=== PATIENT | female | born 1935 | race Caucasian/White ===

== ENCOUNTER 2020-07-04 14:53 | Inpatient (IN) | payer MEDICARE, SELFPAY ==
[2020-07-04 15:14] VITALS: BMI 31.8
--- NOTE | 2020-07-04 15:25 | PCM.HP.STD ---
Problem List (1) PAF (paroxysmal atrial fibrillation) Status: Acute (2) Chronic anticoagulation Status: Acute (3) Debility Status: Acute (4) Cerebrovascular accident, embolic Status: Acute Qualifiers: Laterality of affected vessel: left (5) Osteoarthritis Status: Chronic (6) Hypertension Status: Chronic (7) Keratitis Status: Chronic (8) Obesity (BMI 30.0-34.9) Status: Chronic (9) Acidosis, metabolic Status: Acute (10) Dehydration Status: Acute (11) Normochromic normocytic anemia Status: Acute (12) Acute renal failure superimposed on chronic kidney disease Status: Acute (13) Gout Status: Chronic Qualifiers: Encounter type: subsequent encounter (14) Hyperuricemia Status: Chronic History of Present Illness Date of Admission: 07/04/20 Chief Complaint: Debility secondary to left pontine embolic CVA in a patient with new onset atrial fibrillation The patient is a 85 year old F with a past medical history of osteoarthritis, gout, hypertension, keratitis, obesity and chronic renal failure. She presented to the emergency room at [facility] on 06/28/2020 complaining of vertigo. She was diagnosed with atrial fibrillation with rapid ventricular response and was treated in the emergency department with diltiazem. A CT brain showed a small chronic/subacute infarct in the right basal ganglia. No focal neurologic deficits were mentioned on the ER report. The heart rate was controlled and she was transitioned to their swing unit. Lab in the emergency room showed a sodium of 139, potassium of 4.8, BUN of 71 and a creatinine of 2.35. Hemoglobin was 12.2. She was started on Xarelto. She later developed slurred speech and her BP went up. She had an MRI of the brain on 07/04/20 that showed left pontine and focal embolic appearing left brachium pontis late acute infarctions. There was no intracranial hemorrhage or mass. There was a lacunar encephalomalacia in the right striatal capsular region. No lab was repeated after she left the ED. She had an ECHO in the emergency department that showed a 55% left ventricular ejection fraction with a mild increased wall thickness of the left ventricle. The estimated right ventricular systolic pressure was 15 and the atria were both of normal size. She was transferred to the acute inpt rehab unit at [facility] on 07/04/20 with a diagnosis of acute embolic CVA for 3 hours of therapy daily to restore hear at or near her prior level of function. Past Medical History Past Medical History (Chronic Problems): Chronic Problems Osteoarthritis (Chronic) Hypertension (Chronic) Keratitis (Chronic) Obesity (BMI 30.0-34.9) (Chronic) Gout (Chronic) Hyperuricemia (Chronic) Home Medications: Ambulatory Orders Medication Instructions Recorded Allopurinol [Zyloprim] 100 mg PO DAILYCM 07/04/20 Apixaban [Eliquis] 5 mg PO BID 07/04/20 Atenolol [Tenormin (Beta [place])] 100 mg PO BID 07/04/20 Multivitamin [Daily Multiple 1 ea PO DAILY 07/04/20 Vitamin] Valsartan [Diovan] 160 mg PO DAILY 07/04/20 Vit A/Vit C/Vit E/Zinc/Copper 1 ea PO BID 07/04/20 [Preservision Areds Softgel] Surgical History: cataract - with IOL implants, cholecystectomy, hysterectomy Psychiatric History: No pertinent psych hx 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 Denies: Anorexia, Chills, Fever, Weight Change Eyes: Reports: Vision Change HEENT: Reports: Difficulty Swallowing. Denies: Head Aches, Nasal Congestion, Sinus Congestion, Sinus Drainage, Sore Throat Cardiovascular: Denies: Chest Pain, Edema, Light Headedness, Orthopnea, Palpitations, Syncope Respiratory: Denies: Cough, Shortness of Breath, Shortness of breath at rest, Sputum production Gastrointestinal: Denies: Abdominal Pain, Constipation, Diarrhea, Nausea, Vomiting Genitourinary: Denies: Dysuria Musculoskeletal: Reports: Joint Tenderness - due to OA of the knees and the hips. Denies: Joint Pain Skin: Denies: Jaundice, Lesions, Rash, Wounds Neurological: Reports: Balance problems, Change in Speech, Slurred speech, Difficulty swallowing, Incoordination. Denies: Focal weakness, Headaches, Numbness, Tingling, Tremor, Seizures Psychiatric: Denies: Anxiety, Depression, Homicidal Ideations, Suicidal Ideations Endocrine: Denies: Hx of Irradiation Hematologic/ Lymphatic: Denies: Easy Bruising, Easy Bleeding VTE Information - Inpt Only VTE Present on Admission: No VTE Mechan Device Prophylaxis: Knee High KRYSTIAN Hose VTE Pharm Prophylaxis ordered?: No Reason prophylaxis not ordered:: Treatment Not Indicated - She is on Eliquis for atrial fibrillation Patient Problems: Active and Suspected Problems PAF (paroxysmal atrial fibrillation) (Acute) Chronic anticoagulation (Acute) Debility (Acute) Cerebrovascular accident, embolic (Acute) Acidosis, metabolic (Acute) Dehydration (Acute) Normochromic normocytic anemia (Acute) Acute renal failure superimposed on chronic kidney disease (Acute) - Physical Exam General: Alert, Oriented x3, Cooperative, No apparent distress, Well developed, Well nourished, - - Lying nearly flat in bed without any SOB HEENT: Atraumatic, PERRLA, EOMI, Normocephalic Oral: No Gingival or Mucosal Lesions/ Ulcerations, Dry Mucosa Neck: Supple, No JVD, Negative Carotid Bruits, No Nodes, No Nuchal Rigidity, Trachea Midline Lungs: Clear to auscultation, No rhonchi, No wheeze, No rales, Diminished Cardiovascular: Normal S1, Normal S2, No murmurs, No Ectopic Activity, Irregular Rate, No rub noted, No Gallop, - - heart sounds are distant Abdomen: Bowel Sounds Present, Soft, Non Tender, Non-Distended, - - No guarding with palpation. No suprapubic fullness. Extremities: No clubbing, No cyanosis, No edema, Capillary Refill Less than 3 Seconds, No Calf Tenderness, Diminished Peripheral Pulses - jose guadalupe in the legs Skin: No rashes, No breakdown Musculoskeletal: Arthritic Changes, - - no red swollen joints Neurological: - - Mild R facial droop. She has drift with the RUE but it does not hit the bed. She can lift the left leg about 3 inches off the bed but it drifts and hits the bed. Intact sensation. No ataxia. Speech is slurred. Some trouble with word finding. Psych/Mental Status: Normal Affect, Appropriate Assessment/Plan All Active Problems PAF (paroxysmal atrial fibrillation) (Acute) Chronic anticoagulation (Acute) Debility (Acute) Cerebrovascular accident, embolic (Acute) Acidosis, metabolic (Acute) Dehydration (Acute) Normochromic normocytic anemia (Acute) Acute renal failure superimposed on chronic kidney disease (Acute) Impressions 1. 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 Embolic left pontine CVA 3. Acute renal failure on chronic renal failure 4. Metabolic acidosis secondary to chronic kidney disease 5. Normochromic normocytic anemia-more likely than not secondary to chronic renal failure 6. Hyperuricemia with history of gout 7. Osteoarthritis 8. Hypertension 9. Keratitis 10. Atrial fibrillation PLAN PT for gait stability OT for ADL's ST for evaluation Bowel protocol Fall precautions Assess for Anxiety/Depression GI prophylaxis not needed at this time. She has no GI complaints and no hx of PUD. DVT prophylaxis-not necessary, patient is on Eliquis for A. fib Follow up with nephrology, Dr. Thomson and neurology following DC from IP Rehab AM lab including CMP, CBC, Mag and Phos I&O's and daily weights Get a copy of the MRI report from [facility] Request Dr. Thomson's last set of labs, problem list and med list and any consults she has ever had with a industrial organizational psychologist Encouraged her to increase her fluid intake Inpatient E&M: 17058 Init Hosp L3
--- NOTE | 2020-07-04 15:26 | PCM.RU.PYE ---
Admission Information Primary Diagnosis:: Debility secondary to recent ischemic CVA due to atrial fibrillation Status Changes from Prescreening?: Functional - she not only has the reported slurred speech she has in addition R hemiparesis, R facial droop, dysphagia and trouble word finding Actual Problem List:: Falls, Cognitve Impr/Memory Loss, Bladder Incontinence, Mobility Impaired, Self Care Deficit, Know.Dfct of Medicaitons, BP, Hypertension, Fluid Change-Dehydration, Alteration-Leisure Activ. Potential Problem List:: DVT, Bleeding, Infection, UTI, Aspiration, Falls, Skin Integrity, Depression Risk of Complications DVT: KRYSTIAN Waggoner, - - she is on Eliquis for AF Bleeding: Monitor Lab Values, Nursing to Teach Precautions for anti-coagulation therapy., Wound, if applicable, to be assessed every shift., Stroke patients assessed for lethargy or change in status. Infection: Clinical Staff to Monitor for S/S of infection:, S/S of infection include fever, redness, warmth, etc. Urinary Tract Infection: Monitor for frequency, burning, discomfort, or incontinence., Nursing will obtain urine sample for urinalysis and C&S when ordered. Aspiration: Clinical staff will monitor for coughing, drooling, congestion., Speech will evaluate swallowing and dsyphasia., Nursing will monitor patient swallowing during meals. Falls: Patient will be evaluated for Fall Precautions, Patient will be placed on Fall Precautions as indicated per protocol. Skin Breakdown: Nursing will assess skin daily using assessment tool., Nursing will place on Skin Breakdown Precautions as indicated. Pain: Clinical staff will assess patient's pain level per protocol., Medications will be given, if needed, and the pain level reassessed., Other methods: Massage, distraction, decrease stimulus, etc. used PRN. Plan of Care Patient requires physician specializing in physical medicine and rehab oversight to provide close medical supervision of rehab issues including: Pain Management, Sleep Problems, Bowel and Bladder, Medical and co-morbidity Management, DVT prophylaxis, Rehabilitation Leadership, Coordination of treatment team Patient needs Physical Therapy: For a minimum of 1 hour, At least 5 out of 7 days Patient needs Physical Therapy to improve:: Mobility, Mobility, Mobility, Strengthening, Transfers, Stretching, ROM, Endurance, Stairs, Gait, Balance Patient needs Occupational Therapy: For a minimum of 1 hour, At least 5 out of 7 days Patient needs Occupational Therapy to improve ADL's incl.: Eating, Grooming, Bathing, Dressing, Toileting, Toilet transfers, Community Reintegration, Higher functioning activities, Household tasks, Adaptive Equipment, Splinting, Other activities as determined Patient requires speech therapy: For a minimum of 1 hour, At least 5 out of 7 days Patient requires speech therapy for: Swallowing, Cognition, Language Skills, Compensatory Strategies Patient requires 24/ Rehabilitation Nursing for: Pain Issues, Identifying and preventing risk factors, Monitoring and reporting current medical conditions, Assisting with ambulation, transfer, and all ADL's, Teaching patients about disease process and medications, Family teaching, Providing safe environment, Bowel and Bladder Issues, Skin integrity, Medication Management Patient needs Section Beamer/ Case Management for: Discharge Planning, Arranging Home Equipment or Services, Family Interventions Patient needs Dietary and Nutrition Services for: Adequate Nutrition, Nutritional Supplements, Nutritional Education Goals Patient will remain: free from falls, or injury at time of discharge. Patient will perform bed mobility at: MOD I level of assist. Patient will complete transfers from bed to chair at: MOD I level of assist. Patient will ambulate: with MOD I assist, with LRD, - - 150 feet Patient will complete upper body dressing at: MOD I level of assist. Patient will complete lower body dressing at: MOD I level of assist. Patient will complete toileting at: MOD I level of assist. Patient will perform bathing at: MOD I level of assist. Patient will complete grooming at: MOD I level of assist. Patient will complete home management skills at: MOD I level of assist. Patient will achieve: at MOD I assist, - - 3 stairs Patient will have pain level of: of 3 or less Patient's skin will: remain intact, free from infection. Patient will receive: adequate nutrition. Discharge Planning Pt Prognosis for Sig. Practical Improv. w/in Reasonable Time: Good Estimated Length of stay (days): 21 Anticipated D/C Destination: Home with Home Health Was Preadmission Assessment Accurate?: No
[2020-07-04 15:34] VITALS: BP 114/49; PULSE 91; RESP 16; TEMP 37.2; O2SAT 99
[2020-07-04] MEDS: Multivitamin (Healthy Eyes) Capsule 1 CAP PO (16:49)
--- NOTE | 2020-07-04 17:00 | NURSING ---
Bedside swallow eval completed by this nurse. Patient did well with taking sips of water and no coughing noted. LCTA and checked after assessment. Patient and son agreed that she wants to be a DNRCCA no intubation. Patient verbalized understanding to call gold use.
[2020-07-04] MEDS: Acetaminophen 325 MG Tablet 650 MG PO (20:47)
[2020-07-04 21:59] VITALS: BMI 31.9
[2020-07-04 22:00] VITALS: BP 109/71; PULSE 84; RESP 16; TEMP 36.7; O2SAT 98
[2020-07-04] MEDS: Atenolol 100 MG Tablet PO (22:14)
[2020-07-04] MEDS: APIXABAN 5 MG TABLET PO (22:14)
[2020-07-04] MEDS: Menthol/Lanolin/Calamine/Znox 113 GM Tube 1 APPLIC TOPICAL (22:27)
[2020-07-04] MEDS: Nystatin Powder 15gm Bottle 1 APPLIC TOPICAL (22:50)
[2020-07-05] MEDS: Nystatin Powder 15gm Bottle 1 APPLIC TOPICAL ×2 (05:19→20:15)
[2020-07-05 05:45] LABS: Hematocrit 33.8 % (37-47); Hemoglobin 11.2 g/dL (12.0-15.0); Mean Corp Hgb Conc 33.1 g/dL (32-36); Mean Corpuscular Hgb 31.9 pg (27.0-32.0); Mean Corpuscular Volume 96.3 fL (81-99); Mean Platelet Vol. 11.8 fl (6.2-12.0); Platelet Count 155 K/mm3 (150-450); RBC Distribution Width CV 12.5 % (11.6-14.6); RBC Distribution Width SD 43.7 fl (35.1-43.9); Red Blood Count 3.51 M/mm3 (4.2-5.4); White Blood Count 9.1 K/mm3 (4.4-11.0)
[2020-07-05 06:04] LABS: ALB/GLOB Ratio 0.8 RATIO (0.9-2.4); AST(SGOT) 39 U/L (15-37); Alanine Aminotransfer ALT/SGPT 36 U/L (13-56); Albumin, Serum 2.9 g/dL (3.2-5.0); Alkaline Phosphatase 89 U/L (45-117); Anion Gap 8 (5-15); BUN 100 mg/dL (7-18); BUN/Creat Ratio 34.2 RATIO (10-20); Calcium,Total 8.9 mg/dL (8.5-10.1); Chloride 112 mmol/L (98-107); Creatinine, Serum 2.92 mg/dL (0.55-1.02); EST Glomerular Filtration Rate 16 mL/min (>60); Est Glom Filt Rate - Afr Amer 20 mL/min (>60); Estimated Creatinine Clearance 11.55 ml/min; Globulin 3.6 g/dL (2.2-4.2); Glucose 120 mg/dL (74-106); Potassium 4.2 mmol/L (3.5-5.1); Protein, Total 6.5 g/dL (6.4-8.2); Sodium Level 140 mmol/L (136-145)
[2020-07-05 07:10] VITALS: O2SAT 98
[2020-07-05] MEDS: Senna/Docusate Sodium 1 Tablet 2 TABLET PO ×2 (07:50→20:16)
[2020-07-05] MEDS: NYSTATIN 500,000 UNIT/5 ML UDC 500000 UNIT PO ×4 (07:50→20:16)
[2020-07-05] MEDS: APIXABAN 5 MG TABLET PO ×2 (07:50→20:15)
[2020-07-05] MEDS: Allopurinol 100 MG Tablet PO (07:51)
[2020-07-05] MEDS: Menthol/Lanolin/Calamine/Znox 113 GM Tube 1 APPLIC TOPICAL ×2 (07:51→20:15)
[2020-07-05] MEDS: Atenolol 100 MG Tablet PO ×2 (07:51→20:16)
[2020-07-05] MEDS: Multivitamins,Therapeutic Tablet 1 TABLET PO (07:51)
[2020-07-05] MEDS: Multivitamin (Healthy Eyes) Capsule 1 CAP PO ×2 (07:51→16:36)
[2020-07-05] MEDS: Losartan Potassium 50 MG Tablet PO (07:51)
[2020-07-05 07:55] VITALS: RESP 16; O2SAT 94
[2020-07-05 09:02] VITALS: BP 108/7; PULSE 76; RESP 16; TEMP 36.7; O2SAT 94
[2020-07-05] MEDS: Acetaminophen 325 MG Tablet 650 MG PO ×2 (10:40→23:32)
--- NOTE | 2020-07-05 12:51 | CASEMGMT ---
Social Work Completed PHQ-9. Scored 0. Tuyet Silva, SKIN DIVER SKIP LOCATOR
[2020-07-05] MEDS: 0.9% Saline Lock 10 ML Syringe IV (14:57)
[2020-07-05 15:24] LABS: Phosphorus 4.7 mg/dL (2.5-4.9)
[2020-07-05] MEDS: 0.9% Normal Saline 1,000 ML 75 ML IV (16:02)
[2020-07-05 22:00] VITALS: BP 105/53; PULSE 85; RESP 16; TEMP 36.8; O2SAT 96
[2020-07-06] MEDS: 0.9% Normal Saline 1,000 ML 75 ML IV ×2 (05:45→19:05)
[2020-07-06] MEDS: Nystatin Powder 15gm Bottle 1 APPLIC TOPICAL ×2 (05:50→21:55)
[2020-07-06 06:08] LABS: Anion Gap 7 (5-15); BUN 98 mg/dL (7-18); BUN/Creat Ratio 33.6 RATIO (10-20); Calcium,Total 8.5 mg/dL (8.5-10.1); Chloride 115 mmol/L (98-107); Creatinine, Serum 2.92 mg/dL (0.55-1.02); EST Glomerular Filtration Rate 16 mL/min (>60); Est Glom Filt Rate - Afr Amer 20 mL/min (>60); Estimated Creatinine Clearance 11.55 ml/min; Glucose 100 mg/dL (74-106); Potassium 4.2 mmol/L (3.5-5.1); Sodium Level 142 mmol/L (136-145)
[2020-07-06] MEDS: Multivitamin (Healthy Eyes) Capsule 1 CAP PO ×2 (08:10→17:44)
[2020-07-06] MEDS: Allopurinol 100 MG Tablet PO (08:11)
[2020-07-06] MEDS: Sodium Bicarbonate 650 MG Tablet PO ×2 (08:11→08:13)
[2020-07-06] MEDS: Menthol/Lanolin/Calamine/Znox 113 GM Tube 1 APPLIC TOPICAL ×2 (08:12→21:54)
[2020-07-06] MEDS: Multivitamins,Therapeutic Tablet 1 TABLET PO (08:12)
[2020-07-06] MEDS: Losartan Potassium 50 MG Tablet PO (08:12)
[2020-07-06] MEDS: APIXABAN 5 MG TABLET PO ×2 (08:12→21:54)
[2020-07-06] MEDS: NYSTATIN 500,000 UNIT/5 ML UDC 500000 UNIT PO ×4 (08:13→21:55)
[2020-07-06] MEDS: Atenolol 100 MG Tablet PO ×2 (08:14→21:55)
[2020-07-06 08:27] LABS: Hemoglobin A1c 5.7 % (3.8-5.6)
--- NOTE | 2020-07-06 09:30 | PCM.PN.BLA ---
Progress Note Afebrile since admission Blood pressures have ranged from 105/53-114/49. Heart rate is within normal limits. She is maintaining appropriate oxygen saturation on room air. Intake and output are not accurate. Patient is sometimes incontinent of urine. I reviewed the PT/ST/OT notes. Diet was downgraded due to dysphagia. All lab was personally reviewed. Sodium today is 142 with a potassium of 4.2. BUN is 98, down from 100 yesterday and the creatinine remains stable at 2.92. Serum bicarb is 20. Hemoglobin A1c is 5.7. Creat on 06/28/20 was 2.35. She has never seen a enrollment management director. Tells me that the R side weakness has been there only a few days and that her R leg was giving out. Prior to recent hospital admission she was driving, active in the community, independent with ADL's and managing her medication and finances. Denies SOB today and also denies chest pain or palpitations. Denies nausea, denies cephalgia. Speech seems a little more intelligible today. MM are more moist, the tongus is coated with adherent white yellow DC and she is complaining her tongue is sore No JVD Lungs are CTA anterior and lateral and she has no coughing with deep breaths. No conversational dyspnea, not tachypneic and no accessory muscle use Heart-irregular irregular rhythm with controlled ventricular response, no pericardial friction rub, no murmur, no gallop, heart sounds are somewhat distant No peripheral edema, no calf tenderness No significant change in neuro exam today - still with R side weakness, mild R facial droop and mild dysarthria Impressions 1. Acute on chronic renal failure - We are awaiting the records from Dr. Thomson to see what her baseline CREAT is. I suspect she had ARF in the ED at [place] on 06/28/20 due to atrial fibrillation with rapid ventricular response 2. Atrial fibrillation-rate controlled with atenolol 100 mg twice daily 3. History of hyperuricemia and gout-uric acid level is pending 4. Mild metabolic acidosis likely secondary to renal failure 5. Thrush-she is on nystatin swish and swallow 6. Chronic anticoagulation with Eliquis-was previously placed on Xarelto at [facility] 7. Hypertension-controlled 8. Dehydration-mucous primaries are now more moist since IV fluids have started. Continue to monitor closely for signs of fluid overload. Strict intake and output-this will be challenging because the patient has some dribbling of urine. Post void residuals are minimal and less than [address] Zenaida Barragan for nephrology consult recheck an HH and renal profile in the AM Await the most recent labs from Dr. Thomson's office Continue to hydrate. DC the ARB HCTZ was discontinued at admission Check a Hemoccult stool Continue [facility] Inpatient E&M: 60494 Subs Hosp L2
[2020-07-06 10:00] VITALS: BP 138/61; PULSE 82; RESP 16; TEMP 36.9; O2SAT 96
[2020-07-06 11:45] LABS: Uric Acid 7.8 mg/dL (2.6-6.0)
--- NOTE | 2020-07-06 12:31 | PCM.CONS.R ---
Consultation - Renal 07/06/20 PCP/ Referring MD: Requesting physician: Gillian Hsu DO Primary care physician: Reason for Consultation:: ENRIQUE on CKD - History of Present Illness History of Present Illness: The patient is a 85 year old right handed F with past medical history of osteoarthritis, gout, hypertension, and chronic renal failure admitted to on 07/04/20 for rehab following hospitalization at [facility] on 06/28/2020 for stroke. She presented with complaints of vertigo with new onset afib with rvr. She was on on anticoagulation at home. CT brain showed a small chronic/subacute infarct in the right basal ganglia. She has right sided weakness with history of dysarthria and facial droop. She had an MRI of the brain on 07/04/20 that showed left pontine and focal embolic appearing left brachium pontis late acute infarctions. There was no intracranial hemorrhage or mass. There was a lacunar encephalomalacia in the right striatal capsular region. She was started on Xarelto. Labs in the emergency room showed a sodium of 139, potassium of 4.8, BUN of 71 and a creatinine of 2.35. Hemoglobin was 12.2. Creatinine on admission to was 2.9 and was started on iv fluids for dehydration. Her ARB therapy for hypertension was held due to rise in creatinine. She denies trouble swallowing. She complains of thirst. Denies urinary complaints. Never been told she had kidney problems or been seen by a pouch maker in the past. Denies diabetes, heart disease, prior strokes, cancer. - Allergies Allergies: Allergies amlodipine [From Norvasc] Adverse Reaction (Verified 07/04/20 16:03) PT UNSURE OF REACTION amoxicillin [From Augmentin] Adverse Reaction (Verified 07/04/20 17:59) PT UNSURE OF REACTION clavulanic acid [From Augmentin] Adverse Reaction (Verified 07/04/20 17:59) PT UNSURE OF REACTION diphtheria, pertussis, tetanus vacc Adverse Reaction (Verified 07/04/20 16:03) PT UNSURE OF REACTION hydrochlorothiazide [From Maxzide] Adverse Reaction (Verified 07/04/20 16:03) PT UNSURE OF REACTION lisinopril Adverse Reaction (Verified 07/04/20 16:03) PT UNSURE OF REACTION Sulfa (Sulfonamide Antibiotics) Adverse Reaction (Verified 07/04/20 16:03) PT UNSURE OF REACTION triamterene [From Maxzide] Adverse Reaction (Verified 07/04/20 16:03) PT UNSURE OF REACTION - Current Medications Current Medications: Current Medications Acetaminophen (Tylenol) 650 mg PO Q6H PRN PRN PRN Reason: Pain Score 1-10/10 Last Admin: 07/05/20 23:32 Dose: 650 mg Documented by: [facility] Last Admin: 07/06/20 08:11 Dose: 100 mg Documented by: Apixaban (Eliquis) 5 mg PO BID [facility] Last Admin: 07/06/20 08:12 Dose: 5 mg Documented by: Atenolol (Tenormin (Beta [place])) 100 mg PO BID [facility] Last Admin: 07/06/20 08:14 Dose: 100 mg Documented by: Bisacodyl (Dulcolax) 10 mg RECTAL .PRN X 1 PRN PRN Reason: Constipation Calamine/Phenol (Calmoseptine Ointment) 1 applic TOPICAL BID [facility]; Protocol Last Admin: 07/06/20 08:12 Dose: 1 applicatio Documented by: Sodium Chloride () 1,000 mls @ 75 mls/hr IV .[id number] [facility] Last Admin: 07/06/20 05:45 Dose: 75 mls/hr Documented by: Magnesium Hydroxide (Milk Of Magnesia) 30 ml PO .PRN X 1 PRN PRN Reason: Constipation Multivitamins (Multivitamin) 1 tablet PO DAILY@0800 [facility] Last Admin: 07/06/20 08:12 Dose: 1 tablet Documented by: Multivitamins/Minerals (Healthy Eyes (Bkc)) [facility] Last Admin: 07/06/20 08:10 Dose: 1 capsule Documented by: Nystatin (Mycostatin Powder) 1 applic TOPICAL BID@0600,2200 [facility]; Protocol Last Admin: 07/06/20 05:50 Dose: 1 applicatio Documented by: Nystatin (Nystatin) 500,000 unit PO 4X/DAY [facility] Last Admin: 07/06/20 08:13 Dose: 500,000 unit Documented by: Senna/Docusate Sodium (Senokot-S, Shefali-Colace) 2 tablet PO BID [facility] Last Admin: 07/06/20 08:14 Dose: Not Given Documented by: Sodium Bicarbonate (Sodium Bicarbonate) 650 mg PO DAILY [facility] Last Admin: 07/06/20 08:13 Dose: 650 mg Documented by: Sodium Chloride () 10 - 40 ml IV UD PRN PRN Reason: SALINE FLUSH Last Admin: 07/05/20 14:57 Dose: 10 ml Documented by: Sodium Chloride () 10 - 40 ml IV UD PRN PRN Reason: SALINE FLUSH - Past Medical History Past Medical History (Chronic Problems): Chronic Problems Osteoarthritis (Chronic) Hypertension (Chronic) Keratitis (Chronic) Obesity (BMI 30.0-34.9) (Chronic) Gout (Chronic) Hyperuricemia (Chronic) - Past Surgical History Surgical History: cataract - with IOL implants, cholecystectomy, hysterectomy - Social History Smoking Status: Never smoker Alcohol: None Drugs: None - Family History Maternal History Items: Hypertension, Stroke Paternal History Items: Cancer, Pulmonary Disease, Stroke Sibling History Items: Cancer, Diabetes, Heart Disease, Stroke Offspring History Items: Stroke - in her daughter Review of Systems Constitutional: Reports: Weakness - right sided from recent stroke. Denies: Anorexia, Chills, Fever Eyes: Denies: Vision Change HEENT: Denies: Head Aches Cardiovascular: Denies: Chest Pain Respiratory: Denies: Cough, Shortness of Breath Gastrointestinal: Reports: - - thirst. Denies: Abdominal Pain, Constipation, Diarrhea, Nausea, Vomiting Musculoskeletal: Reports: - - no edema, - - right sided muscle weakness Skin: Denies: Rash Neurological: Reports: Balance problems, Focal weakness - right hemiplegia. Denies: Numbness Psychiatric: Denies: Anxiety Endocrine: Denies: Change in Body Habitus Hematologic/ Lymphatic: Denies: Hx of blood clot Patient Problems: Active and Suspected Problems PAF (paroxysmal atrial fibrillation) (Acute) Chronic anticoagulation (Acute) Debility (Acute) Cerebrovascular accident, embolic (Acute) Acidosis, metabolic (Acute) Dehydration (Acute) Normochromic normocytic anemia (Acute) Acute renal failure superimposed on chronic kidney disease (Acute) - Physical Exam Vitals/I&O's: Vital Signs Temp Pulse Resp BP Pulse Ox 98.4 F 82 16 138/61 H 96 07/06/20 10:00 07/06/20 10:00 07/06/20 10:00 07/06/20 10:00 07/06/20 10:00 Oxygen Delivery Method Room Air Weight: 78.5 kg Body Mass Index (BMI) 31.8 Intake and Output for Last 24 Hours 07/04/20 07/05/20 07/06/20 23:59 23:59 23:59 Intake Total 360 / 360 600 / 600 1360 / 1360 Output Total 450 / 450 Balance 360 / 360 150 / 150 1360 / 1360 General: Alert, Oriented x3, Cooperative, No apparent distress HEENT: PERRLA, EOMI Oral: Dry Mucosa Neck: Supple Lungs: Clear to auscultation Cardiovascular: Irregular Rate - new onset afib Abdomen: Bowel Sounds Present, Soft, Non Tender, Non-Distended Extremities: No edema Musculoskeletal: No Muscle Wasting Neurological: - - mild right sided weakness, 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 Psych/Mental Status: Alert and oriented to time, place, person, mood and affect Laboratory Results 07/05/20 05:30: Phosphorus 4.7, Magnesium 2.0 07/06/20 05:25: Sodium 142, Potassium 4.2, Chloride 115 H, Carbon Dioxide 20.0 L, Anion Gap 7, BUN 98 H, Creatinine 2.92 H, Estim Creat Clear Calc 11.55, Est GFR (MDRD) Af Amer 20 L, Est GFR (MDRD) Non-Af 16 L, BUN/Creatinine Ratio 33.6 H, Glucose 100, Calcium 8.5 07/06/20 05:25: Hemoglobin A1c 5.7 H 07/06/20 05:25: Uric Acid 7.8 H Current Medications Acetaminophen (Tylenol) 650 mg PO Q6H PRN PRN PRN Reason: Pain Score 1-10/10 Last Admin: 07/05/20 23:32 Dose: 650 mg Documented by: [facility]) [facility] Last Admin: 07/06/20 08:11 Dose: 100 mg Documented by: Apixaban (Eliquis) 5 mg PO BID [facility] Last Admin: 07/06/20 08:12 Dose: 5 mg Documented by: Atenolol (Tenormin (Beta [place])) 100 mg PO BID [facility] Last Admin: 07/06/20 08:14 Dose: 100 mg Documented by: Bisacodyl (Dulcolax) 10 mg RECTAL .PRN X 1 PRN PRN Reason: Constipation Calamine/Phenol (Calmoseptine Ointment) 1 applic TOPICAL BID [facility]; Protocol Last Admin: 07/06/20 08:12 Dose: 1 applicatio Documented by: Sodium Chloride () 1,000 mls @ 75 mls/hr IV .[id number] [facility] Last Admin: 07/06/20 05:45 Dose: 75 mls/hr Documented by: Magnesium Hydroxide (Milk Of Magnesia) 30 ml PO .PRN X 1 PRN PRN Reason: Constipation Multivitamins (Multivitamin) 1 tablet PO DAILY@0800 [facility] Last Admin: 07/06/20 08:12 Dose: 1 tablet Documented by: Multivitamins/Minerals (Healthy Eyes (Bkc)) 1 capsule PO BIDCM [facility] Last Admin: 07/06/20 08:10 Dose: 1 capsule Documented by: Nystatin (Mycostatin Powder) 1 applic TOPICAL BID@0600,2200 [facility]; Protocol Last Admin: 07/06/20 05:50 Dose: 1 applicatio Documented by: Nystatin (Nystatin) 500,000 unit PO 4X/DAY [facility] Last Admin: 07/06/20 08:13 Dose: 500,000 unit Documented by: Senna/Docusate Sodium (Senokot-S, Shefali-Colace) 2 tablet PO BID [facility] Last Admin: 07/06/20 08:14 Dose: Not Given Documented by: Sodium Bicarbonate (Sodium Bicarbonate) 650 mg PO DAILY [facility] Last Admin: 07/06/20 08:13 Dose: 650 mg Documented by: Sodium Chloride () 10 - 40 ml IV UD PRN PRN Reason: SALINE FLUSH Last Admin: 07/05/20 14:57 Dose: 10 ml Documented by: Sodium Chloride () 10 - 40 ml IV UD PRN PRN Reason: SALINE FLUSH Assessment/Plan All Active Problems PAF (paroxysmal atrial fibrillation) (Acute) Chronic anticoagulation (Acute) Debility (Acute) Cerebrovascular accident, embolic (Acute) Acidosis, metabolic (Acute) Dehydration (Acute) Normochromic normocytic anemia (Acute) Acute renal failure superimposed on chronic kidney disease (Acute) 1. Acute on CKD stage 4. Creatinine 2.9 with unknown baseline. Continue with iv fluids. Check renal US, urine sodium, creatinine, protein. May have underlying CKD from nephrosclerosis. No history of diabetes 2. Acute stroke with right sided weakness, RU 3. New onset afib 4. HTN stable BP 5. hyperuricemia on allopurinol 6. Mild metabolic acidosis likely due to CKD
--- NOTE | 2020-07-06 14:05 | US_ITS ---
STUDY: RENAL ULTRASOUND - COMPLETE REASON FOR EXAM: Female, 85 years old. RENAL FAILURE TECHNIQUE: Ultrasound evaluation of the kidneys was performed with real-time and static parra-scale imaging. COMPARISON: None. FINDINGS: RIGHT KIDNEY: Normal location of the right kidney, which is normal in size. The right kidney measures 10.1 x 3.7 x 3.9 cm. There is a thin cortex of the right kidney. The renal cortex measures 0.6 cm. There are multiple renal cysts the largest measuring 7 x 6.7 x 9.8 cm There are no right renal calculi. There is no right hydronephrosis. DISTAL RIGHT URETER: There is non-visualization of the distal right ureter. There is no demonstrated right ureterovesical junction calculus. There is a visualized right ureteral jet. LEFT KIDNEY: Normal location of the left kidney, which is normal in size. The left kidney measures 9.3 x 4 x 3.8 cm. There is a thin cortex of the left kidney. The renal cortex measures 0.7 cm. There are multiple cysts the largest measuring 2.1 x 2.9 x 1.5 cm. There are no left renal calculi. There is no left hydronephrosis. Diffusely increased cortical echoes are seen consistent with nonspecific renal parenchymal disease DISTAL LEFT URETER: There is non-visualization of the distal left ureter. There is no demonstrated left ureterovesical junction calculus. There is a visualized left ureteral jet. BLADDER: The distended urinary bladder has a volume of 83.34 ml.. There is a normal wall thickness of the distended urinary bladder. There is no demonstrated mass within the urinary bladder. There are no demonstrated bladder calculi. US/Kidney and Bladder IMPRESSION: Nonspecific renal parenchymal disease and multiple bilateral cysts Electronically Signed: Jayy Duncan MD at 22:46 EDT , Service support ,
[2020-07-06 15:15] LABS: Mucous, Urine 0 SEEN /hpf (<or=2+); Red Blood Cells-Urine 0 SEEN /hpf (0-5); Squamous Epithelial Cells - UA 0 SEEN /hpf (5-10)
[2020-07-06 15:32] LABS: Color, Urine Yellow (Yellow); Glucose, Dipstick Normal (Normal); Ketone-Dipstick Negative (Negative); Leukocyte Esterase-Dipstick 100 /ul (Negative); Nitrite-Dipstick Negative (Negative); Occult Blood-Urine Negative /ul (Negative); Protein-Dipstick 30 mg/dl (Negative); Urine Bilirubin Dipstick Negative (Negative); Urine Clarity Clear (Clear); Urine Urobilinogen Normal (Normal); Urine pH 6.5 (5.0 - 8.0)
[2020-07-06 15:39] LABS: Bacteria 2+ /hpf (None Seen); White Blood Cells 0-5 SEEN /hpf (0-5)
[2020-07-06 15:47] VITALS: BP 122/60; BP 129/69; BP 130/73; PULSE 72; PULSE 82; PULSE 85
[2020-07-06 15:48] LABS: Urine Sodium 70 mmol/L (Not Establ.)
[2020-07-06 16:05] LABS: Protein, Urine (Random) 29.1 mg/dL (<11.9); Protein:Creat Ratio 318 mg/g CRE (0-200)
[2020-07-06 20:30] VITALS: BMI 31.8
[2020-07-06 22:00] VITALS: BP 108/56; PULSE 76; RESP 16; TEMP 36.6; O2SAT 93; O2SAT 95
[2020-07-07 06:03] LABS: Hematocrit 30.2 % (37-47); Hemoglobin 9.9 g/dL (12.0-15.0)
[2020-07-07 06:20] VITALS: O2SAT 97
[2020-07-07] MEDS: Nystatin Powder 15gm Bottle 1 APPLIC TOPICAL ×2 (06:50→21:42)
[2020-07-07 07:32] LABS: Albumin, Serum 2.5 g/dL (3.2-5.0); BUN 83 mg/dL (7-18); BUN/Creat Ratio 33.5 RATIO (10-20); Calcium,Total 8.6 mg/dL (8.5-10.1); Chloride 119 mmol/L (98-107); Creatinine, Serum 2.48 mg/dL (0.55-1.02); EST Glomerular Filtration Rate 20 mL/min (>60); Est Glom Filt Rate - Afr Amer 24 mL/min (>60); Estimated Creatinine Clearance 13.59 ml/min; Glucose 94 mg/dL (74-106); Phosphorus 4.3 mg/dL (2.5-4.9); Potassium 4.5 mmol/L (3.5-5.1); Sodium Level 146 mmol/L (136-145)
[2020-07-07] MEDS: Multivitamin (Healthy Eyes) Capsule 1 CAP PO ×2 (07:47)
[2020-07-07] MEDS: Atenolol 100 MG Tablet PO ×2 (07:47→21:42)
[2020-07-07] MEDS: Allopurinol 100 MG Tablet PO (07:47)
[2020-07-07] MEDS: Multivitamins,Therapeutic Tablet 1 TABLET PO (07:47)
[2020-07-07] MEDS: Menthol/Lanolin/Calamine/Znox 113 GM Tube 1 APPLIC TOPICAL ×2 (07:48→21:43)
[2020-07-07] MEDS: APIXABAN 5 MG TABLET PO ×2 (07:48→21:42)
[2020-07-07] MEDS: NYSTATIN 500,000 UNIT/5 ML UDC 500000 UNIT PO ×4 (07:48→21:44)
[2020-07-07 09:43] VITALS: BP 112/60; PULSE 72; RESP 16; TEMP 36.6; O2SAT 93
[2020-07-07] MEDS: 0.45% Normal Saline 1,000 ML 75 ML IV (10:21)
[2020-07-07] MEDS: Sodium Bicarbonate 650 MG Tablet PO ×2 (10:22→21:42)
--- NOTE | 2020-07-07 10:25 | CASEMGMT ---
Social Work IDT met with patient and son for Team meeting. Discussed patient's progress in therapy. Pt is mod-max for sit to stands, max for SPT, trialed hemiwalker but doing better with FWW. Ambulating 20 ft mond-min, PT to start working on mechanics of walking and tx soon. Pt is max for bathing total for LE dressing, max for UE dressing, and OT will work on writing. ST working on swallowing, cognition and dysarthria. Pt is on a [facility] soft, thickened liquid diet. Pt having issues with attention, memory, word finding, numerical processing. Pt is receiving IV fluids. Nursing is monitoring weight and orthostatic BPs. Nursing DC'd [place], but pt does fatigue in the evening. Explained [employer] insurance with [employer] 07/11, approved to 07/13, and pt must continue to make progress. The goal is for pt to return home at [facility]. Will Reteam next week. Will continue to follow. Tuyet Silva, REMI HADOOP ADMINISTRATOR
--- NOTE | 2020-07-07 11:12 | PN.RENAL_ITS ---
Patient Problems: Active and Suspected Problems PAF (paroxysmal atrial fibrillation) (Acute) Chronic anticoagulation (Acute) Debility (Acute) Cerebrovascular accident, embolic (Acute) Acidosis, metabolic (Acute) Dehydration (Acute) Normochromic normocytic anemia (Acute) Acute renal failure superimposed on chronic kidney disease (Acute) Subjective: doing well, no complaints of SOB. Complains of water not tasting good. Creatinine improved to 2.4. Sodium elevated at 146. Spoke with pt son Satnam at bedside - Physical Exam Vitals/I&O's: Vital Signs Temp Pulse Resp BP Pulse Ox 97.8 F 72 16 112/60 93 07/07/20 09:43 07/07/20 09:43 07/07/20 09:43 07/07/20 09:43 07/07/20 09:43 Oxygen Delivery Method Room Air Weight: 80.286 kg Body Mass Index (BMI) 31.8 Orthostatic Vital Signs Start: 07/06/20 15:47 Freq: q24h Status: Active Protocol: Activity Type Activity Date Activity User E-Sign Co-Sign Detail Recorded Client Recorded Date Recorded By Document 07/06/20 15:47 AG [id number] 07/06/20 15:49 AG 07/06/20 15:47 Orthostatic Vitals Standing -Blood Pressure (90/60-120/80) 130/73 H -Extremity Use Right Arm -Pulse Rate (60-100) 82 Sitting -Blood Pressure (90/60-120/80) 129/69 H -Extremity Use Right Arm -Pulse Rate (60-100) 72 Lying -Blood Pressure (90/60-120/80) 122/60 H -Extremity Use Right Arm -Pulse Rate (60-100) 85 Intake and Output for Last 24 Hours 07/05/20 07/06/20 07/07/20 23:59 23:59 23:59 Intake Total 600 / 600 2480 / 2480 1300 / 1300 Output Total 450 / 450 500 / 500 750 / 750 Balance 150 / 150 1979 / 1979 550 / 550 General: Alert, Oriented x3, Cooperative Lungs: Clear to auscultation Extremities: No edema Microbiology Past 72 Hours 07/06/20 06:55 Stool Stool Occult Blood (CARLOS) - Final Occult Blood Positive Laboratory Results 07/06/20 05:25: Uric Acid 7.8 H 07/06/20 14:10: Urine Creatinine 93.10 07/06/20 14:10: U Random Total Protein 29.1 H, Urine Creatinine 91.50, Protein/Creatinin Ratio 318 H 07/06/20 14:10: Urine Color Yellow, Urine Clarity Clear, Urine pH 6.5, Ur Specific Crescent 1.010, Urine Protein 30 H, Urine Glucose (UA) Normal, Urine Ketones Negative, Urine Occult Blood Negative, Urine Nitrite Negative, Urine Bilirubin Negative, Urine Urobilinogen Normal, Ur Leukocyte Esterase 100 H, Urine RBC 0 SEEN, Urine WBC 0-5 SEEN, Ur Squamous Epith Cells 0 SEEN, Urine Bacteria 2+, Urine Mucus 0 SEEN 07/06/20 14:10: Ur Random Sodium 70 07/07/20 05:35: Hgb 9.9 L, Hct 30.2 L 07/07/20 05:35: Sodium 146 H, Potassium 4.5, Chloride 119 H, Carbon Dioxide 17.0 L, BUN 83 H, Creatinine 2.48 H, Estim Creat Clear Calc 13.59, Est GFR (MDRD) Af Amer 24 L, Est GFR (MDRD) Non-Af 20 L, BUN/Creatinine Ratio 33.5 H, Glucose 94, Calcium 8.6, Phosphorus 4.3, Albumin 2.5 L Current Medications Acetaminophen (Tylenol) 650 mg PO Q6H PRN PRN PRN Reason: Pain Score 1-10/10 Last Admin: 07/05/20 23:32 Dose: 650 mg Documented by: [facility]) [facility] Last Admin: 07/07/20 07:47 Dose: 100 mg Documented by: Apixaban (Eliquis) 5 mg PO BID [facility] Last Admin: 07/07/20 07:48 Dose: 5 mg Documented by: Atenolol (Tenormin (Beta [place])) 100 mg PO BID [facility] Last Admin: 07/07/20 07:47 Dose: 100 mg Documented by: Bisacodyl (Dulcolax) 10 mg RECTAL .PRN X 1 PRN PRN Reason: Constipation Calamine/Phenol (Calmoseptine Ointment) 1 applic TOPICAL BID [facility]; Protocol Last Admin: 07/07/20 07:48 Dose: 1 applicatio Documented by: Sodium Chloride () 1,000 mls @ 75 mls/hr IV .[id number] [facility] Last Admin: 07/07/20 10:21 Dose: 75 mls/hr Documented by: Magnesium Hydroxide (Milk Of Magnesia) 30 ml PO .PRN X 1 PRN PRN Reason: Constipation Multivitamins (Multivitamin) 1 tablet PO DAILY@0800 [facility] Last Admin: 07/07/20 07:47 Dose: 1 tablet Documented by: Multivitamins/Minerals (Healthy Eyes (Bkc)) 1 capsule PO BIDCM [facility] Last Admin: 07/07/20 07:47 Dose: 1 capsule Documented by: Nystatin (Mycostatin Powder) 1 applic TOPICAL BID@0600,2200 [facility]; Protocol Last Admin: 07/07/20 06:50 Dose: 1 applicatio Documented by: Nystatin (Nystatin) 500,000 unit PO 4X/DAY [facility] Last Admin: 07/07/20 07:48 Dose: 500,000 unit Documented by: Senna/Docusate Sodium (Senokot-S, Shefali-Colace) 2 tablet PO BID [facility] Last Admin: 07/07/20 07:48 Dose: Not Given Documented by: Sodium Bicarbonate (Sodium Bicarbonate) 650 mg PO BID [facility] Last Admin: 07/07/20 10:22 Dose: 650 mg Documented by: Sodium Chloride () 10 - 40 ml IV UD PRN PRN Reason: SALINE FLUSH Last Admin: 07/05/20 14:57 Dose: 10 ml Documented by: Sodium Chloride () 10 - 40 ml IV UD PRN PRN Reason: SALINE FLUSH Medical Necessity - Tobacco Use Smoking Status: Never smoker Tobacco Use: Non-smoker Assessment/Plan All Active Problems PAF (paroxysmal atrial fibrillation) (Acute) Chronic anticoagulation (Acute) Debility (Acute) Cerebrovascular accident, embolic (Acute) Acidosis, metabolic (Acute) Dehydration (Acute) Normochromic normocytic anemia (Acute) Acute renal failure superimposed on chronic kidney disease (Acute) 1. Acute on CKD stage 4. Creatinine improved from 2.9 to 2.48 with iv hydration. Renal US with multiple bilateral renal cysts. Unknown FH for PCKD. 2. Acute stroke with right sided weakness, Rehab 3. hypernatremia suggest switch to 1/2NS 4. HTN stable BP 5. metabolic acidosis on bicarb tabs
[2020-07-07 14:30] VITALS: BMI 31.8
--- NOTE | 2020-07-07 15:14 | PN_ITS ---
Progress Note So was seen on team rounds today and her son Satnam was present. Afebrile VSS Maintaining appropriate oxygen saturation on RA Oral intake is fair Discussed with nursing - no problems that need addressed Reviewed the PT/OT/ST notes Medication list reviewed. All lab was personally reviewed. Creat is down to 2.48 with IV fluids. I appreciate 's input. She denies chest pain, cephalgia, shortness of breath, N/V, abdominal pain, constipation, dysuria. MM are dry still. No mucosal lesions Lungs -clear to auscultation, not tachypneic Heart-irregular with controlled ventricular response, no gallop Abdomen-soft, nontender, nondistended, normal bowel sounds, no guarding with palpation No peripheral edema, no calf tenderness No rashes, no skin breakdown Neuro-persistent right-sided weakness with right facial droop. No significant change. Impressions 1. Post stroke debility 2. Atrial fibrillation- rate controlled with Atenolol 100 mg BID 3. Chronic anticoagulation recently started-she has been transitioned to Eliquis from Xarelto due to renal failure 4. Dehydration 5. Normochromic normocytic anemia-suspect secondary to chronic renal failure- she denies ever having seen a seedling sorter 6. acute renal failure on CRF stage 4 Continue the IV fluids. MM are still dry and her lungs are clear with no peripheral edema. Recheck lab in the AM. Will need to follow up with nephrology after DC Continue therapy. Inpatient E&M: [id number] [facility] L[facility]
--- NOTE | 2020-07-07 16:30 | CHAPLAIN ---
Type of Pastoral Visit _x__ Initial Visit ___ Follow-up Visit ___ On-call Visit ___ General Patient Visit ___ Spiritual Assessment ___ Family Conference ___ Bereavement ___ Rapid Response ___ Code Blue ___ Other (describe below) Pastoral Care Referral From _x__ Patient ___ Family _x__ Nurse ___ Physician ___ Live Truck Technician ___ Change Management Administrator ___ Other (describe below) Sacrament/Intervention _x__ Active listening ___ Anointing ___ Gnosticism ___ Bereavement ___ Communion _x__ Radha exploration ___ _x__ Life review _x__ Prayer ___ Reconciliation ___ Sacrament of Sick _x__ Supportive presence ___ Wedding ___ Other (describe below) Pastoral Comments patient welcoming and willing to talk; pt describes new limits in walking, use of arm, and speech; pt believes some improvement has happened and she is working on getting better; pt lives with her son; pt had been active in her shinto until COVID and looks to her radha for support; pt discussed a significant dream of spiritual nature with this artificial marble worker; pt welcomes presence, prayer, and future visits; pt goal is simply to get home again
[2020-07-07 19:20] VITALS: BP 119/66; PULSE 82; RESP 16; TEMP 36.7; O2SAT 98
[2020-07-07 21:55] VITALS: BMI 31.8
[2020-07-07 22:00] VITALS: RESP 17; O2SAT 97
[2020-07-07] MEDS: Acetaminophen 325 MG Tablet 650 MG PO (22:46)
[2020-07-08] MEDS: 0.45% Normal Saline 1,000 ML 75 ML IV ×2 (01:51→12:01)
[2020-07-08] MEDS: Nystatin Powder 15gm Bottle 1 APPLIC TOPICAL ×2 (05:18→22:02)
[2020-07-08 09:01] VITALS: BP 115/64; PULSE 79; RESP 16; TEMP 36.6; O2SAT 93
[2020-07-08 09:41] LABS: Anion Gap 5 (5-15); BUN 72 mg/dL (7-18); BUN/Creat Ratio 29.6 RATIO (10-20); Calcium,Total 8.6 mg/dL (8.5-10.1); Chloride 118 mmol/L (98-107); Creatinine, Serum 2.43 mg/dL (0.55-1.02); EST Glomerular Filtration Rate 20 mL/min (>60); Est Glom Filt Rate - Afr Amer 24 mL/min (>60); Estimated Creatinine Clearance 13.87 ml/min; Glucose 126 mg/dL (74-106); Potassium 4.2 mmol/L (3.5-5.1); Sodium Level 145 mmol/L (136-145)
[2020-07-08] MEDS: Allopurinol 100 MG Tablet PO (09:48)
[2020-07-08] MEDS: Multivitamin (Healthy Eyes) Capsule 1 CAP PO ×2 (09:48→16:59)
[2020-07-08] MEDS: APIXABAN 5 MG TABLET PO ×2 (09:48→22:02)
[2020-07-08] MEDS: Atenolol 100 MG Tablet PO ×2 (09:48→22:01)
[2020-07-08] MEDS: Multivitamins,Therapeutic Tablet 1 TABLET PO (09:48)
[2020-07-08] MEDS: Sodium Bicarbonate 650 MG Tablet PO ×2 (09:49→22:02)
[2020-07-08] MEDS: NYSTATIN 500,000 UNIT/5 ML UDC 500000 UNIT PO ×4 (09:49→22:02)
[2020-07-08] MEDS: Menthol/Lanolin/Calamine/Znox 113 GM Tube 1 APPLIC TOPICAL ×2 (10:01→22:02)
--- NOTE | 2020-07-08 10:27 | PCM.PN.BLA ---
Progress Note Afebrile since admission Vital signs are stable She is maintaining appropriate oxygen saturation on room air Oral intake remains poor Weight at admission was 173 pounds and 1 ounce and today is 176 pounds and 6 ounces following hydration. No symptoms of CHF. Last stool was 07/07/2020 Med list was reviewed. PT/ST/OT notes were reviewed. All lab was personally reviewed. Sodium is 145 today and the chloride is 118. Serum bicarb is 22 and the BUN is down to 72 from 100 on 07/05/2020. Creatinine is 2.43. Fasting glucose is mildly increased at 126 however the hemoglobin A1c this admission was 5.7. Calcium is within normal limits. She is leaning heavily to the left and retro lean also. Requiring Max assist to stand and pivot. Having trouble with the left leg now.....PT had to advance it for her. she is alert and oriented X3 and appropriate Lungs - cTA H - irreg, no gallop abd -soft and NT no edema no significant change in the neuro exam since yesterday. Impressions 1. Post stoke debility with retro and left lean today......this is new to the left. She had been on Xarelto with stage 4 CRF when she came to us. she has been converted to Apixaban. The stroke that caused the slurred speech, facial droop, dysphagia and R side weakness likely occurred Saturday or Saturday. Need to r/o hemorrhagic conversion. 2. AF - rate controlled with Atenolol 3. acute on CRF stage 4 - improved 4. dehydration - better and she is more alert now Stat non-contrasted CTB to r/o a hemorrhagic conversion DC IV fluids today and continue to encourage increased fluid intake Continue therapy Recheck lab on Saturday Urgent CT brain to R/O hemorrhagic conversion STROKE Vital Signs/Narrative: Vital Signs Temp Pulse Resp BP Pulse Ox 07/08/20 09:01 98 F 79 16 115/64 93 Inpatient E&M: [id number] Subs Hosp L2
--- NOTE | 2020-07-08 11:35 | CT_ITS ---
STUDY: CT BRAIN WITHOUT CONTRAST REASON FOR EXAM: Female, 85 years old. DECLINE IN FUNCTION POST STROKE RADIATION DOSAGE (If Supplied By Facility): CTDIvol = ( 44.99 ) mGy, DLP = ( 779.24 ) mGycm TECHNIQUE: Transaxial CT imaging of the brain was performed without administration of intravenous contrast material. Individualized dose optimization techniques were used for this CT. COMPARISON: No relevant priors. FINDINGS: Normal soft tissue structures. Normal calvarium. There is mild cerebral atrophy with widening of the extra-axial spaces and ventricular dilatation. There are areas of decreased attenuation within the white matter tracts of the supratentorial brain, consistent with microvascular disease changes. There is a 1.4 cm hypodensity in the body of the right caudate nucleus infarct with a prior stroke. Normal brainstem. Normal cerebellum. There is no intracranial hemorrhage. There are no findings of an acute ischemic infarction. Atherosclerotic plaque formation of the vertebral arteries and cavernous portions of the internal carotid arteries bilaterally. Partial opacification of the left sphenoid sinus. CT/Brain/Head without Contrast IMPRESSION: Chronic involutional changes of the brain. Evidence of ischemic change in the body of the right caudate nucleus. Partial opacification of the left sphenoid sinus. Electronically Signed: Keo Blackwell, at 12:24 EDT , Service support ,
--- NOTE | 2020-07-08 13:37 | PN.RENAL_ITS ---
Patient Problems: Active and Suspected Problems PAF (paroxysmal atrial fibrillation) (Acute) Chronic anticoagulation (Acute) Debility (Acute) Cerebrovascular accident, embolic (Acute) Acidosis, metabolic (Acute) Dehydration (Acute) Normochromic normocytic anemia (Acute) Acute renal failure superimposed on chronic kidney disease (Acute) Subjective: no shortness of breath, still with rt sided weakness. drinking more water as tolerated - Physical Exam Vitals/I&O's: Vital Signs Temp Pulse Resp BP Pulse Ox 98 F 79 16 115/64 93 07/08/20 09:01 07/08/20 09:01 07/08/20 09:01 07/08/20 09:01 07/08/20 09:01 Oxygen Delivery Method Room Air Weight: 80 kg Body Mass Index (BMI) 31.8 Orthostatic Vital Signs Start: 07/06/20 15:47 Freq: q24h Status: Active Protocol: Activity Type Activity Date Activity User E-Sign Co-Sign Detail Recorded Client Recorded Date Recorded By Document 07/06/20 15:47 AG [id number] 07/06/20 15:49 AG 07/06/20 15:47 Orthostatic Vitals Standing -Blood Pressure (90/60-120/80) 130/73 H -Extremity Use Right Arm -Pulse Rate (60-100) 82 Sitting -Blood Pressure (90/60-120/80) 129/69 H -Extremity Use Right Arm -Pulse Rate (60-100) 72 Lying -Blood Pressure (90/60-120/80) 122/60 H -Extremity Use Right Arm -Pulse Rate (60-100) 85 Intake and Output for Last 24 Hours 07/06/20 07/07/20 07/08/20 23:59 23:59 23:59 Intake Total 2480 / 2480 2900 / 2900 1002.5 / 1002.5 Output Total 500 / 500 1450 / 1450 Balance 1979 1450 / 1450 1002.5 / 1002.5 General: Alert, Oriented x3, Cooperative Lungs: Clear to auscultation Extremities: No edema Microbiology Past 72 Hours 07/06/20 06:55 Stool Stool Occult Blood (CARLOS) - Final Occult Blood Positive Laboratory Results 07/08/20 09:20: Sodium 145, Potassium 4.2, Chloride 118 H, Carbon Dioxide 22.0, Anion Gap 5, BUN 72 H, Creatinine 2.43 H, Estim Creat Clear Calc 13.87, Est GFR (MDRD) Af Amer 24 L, Est GFR (MDRD) Non-Af 20 L, BUN/Creatinine Ratio 29.6 H, Glucose 126 H, Calcium 8.6 Current Medications Acetaminophen (Tylenol) 650 mg PO Q6H PRN PRN PRN Reason: Pain Score 1-10/10 Last Admin: 07/07/20 22:46 Dose: 650 mg Documented by: [facility] Last Admin: 07/08/20 09:48 Dose: 100 mg Documented by: Apixaban (Eliquis) 5 mg PO BID [facility] Last Admin: 07/08/20 09:48 Dose: 5 mg Documented by: Atenolol (Tenormin (Beta [place])) 100 mg PO BID [facility] Last Admin: 07/08/20 09:48 Dose: 100 mg Documented by: Bisacodyl (Dulcolax) 10 mg RECTAL .PRN X 1 PRN PRN Reason: Constipation Calamine/Phenol (Calmoseptine Ointment) 1 applic TOPICAL BID [facility]; Protocol Last Admin: 07/08/20 10:01 Dose: 1 applicatio Documented by: Sodium Chloride () 1,000 mls @ 75 mls/hr IV .[id number] [facility] Last Admin: 07/08/20 12:01 Dose: 75 mls/hr Documented by: Magnesium Hydroxide (Milk Of Magnesia) 30 ml PO .PRN X 1 PRN PRN Reason: Constipation Multivitamins (Multivitamin) 1 tablet PO DAILY@0800 [facility] Last Admin: 07/08/20 09:48 Dose: 1 tablet Documented by: Multivitamins/Minerals (Healthy Eyes (Bkc)) [facility] Last Admin: 07/08/20 09:48 Dose: 1 capsule Documented by: Nystatin (Mycostatin Powder) 1 applic TOPICAL BID@0600,2200 [facility]; Protocol Last Admin: 07/08/20 05:18 Dose: 1 applicatio Documented by: Nystatin (Nystatin) 500,000 unit PO 4X/DAY [facility] Last Admin: 07/08/20 13:34 Dose: 500,000 unit Documented by: Senna/Docusate Sodium (Senokot-S, Shefali-Colace) 2 tablet PO BID [facility] Last Admin: 07/08/20 12:37 Dose: Not Given Documented by: Sodium Bicarbonate (Sodium Bicarbonate) 650 mg PO BID [facility] Last Admin: 07/08/20 09:49 Dose: 650 mg Documented by: Sodium Chloride () 10 - 40 ml IV UD PRN PRN Reason: SALINE FLUSH Last Admin: 07/05/20 14:57 Dose: 10 ml Documented by: Sodium Chloride () 10 - 40 ml IV UD PRN PRN Reason: SALINE FLUSH Medical Necessity - Tobacco Use Smoking Status: Never smoker Tobacco Use: Non-smoker Assessment/Plan All Active Problems PAF (paroxysmal atrial fibrillation) (Acute) Chronic anticoagulation (Acute) Debility (Acute) Cerebrovascular accident, embolic (Acute) Acidosis, metabolic (Acute) Dehydration (Acute) Normochromic normocytic anemia (Acute) Acute renal failure superimposed on chronic kidney disease (Acute) 1. 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 Creatinine stable at 2.4. OK to stop iv fluids. 2. Acute stroke with right sided weakness, Rehab 3. hypernatremia stable 4. HTN stable BP 5. metabolic acidosis on bicarb tabs
[2020-07-08 14:04] VITALS: BP 128/67; BP 135/67; BP 142/78; PULSE 59; PULSE 60; PULSE 70
[2020-07-08 14:07] VITALS: BMI 31.8
[2020-07-08 19:50] VITALS: BP 137/59; PULSE 60; RESP 16; TEMP 36.8; O2SAT 100
[2020-07-08] MEDS: Senna/Docusate Sodium 1 Tablet 2 TABLET PO (22:02)
[2020-07-09] MEDS: Nystatin Powder 15gm Bottle 1 APPLIC TOPICAL ×2 (06:37→20:01)
[2020-07-09] MEDS: Multivitamin (Healthy Eyes) Capsule 1 CAP PO ×2 (07:35→16:50)
[2020-07-09] MEDS: NYSTATIN 500,000 UNIT/5 ML UDC 500000 UNIT PO ×4 (07:36→20:01)
[2020-07-09] MEDS: Multivitamins,Therapeutic Tablet 1 TABLET PO (07:36)
[2020-07-09] MEDS: APIXABAN 5 MG TABLET PO ×2 (07:36→20:01)
[2020-07-09] MEDS: Allopurinol 100 MG Tablet PO (07:36)
[2020-07-09] MEDS: Atenolol 100 MG Tablet PO ×2 (07:36→20:01)
[2020-07-09] MEDS: Sodium Bicarbonate 650 MG Tablet PO ×2 (07:36→20:00)
[2020-07-09] MEDS: Menthol/Lanolin/Calamine/Znox 113 GM Tube 1 APPLIC TOPICAL ×2 (07:37→20:02)
[2020-07-09] MEDS: Senna/Docusate Sodium 1 Tablet 2 TABLET PO (07:37)
[2020-07-09 08:46] VITALS: BP 144/66; PULSE 67; RESP 12; TEMP 36.9; O2SAT 97
[2020-07-09 08:49] VITALS: BMI 31.8
[2020-07-09 09:55] LABS: Anion Gap 6 (5-15); BUN 68 mg/dL (7-18); BUN/Creat Ratio 28.2 RATIO (10-20); Chloride 117 mmol/L (98-107); Creatinine, Serum 2.41 mg/dL (0.55-1.02); EST Glomerular Filtration Rate 20 mL/min (>60); Est Glom Filt Rate - Afr Amer 25 mL/min (>60); Estimated Creatinine Clearance 13.99 ml/min; Glucose 108 mg/dL (74-106); Potassium 4.3 mmol/L (3.5-5.1); Sodium Level 144 mmol/L (136-145)
--- NOTE | 2020-07-09 10:45 | NURSING ---
VS 146/57-62-18. Spo2 98% RA, 98.0. Therapy had call light to alert staff that patient was lowered to the floor on buttocks during transfer. This nurse entered room to see patient on buttocks in front of w/c. Full ROM, denied pain, did not hit head. Assisted x [address] Hsu aware, Natasha recreation establishment manager aware, son aware.
[2020-07-09] MEDS: Acetaminophen 325 MG Tablet 650 MG PO ×2 (14:09→20:11)
[2020-07-09 19:27] VITALS: BP 122/66; PULSE 60; RESP 16; TEMP 36.6; O2SAT 99
[2020-07-09 20:21] VITALS: RESP 16; O2SAT 99
[2020-07-09 20:25] VITALS: BMI 31.8
[2020-07-10] MEDS: Nystatin Powder 15gm Bottle 1 APPLIC TOPICAL ×2 (05:12→20:41)
[2020-07-10] MEDS: Sodium Bicarbonate 650 MG Tablet PO ×2 (07:55→20:39)
[2020-07-10] MEDS: Multivitamin (Healthy Eyes) Capsule 1 CAP PO ×2 (07:55→16:34)
[2020-07-10] MEDS: Atenolol 100 MG Tablet PO ×2 (07:55→20:40)
[2020-07-10] MEDS: NYSTATIN 500,000 UNIT/5 ML UDC 500000 UNIT PO (07:55)
[2020-07-10] MEDS: Allopurinol 100 MG Tablet PO (07:55)
[2020-07-10] MEDS: APIXABAN 5 MG TABLET PO ×2 (07:55→20:40)
[2020-07-10] MEDS: Multivitamins,Therapeutic Tablet 1 TABLET PO (07:55)
[2020-07-10] MEDS: Menthol/Lanolin/Calamine/Znox 113 GM Tube 1 APPLIC TOPICAL ×2 (07:56→20:41)
[2020-07-10] MEDS: Acetaminophen 325 MG Tablet 650 MG PO (08:03)
[2020-07-10 08:20] VITALS: BP 139/69; PULSE 60; RESP 16; TEMP 36.7; O2SAT 98
[2020-07-10 14:18] VITALS: BMI 31.8
--- NOTE | 2020-07-10 17:17 | NURSING ---
No injury post fall or complaints of pain. x2 assist stand pivot for nursing, unable to walk. Right LE severely weak. Continent of B&B. Will put call light on for staff assist.
[2020-07-10 18:50] VITALS: BP 136/73; PULSE 64; RESP 16; TEMP 37.1; O2SAT 97
[2020-07-10 22:00] VITALS: RESP 16; O2SAT 96
[2020-07-11] MEDS: Multivitamins,Therapeutic Tablet 1 TABLET PO (08:02)
[2020-07-11] MEDS: Menthol/Lanolin/Calamine/Znox 113 GM Tube 1 APPLIC TOPICAL ×2 (08:02→21:01)
[2020-07-11] MEDS: Allopurinol 100 MG Tablet PO (08:02)
[2020-07-11] MEDS: Atenolol 100 MG Tablet PO ×2 (08:02→21:02)
[2020-07-11] MEDS: Sodium Bicarbonate 650 MG Tablet PO ×2 (08:02→21:02)
[2020-07-11] MEDS: APIXABAN 5 MG TABLET PO ×2 (08:02→21:01)
[2020-07-11] MEDS: Multivitamin (Healthy Eyes) Capsule 1 CAP PO ×2 (08:02→16:19)
[2020-07-11] MEDS: Nystatin Powder 15gm Bottle 1 APPLIC TOPICAL ×2 (08:03→21:01)
--- NOTE | 2020-07-11 08:44 | PCM.PN.BLA ---
Progress Note Afebrile VSS-heart rate has come down and is in the low 60s. Maintaining appropriate oxygen saturation on RA Oral intake is doing better. On 07/09/2020 she took an 1100 cc and on 07/10/2020 1360 cc. Discussed with nursing - no problems that need addressed Reviewed the PT/OT/ST notes Medication list reviewed. All lab was personally reviewed. BUN today is 68, down from 98 on 07/06/2028. Creatinine is 2.41, down from 2.92 at admission. GFR is 20. Calcium is normal. No complaints by the patient. Her son Satnam is upset that she is asked to use the bedpan at night. I related that there is decreased staff at night and that it takes 2 people to get her to the BR and that would leave the floor uncovered during the time it takes her to get to the toilet. He is not happy with this and states it is not right. I asked if he could stay the nights so he could help assist her to the bathroom. He did not respond. I reviewed Dr. Barragan's note from today and pt will follow up with her in the office post DC. Alert, appropriate, pleasant MM are moist and there is no evidence of thrush Lungs - CTA H - irreg irreg with controlled ventricular response, Valve click but no MM abd - soft and NT no peripheral edema no rashes and no skin breakdown no calf pain Impressions 1. post stroke debility 2. Acute on chronic renal failure stage IV-resolved 3. Hyperuricemia-on allopurinol 100 mg p.o. daily -with stage IV renal failure I hesitate to increase this because the patient is asymptomatic. Will discuss with Dr. Barragan 4. Atrial fibrillation-rate controlled with atenolol 100 mg p.o. twice daily. Heart rate is in the low 60s today. We will continue to monitor. 5. Thrush-resolved 6. Normochromic normocytic anemia-more likely than not secondary to chronic renal failure Continue therapy and wait the insurance company's decision on whether or not to continue her stay in rehab or if she will be down graded to an SNF. Continue therapy for now. Inpatient E&M: 80322 Subs Hosp L2
[2020-07-11 09:16] LABS: Hematocrit 30.7 % (37-47); Hemoglobin 9.8 g/dL (12.0-15.0)
[2020-07-11 09:31] LABS: Phosphorus 3.2 mg/dL (2.5-4.9)
[2020-07-11 10:00] VITALS: BP 132/70; PULSE 62; RESP 16; TEMP 36.8; O2SAT 96
--- NOTE | 2020-07-11 11:43 | PCM.PN.BLA ---
Progress Note labs reviewed vitals stable renal fxn stable CKD stage 4. follow up in office on discharge STROKE Vital Signs/Narrative: Vital Signs Temp Pulse Resp BP Pulse Ox 07/11/20 10:00 98.2 F 62 16 132/70 H 96
[2020-07-11 15:34] VITALS: BMI 31.8
[2020-07-11 19:19] VITALS: BP 137/67; PULSE 63; RESP 17; TEMP 37.1; O2SAT 98
[2020-07-11 20:54] VITALS: BMI 31.8
[2020-07-11] MEDS: Acetaminophen 325 MG Tablet 650 MG PO (21:03)
[2020-07-11 22:00] VITALS: PULSE 63; RESP 17; O2SAT 98
--- NOTE | 2020-07-12 02:26 | NURSING ---
Ambulation x2 assist with cueing by staff is showing improvement hs. No scissoring of legs noted this hs with transfers.
[2020-07-12] MEDS: Nystatin Powder 15gm Bottle 1 APPLIC TOPICAL ×2 (05:44→20:52)
[2020-07-12 07:47] VITALS: BP 128/82; PULSE 65; RESP 17; TEMP 36.6; O2SAT 97
[2020-07-12] MEDS: APIXABAN 5 MG TABLET PO ×2 (08:29→20:55)
[2020-07-12] MEDS: Multivitamin (Healthy Eyes) Capsule 1 CAP PO ×2 (08:29→16:45)
[2020-07-12] MEDS: Atenolol 100 MG Tablet PO ×2 (08:29→20:56)
[2020-07-12] MEDS: Sodium Bicarbonate 650 MG Tablet PO ×2 (08:29→20:55)
[2020-07-12] MEDS: Allopurinol 100 MG Tablet 150 MG PO (08:30)
[2020-07-12] MEDS: Multivitamins,Therapeutic Tablet 1 TABLET PO (08:31)
[2020-07-12] MEDS: Menthol/Lanolin/Calamine/Znox 113 GM Tube 1 APPLIC TOPICAL ×2 (08:31→20:51)
[2020-07-12 13:46] VITALS: BMI 31.8
[2020-07-12 20:48] VITALS: BP 153/69; PULSE 65; RESP 16; TEMP 36.6; O2SAT 97
[2020-07-12] MEDS: Senna/Docusate Sodium 1 Tablet 2 TABLET PO (20:55)
[2020-07-12] MEDS: Acetaminophen 325 MG Tablet 650 MG PO (21:00)
[2020-07-13] MEDS: Nystatin Powder 15gm Bottle 1 APPLIC TOPICAL ×2 (05:27→20:25)
[2020-07-13 07:30] VITALS: BP 124/58; PULSE 60; RESP 18; TEMP 36.4; O2SAT 98
[2020-07-13] MEDS: Senna/Docusate Sodium 1 Tablet 2 TABLET PO (08:22)
[2020-07-13] MEDS: Atenolol 100 MG Tablet PO ×2 (08:22→20:25)
[2020-07-13] MEDS: Sodium Bicarbonate 650 MG Tablet PO ×2 (08:22→20:25)
[2020-07-13] MEDS: Multivitamins,Therapeutic Tablet 1 TABLET PO (08:22)
[2020-07-13] MEDS: Allopurinol 100 MG Tablet 150 MG PO (08:22)
[2020-07-13] MEDS: APIXABAN 5 MG TABLET PO ×2 (08:22→20:25)
[2020-07-13] MEDS: Multivitamin (Healthy Eyes) Capsule 1 CAP PO ×2 (08:22→16:12)
[2020-07-13] MEDS: Acetaminophen 325 MG Tablet 650 MG PO ×2 (09:01→21:35)
[2020-07-13] MEDS: Menthol/Lanolin/Calamine/Znox 113 GM Tube 1 APPLIC TOPICAL ×2 (09:03→20:25)
[2020-07-13 09:40] VITALS: PULSE 60; RESP 18; O2SAT 98
[2020-07-13 19:33] VITALS: BP 133/57; PULSE 58; RESP 16; TEMP 36.9; O2SAT 98
[2020-07-13 20:24] VITALS: PULSE 60
[2020-07-14] MEDS: Nystatin Powder 15gm Bottle 1 APPLIC TOPICAL ×2 (05:25→22:18)
[2020-07-14] MEDS: Menthol/Lanolin/Calamine/Znox 113 GM Tube 1 APPLIC TOPICAL ×2 (07:46→22:18)
[2020-07-14] MEDS: Multivitamin (Healthy Eyes) Capsule 1 CAP PO ×2 (07:47→16:14)
[2020-07-14] MEDS: Multivitamins,Therapeutic Tablet 1 TABLET PO (07:47)
[2020-07-14] MEDS: Allopurinol 100 MG Tablet 150 MG PO (07:47)
[2020-07-14] MEDS: APIXABAN 5 MG TABLET PO ×2 (07:47→22:18)
[2020-07-14] MEDS: Sodium Bicarbonate 650 MG Tablet PO ×2 (07:48→22:18)
[2020-07-14] MEDS: Atenolol 100 MG Tablet PO ×2 (07:48→22:18)
[2020-07-14 08:30] VITALS: BP 154/75; PULSE 71; RESP 16; TEMP 36.7; O2SAT 95
--- NOTE | 2020-07-14 10:14 | CASEMGMT ---
Social Work IDT met with patient and son for Team meeting. Discussed patient's progress in therapy. Pt is mod-min for transfers, working on turning to both sides, right foot crosses over when walks, mod-min 15-20ft FWW, completed 1 step x2 assist, incorporating right hand more with personal; care. Pt is minx1 and SBAx1 shower tx, mod for bathing, set up for grooming, min for UE dressing, total LE dressing, x2 for toileting tasks and transfers. [facility] soft, moist, minced textures, nectar thick liquids, FFWP. Pt has s/s of aspiration 40-50% when on thin liquids, and ST working on strengthening exercises and speech intelligibility - which has improved. Explained insurance NRD 07/18 and continued stay is not guaranteed. Pt continues to make good progress and IDT recommending continued stay. WIll continue to follow. Tuyet Silva, [employer] APPRENTICE [employer]OLATE TEMPERER
[2020-07-14 10:30] VITALS: BMI 31.8
--- NOTE | 2020-07-14 13:21 | PCM.PN.BLA ---
Progress Note So was seen on team rounds today. Her son Satnam was present for rounds. Afebrile VSS Maintaining appropriate oxygen saturation on RA Oral intake is goo most days Discussed with nursing - nursing reports that the urine is strong and foul smelling. Reviewed the PT/OT/ST notes Medication list reviewed speech is much more intelligible Heart - irregular with a controlled VR no edema Impressions 1. suspected UTI 2. clinically dry - reminded her once again that she has to increase her water intake 3. debility due to embolic CVA's - progressing in therapy 4. HTN - not adequately controlled 5. Heme + stool 6. chronic anticoagulation with Apixaban UA sent - cath specimen and a urine culture was ordered. check a CBC, BMP and a phos in the AM Inpatient E&M: [id number] Subs Hosp L2
[2020-07-14 13:23] LABS: Mucous, Urine 0 SEEN /hpf (<or=2+); Red Blood Cells-Urine 0 SEEN /hpf (0-5); Squamous Epithelial Cells - UA 0 SEEN /hpf (5-10)
[2020-07-14 13:32] LABS: Color, Urine Straw (Yellow); Glucose, Dipstick Normal (Normal); Ketone-Dipstick Negative (Negative); Leukocyte Esterase-Dipstick 25 /ul (Negative); Nitrite-Dipstick Negative (Negative); Occult Blood-Urine 10 /ul (Negative); Protein-Dipstick 30 mg/dl (Negative); Urine Bilirubin Dipstick Negative (Negative); Urine Clarity Cloudy (Clear); Urine Urobilinogen Normal (Normal)
[2020-07-14 13:54] LABS: Bacteria 4+ /hpf (None Seen); White Blood Cells 5-10 SEEN /hpf (0-5)
--- NOTE | 2020-07-14 14:18 | NURSING ---
bladder scan entered as 0's d/t being charted on the wrong patient.
--- NOTE | 2020-07-14 15:56 | CHAPLAIN ---
Type of Pastoral Visit ___ Initial Visit _x__ Follow-up Visit ___ On-call Visit ___ General Patient Visit ___ Spiritual Assessment ___ Family Conference ___ Bereavement ___ Rapid Response ___ Code Blue ___ Other (describe below) Pastoral Care Referral From _x__ Patient ___ Family ___ Nurse ___ Physician ___ Fiber Drier Operator ___ Transportation Museum Helper ___ Other (describe below) Sacrament/Intervention _x__ Active listening ___ Anointing ___ Pentecostalism ___ Bereavement ___ Communion ___ Radha exploration ___ _x__ Life review _x__ Prayer ___ Reconciliation ___ Sacrament of Sick _x__ Supportive presence ___ Wedding ___ Other (describe below) Pastoral Comments
[2020-07-14 19:43] VITALS: BP 146/60; PULSE 64; RESP 16; TEMP 36.6; O2SAT 99
[2020-07-14] MEDS: Acetaminophen 325 MG Tablet 650 MG PO (22:17)
[2020-07-14] MEDS: Senna/Docusate Sodium 1 Tablet 2 TABLET PO (22:18)
[2020-07-15 05:47] LABS: Absolute Lymphocyte Count 1.18 X10^3/uL (0.83-4.51); Absolute Neutrophil Count 2.7 X10^3/uL (2.0-7.7); Basophil# 0.02 X10^3/uL; Basophil% 0.4 % (0-1); Eosinophil# 0.19 X10^3/uL; Eosinophils% 4.3 % (0-5); Hematocrit 27.3 % (37-47); Hemoglobin 8.6 g/dL (12.0-15.0); Lymphocyte # 1.18 X10^3/ul (4.0); Lymphocyte % 26.5 % (19-41); Mean Corp Hgb Conc 31.5 g/dL (32-36); Mean Corpuscular Hgb 31.2 pg (27.0-32.0); Mean Corpuscular Volume 98.9 fL (81-99); Mean Platelet Vol. 10.5 fl (6.2-12.0); Monocyte# 0.39 X10^3/uL; Monocyte% 8.7 % (0-10); NRBC Flagged by Analyzer 0 % (0-5); Neutrophil # 2.66 X10^3/uL (2.7-7.7); Neutrophil % 59.7 % (47-70); POSITIVE COUNT YES; Platelet Count 96 K/mm3 (150-450); RBC Distribution Width CV 12.7 % (11.6-14.6); RBC Distribution Width SD 45.6 fl (35.1-43.9); Red Blood Count 2.76 M/mm3 (4.2-5.4); White Blood Count 4.5 K/mm3 (4.4-11.0)
[2020-07-15 05:50] LABS: Differential Indicated SCAN CRITERIA MET
[2020-07-15 06:04] LABS: BUN 50 mg/dL (7-18); BUN/Creat Ratio 23.8 RATIO (10-20); Calcium,Total 8.5 mg/dL (8.5-10.1); Chloride 111 mmol/L (98-107); EST Glomerular Filtration Rate 24 mL/min (>60); Est Glom Filt Rate - Afr Amer 29 mL/min (>60); Estimated Creatinine Clearance 16.05 ml/min; Glucose 96 mg/dL (74-106); Phosphorus 3.6 mg/dL (2.5-4.9); Potassium 3.9 mmol/L (3.5-5.1); Sodium Level 141 mmol/L (136-145)
[2020-07-15 06:05] LABS: Anion Gap 6 (5-15)
[2020-07-15 06:25] LABS: Differential Comment SCANNED; Platelet Estimate MOD DEC (ADEQ)
[2020-07-15 07:33] VITALS: BP 153/62; PULSE 70; RESP 20; TEMP 36.8; O2SAT 98
[2020-07-15] MEDS: Atenolol 100 MG Tablet PO ×2 (07:35→20:42)
[2020-07-15] MEDS: Multivitamin (Healthy Eyes) Capsule 1 CAP PO ×2 (07:35→18:34)
[2020-07-15] MEDS: Sodium Bicarbonate 650 MG Tablet PO ×2 (07:35→20:42)
[2020-07-15] MEDS: APIXABAN 5 MG TABLET PO ×2 (07:36→20:41)
[2020-07-15] MEDS: Allopurinol 100 MG Tablet 150 MG PO (07:36)
[2020-07-15] MEDS: Multivitamins,Therapeutic Tablet 1 TABLET PO (07:36)
[2020-07-15] MEDS: Senna/Docusate Sodium 1 Tablet 2 TABLET PO (07:37)
[2020-07-15] MEDS: Menthol/Lanolin/Calamine/Znox 113 GM Tube 1 APPLIC TOPICAL ×2 (07:38→20:41)
--- NOTE | 2020-07-15 09:18 | PN_ITS ---
Progress Note Remains afebrile Blood pressures are mildly elevated recently UA shows 5-10 white blood cells per high-power field with 4+ bacteria. Urine culture is pending. She denies dysuria. Also denies flank pain and nausea. alert and oriented X 3, appropriate NAD abd- soft with normal BS's. no pain with palpation over the suprapubic area and no bladder distention no edema MM are moist today. Impressions 1. simple cystitis 2. HTN - not adequately controlled. 3. Heme + stool with decreasing HGB in a pt on chronic anticoagulation with Api xaban for AF Start Keflex 250 mg p.o. every 8 hours-adjusted for renal failure Add amlodipine 2.5 mg to her antihypertensive regimen -she lists this as an allergy however she does not know what the reaction is. Start Protonix 20 mg p.o. daily Recheck Hemoccult stool Recheck a hemoglobin and hematocrit in 4 to 5 days. If it continues to decline and Hemoccult stool remains positive she may need endoscopy going forward. STROKE Vital Signs/Narrative: Vital Signs Temp Pulse Resp BP Pulse Ox 07/15/20 07:33 98.2 F 70 20 H 153/62 H 98 Inpatient E&M: 13737 Subs Hosp L1
[2020-07-15 11:00] VITALS: BMI 31.8
[2020-07-15] MEDS: Pantoprazole Sodium 20 MG Tablet PO (11:09)
[2020-07-15] MEDS: amLODIPine 2.5 MG Tablet PO (11:09)
[2020-07-15] MEDS: Cephalexin 250 MG Capsule PO ×2 (13:13→20:41)
[2020-07-15] MEDS: Nystatin Powder 15gm Bottle 1 APPLIC TOPICAL (20:42)
[2020-07-15] MEDS: Acetaminophen 325 MG Tablet 650 MG PO (20:43)
[2020-07-15 22:00] VITALS: BP 152/77; PULSE 67; RESP 16; TEMP 36.8; O2SAT 97
[2020-07-15 23:22] VITALS: BMI 31.8
[2020-07-16] MEDS: Cephalexin 250 MG Capsule PO ×3 (06:49→21:02)
[2020-07-16] MEDS: Nystatin Powder 15gm Bottle 1 APPLIC TOPICAL ×2 (06:51→21:02)
[2020-07-16] MEDS: Multivitamin (Healthy Eyes) Capsule 1 CAP PO ×2 (08:32→16:11)
[2020-07-16] MEDS: Multivitamins,Therapeutic Tablet 1 TABLET PO (08:32)
[2020-07-16] MEDS: Allopurinol 100 MG Tablet 150 MG PO (08:32)
[2020-07-16] MEDS: APIXABAN 5 MG TABLET PO ×2 (08:33→21:01)
[2020-07-16] MEDS: Atenolol 100 MG Tablet PO ×2 (08:34→22:41)
[2020-07-16] MEDS: Pantoprazole Sodium 20 MG Tablet PO (08:34)
[2020-07-16] MEDS: Menthol/Lanolin/Calamine/Znox 113 GM Tube 1 APPLIC TOPICAL ×2 (08:34→21:01)
[2020-07-16] MEDS: amLODIPine 2.5 MG Tablet PO (08:34)
[2020-07-16] MEDS: Sodium Bicarbonate 650 MG Tablet PO ×2 (08:34→21:02)
[2020-07-16 08:55] VITALS: BP 142/83; PULSE 70; RESP 16; TEMP 36.6; O2SAT 98
[2020-07-16 11:35] VITALS: BMI 31.8
[2020-07-16 19:39] VITALS: BP 124/66; PULSE 64; RESP 18; TEMP 36.8; O2SAT 99
[2020-07-16 20:30] VITALS: PULSE 64; RESP 18; O2SAT 99; BMI 31.8
[2020-07-16] MEDS: Senna/Docusate Sodium 1 Tablet 2 TABLET PO (21:02)
[2020-07-17] MEDS: Acetaminophen 325 MG Tablet 650 MG PO ×3 (00:14→22:09)
[2020-07-17] MEDS: Cephalexin 250 MG Capsule PO (05:08)
[2020-07-17] MEDS: Nystatin Powder 15gm Bottle 1 APPLIC TOPICAL ×2 (05:08→22:07)
[2020-07-17] MEDS: Multivitamin (Healthy Eyes) Capsule 1 CAP PO ×2 (08:22→16:23)
[2020-07-17] MEDS: Multivitamins,Therapeutic Tablet 1 TABLET PO (08:22)
[2020-07-17] MEDS: Allopurinol 100 MG Tablet 150 MG PO (08:22)
[2020-07-17] MEDS: Menthol/Lanolin/Calamine/Znox 113 GM Tube 1 APPLIC TOPICAL ×2 (08:24→22:09)
[2020-07-17] MEDS: APIXABAN 5 MG TABLET PO ×2 (08:24→22:07)
[2020-07-17] MEDS: amLODIPine 2.5 MG Tablet PO (08:25)
[2020-07-17] MEDS: Sodium Bicarbonate 650 MG Tablet PO ×2 (08:25→22:07)
[2020-07-17] MEDS: Pantoprazole Sodium 20 MG Tablet PO (08:25)
[2020-07-17] MEDS: Atenolol 100 MG Tablet PO ×2 (08:25→22:07)
[2020-07-17 10:00] VITALS: BP 124/58; PULSE 72; RESP 16; TEMP 36.4; O2SAT 97
[2020-07-17 10:27] VITALS: BMI 31.8
--- NOTE | 2020-07-17 12:14 | PCM.PN.BLA ---
Progress Note Keflex day #3 So remains afebrile. Blood pressure is improving with the initiation of amlodipine 2.5 mg daily on 07/15/20 Hemoccult stool was positive again. This is not unusual in patients on apixaban however, if it continues and the H/H continues to decline will need to consider endoscopy at some time. She is c/o difficulty sleeping at night. She has no other complaints at this time. She denies dysuria, hesitancy, flank pain, nausea, abdominal pain. She denies lightheadedness. Alert, oriented x3, no apparent distress, very pleasant to talk to Lungs-somewhat diminished in the bases which I suspect is due to poor inspiratory effort. No crackles, wheezes or rails. Not tachypneic at rest. No conversational dyspnea. Heart-irregular irregular with a controlled ventricular response. Negative S3 Abdomen-soft, nontender, nondistended, no guarding with palpation, normal bowel sounds heard in all 4 quadrants No peripheral edema Right side weakness is improving and she was observed ambulating with a front wheeled walker and was advancing her right foot on her own. Impressions 1. 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 Since the Morganella is resistant to first generation cephalosporins will discontinue Keflex and start Levaquin 250 mg daily x3 days. 2. Hemoccult positive stool x2 now with decreasing hemoglobin. The decrease in hemoglobin is mild and may be secondary to better hydration. Will add a PPI for GI prophylaxis. Monitor hemoglobin and hematocrit periodically. Start an iron supplement. 3. Insomnia-we will add melatonin to her current drug regimen 4. Hypertension-coming under much better control with the addition of amlodipine 2.5 mg daily to her drug regimen 5. Debility secondary to recent embolic CVAs-now on chronic anticoagulation with apixaban. Urine culture grew Morganella morganii, greater than 100,000 colonies, and Klebsiella pneumoniae, greater than 100,000 colonies. Klebsiella pneumoniae is susceptible to everything but ampicillin however the Morganella morganii is resistant to multiple drugs including first generation cephalosporins. It is sensitive to fluoroquinolones, Bactrim and aminoglycosides. Started Levaquin 250 mg daily for 3 days to treat uncomplicated cystitis in a female with a creat clearance of <20. DC the Keflex. Recheck a HH on Saturday. Continue amlodipine 2.5 mg p.o. daily and monitoring blood pressure STROKE Vital Signs/Narrative: Vital Signs Temp Pulse Resp BP Pulse Ox 07/17/20 10:00 97.6 F L 72 16 124/58 H 97 Inpatient E&M: [id number] Subs Hosp L2
[2020-07-17] MEDS: levoFLOXacin 250 MG Tablet PO (15:24)
[2020-07-17 22:00] VITALS: BP 142/70; PULSE 64; RESP 16; TEMP 36.6; O2SAT 98; BMI 31.8
[2020-07-18] MEDS: Nystatin Powder 15gm Bottle 1 APPLIC TOPICAL ×2 (05:16→20:50)
[2020-07-18] MEDS: levoFLOXacin 250 MG Tablet PO (05:16)
[2020-07-18] MEDS: Sodium Bicarbonate 650 MG Tablet PO ×2 (07:53→20:50)
[2020-07-18] MEDS: Multivitamin (Healthy Eyes) Capsule 1 CAP PO ×2 (07:53→16:10)
[2020-07-18] MEDS: amLODIPine 2.5 MG Tablet PO (07:53)
[2020-07-18] MEDS: Atenolol 100 MG Tablet PO ×2 (07:53→20:50)
[2020-07-18] MEDS: APIXABAN 5 MG TABLET PO ×2 (07:53→20:51)
[2020-07-18] MEDS: Pantoprazole Sodium 20 MG Tablet PO (07:53)
[2020-07-18] MEDS: Multivitamins,Therapeutic Tablet 1 TABLET PO (07:53)
[2020-07-18] MEDS: Allopurinol 100 MG Tablet 150 MG PO (07:54)
[2020-07-18] MEDS: Menthol/Lanolin/Calamine/Znox 113 GM Tube 1 APPLIC TOPICAL ×2 (07:58→20:52)
[2020-07-18 08:46] VITALS: BP 123/63; PULSE 76; RESP 16; TEMP 36.5; O2SAT 98
[2020-07-18 11:18] VITALS: BMI 31.8
[2020-07-18] MEDS: Acetaminophen 325 MG Tablet 650 MG PO (20:49)
[2020-07-18 20:55] VITALS: BP 133/66; PULSE 65; RESP 18; TEMP 36.4; O2SAT 99; BMI 31.8
[2020-07-19] MEDS: levoFLOXacin 250 MG Tablet PO (05:07)
[2020-07-19 05:49] LABS: Hematocrit 25.4 % (37-47)
[2020-07-19] MEDS: Nystatin Powder 15gm Bottle 1 APPLIC TOPICAL ×2 (06:47→20:32)
[2020-07-19] MEDS: Sodium Bicarbonate 650 MG Tablet PO ×2 (07:48→20:32)
[2020-07-19] MEDS: Allopurinol 100 MG Tablet 150 MG PO (07:48)
[2020-07-19] MEDS: amLODIPine 2.5 MG Tablet PO (07:48)
[2020-07-19] MEDS: Multivitamins,Therapeutic Tablet 1 TABLET PO (07:48)
[2020-07-19] MEDS: Atenolol 100 MG Tablet PO ×2 (07:49→20:32)
[2020-07-19] MEDS: Senna/Docusate Sodium 1 Tablet 2 TABLET PO (07:49)
[2020-07-19] MEDS: Multivitamin (Healthy Eyes) Capsule 1 CAP PO ×2 (07:49→17:03)
[2020-07-19] MEDS: Pantoprazole Sodium 20 MG Tablet PO (07:49)
[2020-07-19] MEDS: APIXABAN 5 MG TABLET PO ×2 (07:50→20:31)
[2020-07-19] MEDS: Menthol/Lanolin/Calamine/Znox 113 GM Tube 1 APPLIC TOPICAL ×2 (07:51→20:33)
[2020-07-19 08:22] VITALS: BP 129/55; PULSE 69; RESP 18; TEMP 36.6; O2SAT 98
[2020-07-19] MEDS: Acetaminophen 325 MG Tablet 650 MG PO (08:37)
[2020-07-19 08:40] VITALS: PULSE 69; RESP 18; O2SAT 98
--- NOTE | 2020-07-19 10:14 | PCM.PN.BLA ---
Progress Note The right ankle is painful today...she tells me that one of the therapists stepped on it yesterday. It is painful when she tries to bear weight. She denies any hx of gout. The right ankle is swollen. THere is no erythema. There is no increased warmth to touch. She has intact sensation. No pain with plantar flexing against resistance or with dorsiflexing against resistance. Impressions 1. painful, swollen R ankle with inability to bear weight today. Will get and XRAY to r/o fracture. STROKE Vital Signs/Narrative: Vital Signs Temp Pulse Resp BP Pulse Ox 07/19/20 08:40 69 18 98 07/19/20 08:22 97.9 F 69 18 129/55 H 98 Inpatient E&M: [id number] Subs Hosp L1
--- NOTE | 2020-07-19 10:19 | RAD_ITS ---
STUDY: X-RAY - RIGHT ANKLE REASON FOR EXAM: Female, 85 years old. No known injury. Patient states pain upon standing in her right ankle and has swelling. TECHNIQUE: 3 view(s) of the ankle. COMPARISON: None. FINDINGS: Normal visualized distal tibia and fibula. Normal medial and lateral malleoli. Normal tibiotalar articulation and ankle mortise. Normal visualized talus and calcaneus. The visualized subtalar, talonavicular, calcaneocuboid and tarsal articulations are normal. There is soft tissue swelling at the ankle suggesting edema. RAD/Ankle min 3 Views IMPRESSION: There is soft tissue swelling at the ankle suggesting edema. Electronically Signed: Jacqueline De Jesus, at 12:31 EDT Tel , Service support ,
[2020-07-19] MEDS: Ferrous Sulfate 325 MG Tablet PO (11:44)
--- NOTE | 2020-07-19 12:42 | PCM.CONS.GEN ---
Problem List (1) Right ankle sprain Status: Acute (2) Ankle pain Status: Acute (3) Osteoarthritis Status: Chronic (4) Gout Status: Chronic Qualifiers: Encounter type: subsequent encounter Reason for Consult Date of Consultation: 07/19/20 Reason for Consultation: right ankle pain History of Present Illness: The patient is a 85 year old F who presents to acute rehab after a stroke for rehabilitation. This morning patient was unable to bear weight to her right foot during physical therapy. An XR was obtained and podiatry was consulted. Patient states that she gets shooting pain up her ankle sometimes and she has arthritis in her foot. She also relates edema to her lower extremities that she normally wears compression socks on to help control. Patient states that it doesn't feel like it was broken. Patient also has a history of gout but states it doesn't feel like gout now. Patient denies any N/F/V/C/CP/SOB/wounds.[] Past Medical History Past Medical History (Chronic Problems): Chronic Problems Osteoarthritis (Chronic) Hypertension (Chronic) Keratitis (Chronic) Obesity (BMI 30.0-34.9) (Chronic) Gout (Chronic) Hyperuricemia (Chronic) Allergies amlodipine [From Norvasc] Adverse Reaction (Verified 07/04/20 16:03) PT UNSURE OF REACTION amoxicillin [From Augmentin] Adverse Reaction (Verified 07/04/20 17:59) PT UNSURE OF REACTION clavulanic acid [From Augmentin] Adverse Reaction (Verified 07/04/20 17:59) PT UNSURE OF REACTION diphtheria, pertussis, tetanus vacc Adverse Reaction (Verified 07/04/20 16:03) PT UNSURE OF REACTION hydrochlorothiazide [From Maxzide] Adverse Reaction (Verified 07/04/20 16:03) PT UNSURE OF REACTION lisinopril Adverse Reaction (Verified 07/04/20 16:03) PT UNSURE OF REACTION Sulfa (Sulfonamide Antibiotics) Adverse Reaction (Verified 07/04/20 16:03) PT UNSURE OF REACTION triamterene [From Maxzide] Adverse Reaction (Verified 07/04/20 16:03) PT UNSURE OF REACTION Home Medications: Ambulatory Orders Medication Instructions Recorded Allopurinol [Zyloprim] 100 mg PO DAILYCM 07/04/20 Apixaban [Eliquis] 5 mg PO BID 07/04/20 Atenolol [Tenormin (Beta Richmond)] 100 mg PO BID 07/04/20 Multivitamin [Daily Multiple 1 ea PO DAILY 07/04/20 Vitamin] Valsartan [Diovan] 160 mg PO DAILY 07/04/20 Vit A/Vit C/Vit E/Zinc/Copper 1 ea PO BID 07/04/20 [Preservision Areds Softgel] Surgical History: cataract - with IOL implants, cholecystectomy, hysterectomy Psychiatric History: No pertinent psych hx RECREATION THERAPY AIDE History: No pertinent RECREATION THERAPY AIDE history Lives: With Family - she lives with her son Satnam Smoking Status: Never smoker Tobacco Use: Non-smoker Alcohol: None Drugs: None - *Family History Maternal History Items: Hypertension, Stroke Paternal History Items: Cancer, Pulmonary Disease, Stroke Sibling History Items: Cancer, Diabetes, Heart Disease, Stroke Offspring History Items: Stroke - in her daughter Review of Systems Constitutional: Denies: Chills, Fever, Fatigue Cardiovascular: Reports: Edema. Denies: Chest Pain Respiratory: Denies: Cough, Shortness of Breath Musculoskeletal: Reports: Foot Pain - right Neurological: Denies: Numbness, Tingling Patient Problems: Active and Suspected Problems PAF (paroxysmal atrial fibrillation) (Acute) Chronic anticoagulation (Acute) Debility (Acute) Cerebrovascular accident, embolic (Acute) Acidosis, metabolic (Acute) Dehydration (Acute) Normochromic normocytic anemia (Acute) Acute renal failure superimposed on chronic kidney disease (Acute) Right ankle sprain (Acute) Ankle pain (Acute) - Physical Exam Vitals/I&O's: Vital Signs Temp Pulse Resp BP Pulse Ox 97.9 F 69 18 129/55 H 98 07/19/20 08:22 07/19/20 08:40 07/19/20 08:40 07/19/20 08:22 07/19/20 08:40 Oxygen Delivery Method Room Air Weight: 82.5 kg Body Mass Index (BMI) 31.8 Intake and Output for Last 24 Hours 07/17/20 07/18/20 07/19/20 23:59 23:59 23:59 Intake Total 1660 / 1660 840 / 840 660 / 660 Output Total 1700 / 1700 725 / 725 25 / 25 Balance -40 / -40 115 / 115 635 / 635 General: Alert, Oriented x3 HEENT: Atraumatic Extremities: No clubbing, No cyanosis, Capillary Refill Less than 3 Seconds, No Calf Tenderness, Diminished Peripheral Pulses, Edema, - - Non palpable PT pulses due to edema. Edema present in ankles +2 pitting. CFT< 3 seconds. Feet are warm. DP pulses are palpable. Gross sensation intact. ROM is decreased at ankle and midfoot joints. Muscle strength is 4/5 to all groups. Pain with palpation of lateral ankle. Lateral ankle has significant swelling. No pain in inversion or eversion, mild with dorsiflexion. Skin is thin, no open wounds Neurological: Neuro grossly intact Psych/Mental Status: Normal Affect, Appropriate Microbiology Past 72 Hours 07/14/20 13:15 Urine, Catheterized Urine Culture - Final Morganella morganii sp morgani Klebsiella pneumoniae sp pneum Laboratory Results 07/19/20 05:35: Hgb 8.0 L, Hct 25.4 L Current Medications Acetaminophen (Tylenol) 650 mg PO Q6H PRN PRN PRN Reason: Pain Score 1-10 Last Admin: 07/19/20 08:37 Dose: 650 mg Documented by: [facility] Last Admin: 07/19/20 07:48 Dose: 150 mg Documented by: Amlodipine Besylate (Norvasc) 2.5 mg PO DAILY [facility] Last Admin: 07/19/20 07:48 Dose: 2.5 mg Documented by: Apixaban (Eliquis) 5 mg PO BID [facility] Last Admin: 07/19/20 07:50 Dose: 5 mg Documented by: Atenolol (Tenormin (Beta Richmond)) 100 mg PO BID [facility] Last Admin: 07/19/20 07:49 Dose: 100 mg Documented by: Bisacodyl (Dulcolax) 10 mg RECTAL .PRN X 1 PRN PRN Reason: Constipation Calamine/Phenol (Calmoseptine Ointment) 1 applic TOPICAL BID [facility]; Protocol Last Admin: 07/19/20 07:51 Dose: 1 applicatio Documented by: Ferrous Sulfate (Ferrous Sulfate) 325 mg PO DAILY@1200 [facility] Last Admin: 07/19/20 11:44 Dose: 325 mg Documented by: Levofloxacin (Levaquin Tablet) 250 mg PO DAILY@0600 [facility] Stop: 07/20/20 06:01 Last Admin: 07/19/20 05:07 Dose: 250 mg Documented by: Magnesium Hydroxide (Milk Of Magnesia) 30 ml PO .PRN X 1 PRN PRN Reason: Constipation Melatonin (Melatonin) 3 mg PO QHS [facility] Multivitamins (Multivitamin) 1 tablet PO DAILY@0800 [facility] Last Admin: 07/19/20 07:48 Dose: 1 tablet Documented by: Multivitamins/Minerals (Healthy Eyes (Bkc)) 1 capsule PO BIDCM [facility] Last Admin: 07/19/20 07:49 Dose: 1 capsule Documented by: Nystatin (Mycostatin Powder) 1 applic TOPICAL BID@0600,2200 [facility]; Protocol Last Admin: 07/19/20 06:47 Dose: 1 applicatio Documented by: Pantoprazole Sodium (Protonix) 20 mg PO DAILY [facility] Last Admin: 07/19/20 07:49 Dose: 20 mg Documented by: Senna/Docusate Sodium (Senokot-S, Shefali-Colace) 2 tablet PO BID [facility] Last Admin: 07/19/20 07:49 Dose: 2 tablet Documented by: Sodium Bicarbonate (Sodium Bicarbonate) 650 mg PO BID [facility] Last Admin: 07/19/20 07:48 Dose: 650 mg Documented by: Sodium Chloride () 10 - 40 ml IV UD PRN PRN Reason: SALINE FLUSH Last Admin: 07/05/20 14:57 Dose: 10 ml Documented by: Sodium Chloride () 10 - 40 ml IV UD PRN PRN Reason: SALINE FLUSH Assessment/Plan All Active Problems PAF (paroxysmal atrial fibrillation) (Acute) Chronic anticoagulation (Acute) Debility (Acute) Cerebrovascular accident, embolic (Acute) Acidosis, metabolic (Acute) Dehydration (Acute) Normochromic normocytic anemia (Acute) Acute renal failure superimposed on chronic kidney disease (Acute) Right ankle sprain (Acute) Ankle pain (Acute) Lower extremity Edema Right ankle pain right ankle sprain right ankle arthritis Patient seen and examined with speech therapist in the room throughout entire visit XR reviewed and went over with patient demonstrating no fractures, but soft tissue edema noted Patient states her edema is chronic and she wears compression socks encouraged patient to elevate legs to help with the edema Patient upon exam was noted to have mild ankle sprain with arthritis Discussed with patient that this isn't consistant with gout Discussed her pain is probably a combination of an ankle sprain and arthritis and the edema in her ankles Patient was able to stand and bear weight without pain Discussed warming up her ankle joint before therapy by spelling the alphabet with her big toe Patient is able to resume full therapy without any weight bearing restrictions, activity as tolerated Continue compression socks All questions were answered to patient satisfaction If any concerns please contact Dr Estrada. Thank you for the consult
[2020-07-19 19:49] VITALS: BP 140/63; PULSE 63; RESP 16; TEMP 36.6; O2SAT 98
[2020-07-19 20:15] VITALS: BMI 31.8
[2020-07-19] MEDS: MELATONIN 3 MG TABLET PO (20:31)
[2020-07-19 22:00] VITALS: PULSE 62; RESP 18; O2SAT 98
[2020-07-20] MEDS: levoFLOXacin 250 MG Tablet PO (05:24)
[2020-07-20] MEDS: Nystatin Powder 15gm Bottle 1 APPLIC TOPICAL ×2 (05:25→21:54)
[2020-07-20] MEDS: Atenolol 100 MG Tablet PO ×2 (07:59→21:53)
[2020-07-20] MEDS: amLODIPine 2.5 MG Tablet PO (07:59)
[2020-07-20] MEDS: Sodium Bicarbonate 650 MG Tablet PO ×2 (07:59→21:53)
[2020-07-20] MEDS: Pantoprazole Sodium 20 MG Tablet PO (07:59)
[2020-07-20] MEDS: APIXABAN 5 MG TABLET PO ×2 (07:59→21:54)
[2020-07-20] MEDS: Multivitamin (Healthy Eyes) Capsule 1 CAP PO ×2 (08:00→17:06)
[2020-07-20] MEDS: Allopurinol 100 MG Tablet 150 MG PO (08:00)
[2020-07-20] MEDS: Multivitamins,Therapeutic Tablet 1 TABLET PO (08:00)
[2020-07-20] MEDS: Menthol/Lanolin/Calamine/Znox 113 GM Tube 1 APPLIC TOPICAL ×2 (08:03→21:56)
--- NOTE | 2020-07-20 09:07 | PCM.PN.BLA ---
Progress Note Afebrile Blood pressure has improved with the addition of amlodipine 2.5 mg to the drug regimen. Heart rate is within normal limits. She is maintaining appropriate oxygen saturation on room air Weight has increased since admission to the rehab unit. she was 173 and 1 oz at admission and the weight on 07/19 is 181 and 14 oz. She was dehydrated at admission and some of this weight is due to rehydration. Oral intake has fallen off the past few days. She was seen by Dr. Estrada yesterday and diagnosed with an ankle sprain and exacerbation of arthritis. So says her ankle is feeling better today and she was able to bear weight. She slept much better last night with the addition of melatonin to her nightly drug regimen. She denies shortness of breath, thigh apnea, palpitations, lightheadedness. Good bowel function. HGB is down to 8 today. BUN is 52 and the creatinine is 2.34 today, up from 2.10 on 08-02. Sodium is 143 and the bicarb is 25. Phosphorus is normal at 3.4. Alert, oriented x3, no apparent distress Lungs-clear to auscultation, no conversational dyspnea, no dyspnea on exertion Heart-irregular with controlled ventricular response, no gallop Abdomen-obese, soft, nontender to palpation, bowel sounds present No calf tenderness Mild ankle edema-controlled with KRYSTIAN hose Less swelling in the right ankle today. The ankle is less tender to palpation and she was able to bear weight and ambulate with the front wheeled walker today. She ambulated approximately 50 feet today and continues to improve daily. Impressions 1. Declining hemoglobin with heme positive stool. She was started on Protonix 20 mg daily for GI prophylaxis. Will repeat a Hemoccult stool in approximately 1 week. If it is still positive she will definitely require endoscopy as an outpatient. Need to continue apixaban at this time due to the atrial fibrillation and recent stroke. 2. Stage IV chronic renal failure-I suspect her baseline is somewhere between 2.3 and 2.4. Lungs are clear to auscultation and she has minimal ankle edema which is secondary to venous insufficiency. No need for Lasix at this time. 3. New thrombocytopenia-she had a urinary tract infection at that time secondary Klebsiella pneumonia and Morganella morganii. Low platelets may be due to infection but could also be related to allopurinol. 4. 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 Persistent atrial fibrillation-on apixaban 5 mg BID ...she came to rehab on this dose but, in light ofd persistent Stage 4 CRF will decrease the dose to 2.5 mg BID. 6. Right ankle sprain and acute exacerbation of osteoarthritis-better with ice, elevation and compression. Exam is not consistent with gout. 7. Right foot drop Encourage increased fluid intake and recheck a BMP and a CBC in the AM........I do not know if the thrombocytopenia is due to the UTI or to the increase in the Allopurinol from 100 mg daily to 150 mg daily? If plts are still low now that the urinary tract infection has resolved, will back off the Allopurinol She is making good progress in therapy and insurance has given her another week. She needs an AFO for the RLE due to foot drop.......will discuss with her son Satnam Continue pantoprazole 20 mg p.o. daily Inpatient E&M: 02222 Subs Hosp L2
[2020-07-20 09:34] VITALS: BP 142/64; PULSE 63; RESP 16; TEMP 36.6; O2SAT 96
[2020-07-20 10:00] VITALS: RESP 18
[2020-07-20 10:13] LABS: Anion Gap 5 (5-15); BUN 52 mg/dL (7-18); BUN/Creat Ratio 22.2 RATIO (10-20); Calcium,Total 9.2 mg/dL (8.5-10.1); Chloride 113 mmol/L (98-107); Creatinine, Serum 2.34 mg/dL (0.55-1.02); EST Glomerular Filtration Rate 21 mL/min (>60); Est Glom Filt Rate - Afr Amer 26 mL/min (>60); Estimated Creatinine Clearance 14.41 ml/min; Glucose 120 mg/dL (74-106); Potassium 4.3 mmol/L (3.5-5.1); Sodium Level 143 mmol/L (136-145)
[2020-07-20 10:31] LABS: Phosphorus 3.4 mg/dL (2.5-4.9)
[2020-07-20] MEDS: Ferrous Sulfate 325 MG Tablet PO (12:18)
[2020-07-20 15:30] VITALS: BMI 31.8
[2020-07-20 19:05] VITALS: BP 123/58; PULSE 66; RESP 16; TEMP 36.5; O2SAT 97
[2020-07-20] MEDS: MELATONIN 3 MG TABLET PO (21:53)
[2020-07-20 22:00] VITALS: RESP 16; O2SAT 97; BMI 31.8
[2020-07-21 05:44] LABS: Absolute Lymphocyte Count 1.05 X10^3/uL (0.83-4.51); Absolute Neutrophil Count 2.2 X10^3/uL (2.0-7.7); Basophil# 0.01 X10^3/uL; Basophil% 0.3 % (0-1); Eosinophil# 0.22 X10^3/uL; Eosinophils% 5.7 % (0-5); Hematocrit 24.7 % (37-47); Hemoglobin 7.8 g/dL (12.0-15.0); Lymphocyte # 1.05 X10^3/ul (4.0); Lymphocyte % 27.2 % (19-41); Mean Corp Hgb Conc 31.6 g/dL (32-36); Mean Corpuscular Hgb 31.3 pg (27.0-32.0); Mean Corpuscular Volume 99.2 fL (81-99); Mean Platelet Vol. 10.1 fl (6.2-12.0); Monocyte# 0.41 X10^3/uL; Monocyte% 10.6 % (0-10); NRBC Flagged by Analyzer 0 % (0-5); Neutrophil # 2.16 X10^3/uL (2.7-7.7); Neutrophil % 55.9 % (47-70); Platelet Count 107 K/mm3 (150-450); RBC Distribution Width SD 46.3 fl (35.1-43.9); Red Blood Count 2.49 M/mm3 (4.2-5.4); White Blood Count 3.9 K/mm3 (4.4-11.0)
[2020-07-21 06:07] LABS: Anion Gap 6 (5-15); BUN 52 mg/dL (7-18); BUN/Creat Ratio 20.7 RATIO (10-20); Calcium,Total 8.7 mg/dL (8.5-10.1); Chloride 110 mmol/L (98-107); Creatinine, Serum 2.51 mg/dL (0.55-1.02); EST Glomerular Filtration Rate 20 mL/min (>60); Est Glom Filt Rate - Afr Amer 24 mL/min (>60); Estimated Creatinine Clearance 13.43 ml/min; Glucose 104 mg/dL (74-106); Potassium 3.9 mmol/L (3.5-5.1); Sodium Level 142 mmol/L (136-145)
[2020-07-21] MEDS: Nystatin Powder 15gm Bottle 1 APPLIC TOPICAL ×2 (06:30→21:30)
[2020-07-21] MEDS: APIXABAN 5 MG TABLET PO ×2 (07:39→21:16)
[2020-07-21] MEDS: Multivitamin (Healthy Eyes) Capsule 1 CAP PO ×2 (07:39→16:06)
[2020-07-21] MEDS: Multivitamins,Therapeutic Tablet 1 TABLET PO (07:39)
[2020-07-21] MEDS: Allopurinol 100 MG Tablet 150 MG PO (07:39)
[2020-07-21] MEDS: Sodium Bicarbonate 650 MG Tablet PO ×2 (07:40→21:30)
[2020-07-21] MEDS: Pantoprazole Sodium 20 MG Tablet PO (07:40)
[2020-07-21] MEDS: amLODIPine 2.5 MG Tablet PO ×2 (07:40→21:16)
[2020-07-21] MEDS: Atenolol 100 MG Tablet PO ×2 (07:40→21:16)
[2020-07-21] MEDS: Menthol/Lanolin/Calamine/Znox 113 GM Tube 1 APPLIC TOPICAL ×2 (07:41→21:16)
[2020-07-21 09:33] VITALS: BP 143/81; PULSE 76; RESP 16; TEMP 36.6; O2SAT 97
[2020-07-21 09:47] VITALS: BMI 31.8
--- NOTE | 2020-07-21 10:36 | CASEMGMT ---
Social Work IDT met with patient and for Team meeting. Discussed patient's progress in therapy. Pt is ambulating 60 ft with FWW at Adithya, cata wrapping right foot for foot drop. PT provided info to son to purchase AFO and will be putting another HR in the home at their steps. Pt is modA for steps with 2HR, Adithya for transfers, improving with right hand grasp/coordination, is now walking into the bathroom vs BSC, max for toileting tasks, Adithya for bra, set up for shirt on, total for LE dressing, Adithya for bathing. ST is working on trials thin liquids, swallowing exercises, improved speech intelligibility when speaking slower, and recommending meds/finances assistance at home. Explained [employer] insurance NRD 07/25 and continued stay is not guaranteed. The goal is for pt to return home. Will continue to follow. Tuyet Silva, REMI FISHMANW
[2020-07-21] MEDS: Ferrous Sulfate 325 MG Tablet PO (12:05)
[2020-07-21 20:57] VITALS: BP 120/54; PULSE 66; RESP 16; TEMP 36.9; O2SAT 98
[2020-07-21 21:04] VITALS: BMI 31.8
[2020-07-21] MEDS: Acetaminophen 325 MG Tablet 650 MG PO (21:15)
[2020-07-21] MEDS: MELATONIN 3 MG TABLET PO (21:16)
[2020-07-21] MEDS: Senna/Docusate Sodium 1 Tablet 2 TABLET PO (21:16)
[2020-07-21 21:22] VITALS: PULSE 69; RESP 16; O2SAT 98
[2020-07-22] MEDS: Nystatin Powder 15gm Bottle 1 APPLIC TOPICAL ×2 (05:12→20:50)
[2020-07-22] MEDS: Multivitamins,Therapeutic Tablet 1 TABLET PO (08:09)
[2020-07-22] MEDS: Menthol/Lanolin/Calamine/Znox 113 GM Tube 1 APPLIC TOPICAL ×2 (08:09→20:54)
[2020-07-22] MEDS: Multivitamin (Healthy Eyes) Capsule 1 CAP PO ×2 (08:09→17:06)
[2020-07-22] MEDS: amLODIPine 2.5 MG Tablet PO ×2 (08:10→20:52)
[2020-07-22] MEDS: Pantoprazole Sodium 20 MG Tablet PO (08:10)
[2020-07-22] MEDS: APIXABAN 5 MG TABLET PO (08:10)
[2020-07-22] MEDS: Atenolol 100 MG Tablet PO ×2 (08:11→20:52)
[2020-07-22] MEDS: Senna/Docusate Sodium 1 Tablet 2 TABLET PO ×2 (08:11→20:52)
[2020-07-22] MEDS: Sodium Bicarbonate 650 MG Tablet PO ×2 (08:11→20:52)
--- NOTE | 2020-07-22 08:31 | PCM.PN.BLA ---
Progress Note Afebrile Vital signs stable Maintaining appropriate oxygen saturation on room air Fair oral intake the past few days. The weight continues to increase and today is 187 pounds and 2.8 ounces. Medication list was reviewed. I reviewed the PT/OT/ST notes and the patient continues to improve. She is now able to ambulate into the bathroom with a front wheeled walker and minimal assistance rather than using a bedside commode or bedpan. She was able to walk 65 feet on carpet yesterday and 50 feet on concrete. She has been advanced to working on stair climbing. Endurance is still down and she fatigues at the end of therapy. Speech has improved and is very intelligible when she slows down. She needs minimal assistance with grooming, bathing and upper body dressing but is still total assist with lower body dressing. She is minimal assist with toilet transfer but max assist with toileting. She is sleeping much better with the melatonin. She denies any shortness of breath at rest or with exertion. She denies orthopnea. She has noticed she has some tightness in her legs due to swelling. She denies chest pain, palpitations and cough. No dysuria. alert and oriented X 3, no apparent distress Lungs-coarse crackles in the bases only, no wheezing Heart-irregular irregular with controlled ventricular response, no gallop appreciated Abdomen-soft, nontender, bowel sounds present Positive peripheral edema, no calf tenderness She is using her right upper extremity more and was able to put jelly on her toast this morning with her right hand. Impressions 1. Post stroke debility-CVA secondary to atrial fibrillation new onset 2. Hypertension-the morning blood pressures were still mildly elevated and the amlodipine was increased to 2.5 mg twice daily. The blood pressure this morning is 133/68. 3. Pancytopenia-I suspect this may be attributed to the increase in allopurinol from 100 mg daily to 150 mg daily. We are now holding allopurinol. If she develops at an acute gouty attack will use prednisone to treat. May be able to restart allopurinol at a later date at a lower dose of 25 to 50 mg daily. 4. Atrial fibrillation 5. Chronic anti-coagulation with apixaban, dose adjusted for stage IV renal failure 6. Stage IV renal failure-weight has been increasing she now has coarse crackles in her bases and increased swelling in the lower extremities. May need to occasionally give Lasix based on daily weights. Recheck CBC and differential on Saturday and also a BMP. Lasix 60 mg today Continue daily weights Inpatient E&M: 63727 Subs Hosp L2
[2020-07-22 09:20] VITALS: BP 133/68; PULSE 71; RESP 18; TEMP 36.4; O2SAT 96
--- NOTE | 2020-07-22 09:41 | CASEMGMT ---
Social Work Met with pt, son present in room. Inquired about pt's stay, mood, any questions/concerns. Pt reported no issues with mood, improving well, ready to go home but understands the importance of continuing for further therapy. Son reported pt's mood is good as well. Pt and son both praised staff for a great stay thus far. No issues noted. NRD 07/25. Will continue to follow. Tuyet Silva, TELECOMMUNICATIONS TECHNICIAN MERCHANDISING MANAGER
[2020-07-22 09:49] VITALS: BMI 31.8
[2020-07-22] MEDS: Furosemide 20 MG Tablet 60 MG PO (09:56)
[2020-07-22] MEDS: Ferrous Sulfate 325 MG Tablet PO (11:27)
[2020-07-22 19:03] VITALS: BP 120/56; PULSE 63; RESP 18; TEMP 36.2; O2SAT 95
[2020-07-22] MEDS: APIXABAN 5 MG TABLET 2.5 MG PO (20:51)
[2020-07-22] MEDS: MELATONIN 3 MG TABLET PO (20:52)
[2020-07-22 23:35] VITALS: BMI 31.8
[2020-07-23] MEDS: Acetaminophen 325 MG Tablet 650 MG PO ×2 (02:51→20:41)
[2020-07-23] MEDS: Nystatin Powder 15gm Bottle 1 APPLIC TOPICAL ×2 (05:11→20:55)
[2020-07-23 07:07] VITALS: BP 150/71; PULSE 71; RESP 18; TEMP 36.5; O2SAT 95
[2020-07-23] MEDS: Multivitamin (Healthy Eyes) Capsule 1 CAP PO ×2 (07:34→16:37)
[2020-07-23] MEDS: amLODIPine 2.5 MG Tablet PO ×2 (07:35→20:39)
[2020-07-23] MEDS: APIXABAN 5 MG TABLET 2.5 MG PO ×2 (07:35→20:38)
[2020-07-23] MEDS: Multivitamins,Therapeutic Tablet 1 TABLET PO (07:35)
[2020-07-23] MEDS: Pantoprazole Sodium 20 MG Tablet PO (07:36)
[2020-07-23] MEDS: Sodium Bicarbonate 650 MG Tablet PO ×2 (07:37→20:39)
[2020-07-23] MEDS: Atenolol 100 MG Tablet PO ×2 (07:37→20:39)
[2020-07-23] MEDS: Menthol/Lanolin/Calamine/Znox 113 GM Tube 1 APPLIC TOPICAL ×2 (07:44→20:41)
[2020-07-23] MEDS: Ferrous Sulfate 325 MG Tablet PO (11:30)
[2020-07-23 12:10] VITALS: BMI 31.8
[2020-07-23 19:15] VITALS: BP 134/70; PULSE 69; RESP 16; TEMP 36.5; O2SAT 97
[2020-07-23] MEDS: Senna/Docusate Sodium 1 Tablet 2 TABLET PO (20:38)
[2020-07-23] MEDS: MELATONIN 3 MG TABLET PO (20:39)
[2020-07-23 22:55] VITALS: BMI 31.8
[2020-07-24] MEDS: Nystatin Powder 15gm Bottle 1 APPLIC TOPICAL ×2 (05:03→20:28)
[2020-07-24] MEDS: Multivitamin (Healthy Eyes) Capsule 1 CAP PO ×2 (08:21→17:58)
[2020-07-24] MEDS: Multivitamins,Therapeutic Tablet 1 TABLET PO (08:21)
[2020-07-24] MEDS: Pantoprazole Sodium 20 MG Tablet PO (08:24)
[2020-07-24] MEDS: Sodium Bicarbonate 650 MG Tablet PO ×2 (08:24→20:27)
[2020-07-24] MEDS: amLODIPine 2.5 MG Tablet PO ×2 (08:24→20:27)
[2020-07-24] MEDS: Atenolol 100 MG Tablet PO ×2 (08:25→20:26)
[2020-07-24] MEDS: Acetaminophen 325 MG Tablet 650 MG PO ×2 (08:34→20:50)
[2020-07-24 08:40] VITALS: BP 138/68; PULSE 67; RESP 16; TEMP 36.4; O2SAT 97
[2020-07-24] MEDS: APIXABAN 2.5 MG TABLET PO ×2 (09:23→20:27)
[2020-07-24] MEDS: Menthol/Lanolin/Calamine/Znox 113 GM Tube 1 APPLIC TOPICAL ×2 (09:23→20:27)
[2020-07-24] MEDS: Ferrous Sulfate 325 MG Tablet PO (11:37)
[2020-07-24 15:13] VITALS: BMI 31.8
[2020-07-24 20:21] VITALS: BP 125/65; PULSE 65; RESP 16; TEMP 36.8; O2SAT 96
[2020-07-24] MEDS: MELATONIN 3 MG TABLET PO (20:27)
[2020-07-25 05:50] LABS: Absolute Lymphocyte Count 1.05 X10^3/uL (0.83-4.51); Basophil# 0.02 X10^3/uL; Basophil% 0.5 % (0-1); Eosinophil# 0.19 X10^3/uL; Hematocrit 27.1 % (37-47); Hemoglobin 8.7 g/dL (12.0-15.0); Lymphocyte # 1.05 X10^3/ul (4.0); Lymphocyte % 27.6 % (19-41); Mean Corp Hgb Conc 32.1 g/dL (32-36); Mean Corpuscular Hgb 31.9 pg (27.0-32.0); Mean Corpuscular Volume 99.3 fL (81-99); Monocyte# 0.51 X10^3/uL; Monocyte% 13.4 % (0-10); NRBC Flagged by Analyzer 0 % (0-5); Neutrophil # 2.02 X10^3/uL (2.7-7.7); Platelet Count 146 K/mm3 (150-450); RBC Distribution Width CV 13.6 % (11.6-14.6); RBC Distribution Width SD 48.2 fl (35.1-43.9); Red Blood Count 2.73 M/mm3 (4.2-5.4); White Blood Count 3.8 K/mm3 (4.4-11.0)
[2020-07-25 06:30] LABS: Anion Gap 6 (5-15); BUN 65 mg/dL (7-18); BUN/Creat Ratio 28.5 RATIO (10-20); Calcium,Total 8.9 mg/dL (8.5-10.1); Chloride 110 mmol/L (98-107); Creatinine, Serum 2.28 mg/dL (0.55-1.02); EST Glomerular Filtration Rate 22 mL/min (>60); Est Glom Filt Rate - Afr Amer 26 mL/min (>60); Estimated Creatinine Clearance 14.79 ml/min; Glucose 101 mg/dL (74-106); Phosphorus 3.9 mg/dL (2.5-4.9); Potassium 3.8 mmol/L (3.5-5.1); Sodium Level 142 mmol/L (136-145)
[2020-07-25] MEDS: Nystatin Powder 15gm Bottle 1 APPLIC TOPICAL ×2 (06:58→21:45)
[2020-07-25] MEDS: amLODIPine 2.5 MG Tablet PO ×2 (07:53→21:44)
[2020-07-25] MEDS: Multivitamin (Healthy Eyes) Capsule 1 CAP PO ×2 (07:53→15:52)
[2020-07-25] MEDS: Multivitamins,Therapeutic Tablet 1 TABLET PO (07:53)
[2020-07-25] MEDS: Atenolol 100 MG Tablet PO ×2 (07:53→21:44)
[2020-07-25] MEDS: Acetaminophen 325 MG Tablet 650 MG PO ×2 (07:53→21:54)
[2020-07-25] MEDS: Pantoprazole Sodium 20 MG Tablet PO (07:53)
[2020-07-25] MEDS: APIXABAN 2.5 MG TABLET PO ×2 (07:54→21:44)
[2020-07-25] MEDS: Sodium Bicarbonate 650 MG Tablet PO ×2 (07:55→21:44)
[2020-07-25] MEDS: Menthol/Lanolin/Calamine/Znox 113 GM Tube 1 APPLIC TOPICAL ×2 (08:00→21:45)
--- NOTE | 2020-07-25 08:35 | PCM.PN.BLA ---
Progress Note Afebrile VSS-blood pressure is well controlled and the heart rate is within normal limits Maintaining appropriate oxygen saturation on RA Oral intake is good Discussed with nursing - no problems that need addressed Reviewed the PT/OT/ST notes Medication list reviewed. She received 1 dose of Lasix 60 mg on 07/22/2020. Urine output on that day was 1850. Fluid balance yesterday was even. Her weight today is 185 pounds and 6 ounces down from 187 pounds and 3 ounces on 07/22/2020. I estimate her dry weight is around 178-180. All lab was personally reviewed. The white blood cell count is still low at 3.8 but the hemoglobin is increased from 7.8 on 07/21/2022 8.7 today. platelets have come up to 146,000 from a low of 96,000. Potassium today is 3.8 and the BUN is 65 with a creatinine of 2.28, down from 2.51 on 07/21/2020. Serum bicarb is within normal limits. Phosphorus is 3.9. She has no complaints today. She states the pain in her right ankle is better and the tightness in her legs has improved somewhat since the Lasix was given last Saturday. She denies chest pain, shortness of breath, orthopnea, dysuria. Alert, oriented x3, pleasant, appropriate Lungs-clear to auscultation after a few deep breaths Heart-irregular, no gallop, rate controlled Abdomen-soft, nontender, nondistended, normal bowel sounds No calf tenderness Still with pitting edema of the distal lower extremities No rash, no skin breakdown Impressions 1. Postop debility 2. Persistent atrial fibrillation-rate controlled 3. Chronic anticoagulation with apixaban adjusted for renal failure 4. Stage IV chronic renal failure 5. Lower extremity edema. Coarse crackles in the right base have resolved with diuresis. I suspect her dry weight is probably approximately 179-181. Will need to dose the lasix according to the daily weights. 6. Anemia-hemoglobin is stable 7. Thrombocytopenia-improving with discontinuing the allopurinol 8. Leukopenia-persistent despite discontinuation of allopurinol last week. Lasix 60 mg p.o. today Potassium chloride 20 mEq today Recheck a BMP on Continue therapy Inpatient E&M: [id number] [facility] Hosp L2
[2020-07-25 08:47] VITALS: BP 138/65; PULSE 64; RESP 16; TEMP 36.8; O2SAT 95
[2020-07-25 09:27] VITALS: BMI 31.8
[2020-07-25] MEDS: Furosemide 20 MG Tablet 60 MG PO (09:56)
[2020-07-25] MEDS: Ferrous Sulfate 325 MG Tablet PO (11:49)
[2020-07-25 19:30] VITALS: BP 132/70; PULSE 66; RESP 18; TEMP 36.4; O2SAT 98
[2020-07-25] MEDS: MELATONIN 3 MG TABLET PO (21:44)
[2020-07-25 22:00] VITALS: PULSE 76; RESP 17; BMI 31.8
--- NOTE | 2020-07-26 00:17 | NURSING ---
fatigued this hs and continues to be x2 assist with transfer needs. dependent with getting out of bed.
[2020-07-26] MEDS: Nystatin Powder 15gm Bottle 1 APPLIC TOPICAL ×2 (05:10→19:57)
[2020-07-26 07:30] VITALS: BP 138/60; PULSE 67; RESP 16; TEMP 36.8; O2SAT 94
[2020-07-26] MEDS: Sodium Bicarbonate 650 MG Tablet PO ×2 (08:20→20:01)
[2020-07-26] MEDS: Pantoprazole Sodium 20 MG Tablet PO (08:20)
[2020-07-26] MEDS: amLODIPine 2.5 MG Tablet PO ×2 (08:21→20:01)
[2020-07-26] MEDS: Atenolol 100 MG Tablet PO ×2 (08:21→20:01)
[2020-07-26] MEDS: Menthol/Lanolin/Calamine/Znox 113 GM Tube 1 APPLIC TOPICAL ×2 (08:21→19:59)
[2020-07-26] MEDS: Multivitamin (Healthy Eyes) Capsule 1 CAP PO ×2 (08:21→16:28)
[2020-07-26] MEDS: APIXABAN 2.5 MG TABLET PO ×2 (08:22→19:59)
[2020-07-26] MEDS: Senna/Docusate Sodium 1 Tablet 2 TABLET PO (08:22)
[2020-07-26] MEDS: Multivitamins,Therapeutic Tablet 1 TABLET PO (08:22)
[2020-07-26] MEDS: Furosemide 20 MG Tablet 60 MG PO (08:28)
--- NOTE | 2020-07-26 10:00 | NURSING ---
VS 97.6-66-16-97% RA BP 150/53. Patient had an assisted fall with therapist due to patient reported that her foot stuck to the floor when ambulating and she lost her balance. Full ROM. Assisted x2 to standing position per both therapists. Denies pain. No head injury. Son called, Natasha deli manager aware, Dr. Hsu aware and present during assessment process.
[2020-07-26 10:21] VITALS: BMI 31.8
[2020-07-26] MEDS: Ferrous Sulfate 325 MG Tablet PO (11:16)
--- NOTE | 2020-07-26 11:47 | PN_ITS ---
Progress Note So had a fall today while doing PT. She was actually eased to the floor by the therapist into a sitting position. She denied any injury/pain. She did not hit her head and she has good ROM in the hips and the knees with no pain. Afebrile Vital signs stable Maintaining appropriate oxygen saturation on room air Urine output on 07/25/2020 was 1650 however her input was 1740. So far today she has had 720 in and 1550 out. Lungs-clear to auscultation with no rales in the bases today. Edema in the distal lower extremities is decreasing Mucous membranes are moist She denies lightheadedness Impressions 1. Stage IV chronic renal failure -will need to give Lasix based on daily weights post discharge. She will follow-up with Dr. Zenaida Barragan for chronic renal failure. 2. Debility secondary to multiple embolic CVAs due to new onset atrial fibrillation 3. Atrial fibrillation 4. Chronic anticoagulation with apixaban 5. Hyperuricemia with history of gout 6. Pancytopenia-most likely secondary to an increase in the allopurinol from 100 mg to 150 mg daily. She is currently off allopurinol but in light of history of gout and hyperuricemia would like to restart at 50 mg if the next CBC shows continued improvement in the cell counts. Recheck CBC and BMP on Continue to hold allopurinol-if she does develop gout will treat with prednisone 20 mg daily x3 Continue therapy - she is making good progress. Inpatient E&M: [id number] [facility] Hosp L2
--- NOTE | 2020-07-26 13:19 | PT ---
FIT Pt FOR S[employer] ESCOBAR, SHE IS TO WEAR THIS AND HER BLACK TENNIS SHOES WHEN AMB
[2020-07-26 19:36] VITALS: BP 134/69; PULSE 65; RESP 18; TEMP 36.3; O2SAT 97
[2020-07-26] MEDS: MELATONIN 3 MG TABLET PO (20:00)
[2020-07-26] MEDS: Acetaminophen 325 MG Tablet 650 MG PO (20:01)
[2020-07-26 22:05] VITALS: BMI 31.8
[2020-07-27] MEDS: Nystatin Powder 15gm Bottle 1 APPLIC TOPICAL ×2 (05:59→20:26)
[2020-07-27 07:54] VITALS: BP 133/63; PULSE 62; RESP 18; TEMP 36.6; O2SAT 97
[2020-07-27] MEDS: Sodium Bicarbonate 650 MG Tablet PO ×2 (08:17→20:24)
[2020-07-27] MEDS: APIXABAN 2.5 MG TABLET PO ×2 (08:17→20:25)
[2020-07-27] MEDS: Multivitamin (Healthy Eyes) Capsule 1 CAP PO ×2 (08:17→16:03)
[2020-07-27] MEDS: Pantoprazole Sodium 20 MG Tablet PO (08:17)
[2020-07-27] MEDS: Multivitamins,Therapeutic Tablet 1 TABLET PO (08:17)
[2020-07-27] MEDS: Atenolol 100 MG Tablet PO ×2 (08:18→20:25)
[2020-07-27] MEDS: amLODIPine 2.5 MG Tablet PO ×2 (08:18→20:24)
[2020-07-27] MEDS: Menthol/Lanolin/Calamine/Znox 113 GM Tube 1 APPLIC TOPICAL ×2 (08:27→20:28)
[2020-07-27] MEDS: Ferrous Sulfate 325 MG Tablet PO (11:34)
[2020-07-27 13:20] VITALS: BMI 31.8
[2020-07-27 19:26] VITALS: BP 142/73; PULSE 96; RESP 16; TEMP 36.7; O2SAT 94
[2020-07-27 20:00] VITALS: BMI 31.8
[2020-07-27] MEDS: MELATONIN 3 MG TABLET PO (20:25)
[2020-07-27] MEDS: Acetaminophen 325 MG Tablet 650 MG PO (20:27)
[2020-07-27 22:00] VITALS: PULSE 92; RESP 16
[2020-07-28 05:34] LABS: Hematocrit 27.2 % (37-47); Hemoglobin 8.8 g/dL (12.0-15.0); Mean Corp Hgb Conc 32.4 g/dL (32-36); Mean Corpuscular Volume 98.9 fL (81-99); Mean Platelet Vol. 9.6 fl (6.2-12.0); Platelet Count 153 K/mm3 (150-450); RBC Distribution Width CV 13.3 % (11.6-14.6); RBC Distribution Width SD 47.5 fl (35.1-43.9); Red Blood Count 2.75 M/mm3 (4.2-5.4); White Blood Count 3.8 K/mm3 (4.4-11.0)
[2020-07-28 05:49] LABS: Anion Gap 5 (5-15); BUN 70 mg/dL (7-18); BUN/Creat Ratio 29.5 RATIO (10-20); Calcium,Total 8.7 mg/dL (8.5-10.1); Chloride 106 mmol/L (98-107); Creatinine, Serum 2.37 mg/dL (0.55-1.02); EST Glomerular Filtration Rate 21 mL/min (>60); Est Glom Filt Rate - Afr Amer 25 mL/min (>60); Estimated Creatinine Clearance 14.22 ml/min; Glucose 98 mg/dL (74-106); Potassium 3.6 mmol/L (3.5-5.1); Sodium Level 140 mmol/L (136-145)
[2020-07-28] MEDS: Nystatin Powder 15gm Bottle 1 APPLIC TOPICAL ×2 (06:44→20:46)
[2020-07-28] MEDS: Multivitamin (Healthy Eyes) Capsule 1 CAP PO ×2 (07:45→16:22)
[2020-07-28] MEDS: amLODIPine 2.5 MG Tablet PO (07:45)
[2020-07-28] MEDS: Multivitamins,Therapeutic Tablet 1 TABLET PO (07:45)
[2020-07-28] MEDS: APIXABAN 2.5 MG TABLET PO ×2 (07:45→20:46)
[2020-07-28] MEDS: Pantoprazole Sodium 20 MG Tablet PO (07:46)
[2020-07-28] MEDS: Atenolol 100 MG Tablet PO ×2 (07:46→20:45)
[2020-07-28] MEDS: Sodium Bicarbonate 650 MG Tablet PO (07:46)
[2020-07-28] MEDS: Menthol/Lanolin/Calamine/Znox 113 GM Tube 1 APPLIC TOPICAL ×2 (07:48→20:47)
[2020-07-28 08:36] VITALS: BP 139/69; PULSE 66; RESP 18; TEMP 36.6; O2SAT 96
[2020-07-28 09:39] VITALS: BMI 31.8
--- NOTE | 2020-07-28 09:53 | CASEMGMT ---
Social Work IDT met with patient and son for Team meeting. Discussed patient's progress in therapy. Pt is ambulating 85 ft with FWW at CGA, and thinks while walking does well, but when distracted/fatigued feet shuffle and increases fall risk. Pt completed 2 steps with 2HR min-modA walking backward safer, with only 1HR at home. Pt is CGA for tx with extra time, Adithya fur OE dressing and bathing, maxA for toileting and LE dressing, dependent for toileting tasks. Pt has improved with speech intelligibility and breath support. Pt is on a moist, inced chopped diet, nectar thick. ST trialing thin liquids today, on the FFWP. Explained insurance with NRD 08/01 and continued stay is not guaranteed. Explained IDT is not recommending pt return home alone due to high fall risk and needing assistance with ADLs. Both son's work and could not provide 24/7 care. Pt only wants to go home, not a SNF. Son understands the need for an alternative DC plan. Provided SW contact information, SNF list and nonskilled HHC list. Son to look into [facility] benefits and discuss with pt the plan. SW to explain further with each option. Son understands precert will be submitted for SNF but could not approve and would need to private pay for Medicaid, if eligible. Son expressed understanding and will contact SW with decision. Will continue to follow. REMI Reynolds COFFEE BLENDER
--- NOTE | 2020-07-28 11:16 | PCM.PN.BLA ---
Progress Note So was seen on team rounds today. Her son Satnam was present in the room for rounds. Afebrile VSS-systolic blood pressure is still frequently over 130. Diastolic blood pressures are within goal. Maintaining appropriate oxygen saturation on RA Oral intake is good Weight today is 183 pounds and 2 ounces, down from 187 pounds and 13 ounces on 07/26/2020. Discussed with nursing - no problems that need addressed. She had a retro lean today while ambulating in her room and fortunately her nurse was behind her and caught her. Reviewed the PT/OT/ST notes - she continues to progress Medication list reviewed. All labs personally reviewed. The creatinine today is 2.37 with a BUN of 70. Potassium is 3.6 and sodium is 140. Serum bicarb is 29. Hemoglobin is stable at 8.8 and the platelets are now within normal limits. WBC count remains mildly decreased at 3.8. So is complaining that the tennis shoes are too heavy and she can not walk in them. She is accustomed to walking barefoot at home. She always complains the AFO interferes with walking however she drags her toe on the right foot and is walking much better with the AFO. She is also complaining of difficulty sleeping at night and relates that at home she takes 5 mg of melatonin nightly. She states the tightness in her legs is much improved. She denies orthopnea and dyspnea on exertion. She denies palpitations or lightheadedness. alert, pleasant, appropriate, oriented x3 Lungs-clear to auscultation Heart-irregular irregular with controlled ventricular response, no gallop Abdomen-soft, nontender, nondistended, no guarding with palpation, bowel sounds present Still with pitting edema of the ankles, KRYSTIAN hose are in place, they are much better than they were last week. No pitting edema above the knee. No calf pain Using the right upper extremity more. Ambulating better with the right foot AFO to overcome foot drop. Impressions 1. Post stroke debility 2. New onset atrial fibrillation 3. chronic anticoagulation with Apixaban, adjusted for stage IV chronic renal failure 4. Chronic stage IV renal failure 5. Hypertension 6. Pancytopenia-due to allopurinol. Hemoglobin is now stable and the platelets are within normal limits with discontinuation of allopurinol. White blood cell counts remain mildly decreased. She has not had an acute gouty arthritis attack. 7. Hyperuricemia with history of gouty arthritis Continue therapy Increase the amlodipine to 5 mg PO BID and continue to monitor the BP's. Decrease the bicarb tabs to 1 tablet daily. We will use 183 to 184 pounds as her dry weight. Will administer Lasix as needed based on this weight. Increase melatonin to 6 mg p.o. nightly Recheck lab early next Saturday STROKE Vital Signs/Narrative: Vital Signs Temp Pulse Resp BP Pulse Ox 07/28/20 08:36 97.8 F 66 18 139/69 H 96 Inpatient E&M: [id number] Subs Hosp L2
[2020-07-28] MEDS: Ascorbic Acid 500 MG Tablet PO (13:05)
[2020-07-28] MEDS: Ferrous Sulfate 325 MG Tablet PO (13:05)
[2020-07-28 18:57] VITALS: BP 119/59; PULSE 62; RESP 18; TEMP 36.6; O2SAT 97
[2020-07-28] MEDS: MELATONIN 3 MG TABLET 6 MG PO (20:46)
[2020-07-28] MEDS: amLODIPine 5 MG Tablet PO (20:46)
[2020-07-29] MEDS: Nystatin Powder 15gm Bottle 1 APPLIC TOPICAL ×2 (05:35→19:49)
[2020-07-29] MEDS: amLODIPine 5 MG Tablet PO ×2 (07:36→19:50)
[2020-07-29] MEDS: Multivitamins,Therapeutic Tablet 1 TABLET PO (07:36)
[2020-07-29] MEDS: Sodium Bicarbonate 650 MG Tablet PO (07:36)
[2020-07-29] MEDS: Multivitamin (Healthy Eyes) Capsule 1 CAP PO ×2 (07:36→16:23)
[2020-07-29] MEDS: Pantoprazole Sodium 20 MG Tablet PO (07:36)
[2020-07-29] MEDS: Senna/Docusate Sodium 1 Tablet 2 TABLET PO (07:36)
[2020-07-29] MEDS: Atenolol 100 MG Tablet PO ×2 (07:36→19:51)
[2020-07-29] MEDS: Menthol/Lanolin/Calamine/Znox 113 GM Tube 1 APPLIC TOPICAL ×2 (07:37→20:02)
[2020-07-29] MEDS: APIXABAN 2.5 MG TABLET PO ×2 (07:37→19:50)
[2020-07-29 08:55] VITALS: PULSE 68; RESP 12; O2SAT 96
[2020-07-29 08:59] VITALS: BP 133/55; PULSE 68; RESP 12; TEMP 36.6; O2SAT 96
[2020-07-29] MEDS: Ascorbic Acid 500 MG Tablet PO (11:47)
[2020-07-29] MEDS: Ferrous Sulfate 325 MG Tablet PO (11:47)
[2020-07-29] MEDS: MELATONIN 3 MG TABLET 6 MG PO (19:50)
[2020-07-29 20:58] VITALS: BP 130/68; PULSE 64; RESP 16; TEMP 36.7; O2SAT 97
[2020-07-30] MEDS: Nystatin Powder 15gm Bottle 1 APPLIC TOPICAL ×2 (05:27→19:56)
[2020-07-30] MEDS: Multivitamins,Therapeutic Tablet 1 TABLET PO (08:59)
[2020-07-30] MEDS: Pantoprazole Sodium 20 MG Tablet PO (08:59)
[2020-07-30] MEDS: amLODIPine 5 MG Tablet PO ×2 (09:00→19:53)
[2020-07-30] MEDS: Senna/Docusate Sodium 1 Tablet 2 TABLET PO (09:00)
[2020-07-30] MEDS: Ascorbic Acid 500 MG Tablet PO (09:00)
[2020-07-30] MEDS: APIXABAN 2.5 MG TABLET PO ×2 (09:00→19:53)
[2020-07-30] MEDS: Atenolol 100 MG Tablet PO ×2 (09:01→19:54)
[2020-07-30] MEDS: Multivitamin (Healthy Eyes) Capsule 1 CAP PO ×2 (09:01→13:25)
[2020-07-30] MEDS: Ferrous Sulfate 325 MG Tablet PO (09:02)
[2020-07-30 10:00] VITALS: PULSE 60
[2020-07-30] MEDS: Menthol/Lanolin/Calamine/Znox 113 GM Tube 1 APPLIC TOPICAL ×2 (13:24→19:52)
[2020-07-30] MEDS: Sodium Bicarbonate 650 MG Tablet PO (13:25)
[2020-07-30 14:54] VITALS: BMI 31.8
[2020-07-30 19:26] VITALS: BP 116/60; PULSE 62; RESP 20; TEMP 36.2; O2SAT 98
[2020-07-30] MEDS: MELATONIN 3 MG TABLET 6 MG PO (19:53)
[2020-07-30] MEDS: Acetaminophen 325 MG Tablet 650 MG PO (19:56)
[2020-07-30 20:04] VITALS: BMI 31.8
[2020-07-30 22:00] VITALS: PULSE 66; RESP 17; O2SAT 98
[2020-07-31] MEDS: Acetaminophen 325 MG Tablet 650 MG PO ×2 (06:05→20:04)
[2020-07-31] MEDS: Nystatin Powder 15gm Bottle 1 APPLIC TOPICAL ×2 (06:05→20:02)
[2020-07-31] MEDS: Pantoprazole Sodium 20 MG Tablet PO (07:57)
[2020-07-31] MEDS: Multivitamins,Therapeutic Tablet 1 TABLET PO (07:57)
[2020-07-31] MEDS: Sodium Bicarbonate 650 MG Tablet PO (07:57)
[2020-07-31] MEDS: Multivitamin (Healthy Eyes) Capsule 1 CAP PO ×2 (07:57→14:58)
[2020-07-31] MEDS: amLODIPine 5 MG Tablet PO ×2 (07:57→20:00)
[2020-07-31] MEDS: Atenolol 100 MG Tablet PO ×2 (07:58→20:01)
[2020-07-31] MEDS: APIXABAN 2.5 MG TABLET PO ×2 (08:00→20:01)
[2020-07-31] MEDS: Menthol/Lanolin/Calamine/Znox 113 GM Tube 1 APPLIC TOPICAL ×2 (08:14→20:01)
[2020-07-31 08:50] VITALS: BP 124/77; PULSE 61; RESP 16; TEMP 36.5; O2SAT 98
[2020-07-31] MEDS: Ascorbic Acid 500 MG Tablet PO (11:25)
[2020-07-31] MEDS: Ferrous Sulfate 325 MG Tablet PO (11:25)
[2020-07-31 12:36] VITALS: BMI 31.8
[2020-07-31] MEDS: Furosemide 20 MG Tablet 60 MG PO (14:59)
[2020-07-31 19:33] VITALS: BP 132/72; PULSE 82; RESP 18; TEMP 36.3; O2SAT 96
[2020-07-31] MEDS: Senna/Docusate Sodium 1 Tablet 2 TABLET PO (19:59)
[2020-07-31] MEDS: MELATONIN 3 MG TABLET 6 MG PO (20:01)
[2020-07-31 20:14] VITALS: BMI 31.8
[2020-07-31 22:00] VITALS: PULSE 80; RESP 16; O2SAT 96
[2020-08-01 02:36] VITALS: BMI 31.8
[2020-08-01] MEDS: Acetaminophen 325 MG Tablet 650 MG PO ×2 (05:59→20:35)
[2020-08-01] MEDS: Nystatin Powder 15gm Bottle 1 APPLIC TOPICAL (06:01)
[2020-08-01] MEDS: Sodium Bicarbonate 650 MG Tablet PO (07:42)
[2020-08-01] MEDS: Pantoprazole Sodium 20 MG Tablet PO (07:42)
[2020-08-01] MEDS: amLODIPine 5 MG Tablet PO ×2 (07:42→20:32)
[2020-08-01] MEDS: Atenolol 100 MG Tablet PO ×2 (07:42→20:55)
[2020-08-01] MEDS: APIXABAN 2.5 MG TABLET PO ×2 (07:42→20:34)
[2020-08-01] MEDS: Senna/Docusate Sodium 1 Tablet 2 TABLET PO (07:42)
[2020-08-01] MEDS: Multivitamin (Healthy Eyes) Capsule 1 CAP PO ×2 (07:43→16:55)
[2020-08-01] MEDS: Menthol/Lanolin/Calamine/Znox 113 GM Tube 1 APPLIC TOPICAL ×2 (07:43→20:34)
[2020-08-01] MEDS: Multivitamins,Therapeutic Tablet 1 TABLET PO (07:43)
[2020-08-01 08:26] VITALS: BP 146/78; PULSE 62; RESP 16; TEMP 37.1; O2SAT 99
[2020-08-01 08:36] VITALS: BMI 31.8
--- NOTE | 2020-08-01 08:53 | PCM.PN.BLA ---
Progress Note Afebrile VSS Maintaining appropriate oxygen saturation on RA Oral intake is good Discussed with nursing - no problems that need addressed....she required 2 rudolph assist last night Reviewed the PT/OT/ST notes Medication list reviewed. She received 60 mg of p.o. Lasix yesterday for an increased weight at 187 pounds and 6 ounces. Fluid balance on 07/31/2020 was +145. She has had 775 cc out so far today. Her weight on Saturday was 187 pounds and 6.3 ounces and today the weight is 184 pounds and 12 ounces. She denies shortness of breath but states her legs feel tight. She denies orthopnea. Denies palpitations. MM are moist She is alert, oriented, appropriate and pleasant. Lungs-clear to auscultation. No conversational dyspnea, not tachypneic, no accessory muscle use. Heart-regular rate and rhythm today. On all other times I examined her she has been in atrial fibrillation. Negative S3, no ectopy. Abdomen-soft, nontender, nondistended, normal bowel sounds She has pitting edema of the ankles and also has mild pitting edema of the posterior thighs. No rashes and no skin breakdown Impressions 1. Post stroke debility-secondary to new onset atrial fibrillation with embolic CVA 2. Stage IV chronic renal failure-stable 3. Venous insufficiency 4. Anemia - likely due to chronic renal disease 5. Paroxysmal atrial fibrillation-on apixaban (renally dosed) 6. Hypertension-adequately controlled 7. Pancytopenia-leukocytosis and thrombocytopenia I suspect are due to allopurinol which has been discontinued. She has not had any acute gout. She does have a history of hyperuricemia. 8. Hemoccult positive stool-on Protonix 20 mg daily BMP in the AM Start furosemide 60 mg p.o. every 48 hours in the AM.. Continue to monitor BMP/creatinine. STROKE Vital Signs/Narrative: Vital Signs Temp Pulse Resp BP Pulse Ox 08/01/20 08:26 98.7 F 62 16 146/78 H 99 Inpatient E&M: [id number] Subs Hosp L2
[2020-08-01] MEDS: Ferrous Sulfate 325 MG Tablet PO (11:56)
[2020-08-01] MEDS: Ascorbic Acid 500 MG Tablet PO (11:56)
[2020-08-01 20:10] VITALS: BP 146/63; PULSE 62; RESP 18; TEMP 36.6; O2SAT 97
[2020-08-01 20:12] VITALS: BMI 31.8
[2020-08-01] MEDS: MELATONIN 3 MG TABLET 6 MG PO (20:33)
[2020-08-01 20:40] VITALS: PULSE 62; RESP 17
--- NOTE | 2020-08-01 20:52 | NURSING ---
Pt continues to be fatigued at night and requires x2 assist into and out of bed. Unable to assist with getting legs out of and into bed. Once standing, pt requres cueing to maneuver to bsc.
[2020-08-02 07:55] LABS: Hematocrit 30.6 % (37-47); Hemoglobin 9.6 g/dL (12.0-15.0); Mean Corp Hgb Conc 31.4 g/dL (32-36); Mean Corpuscular Hgb 31.5 pg (27.0-32.0); Mean Corpuscular Volume 100.3 fL (81-99); Platelet Count 176 K/mm3 (150-450); RBC Distribution Width CV 13.4 % (11.6-14.6); RBC Distribution Width SD 49.2 fl (35.1-43.9); Red Blood Count 3.05 M/mm3 (4.2-5.4); White Blood Count 4.8 K/mm3 (4.4-11.0)
[2020-08-02] MEDS: Menthol/Lanolin/Calamine/Znox 113 GM Tube 1 APPLIC TOPICAL ×2 (08:00→21:53)
[2020-08-02] MEDS: Multivitamin (Healthy Eyes) Capsule 1 CAP PO ×2 (08:00→16:22)
[2020-08-02] MEDS: Atenolol 100 MG Tablet PO ×2 (08:01→21:53)
[2020-08-02] MEDS: amLODIPine 5 MG Tablet PO ×2 (08:01→21:53)
[2020-08-02] MEDS: Furosemide 20 MG Tablet 60 MG PO (08:01)
[2020-08-02] MEDS: Multivitamins,Therapeutic Tablet 1 TABLET PO (08:01)
[2020-08-02] MEDS: Sodium Bicarbonate 650 MG Tablet PO (08:01)
[2020-08-02 08:07] LABS: Anion Gap 6 (5-15); BUN 61 mg/dL (7-18); Calcium,Total 9.3 mg/dL (8.5-10.1); Chloride 114 mmol/L (98-107); Creatinine, Serum 2.54 mg/dL (0.55-1.02); EST Glomerular Filtration Rate 19 mL/min (>60); Est Glom Filt Rate - Afr Amer 23 mL/min (>60); Estimated Creatinine Clearance 13.27 ml/min; Glucose 104 mg/dL (74-106); Sodium Level 145 mmol/L (136-145)
[2020-08-02 09:58] VITALS: BP 130/63; PULSE 63; RESP 16; TEMP 36.4; O2SAT 94
[2020-08-02] MEDS: APIXABAN 2.5 MG TABLET PO ×2 (10:05→21:53)
[2020-08-02] MEDS: Pantoprazole Sodium 20 MG Tablet PO (10:06)
[2020-08-02] MEDS: Ascorbic Acid 500 MG Tablet PO (12:07)
[2020-08-02] MEDS: Ferrous Sulfate 325 MG Tablet PO (12:07)
--- NOTE | 2020-08-02 12:34 | PN_ITS ---
Patient Problems: Active and Suspected Problems PAF (paroxysmal atrial fibrillation) (Acute) Chronic anticoagulation (Acute) Debility (Acute) Cerebrovascular accident, embolic (Acute) Acidosis, metabolic (Acute) Dehydration (Acute) Normochromic normocytic anemia (Acute) Acute renal failure superimposed on chronic kidney disease (Acute) Right ankle sprain (Acute) Ankle pain (Acute) Subjective: Afebrile VSS Maintaining appropriate oxygen saturation on RA Oral intake is good Fluid balance on 08/01/2020 was -520. Discussed with nursing - no problems that need addressed Reviewed the PT/OT/ST notes Medication list reviewed. All lab was personally reviewed. Hemoglobin has improved and is 9.6 today. Platelets and white blood cell count are now within normal limits. BMP shows a CO2 of 25 and a potassium of 4.0. The BUN is 61 and the creatinine is 2.54. She denies shortness of breath, orthopnea, palpitations, lightheadedness, constipation, chest pain. She is having some joint discomfort secondary to osteoarthritis. - Physical Exam Vitals/I&O's: Vital Signs Temp Pulse Resp BP Pulse Ox 97.6 F L 63 16 130/63 H 94 08/02/20 09:58 08/02/20 09:58 08/02/20 09:58 08/02/20 09:58 08/02/20 09:58 Oxygen Delivery Method Room Air Weight: 181 lb 7.047 oz Body Mass Index (BMI) 31.8 Intake and Output for Last 24 Hours 07/31/20 08/01/20 08/02/20 23:59 23:59 23:59 Intake Total 1520 / 1520 780 / 900 600 / 600 Output Total 1375 / 1600 1300 / 1500 800 / 800 Balance 145 / -80 -520 / -600 -200 / -200 General: Alert, Oriented x3, Cooperative, No apparent distress Oral: Moist Mucosa Lungs: Rales - good air exchange, no wheezes, no rhonchi, few coarse crackles in the right base Cardiovascular: Irregular Rate - with controlled ventricular response Abdomen: Bowel Sounds Present, Soft, Non Tender Extremities: Edema - TEDS are in place. No posterior thigh edema today, still with ankle edema Skin: No rashes, No breakdown Psych/Mental Status: Normal Affect, Appropriate Laboratory Results 08/02/20 07:44: WBC 4.8, RBC 3.05 L, Hgb 9.6 L, Hct 30.6 L, MCV 100.3 H, MCH 31.5, MCHC 31.4 L, RDW Std Deviation 49.2 H, RDW Coeff of Richar 13.4, Plt Count 176, MPV 10.0 08/02/20 07:44: Sodium 145, Potassium 4.0, Chloride 114 H, Carbon Dioxide 25.0, Anion Gap 6, BUN 61 H, Creatinine 2.54 H, Estim Creat Clear Calc 13.27, Est GFR (MDRD) Af Amer 23 L, Est GFR (MDRD) Non-Af 19 L, BUN/Creatinine Ratio 24.0 H, Glucose 104, Calcium 9.3 Current Medications Acetaminophen (Acetaminophen 325 Mg Tablet) 650 mg PO Q6H PRN PRN PRN Reason: Pain Score 1-10 Last Admin: 08/01/20 20:35 Dose: 650 mg Documented by: Amlodipine Besylate (Amlodipine 5 Mg Tablet) 5 mg PO BID [facility] Last Admin: 08/02/20 08:01 Dose: 5 mg Documented by: Apixaban (Eliquis) 2.5 mg PO BID [facility] Last Admin: 08/02/20 10:05 Dose: 2.5 mg Documented by: Ascorbic Acid (Ascorbic Acid 500 Mg Tablet) 500 mg PO DAILY@1200 [facility] Last Admin: 08/02/20 12:07 Dose: 500 mg Documented by: Atenolol (Atenolol 100 Mg Tablet) 100 mg PO BID [facility] Last Admin: 08/02/20 08:01 Dose: 100 mg Documented by: Bisacodyl (Bisacodyl 10 Mg Suppository) 10 mg RECTAL .PRN X 1 PRN PRN Reason: Constipation Calamine/Phenol (Menthol/Lanolin/Calamine/Znox 113 Gm Tube) 1 applic TOPICAL BID [facility]; Protocol Last Admin: 08/02/20 08:00 Dose: 1 applicatio Documented by: Ferrous Sulfate (Ferrous Sulfate) 325 mg PO DAILY@1200 [facility] Last Admin: 08/02/20 12:07 Dose: 325 mg Documented by: Furosemide (Furosemide 20 Mg Tablet) 60 mg PO Q48H [facility] Last Admin: 08/02/20 08:01 Dose: 60 mg Documented by: Magnesium Hydroxide (Magnesium Hydroxide 30 Ml Udc) 30 ml PO .PRN X 1 PRN PRN Reason: Constipation Melatonin (Melatonin 3 Mg Tablet) 6 mg PO QHS [facility] Last Admin: 08/01/20 20:33 Dose: 6 mg Documented by: Multivitamins (Multivitamins,Therapeutic Tablet) 1 tablet PO DAILY@0800 [facility] Last Admin: 08/02/20 08:01 Dose: 1 tablet Documented by: Multivitamins/Minerals (Multivitamin (Healthy Eyes) Capsule) 1 capsule PO BIDCM [facility] Last Admin: 08/02/20 08:00 Dose: 1 capsule Documented by: Pantoprazole Sodium (Protonix) 20 mg PO DAILY [facility] Last Admin: 08/02/20 10:06 Dose: 20 mg Documented by: Senna/Docusate Sodium (Senna/Docusate Sodium 1 Tablet) 2 tablet PO BID [facility] Last Admin: 08/02/20 08:01 Dose: Not Given Documented by: Sodium Bicarbonate (Sodium Bicarbonate 650 Mg Tablet) 650 mg PO DAILY [facility] Last Admin: 08/02/20 08:01 Dose: 650 mg Documented by: Sodium Chloride (0.9% Saline Lock 10 Ml Syringe) 10 - 40 ml IV UD PRN PRN Reason: SALINE FLUSH Last Admin: 07/05/20 14:57 Dose: 10 ml Documented by: Sodium Chloride (0.9% Saline Lock 10 Ml Syringe) 10 - 40 ml IV UD PRN PRN Reason: SALINE FLUSH Medical Necessity - Tobacco Use Smoking Status: Never smoker Tobacco Use: Non-smoker Assessment/Plan All Active Problems PAF (paroxysmal atrial fibrillation) (Acute) Chronic anticoagulation (Acute) Debility (Acute) Cerebrovascular accident, embolic (Acute) Acidosis, metabolic (Acute) Dehydration (Acute) Normochromic normocytic anemia (Acute) Acute renal failure superimposed on chronic kidney disease (Acute) Right ankle sprain (Acute) Ankle pain (Acute) Inpatient E&M: [id number] [facility] Hosp L2
--- NOTE | 2020-08-02 16:10 | CHAPLAIN ---
Type of Pastoral Visit ___ Initial Visit _x__ Follow-up Visit ___ On-call Visit ___ General Patient Visit ___ Spiritual Assessment ___ Family Conference ___ Bereavement ___ Rapid Response ___ Code Blue ___ Other (describe below) Pastoral Care Referral From _x__ Patient ___ Family _x__ Nurse ___ Physician ___ Feeder Tender ___ Air Conditioning Insulation Installer ___ Other (describe below) Sacrament/Intervention _x__ Active listening ___ Anointing ___ Rastafari ___ Bereavement ___ Communion ___ Radha exploration ___ _x__ Life review _x__ Prayer ___ Reconciliation ___ Sacrament of Sick _x__ Supportive presence ___ Wedding ___ Other (describe below) Pastoral Comments
[2020-08-02 17:00] VITALS: BMI 31.8
[2020-08-02 19:45] VITALS: BP 115/55; PULSE 62; RESP 18; TEMP 36.4; O2SAT 98; BMI 31.8
[2020-08-02] MEDS: MELATONIN 3 MG TABLET 6 MG PO (21:52)
[2020-08-02] MEDS: Acetaminophen 325 MG Tablet 650 MG PO (21:56)
[2020-08-03] MEDS: Pantoprazole Sodium 20 MG Tablet PO (08:04)
[2020-08-03] MEDS: Atenolol 100 MG Tablet PO ×2 (08:04→22:07)
[2020-08-03] MEDS: Sodium Bicarbonate 650 MG Tablet PO (08:04)
[2020-08-03] MEDS: Menthol/Lanolin/Calamine/Znox 113 GM Tube 1 APPLIC TOPICAL ×2 (08:04→22:07)
[2020-08-03] MEDS: Multivitamins,Therapeutic Tablet 1 TABLET PO (08:04)
[2020-08-03] MEDS: Multivitamin (Healthy Eyes) Capsule 1 CAP PO ×2 (08:04→16:50)
[2020-08-03] MEDS: amLODIPine 5 MG Tablet PO ×2 (08:04→22:07)
[2020-08-03] MEDS: APIXABAN 2.5 MG TABLET PO ×2 (08:04→22:07)
[2020-08-03 09:25] VITALS: BP 110/68; PULSE 67; RESP 18; TEMP 36.9; O2SAT 97
[2020-08-03 09:45] VITALS: PULSE 67; RESP 18; O2SAT 97
[2020-08-03] MEDS: Ferrous Sulfate 325 MG Tablet PO (11:47)
[2020-08-03] MEDS: Ascorbic Acid 500 MG Tablet PO (11:47)
[2020-08-03 20:30] VITALS: BP 120/80; PULSE 62; RESP 18; TEMP 36.3; O2SAT 98; BMI 31.8
[2020-08-03] MEDS: MELATONIN 3 MG TABLET 6 MG PO (22:06)
[2020-08-03] MEDS: Acetaminophen 325 MG Tablet 650 MG PO (22:11)
--- NOTE | 2020-08-04 04:24 | NURSING ---
REVIEWED AND AGREE WITH MEDIA SENIOR RECRUITER'S FUNCTIONAL ASSESSMENT AND HANDOFF CHARTING.
[2020-08-04] MEDS: Multivitamin (Healthy Eyes) Capsule 1 CAP PO ×2 (07:53→16:23)
[2020-08-04] MEDS: Atenolol 100 MG Tablet PO ×2 (07:53→22:17)
[2020-08-04] MEDS: Multivitamins,Therapeutic Tablet 1 TABLET PO (07:53)
[2020-08-04] MEDS: Pantoprazole Sodium 20 MG Tablet PO (07:53)
[2020-08-04] MEDS: amLODIPine 5 MG Tablet PO ×2 (07:53→22:17)
[2020-08-04] MEDS: Sodium Bicarbonate 650 MG Tablet PO (07:53)
[2020-08-04] MEDS: APIXABAN 2.5 MG TABLET PO ×2 (07:54→22:16)
[2020-08-04] MEDS: Furosemide 20 MG Tablet 60 MG PO (07:54)
[2020-08-04] MEDS: Menthol/Lanolin/Calamine/Znox 113 GM Tube 1 APPLIC TOPICAL ×2 (07:55→22:16)
[2020-08-04 08:00] VITALS: BP 124/65; PULSE 72; RESP 18; TEMP 36.6; O2SAT 97
--- NOTE | 2020-08-04 09:47 | PN_ITS ---
Patient Problems: Active and Suspected Problems PAF (paroxysmal atrial fibrillation) (Acute) Chronic anticoagulation (Acute) Debility (Acute) Cerebrovascular accident, embolic (Acute) Acidosis, metabolic (Acute) Dehydration (Acute) Normochromic normocytic anemia (Acute) Acute renal failure superimposed on chronic kidney disease (Acute) Right ankle sprain (Acute) Ankle pain (Acute) Subjective: So was seen on team rounds today. Her son Satnam was present in the room for rounds. Afebrile Blood pressure is now well controlled. She denies any dizziness or lightheadedness. Heart rate is well controlled. She is maintaining appropriate oxygen saturation on room air. She had 2 L of urine output yesterday. Her weight today is 180 pounds and 2 ounces, down from 182 pounds and 1.6 ounces yesterday. I suspect 1 80-1 82 is her dry weight. Creatinine on 04/02/2020 was 2.54 with a BUN of 61. The creatinine fluctuates between 2.34 and 2.54. GFR hovers between 19 and 22. The edema in her legs has improved and she continues to deny shortness of breath. Serum bicarb remains within normal limits on only 1 bicarb tablet daily. Gila is currently on 60 mg of p.o. Lasix every other day. - Physical Exam Vitals/I&O's: Vital Signs Temp Pulse Resp BP Pulse Ox 97.8 F 72 18 124/65 H 97 08/04/20 08:00 08/04/20 08:00 08/04/20 08:00 08/04/20 08:00 08/04/20 08:00 Oxygen Delivery Method Room Air Weight: 180 lb 1.883 oz Body Mass Index (BMI) 31.8 Intake and Output for Last 24 Hours 08/02/20 08/03/20 08/04/20 23:59 23:59 23:59 Intake Total 1520 / 1520 990 / 990 Output Total 1350 / 1350 1999 150 / 150 Balance 170 / 170 -1010 / -1010 -150 / -150 General: Alert, Oriented x3, Cooperative, No apparent distress, Well developed, Well nourished Oral: Moist Mucosa, No Gingival or Mucosal Lesions/ Ulcerations Lungs: Rales - few persistent coarse crackles in the right base. Good air exchange. NOt tachypneic and no conversational dyspnea. Cardiovascular: Irregular Rate - with controlled ventricular rate, - - distant heart sounds Abdomen: Bowel Sounds Present, Soft, Non Tender, Non-Distended, - - No guarding with palpation Extremities: Edema - better with starting the lasix Q 48hours......she is now at her baseline weight. Skin: No rashes, No breakdown Musculoskeletal: Arthritic Changes Neurological: - - strength is improving. 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 She is able to extend her R leg from the knee and hold for a count of 5 with no drift. she is able to raise the right arm above her head. She is now doing steps but needs 2 rails. Has walked on sifferent surfaces. Psych/Mental Status: Normal Affect, Appropriate Current Medications Acetaminophen (Acetaminophen 325 Mg Tablet) 650 mg PO Q6H PRN PRN PRN Reason: Pain Score 1-10 Last Admin: 08/03/20 22:11 Dose: 650 mg Documented by: Amlodipine Besylate (Amlodipine 5 Mg Tablet) 5 mg PO BID [facility] Last Admin: 08/04/20 07:53 Dose: 5 mg Documented by: Apixaban (Eliquis) 2.5 mg PO BID [facility] Last Admin: 08/04/20 07:54 Dose: 2.5 mg Documented by: Ascorbic Acid (Ascorbic Acid 500 Mg Tablet) 500 mg PO DAILY@1200 [facility] Last Admin: 08/03/20 11:47 Dose: 500 mg Documented by: Atenolol (Atenolol 100 Mg Tablet) 100 mg PO BID [facility] Last Admin: 08/04/20 07:53 Dose: 100 mg Documented by: Bisacodyl (Bisacodyl 10 Mg Suppository) 10 mg RECTAL .PRN X 1 PRN PRN Reason: Constipation Calamine/Phenol (Menthol/Lanolin/Calamine/Znox 113 Gm Tube) 1 applic TOPICAL BID [facility]; Protocol Last Admin: 08/04/20 07:55 Dose: 1 applicatio Documented by: Ferrous Sulfate (Ferrous Sulfate) 325 mg PO DAILY@1200 [facility] Last Admin: 08/03/20 11:47 Dose: 325 mg Documented by: Furosemide (Furosemide 20 Mg Tablet) 60 mg PO Q48H [facility] Last Admin: 08/04/20 07:54 Dose: 60 mg Documented by: Magnesium Hydroxide (Magnesium Hydroxide 30 Ml Udc) 30 ml PO .PRN X 1 PRN PRN Reason: Constipation Melatonin (Melatonin 3 Mg Tablet) 6 mg PO QHS [facility] Last Admin: 08/03/20 22:06 Dose: 6 mg Documented by: Multivitamins (Multivitamins,Therapeutic Tablet) 1 tablet PO DAILY@0800 [facility] Last Admin: 08/04/20 07:53 Dose: 1 tablet Documented by: Multivitamins/Minerals (Multivitamin (Healthy Eyes) Capsule) 1 capsule PO BIDCM [facility] Last Admin: 08/04/20 07:53 Dose: 1 capsule Documented by: Pantoprazole Sodium (Protonix) 20 mg PO DAILY [facility] Last Admin: 08/04/20 07:53 Dose: 20 mg Documented by: Senna/Docusate Sodium (Senna/Docusate Sodium 1 Tablet) 2 tablet PO BID [facility] Last Admin: 08/04/20 07:54 Dose: Not Given Documented by: Sodium Bicarbonate (Sodium Bicarbonate 650 Mg Tablet) 650 mg PO DAILY [facility] Last Admin: 08/04/20 07:53 Dose: 650 mg Documented by: Sodium Chloride (0.9% Saline Lock 10 Ml Syringe) 10 - 40 ml IV UD PRN PRN Reason: SALINE FLUSH Last Admin: 07/05/20 14:57 Dose: 10 ml Documented by: Sodium Chloride (0.9% Saline Lock 10 Ml Syringe) 10 - 40 ml IV UD PRN PRN Reason: SALINE FLUSH Medical Necessity - Tobacco Use Smoking Status: Never smoker Tobacco Use: Non-smoker Assessment/Plan All Active Problems PAF (paroxysmal atrial fibrillation) (Acute) Chronic anticoagulation (Acute) Debility (Acute) Cerebrovascular accident, embolic (Acute) Acidosis, metabolic (Acute) Dehydration (Acute) Normochromic normocytic anemia (Acute) Acute renal failure superimposed on chronic kidney disease (Acute) Right ankle sprain (Acute) Ankle pain (Acute) Impressions 1. 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 Embolic left pontine CVA 3. Acute renal failure on chronic renal failure - ARF has resolved. She has persistent stage 4-5 chronic renal failure. will need to follow up with post discharge 4. Metabolic acidosis secondary to chronic kidney disease - Serum bicarb is 25 with only 1 bicarb tab a day. 5. Normochromic normocytic anemia-more likely than not secondary to chronic renal failure 6. Hyperuricemia with history of gout -she had pancytopenia with allopurinol at 150 mg p.o. daily. It was discontinued and she had no acute gouty attacks. Macrocytic anemia persists but her hemoglobin is increased to 9.6. Platelets and white blood cell count are now within normal limits. She has no hx of kidney stones and she is not having acute gout so will not restart the allopurin ol at this time. 7. Osteoarthritis 8. Hypertension-controlled 9. Keratitis-chronic 10. Atrial fibrillation -rate controlled 11. 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 Chronic venous insufficiency 13. Hemoccult positive stool-on chronic anticoagulation with apixaban. She was started on Protonix 20 mg daily and the hemoglobin is increasing. DC the bicarb tabs Recheck a BMP on Saturday Continue the current antihypertensive regimen Continue the Lasix 60 mg Q 48H Continue therapy Her plan is to go home and Satnam is looking into hiring help for her so she can go home....at this point she would need 24/ supervision Inpatient E&M: [id number] Subs Hosp L2
--- NOTE | 2020-08-04 10:11 | CASEMGMT ---
Social Work IDT met with patient and son for Team meeting. Discussed patient's progress in therapy. Pt is more efficient with ADLs, mod for LE dressing using AE, CGA-Adithya for tx, modA for toileting tasks, Adithya for bathing. Pt is modA for bed mobility, ambulating 100ft with FWW CGA-Adithya with right AFO, completing 2 steps with 2HR at Adithya . Encouraging son to get additional handrail in pt's home. ST encouraging pt to work on swallowing exercises outside sessions for increased improvement. Pt is improving with speech intelligibility unless fatigued. ST recommending son to assist finances, meds at DC, number and time management having issues. Explained insurance NRD 08/08 and continued stay is not guaranteed. Son contacted several nonskilled [facility] agencies, but unsuccessful with availability or contact. Encouraged son to keep calling and put pt on waitlist since we do not have a DC date at this time. Will continue to follow and ReTeam next week. Tuyet Silva, [employer] ELECTRONIC SECURITY TECHNICIAN
[2020-08-04] MEDS: Ferrous Sulfate 325 MG Tablet PO (12:21)
[2020-08-04] MEDS: Ascorbic Acid 500 MG Tablet PO (12:21)
[2020-08-04 14:20] VITALS: BMI 31.8
--- NOTE | 2020-08-04 18:53 | NURSING ---
pt ambulated in sharma with staff at this time. pt walks from room to nurses station with staff assist of one at a contact guard level. pt tolerated well. pt denies pain or discomfort at this time. call light within reach and PA attached.
[2020-08-04 19:03] VITALS: BP 133/58; PULSE 63; RESP 20; TEMP 36.6; O2SAT 96
[2020-08-04] MEDS: MELATONIN 3 MG TABLET 6 MG PO (22:17)
[2020-08-04] MEDS: Acetaminophen 325 MG Tablet 650 MG PO (22:18)
[2020-08-05] MEDS: amLODIPine 5 MG Tablet PO ×2 (07:45→20:56)
[2020-08-05] MEDS: APIXABAN 2.5 MG TABLET PO ×2 (07:45→20:55)
[2020-08-05] MEDS: Multivitamin (Healthy Eyes) Capsule 1 CAP PO ×2 (07:45→16:52)
[2020-08-05] MEDS: Atenolol 100 MG Tablet PO ×2 (07:46→20:56)
[2020-08-05] MEDS: Pantoprazole Sodium 20 MG Tablet PO (07:46)
[2020-08-05] MEDS: Multivitamins,Therapeutic Tablet 1 TABLET PO (07:46)
[2020-08-05] MEDS: Menthol/Lanolin/Calamine/Znox 113 GM Tube 1 APPLIC TOPICAL ×2 (07:49→20:56)
[2020-08-05 09:40] VITALS: BP 137/75; PULSE 69; RESP 18; TEMP 36.8; O2SAT 98
[2020-08-05] MEDS: Ferrous Sulfate 325 MG Tablet PO (12:13)
[2020-08-05] MEDS: Ascorbic Acid 500 MG Tablet PO (12:13)
[2020-08-05 15:32] VITALS: BMI 31.8
[2020-08-05 19:53] VITALS: BP 106/57; PULSE 62; RESP 16; TEMP 36.6; O2SAT 97
[2020-08-05 20:28] VITALS: BMI 31.8
[2020-08-05] MEDS: MELATONIN 3 MG TABLET 6 MG PO (20:55)
[2020-08-05] MEDS: Senna/Docusate Sodium 1 Tablet 2 TABLET PO (20:56)
[2020-08-05] MEDS: Acetaminophen 325 MG Tablet 650 MG PO (21:02)
[2020-08-05 22:00] VITALS: PULSE 62; RESP 16; O2SAT 96
[2020-08-06] MEDS: Furosemide 20 MG Tablet 60 MG PO (08:06)
[2020-08-06] MEDS: Multivitamin (Healthy Eyes) Capsule 1 CAP PO ×2 (08:06→15:56)
[2020-08-06] MEDS: Multivitamins,Therapeutic Tablet 1 TABLET PO (08:06)
[2020-08-06] MEDS: Menthol/Lanolin/Calamine/Znox 113 GM Tube 1 APPLIC TOPICAL ×2 (08:07→21:50)
[2020-08-06] MEDS: Atenolol 100 MG Tablet PO ×2 (08:07→21:56)
[2020-08-06] MEDS: Pantoprazole Sodium 20 MG Tablet PO (08:07)
[2020-08-06] MEDS: amLODIPine 5 MG Tablet PO ×2 (08:07→21:57)
[2020-08-06] MEDS: APIXABAN 2.5 MG TABLET PO ×2 (08:07→21:56)
[2020-08-06] MEDS: Acetaminophen 325 MG Tablet 650 MG PO ×2 (08:17→21:56)
[2020-08-06 09:47] VITALS: BP 126/60; PULSE 61; RESP 16; TEMP 36.6; O2SAT 97
[2020-08-06] MEDS: Ferrous Sulfate 325 MG Tablet PO (12:19)
[2020-08-06] MEDS: Ascorbic Acid 500 MG Tablet PO (12:19)
[2020-08-06 14:27] VITALS: BMI 31.8
[2020-08-06] MEDS: MELATONIN 3 MG TABLET 6 MG PO (21:56)
[2020-08-06 22:00] VITALS: BP 120/57; PULSE 64; RESP 17; TEMP 36.4; O2SAT 97
[2020-08-06 23:15] VITALS: BMI 31.8
[2020-08-07] MEDS: Multivitamin (Healthy Eyes) Capsule 1 CAP PO ×2 (08:41→16:27)
[2020-08-07] MEDS: APIXABAN 2.5 MG TABLET PO ×2 (08:42→21:15)
[2020-08-07] MEDS: amLODIPine 5 MG Tablet PO ×2 (08:42→21:15)
[2020-08-07] MEDS: Multivitamins,Therapeutic Tablet 1 TABLET PO (08:42)
[2020-08-07] MEDS: Atenolol 100 MG Tablet PO ×2 (08:52→21:15)
[2020-08-07] MEDS: Pantoprazole Sodium 20 MG Tablet PO (08:52)
[2020-08-07] MEDS: Menthol/Lanolin/Calamine/Znox 113 GM Tube 1 APPLIC TOPICAL ×2 (08:53→21:16)
[2020-08-07 10:00] VITALS: BP 121/71; PULSE 60; RESP 16; TEMP 36.5; O2SAT 94
[2020-08-07 10:49] VITALS: BMI 31.8
[2020-08-07] MEDS: Ascorbic Acid 500 MG Tablet PO (12:18)
[2020-08-07] MEDS: Ferrous Sulfate 325 MG Tablet PO (12:18)
[2020-08-07] MEDS: MELATONIN 3 MG TABLET 6 MG PO (21:15)
[2020-08-07] MEDS: Acetaminophen 325 MG Tablet 650 MG PO (21:16)
[2020-08-07 21:35] VITALS: BP 124/61; PULSE 77; RESP 16; TEMP 36.4; O2SAT 92; BMI 31.8
[2020-08-08 06:06] LABS: Anion Gap 7 (5-15); BUN 74 mg/dL (7-18); Chloride 111 mmol/L (98-107); Creatinine, Serum 2.47 mg/dL (0.55-1.02); EST Glomerular Filtration Rate 20 mL/min (>60); Est Glom Filt Rate - Afr Amer 24 mL/min (>60); Estimated Creatinine Clearance 13.65 ml/min; Glucose 95 mg/dL (74-106); Potassium 3.8 mmol/L (3.5-5.1); Sodium Level 143 mmol/L (136-145)
[2020-08-08 07:30] VITALS: BP 107/53; PULSE 64; RESP 18; TEMP 36.5; O2SAT 96
[2020-08-08] MEDS: Pantoprazole Sodium 20 MG Tablet PO (09:23)
[2020-08-08] MEDS: amLODIPine 5 MG Tablet PO ×2 (09:23→20:35)
[2020-08-08] MEDS: Multivitamins,Therapeutic Tablet 1 TABLET PO (09:23)
[2020-08-08] MEDS: APIXABAN 2.5 MG TABLET PO ×2 (09:23→20:37)
[2020-08-08] MEDS: Multivitamin (Healthy Eyes) Capsule 1 CAP PO ×2 (09:23→16:33)
[2020-08-08] MEDS: Furosemide 20 MG Tablet 60 MG PO (09:23)
[2020-08-08] MEDS: Atenolol 100 MG Tablet PO ×2 (09:23→20:37)
[2020-08-08] MEDS: Menthol/Lanolin/Calamine/Znox 113 GM Tube 1 APPLIC TOPICAL ×2 (09:24→20:37)
[2020-08-08] MEDS: Ascorbic Acid 500 MG Tablet PO (12:34)
[2020-08-08] MEDS: Ferrous Sulfate 325 MG Tablet PO (12:34)
--- NOTE | 2020-08-08 12:37 | PCM.PROGNOTE ---
Patient Problems: Active and Suspected Problems PAF (paroxysmal atrial fibrillation) (Acute) Chronic anticoagulation (Acute) Debility (Acute) Cerebrovascular accident, embolic (Acute) Acidosis, metabolic (Acute) Dehydration (Acute) Normochromic normocytic anemia (Acute) Acute renal failure superimposed on chronic kidney disease (Acute) Right ankle sprain (Acute) Ankle pain (Acute) Subjective: Afebrile VSS-she denies lightheadedness. Maintaining appropriate oxygen saturation on RA Oral intake is erratic, sometimes good and sometimes poor. Her weight today is 180 pounds and 5.41 ounces. It has been fluctuating between 180 pounds and 183 pounds for the past week. Discussed with nursing - no problems that need addressed Reviewed the PT/OT/ST notes Medication list reviewed. All labs personally reviewed. The BUN is 74 today and the creatinine is 2.47. Creatinine has been fluctuating between 2.3 and 2.5. Serum bicarb is stable at 25 and the bicarb tablets were discontinued the end of last week. Potassium is 3.8. Phosphorus is within normal limits at 4.0 and calcium is also normal at 9. So is sleeping well. She is tolerating the AFO now that she has better tennis shoes. She denies SOB, cough, CP, palpitations, nausea, epigastric pain. She has a cough now. She was upgraded to thin liquids today. Denies sore throat, fatigue, N/D. No loss of taste or smell. - Physical Exam Vitals/I&O's: Vital Signs Temp Pulse Resp BP Pulse Ox 97.7 F L 64 18 107/53 L 96 08/08/20 07:30 08/08/20 07:30 08/08/20 07:30 08/08/20 07:30 08/08/20 07:30 Oxygen Delivery Method Room Air Weight: 180 lb 5.41 oz Body Mass Index (BMI) 31.8 Intake and Output for Last 24 Hours 08/06/20 08/07/20 08/08/20 23:59 23:59 23:59 Intake Total 1250 / 1250 1280 / 1280 320 / 320 Output Total 1150 / 1150 950 / 950 400 / 400 Balance 100 / 100 330 / 330 -80 / -80 General: Alert, Oriented x3, Cooperative, No apparent distress Oral: Dry Mucosa Neck: Supple, No Nodes Lungs: Rales - mild coarse crackles in both bases and she had scattered wheezing that resolved after a cough. not tachypneic and no conversational dyspnea. Cardiovascular: Irregular Rate - with controlled ventricular response. She goes between AF with controlled VR and SR. she is anticoagulated with Eliquis Abdomen: Bowel Sounds Present, Soft, Non Tender, Non-Distended Extremities: Edema - baseline......she has venous insufficiency and this is better with KRYSTIAN hose. Skin: No rashes, No breakdown Musculoskeletal: Arthritic Changes Neurological: - - better use of the RUE and she is walking better no facial droop that I can discern now Psych/Mental Status: Normal Affect, Appropriate Laboratory Results 08/08/20 05:16: Sodium 143, Potassium 3.8, Chloride 111 H, Carbon Dioxide 25.0, Anion Gap 7, BUN 74 H, Creatinine 2.47 H, Estim Creat Clear Calc 13.65, Est GFR (MDRD) Af Amer 24 L, Est GFR (MDRD) Non-Af 20 L, BUN/Creatinine Ratio 30.0 H, Glucose 95, Calcium 9.0, Phosphorus 4.0 Current Medications Acetaminophen (Acetaminophen 325 Mg Tablet) 650 mg PO Q6H PRN PRN PRN Reason: Pain Score 1-10 Last Admin: 08/07/20 21:16 Dose: 650 mg Documented by: Amlodipine Besylate (Amlodipine 5 Mg Tablet) 5 mg PO BID [facility] Last Admin: 08/08/20 09:23 Dose: 5 mg Documented by: Apixaban (Eliquis) 2.5 mg PO BID [facility] Last Admin: 08/08/20 09:23 Dose: 2.5 mg Documented by: Ascorbic Acid (Ascorbic Acid 500 Mg Tablet) 500 mg PO DAILY@1200 [facility] Last Admin: 08/08/20 12:34 Dose: 500 mg Documented by: Atenolol (Atenolol 100 Mg Tablet) 100 mg PO BID [facility] Last Admin: 08/08/20 09:23 Dose: 100 mg Documented by: Bisacodyl (Bisacodyl 10 Mg Suppository) 10 mg RECTAL .PRN X 1 PRN PRN Reason: Constipation Calamine/Phenol (Menthol/Lanolin/Calamine/Znox 113 Gm Tube) 1 applic TOPICAL BID [facility]; Protocol Last Admin: 08/08/20 09:24 Dose: 1 applicatio Documented by: Ferrous Sulfate (Ferrous Sulfate) 325 mg PO DAILY@1200 [facility] Last Admin: 08/08/20 12:34 Dose: 325 mg Documented by: Furosemide (Furosemide 20 Mg Tablet) 60 mg PO Q48H [facility] Last Admin: 08/08/20 09:23 Dose: 60 mg Documented by: Magnesium Hydroxide (Magnesium Hydroxide 30 Ml Udc) 30 ml PO .PRN X 1 PRN PRN Reason: Constipation Melatonin (Melatonin 3 Mg Tablet) 6 mg PO QHS [facility] Last Admin: 08/07/20 21:15 Dose: 6 mg Documented by: Multivitamins (Multivitamins,Therapeutic Tablet) 1 tablet PO DAILY@0800 [facility] Last Admin: 08/08/20 09:23 Dose: 1 tablet Documented by: Multivitamins/Minerals (Multivitamin (Healthy Eyes) Capsule) [facility] Last Admin: 08/08/20 09:23 Dose: 1 capsule Documented by: Pantoprazole Sodium (Protonix) 20 mg PO DAILY [facility] Last Admin: 08/08/20 09:23 Dose: 20 mg Documented by: Senna/Docusate Sodium (Senna/Docusate Sodium 1 Tablet) 2 tablet PO BID [facility] Last Admin: 08/08/20 09:23 Dose: Not Given Documented by: Sodium Chloride (0.9% Saline Lock 10 Ml Syringe) 10 - 40 ml IV UD PRN PRN Reason: SALINE FLUSH Last Admin: 07/05/20 14:57 Dose: 10 ml Documented by: Sodium Chloride (0.9% Saline Lock 10 Ml Syringe) 10 - 40 ml IV UD PRN PRN Reason: SALINE FLUSH Medical Necessity - Tobacco Use Smoking Status: Never smoker Tobacco Use: Non-smoker Assessment/Plan All Active Problems PAF (paroxysmal atrial fibrillation) (Acute) Chronic anticoagulation (Acute) Debility (Acute) Cerebrovascular accident, embolic (Acute) Acidosis, metabolic (Acute) Dehydration (Acute) Normochromic normocytic anemia (Acute) Acute renal failure superimposed on chronic kidney disease (Acute) Right ankle sprain (Acute) Ankle pain (Acute) Impressions 1. 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 Embolic left pontine CVA 3. Acute renal failure on chronic renal failure - ARF has resolved. She has persistent stage 4-5 chronic renal failure. will need to follow up with post discharge 4. Metabolic acidosis secondary to chronic kidney disease -serum bicarb is stable at 25 off bicarb tabs. 5. Normochromic normocytic anemia-more likely than not secondary to chronic renal failure 6. Hyperuricemia with history of gout -she had pancytopenia with allopurinol at 150 mg p.o. daily. It was discontinued and she had no acute gouty attacks. Macrocytic anemia persists but her hemoglobin is increased to 9.6. Platelets and white blood cell count are now within normal limits. She has no hx of kidney stones and she is not having acute gout so will not restart the allopurinol at this time. 7. Osteoarthritis 8. Hypertension-controlled 9. Keratitis-chronic 10. Atrial fibrillation -rate controlled 11. 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 Resolved with discontinuation of allopurinol 12. Chronic venous insufficiency 13. Hemoccult positive stool-on chronic anticoagulation with apixaban. She was started on Protonix 20 mg daily and the hemoglobin is increasing. 14. Dysphagia with new cough today - suspect due to advance in the diet. I spoke with ST and they are changing the diet back to thickened liquids. Continue the current drug regimen thicken liquids continue therapy aggressive IS for the next 48hours.....CXR if she should develop a fever or SOB Inpatient E&M: 35019 Subs Hosp L2
[2020-08-08 14:26] VITALS: BMI 31.8
[2020-08-08 20:26] VITALS: BP 112/62; PULSE 64; RESP 18; TEMP 36.9; O2SAT 96
[2020-08-08 20:27] VITALS: BMI 31.8
[2020-08-08] MEDS: Acetaminophen 325 MG Tablet 650 MG PO (20:36)
[2020-08-08] MEDS: MELATONIN 3 MG TABLET 6 MG PO (20:37)
[2020-08-08 20:44] VITALS: PULSE 66; RESP 17; O2SAT 96
[2020-08-09] MEDS: Multivitamins,Therapeutic Tablet 1 TABLET PO (08:46)
[2020-08-09] MEDS: Multivitamin (Healthy Eyes) Capsule 1 CAP PO ×2 (08:46→17:12)
[2020-08-09] MEDS: Pantoprazole Sodium 20 MG Tablet PO (08:47)
[2020-08-09] MEDS: Atenolol 100 MG Tablet PO ×2 (08:47→21:00)
[2020-08-09] MEDS: amLODIPine 5 MG Tablet PO ×2 (08:47→21:01)
[2020-08-09] MEDS: APIXABAN 2.5 MG TABLET PO ×2 (08:47→21:01)
[2020-08-09] MEDS: Menthol/Lanolin/Calamine/Znox 113 GM Tube 1 APPLIC TOPICAL ×2 (08:49→21:01)
[2020-08-09 09:05] VITALS: BP 140/70; PULSE 66; RESP 16; TEMP 36.8; O2SAT 96
[2020-08-09] MEDS: Senna/Docusate Sodium 1 Tablet 2 TABLET PO (09:39)
[2020-08-09] MEDS: Ascorbic Acid 500 MG Tablet PO (11:10)
[2020-08-09] MEDS: Ferrous Sulfate 325 MG Tablet PO (11:10)
--- NOTE | 2020-08-09 11:52 | PN_ITS ---
Progress Note Afebrile VSS-blood pressure is well controlled. Maintaining appropriate oxygen saturation on RA Oral intake is good Weight is fairly stable and is ranging from 180-183 over the past several days. Discussed with nursing - no problems that need addressed Reviewed the PT/OT/ST notes Medication list reviewed. I was informed by the SW that So has been approved for another week. So is not happy about this but, I do not feel she would be safe at home at this juncture without 24/7 assistance. She aspirated thin liquids yesterday and had several minutes of cough. She denies cough and SOB today. Denies CP, N/V/lightheadedness, constipation. Alert and oriented X 3, NAD sitting in the recliner at the bedside. Lungs - Few coarse crackles in the right base....this is chronic. Lungs are otherwise CTA. She is not tachypneic and has no conversational dyspnea. Heart-regular rate and rhythm, no rub, no gallop Abdomen-soft, nontender, nondistended, no guarding with palpation, bowel sounds present She has no pretibial edema and no posterior thigh edema of the lower extremities. She does have some ankle edema which is worse on the right. She denies that her legs feel tight today. No calf tenderness No rashes and no skin breakdown Impressions 1. Aspiration of thin liquids yesterday. No evidence of respiratory compromise . No suspicion for Pneumonia 2. Dysphagia - continue ST 3. post stroke debility - continues to progress in therapy. 4. stage 4 CRF - will need to follow up with Dr. Yung ojeda DC. Continue Lasix 60 mg every 48 H. Add a potassium supplement to keep the K around 4. STROKE Vital Signs/Narrative: Vital Signs Temp Pulse Resp BP Pulse Ox 08/09/20 09:05 98.2 F 66 16 140/70 H 96 Inpatient E&M: 07130 Subs Hosp L2
[2020-08-09 14:29] VITALS: BMI 31.8
[2020-08-09 20:17] VITALS: BP 122/61; PULSE 64; RESP 17; TEMP 36.9; O2SAT 95
[2020-08-09] MEDS: MELATONIN 3 MG TABLET 6 MG PO (21:01)
[2020-08-09] MEDS: Acetaminophen 325 MG Tablet 650 MG PO (21:04)
[2020-08-09 21:10] VITALS: BMI 31.8
[2020-08-09 22:00] VITALS: PULSE 66; RESP 16; O2SAT 98
[2020-08-10] MEDS: Multivitamin (Healthy Eyes) Capsule 1 CAP PO ×2 (07:53→17:28)
[2020-08-10] MEDS: Furosemide 20 MG Tablet 60 MG PO (07:53)
[2020-08-10] MEDS: amLODIPine 5 MG Tablet PO ×2 (07:53→22:01)
[2020-08-10] MEDS: Multivitamins,Therapeutic Tablet 1 TABLET PO (07:53)
[2020-08-10] MEDS: APIXABAN 2.5 MG TABLET PO ×2 (07:53→22:00)
[2020-08-10] MEDS: Pantoprazole Sodium 20 MG Tablet PO (07:53)
[2020-08-10] MEDS: Atenolol 100 MG Tablet PO ×2 (07:54→22:00)
[2020-08-10] MEDS: Menthol/Lanolin/Calamine/Znox 113 GM Tube 1 APPLIC TOPICAL ×2 (07:54→22:23)
[2020-08-10 08:00] VITALS: BP 131/58; PULSE 64; RESP 18; TEMP 36.6; O2SAT 97
--- NOTE | 2020-08-10 11:24 | PCM.PN.BLA ---
Progress Note Afebrile VSS Maintaining appropriate oxygen saturation on RA Oral intake is good Discussed with nursing - no problems that need addressed Reviewed the PT/OT/ST notes Medication list reviewed. So has no complaints today. We discussed going home. I sensed that she was upset yesterday when she was told the insurance company approved . She told me that she was just kidding and she would stay as long as we thought she needed to. Denies orthopnea and also denies CP, cough, dysuria. Alert, NAD Lungs - coarse crackles in the R base - unchanged. HRRR with no rub abd - soft and NT mild ankle edema only. Impressions 1. post stroke debility - continues to make good progress in therapy 2. HTN - controlled 3. dysphagia 4. stage 4 CRF - stable Continue current tx plan STROKE Vital Signs/Narrative: Vital Signs Temp Pulse Resp BP Pulse Ox 08/10/20 08:00 97.9 F 64 18 131/58 H 97 Inpatient E&M: 65512 Subs Hosp L1
[2020-08-10] MEDS: Ascorbic Acid 500 MG Tablet PO (12:12)
[2020-08-10] MEDS: Ferrous Sulfate 325 MG Tablet PO (12:12)
[2020-08-10 12:27] VITALS: BMI 31.8
--- NOTE | 2020-08-10 18:31 | NURSING ---
voicemail left with son Satnam with all f/u appt dates and times.
[2020-08-10 19:30] VITALS: BP 112/50; PULSE 65; RESP 16; TEMP 36.4; O2SAT 97; BMI 31.8
[2020-08-10] MEDS: MELATONIN 3 MG TABLET 6 MG PO (22:01)
[2020-08-10] MEDS: Acetaminophen 325 MG Tablet 650 MG PO (22:03)
--- NOTE | 2020-08-11 03:28 | NURSING ---
Reviewed and agree with ANCIENT ART CURATOR documentation and charting.
[2020-08-11] MEDS: Multivitamin (Healthy Eyes) Capsule 1 CAP PO ×2 (08:34→17:13)
[2020-08-11] MEDS: Atenolol 100 MG Tablet PO ×2 (08:34→20:58)
[2020-08-11] MEDS: Pantoprazole Sodium 20 MG Tablet PO (08:34)
[2020-08-11] MEDS: Multivitamins,Therapeutic Tablet 1 TABLET PO (08:34)
[2020-08-11] MEDS: APIXABAN 2.5 MG TABLET PO ×2 (08:34→20:59)
[2020-08-11] MEDS: amLODIPine 5 MG Tablet PO ×2 (08:34→20:58)
[2020-08-11] MEDS: Acetaminophen 325 MG Tablet 650 MG PO (08:38)
[2020-08-11] MEDS: Menthol/Lanolin/Calamine/Znox 113 GM Tube 1 APPLIC TOPICAL ×2 (08:41→20:59)
[2020-08-11 09:28] VITALS: BP 120/60; PULSE 64; RESP 16; TEMP 37; O2SAT 97
--- NOTE | 2020-08-11 09:59 | CASEMGMT ---
Social Work IDT met with patient and son via conference call for Team meeting. Discussed patient's progress in therapy. Pt is CGA-Adithya for transfers, completed 5 steps Adithya, ambulating 128 ft with FWW SBA wearing shoes and brace. Pt is Adithya for grooming, bathing, CGA for toileting tasks, set up for UE dressing, min-mod for LE dressing. Pt remains on [facility] soft, nectar thick diet, FFWP, 1500 fluid restriction, and ST working on oral exercises. Recommending family do meds, finances and assist with meals. IDT agreeable to DC date 08/17, and insurance has approved through 08/17. Pt and son agreeable. Referral made to [facility] PT/OT/ST/SN/NI, no DME needs. Son has two aides hired to assist at home outside of two sons assistance. Plan: DC home with aide and son support 08/17, [facility] PT/OT/ST/SN/NI, no DME REMI Reynolds
[2020-08-11] MEDS: Ascorbic Acid 500 MG Tablet PO (11:37)
[2020-08-11] MEDS: Ferrous Sulfate 325 MG Tablet PO (11:37)
--- NOTE | 2020-08-11 14:37 | PN_ITS ---
Patient Problems: Active and Suspected Problems PAF (paroxysmal atrial fibrillation) (Acute) Chronic anticoagulation (Acute) Debility (Acute) Cerebrovascular accident, embolic (Acute) Acidosis, metabolic (Acute) Dehydration (Acute) Normochromic normocytic anemia (Acute) Acute renal failure superimposed on chronic kidney disease (Acute) Right ankle sprain (Acute) Ankle pain (Acute) Subjective: So was seen on team rounds today. Her son Satnam participated by phone. Afebrile VSS Maintaining appropriate oxygen saturation on RA Oral intake is good and she is maintaining a 1500 cc a day fluid restriction. Discussed with nursing - no problems that need addressed Reviewed the PT/OT/ST notes Medication list reviewed. So denies chest pain, cough, dysuria, nausea, vomiting, constipation, diarrhea, abdominal pain, palpitations, lightheadedness. Alert, oriented x3, no apparent distress, speech is very intelligible and she projects well. She has mild slurring when she is tired or talks too fast. Lungs-persistent coarse crackles in the right base. The left base is clear to auscultation. There is no wheezing today and no rhonchi. She has no conversational dyspnea at rest. Heart-regular rate and rhythm, no rub, no gallop appreciated, heart sounds are somewhat distant Abdomen-soft, nontender, nondistended, bowel sounds present, no guarding with palpation Mild ankle edema but no posterior thigh pitting and no pretibial edema. No calf tenderness No rashes and no skin breakdown - Physical Exam Vitals/I&O's: Vital Signs Temp Pulse Resp BP Pulse Ox 98.6 F 64 16 120/60 97 08/11/20 09:28 08/11/20 09:28 08/11/20 09:28 08/11/20 09:28 08/11/20 09:28 Oxygen Delivery Method Room Air Weight: 180 lb 3.2 oz Body Mass Index (BMI) 31.8 Intake and Output for Last 24 Hours 08/09/20 08/10/20 08/11/20 23:59 23:59 23:59 Intake Total 1200 / 1200 970 / 970 720 / 720 Output Total 1450 / 1450 1050 / 1050 750 / 750 Balance -250 / -250 -80 / -80 -30 / -30 Microbiology Past 72 Hours 08/08/20 14:00 Mucosa - Nasopharyngeal - Final Current Medications Acetaminophen (Acetaminophen 325 Mg Tablet) 650 mg PO Q6H PRN PRN PRN Reason: Pain Score 1-10 Last Admin: 08/11/20 08:38 Dose: 650 mg Documented by: Amlodipine Besylate (Amlodipine 5 Mg Tablet) 5 mg PO BID [facility] Last Admin: 08/11/20 08:34 Dose: 5 mg Documented by: Apixaban (Eliquis) 2.5 mg PO BID [facility] Last Admin: 08/11/20 08:34 Dose: 2.5 mg Documented by: Ascorbic Acid (Ascorbic Acid 500 Mg Tablet) 500 mg PO DAILY@1200 [facility] Last Admin: 08/11/20 11:37 Dose: 500 mg Documented by: Atenolol (Atenolol 100 Mg Tablet) 100 mg PO BID [facility] Last Admin: 08/11/20 08:34 Dose: 100 mg Documented by: Bisacodyl (Bisacodyl 10 Mg Suppository) 10 mg RECTAL .PRN X 1 PRN PRN Reason: Constipation Calamine/Phenol (Menthol/Lanolin/Calamine/Znox 113 Gm Tube) 1 applic TOPICAL BID [facility]; Protocol Last Admin: 08/11/20 08:41 Dose: 1 applicatio Documented by: Ferrous Sulfate (Ferrous Sulfate) 325 mg PO DAILY@1200 [facility] Last Admin: 08/11/20 11:37 Dose: 325 mg Documented by: Furosemide (Furosemide 20 Mg Tablet) 60 mg PO Q48H [facility] Last Admin: 08/10/20 07:53 Dose: 60 mg Documented by: Magnesium Hydroxide (Magnesium Hydroxide 30 Ml Udc) 30 ml PO .PRN X 1 PRN PRN Reason: Constipation Melatonin (Melatonin 3 Mg Tablet) 6 mg PO QHS [facility] Last Admin: 08/10/20 22:01 Dose: 6 mg Documented by: Multivitamins (Multivitamins,Therapeutic Tablet) 1 tablet PO DAILY@0800 [facility] Last Admin: 08/11/20 08:34 Dose: 1 tablet Documented by: Multivitamins/Minerals (Multivitamin (Healthy Eyes) Capsule) [facility] Last Admin: 08/11/20 08:34 Dose: 1 capsule Documented by: Pantoprazole Sodium (Protonix) 20 mg PO DAILY [facility] Last Admin: 08/11/20 08:34 Dose: 20 mg Documented by: Potassium Chloride (Potassium Chloride 10 Meq Tablet) [facility]q [facility] Last Admin: 08/11/20 08:34 Dose: 10 meq Documented by: Senna/Docusate Sodium (Senna/Docusate Sodium 1 Tablet) 2 tablet PO BID [facility] Last Admin: 08/11/20 08:35 Dose: Not Given Documented by: Sodium Chloride (0.9% Saline Lock 10 Ml Syringe) 10 - 40 ml IV UD PRN PRN Reason: SALINE FLUSH Last Admin: 07/05/20 14:57 Dose: 10 ml Documented by: Sodium Chloride (0.9% Saline Lock 10 Ml Syringe) 10 - 40 ml IV UD PRN PRN Reason: SALINE FLUSH Medical Necessity - Tobacco Use Smoking Status: Never smoker Tobacco Use: Non-smoker Assessment/Plan All Active Problems PAF (paroxysmal atrial fibrillation) (Acute) Chronic anticoagulation (Acute) Debility (Acute) Cerebrovascular accident, embolic (Acute) Acidosis, metabolic (Acute) Dehydration (Acute) Normochromic normocytic anemia (Acute) Acute renal failure superimposed on chronic kidney disease (Acute) Right ankle sprain (Acute) Ankle pain (Acute) Impressions 1. 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 Embolic left pontine CVA 3. Acute renal failure on chronic renal failure stage IV- ARF has resolved. She has persistent stage 4-5 chronic renal failure. will need to follow up with post discharge 4. Metabolic acidosis secondary to chronic kidney disease -serum bicarb is stable at 25 off bicarb tabs. 5. Normochromic normocytic anemia-more likely than not secondary to chronic renal failure 6. Hyperuricemia with history of gout -she had pancytopenia with allopurinol at 150 mg p.o. daily. It was discontinued and she had no acute gouty attacks. Macrocytic anemia persists but her hemoglobin is increased to 9.6. Platelets and white blood cell count are now within normal limits. She has no hx of kidney stones and she is not having acute gout so will not restart the allopurinol at this time. 7. Osteoarthritis - having persistent R ankle pain when it is cold and raining it is worse 8. Hypertension-controlled 9. Keratitis-chronic 10. Paroxysmal atrial fibrillation -rate controlled. she has recently been in a regular rhythm 11. 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 Resolved with discontinuation of allopurinol 12. Chronic venous insufficiency 13. Hemoccult positive stool-on chronic anticoagulation with apixaban. She was started on Protonix 20 mg daily and the hemoglobin is increasing. 14. Dysphagia. [place] thick liquids again due to cough when drinking thin liquids. continue Therapy We have set a DC date for 08/17/20 and So is very happy about this Continue Lasix 60 mg p.o. every other day Inpatient E&M: [id number] Subs Hosp L2
[2020-08-11 14:53] VITALS: BMI 31.8
[2020-08-11] MEDS: MELATONIN 3 MG TABLET 6 MG PO (20:58)
[2020-08-11 21:00] VITALS: BP 114/57; PULSE 60; RESP 18; TEMP 36.3; O2SAT 95; BMI 31.8
[2020-08-12] MEDS: Acetaminophen 325 MG Tablet 650 MG PO ×3 (00:02→21:29)
--- NOTE | 2020-08-12 01:35 | NURSING ---
REVIEWED AND AGREE WITH MECHANICAL APPLICATIONS ENGINEER'S FUNCTIONAL ASSESSMENT AND HANDOFF CHARTING.
[2020-08-12] MEDS: Furosemide 20 MG Tablet 60 MG PO (07:49)
[2020-08-12] MEDS: amLODIPine 5 MG Tablet PO ×2 (07:49→21:28)
[2020-08-12] MEDS: Multivitamins,Therapeutic Tablet 1 TABLET PO (07:49)
[2020-08-12] MEDS: Atenolol 100 MG Tablet PO ×2 (07:49→21:29)
[2020-08-12] MEDS: Multivitamin (Healthy Eyes) Capsule 1 CAP PO ×2 (07:49→17:20)
[2020-08-12] MEDS: Pantoprazole Sodium 20 MG Tablet PO (07:49)
[2020-08-12] MEDS: Senna/Docusate Sodium 1 Tablet 2 TABLET PO (07:50)
[2020-08-12] MEDS: APIXABAN 2.5 MG TABLET PO ×2 (07:50→21:26)
[2020-08-12] MEDS: Menthol/Lanolin/Calamine/Znox 113 GM Tube 1 APPLIC TOPICAL ×2 (07:52→21:26)
[2020-08-12 10:00] VITALS: BP 114/68; PULSE 61; RESP 16; TEMP 36.8; O2SAT 98
[2020-08-12 10:43] VITALS: BMI 31.8
[2020-08-12] MEDS: Ferrous Sulfate 325 MG Tablet PO (12:06)
[2020-08-12] MEDS: Ascorbic Acid 500 MG Tablet PO (12:06)
--- NOTE | 2020-08-12 14:01 | PCM.PN.BLA ---
Progress Note Blood pressure remains well controlled. Pulse rate is within normal limits. She is maintaining appropriate oxygen saturation on room air. So went down to the ground floor today to trial ambulating on different surfaces such as carpet. The physical therapist reported that when she has her mask on ambulating So is significantly short of breath. So denies orthopnea, chest pain. She has an occasional cough only since she was changed to nectar thick liquids again. + ankles edema only Lungs - coarse crackles in the R base, no wheezing. HRRR, no gallop appreciated but, the heart sounds are very distant Impressions 1. she has not had a CXR at [facility]. ECHO at [facility]SH showed a nor EF and no pulmonary HTN. Because of the stage 4 renal failure she retains fluid and is on a diuretic. Will get a CXR today and also repeat a BMP and get a BNP. The BNP will be elevated because of the CRF but will get a baseline. Continue the current medication regimen until I can review the XRAY and the lab. Inpatient E&M: [id number] [facility] Hosp L1
--- NOTE | 2020-08-12 14:25 | RAD_ITS ---
STUDY: X-RAY CHEST REASON FOR EXAM: Female, 85 years old. Dyspnea with exertion. TECHNIQUE: PA and lateral views of the chest. COMPARISON: None. FINDINGS: The lungs are hyperexpanded. There is no focal mass or infiltrate. There is no demonstrated pleural abnormality. There is borderline cardiomegaly. Normal mediastinum and james. Normal visualized pulmonary arteries. There is atherosclerotic calcification of the aortic arch with tortuosity. There is demineralization of the osseous structures. There is mild degenerative changes and exaggeration of thoracic kyphosis. There is degenerative osteoarthritis of the bilateral shoulders. There is no demonstrated abnormality of the visualized soft tissue structures of the upper abdomen. RAD/Chest PA and Lateral IMPRESSION: Probable COPD with borderline cardiomegaly. Electronically Signed: Camilo Baig DO at 18:16 EDT Tel [phone], Service support ,
[2020-08-12 16:17] LABS: Anion Gap 7 (5-15); BUN 81 mg/dL (7-18); BUN/Creat Ratio 27.6 RATIO (10-20); Calcium,Total 9.1 mg/dL (8.5-10.1); Chloride 108 mmol/L (98-107); Creatinine, Serum 2.94 mg/dL (0.55-1.02); EST Glomerular Filtration Rate 16 mL/min (>60); Est Glom Filt Rate - Afr Amer 20 mL/min (>60); Estimated Creatinine Clearance 11.47 ml/min; Glucose 121 mg/dL (74-106); Potassium 4.4 mmol/L (3.5-5.1); Sodium Level 140 mmol/L (136-145)
[2020-08-12 16:19] LABS: BNP,B-Type NATRIURETIC PEPTIDE 122.9 pg/mL (0-100)
[2020-08-12] MEDS: Arthritis Pain Compound 60 CLICK TUBE TOPICAL (21:26)
[2020-08-12] MEDS: MELATONIN 3 MG TABLET 6 MG PO (21:27)
[2020-08-12 22:00] VITALS: BP 129/54; PULSE 61; RESP 16; TEMP 36.4; O2SAT 96
[2020-08-13 03:30] VITALS: BMI 31.8
[2020-08-13] MEDS: Multivitamin (Healthy Eyes) Capsule 1 CAP PO ×2 (07:52→16:52)
[2020-08-13] MEDS: APIXABAN 2.5 MG TABLET PO ×2 (07:52→22:55)
[2020-08-13] MEDS: Atenolol 100 MG Tablet PO ×2 (07:52→22:53)
[2020-08-13] MEDS: amLODIPine 5 MG Tablet PO ×2 (07:52→22:54)
[2020-08-13] MEDS: Senna/Docusate Sodium 1 Tablet 2 TABLET PO (07:54)
[2020-08-13] MEDS: Multivitamins,Therapeutic Tablet 1 TABLET PO (07:55)
[2020-08-13] MEDS: Pantoprazole Sodium 20 MG Tablet PO (07:56)
[2020-08-13] MEDS: Arthritis Pain Compound 60 CLICK TUBE TOPICAL ×2 (07:57→22:56)
[2020-08-13] MEDS: Menthol/Lanolin/Calamine/Znox 113 GM Tube 1 APPLIC TOPICAL ×2 (07:59→22:56)
[2020-08-13 10:00] VITALS: BP 121/55; PULSE 59; RESP 16; TEMP 36.9; O2SAT 96
[2020-08-13 11:20] VITALS: BMI 31.8
[2020-08-13] MEDS: Ascorbic Acid 500 MG Tablet PO (12:41)
[2020-08-13] MEDS: Ferrous Sulfate 325 MG Tablet PO (12:41)
[2020-08-13] MEDS: Acetaminophen 325 MG Tablet 650 MG PO ×2 (12:41→22:59)
[2020-08-13 18:54] VITALS: BP 108/58; PULSE 63; RESP 18; TEMP 36.5; O2SAT 97
[2020-08-13] MEDS: MELATONIN 3 MG TABLET 6 MG PO (22:55)
[2020-08-14] MEDS: Pantoprazole Sodium 20 MG Tablet PO (07:36)
[2020-08-14] MEDS: Multivitamins,Therapeutic Tablet 1 TABLET PO (07:36)
[2020-08-14] MEDS: APIXABAN 2.5 MG TABLET PO ×2 (07:36→21:36)
[2020-08-14] MEDS: Atenolol 100 MG Tablet PO ×2 (07:36→21:36)
[2020-08-14] MEDS: Menthol/Lanolin/Calamine/Znox 113 GM Tube 1 APPLIC TOPICAL ×2 (07:36→21:36)
[2020-08-14] MEDS: Multivitamin (Healthy Eyes) Capsule 1 CAP PO ×2 (07:37→17:20)
[2020-08-14] MEDS: amLODIPine 5 MG Tablet PO ×2 (07:38→21:36)
[2020-08-14] MEDS: Arthritis Pain Compound 60 CLICK TUBE TOPICAL ×2 (07:40→21:35)
[2020-08-14 08:00] VITALS: BP 105/54; PULSE 66; RESP 16; TEMP 36.4; O2SAT 96
[2020-08-14] MEDS: Ascorbic Acid 500 MG Tablet PO (11:42)
[2020-08-14] MEDS: Ferrous Sulfate 325 MG Tablet PO (11:42)
[2020-08-14 16:13] VITALS: BMI 31.8
[2020-08-14 19:00] VITALS: BP 126/58; PULSE 62; RESP 17; TEMP 36.4; O2SAT 97
[2020-08-14] MEDS: MELATONIN 3 MG TABLET 6 MG PO (21:36)
[2020-08-14 21:45] VITALS: PULSE 62; RESP 17; O2SAT 97; BMI 31.8
[2020-08-14] MEDS: Acetaminophen 325 MG Tablet 650 MG PO (21:51)
--- NOTE | 2020-08-15 04:31 | NURSING ---
REVIEWED AND AGREE WITH FINANCIAL AID OFFICER'S FUNCTIONAL ASSESSMENT AND HANDOFF CHARTING.
[2020-08-15 06:13] LABS: Anion Gap 6 (5-15); BUN 76 mg/dL (7-18); BUN/Creat Ratio 26.1 RATIO (10-20); Calcium,Total 9.1 mg/dL (8.5-10.1); Chloride 111 mmol/L (98-107); Creatinine, Serum 2.91 mg/dL (0.55-1.02); EST Glomerular Filtration Rate 16 mL/min (>60); Est Glom Filt Rate - Afr Amer 20 mL/min (>60); Estimated Creatinine Clearance 11.59 ml/min; Glucose 120 mg/dL (74-106); Potassium 4.1 mmol/L (3.5-5.1); Sodium Level 140 mmol/L (136-145)
[2020-08-15] MEDS: Multivitamin (Healthy Eyes) Capsule 1 CAP PO ×2 (08:15→16:10)
[2020-08-15] MEDS: Arthritis Pain Compound 60 CLICK TUBE TOPICAL ×2 (08:15→21:33)
[2020-08-15] MEDS: Multivitamins,Therapeutic Tablet 1 TABLET PO (08:16)
[2020-08-15] MEDS: APIXABAN 2.5 MG TABLET PO ×2 (08:16→21:33)
[2020-08-15] MEDS: amLODIPine 5 MG Tablet PO ×2 (08:16→21:33)
[2020-08-15] MEDS: Atenolol 100 MG Tablet PO ×2 (08:16→21:33)
[2020-08-15] MEDS: Pantoprazole Sodium 20 MG Tablet PO (08:16)
[2020-08-15] MEDS: Acetaminophen 325 MG Tablet 650 MG PO ×2 (08:18→21:33)
[2020-08-15] MEDS: Menthol/Lanolin/Calamine/Znox 113 GM Tube 1 APPLIC TOPICAL ×2 (08:19→21:34)
--- NOTE | 2020-08-15 08:37 | PN_ITS ---
Patient Problems: Active and Suspected Problems PAF (paroxysmal atrial fibrillation) (Acute) Chronic anticoagulation (Acute) Debility (Acute) Cerebrovascular accident, embolic (Acute) Acidosis, metabolic (Acute) Dehydration (Acute) Normochromic normocytic anemia (Acute) Acute renal failure superimposed on chronic kidney disease (Acute) Right ankle sprain (Acute) Ankle pain (Acute) Subjective: Afebrile VSS-blood pressure is well controlled and the resting heart rate is in the 60s. Maintaining appropriate oxygen saturation on RA Oral intake is good. Urine output is good. Weight was down to 178 pounds and 5.6 ounces yesterday. Fluid balance on 08/14/2020 was +330. Lasix has been on hold since Saturday. Discussed with nursing - no problems that need addressed Reviewed the PT/OT/ST notes Medication list reviewed. All lab was personally reviewed. BUN is 76 today with a creatinine of 2.91, down from 2.94 on 08/12/2020. BUN is come down from 81-76 with holding the Lasix. BNP on 08/12/2020 was 123. So denies chest pain, palpitations, lightheadedness, dizziness, nausea, dry mouth. - Physical Exam Vitals/I&O's: Vital Signs Temp Pulse Resp BP Pulse Ox 97.5 F L 62 17 126/58 H 97 08/14/20 19:00 08/14/20 21:45 08/14/20 21:45 08/14/20 19:00 08/14/20 21:45 Oxygen Delivery Method Room Air Weight: 178 lb 5.663 oz Body Mass Index (BMI) 31.8 Intake and Output for Last 24 Hours 08/14/20 08/14/20 08/15/20 00:59 23:59 23:59 Intake Total 360 / 360 Output Total 150 / 150 Balance 210 / 210 General: Alert, Oriented x3, Cooperative, No apparent distress Oral: Moist Mucosa Neck: Supple, Trachea Midline Lungs: Rales - The coarse rales in the right base have greatly improved and or just minimal now. She has a few coarse crackles in the left base. There are no fine crackles and no wheezing., - - She is not tachypneic, has no accessory muscle use and has no conversational dyspnea. Cardiovascular: Regular rate, Regular Rhythm, No murmurs, No rub noted, No Gallop Abdomen: Bowel Sounds Present, Soft, Non Tender, Non-Distended Extremities: No clubbing, Edema - trace ankle edema, primarily on the right Skin: No rashes, No breakdown Musculoskeletal: Arthritic Changes Neurological: Cranial nerves II-XII grossly intact - very mild R facial droop amd hard to detect now, - - Walking continues to improve. She needs minimal assistance with bathing now and supervision only with upper body dressing. She still needs minimal assistance with lower body dressing, particularly in donning the brace and her right shoe. She is contact-guard assist for toilet transfer and moderat Psych/Mental Status: Normal Affect, Appropriate Laboratory Results 08/15/20 05:05: Sodium 140, Potassium 4.1, Chloride 111 H, Carbon Dioxide 23.0, Anion Gap 6, BUN 76 H, Creatinine 2.91 H, Estim Creat Clear Calc 11.59, Est GFR (MDRD) Af Amer 20 L, Est GFR (MDRD) Non-Af 16 L, BUN/Creatinine Ratio 26.1 H, Glucose 120 H, Calcium 9.1 Current Medications Acetaminophen (Acetaminophen 325 Mg Tablet) 650 mg PO Q6H PRN PRN PRN Reason: Pain Score 1-10 Last Admin: 08/15/20 08:18 Dose: 650 mg Documented by: Amlodipine Besylate (Amlodipine 5 Mg Tablet) 5 mg PO BID [facility] Last Admin: 08/15/20 08:16 Dose: 5 mg Documented by: Apixaban (Eliquis) 2.5 mg PO BID [facility] Last Admin: 08/15/20 08:16 Dose: 2.5 mg Documented by: Ascorbic Acid (Ascorbic Acid 500 Mg Tablet) 500 mg PO DAILY@1200 [facility] Last Admin: 08/14/20 11:42 Dose: 500 mg Documented by: Atenolol (Atenolol 100 Mg Tablet) 100 mg PO BID [facility] Last Admin: 08/15/20 08:16 Dose: 100 mg Documented by: Bisacodyl (Bisacodyl 10 Mg Suppository) 10 mg RECTAL .PRN X 1 PRN PRN Reason: Constipation Calamine/Phenol (Menthol/Lanolin/Calamine/Znox 113 Gm Tube) 1 applic TOPICAL BID [facility]; Protocol Last Admin: 08/15/20 08:19 Dose: 1 applicatio Documented by: Compound Med (Arthritis Pain Compound 60 Click Tube) 0 click TOPICAL BID [facility]; Protocol Last Admin: 08/15/20 08:15 Dose: 1 click Documented by: Ferrous Sulfate (Ferrous Sulfate) 325 mg PO DAILY@1200 [facility] Last Admin: 08/14/20 11:42 Dose: 325 mg Documented by: Furosemide (Furosemide 20 Mg Tablet) 60 mg PO Q48H [facility] Last Admin: 08/12/20 07:49 Dose: 60 mg Documented by: Magnesium Hydroxide (Magnesium Hydroxide 30 Ml Udc) 30 ml PO .PRN X 1 PRN PRN Reason: Constipation Melatonin (Melatonin 3 Mg Tablet) 6 mg PO QHS [facility] Last Admin: 08/14/20 21:36 Dose: 6 mg Documented by: Multivitamins (Multivitamins,Therapeutic Tablet) 1 tablet PO DAILY@0800 [facility] Last Admin: 08/15/20 08:16 Dose: 1 tablet Documented by: Multivitamins/Minerals (Multivitamin (Healthy Eyes) Capsule) [facility] Last Admin: 08/15/20 08:15 Dose: 1 capsule Documented by: Pantoprazole Sodium (Pantoprazole Sodium 20 Mg Tablet) 20 mg PO DAILY [facility] Last Admin: 08/15/20 08:16 Dose: 20 mg Documented by: Potassium Chloride (Potassium Chloride 10 Meq Tablet) [facility] Last Admin: 08/15/20 08:15 Dose: 10 meq Documented by: Senna/Docusate Sodium (Senna/Docusate Sodium 1 Tablet) 2 tablet PO BID [facility] Last Admin: 08/15/20 08:16 Dose: Not Given Documented by: Sodium Chloride (0.9% Saline Lock 10 Ml Syringe) 10 - 40 ml IV UD PRN PRN Reason: SALINE FLUSH Last Admin: 07/05/20 14:57 Dose: 10 ml Documented by: Sodium Chloride (0.9% Saline Lock 10 Ml Syringe) 10 - 40 ml IV UD PRN PRN Reason: SALINE FLUSH Medical Necessity - Tobacco Use Smoking Status: Never smoker Tobacco Use: Non-smoker Assessment/Plan All Active Problems PAF (paroxysmal atrial fibrillation) (Acute) Chronic anticoagulation (Acute) Debility (Acute) Cerebrovascular accident, embolic (Acute) Acidosis, metabolic (Acute) Dehydration (Acute) Normochromic normocytic anemia (Acute) Acute renal failure superimposed on chronic kidney disease (Acute) Right ankle sprain (Acute) Ankle pain (Acute) Impressions 1. 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 Embolic left pontine CVA 3. Acute renal failure on chronic renal failure stage IV- ARF has resolved. She has persistent stage 4-5 chronic renal failure. will need to follow up with post discharge. Will need to give Lasix based on weights in the AM. 4. Metabolic acidosis secondary to chronic kidney disease -serum bicarb is stable at 25 off bicarb tabs. Resolved 5. Normochromic normocytic anemia-more likely than not secondary to chronic renal failure 6. Hyperuricemia with history of gout -she had pancytopenia with allopurinol at 150 mg p.o. daily. It was discontinued and she had no acute gouty attacks. Macrocytic anemia persists but her hemoglobin is increased to 9.6. Platelets and white blood cell count are now within normal limits. She has no hx of kidney stones and she is not having acute gout so will not restart the allopurinol at this time. 7. Osteoarthritis - having persistent R ankle pain when it is cold and raining it is worse....better with the arthritic cream 8. Hypertension-controlled 9. Keratitis-chronic 10. Paroxysmal atrial fibrillation -rate controlled. She has recently been in a regular rhythm ....for the past 4 times I have examined her. 11. 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 Resolved with discontinuation of allopurinol 12. Chronic venous insufficiency - edema is controlled with KRYSTIAN hose 13. Hemoccult positive stool-on chronic anticoagulation with apixaban. She was started on Protonix 20 mg daily and the hemoglobin is increasing. 14. Dysphagia. She is doing well. CREAT IS UP A BIT - will give Lasix on a daily basis based on the weight Recheck a CBC and BMP on Sat prior to DC. No Lasix today Plan DC on Saturday home with [facility] Inpatient E&M: [id number] Subs Hosp L2
[2020-08-15 09:14] VITALS: BP 126/44; PULSE 66; RESP 16; TEMP 36.6; O2SAT 97
[2020-08-15] MEDS: Ferrous Sulfate 325 MG Tablet PO (11:36)
[2020-08-15] MEDS: Ascorbic Acid 500 MG Tablet PO (11:36)
[2020-08-15 13:17] VITALS: BMI 31.8
[2020-08-15 19:30] VITALS: PULSE 87; RESP 16; O2SAT 98; BMI 31.8
[2020-08-15 19:35] VITALS: BP 135/55; PULSE 89; RESP 16; TEMP 36.6; O2SAT 98
[2020-08-15] MEDS: MELATONIN 3 MG TABLET 6 MG PO (21:33)
--- NOTE | 2020-08-15 21:50 | NURSING ---
pt had rung to state that she needed assistance, staff found pt on the bsc and reported that she needed assistance to get off. staff questioned pt how she got on the bsc pt reported that she did it on her own because she knew staff was busy. pt had removed shoes and got a fresh attends to but on. pt has had several episodes of small loose stools for 2 days. pt stated well I'm going to have to do it at home by my self . pt reeducated on the importance on waiting for staff assistance with transfers , pt acknowledges. pt had been removed by pt and call light had been in reach
--- NOTE | 2020-08-16 01:05 | NURSING ---
pt up several times this hs for diarrhea , pt discouraged because nothing is being done, rn to call hospitalist
[2020-08-16] MEDS: Loperamide 2 MG Capsule PO ×2 (01:28→07:47)
--- NOTE | 2020-08-16 01:33 | NURSING ---
Hospitalist, Dr Juarez, paged re: multiple loose stools keeping pt up. Dr Juarez gave N/O for Imodium 2mg every loose stool PRN Max 8 tabs in 24 hour period. CDIFF collection. BMP in a.m.
--- NOTE | 2020-08-16 01:37 | NURSING ---
rn to call hospitalist and new orders received for BMP in am, immodium one tab every loose stool max of 8 tabs per evry 24 hours , check stool for c-diff first dose of immodium given at this time
--- NOTE | 2020-08-16 03:09 | NURSING ---
REVIEWED AND AGREE WITH technical programs manager DOCUMENTATION AND CHARTING.
[2020-08-16 06:09] LABS: Anion Gap 8 (5-15); BUN 74 mg/dL (7-18); BUN/Creat Ratio 26.6 RATIO (10-20); Calcium,Total 9.1 mg/dL (8.5-10.1); Chloride 110 mmol/L (98-107); Creatinine, Serum 2.78 mg/dL (0.55-1.02); EST Glomerular Filtration Rate 17 mL/min (>60); Est Glom Filt Rate - Afr Amer 21 mL/min (>60); Estimated Creatinine Clearance 12.13 ml/min; Glucose 103 mg/dL (74-106); Potassium 3.7 mmol/L (3.5-5.1); Sodium Level 140 mmol/L (136-145)
[2020-08-16] MEDS: Acetaminophen 325 MG Tablet 650 MG PO ×2 (07:47→21:04)
[2020-08-16] MEDS: Multivitamin (Healthy Eyes) Capsule 1 CAP PO ×2 (07:47→16:15)
[2020-08-16] MEDS: Arthritis Pain Compound 60 CLICK TUBE TOPICAL ×2 (07:48→21:00)
[2020-08-16] MEDS: Menthol/Lanolin/Calamine/Znox 113 GM Tube 1 APPLIC TOPICAL ×2 (07:48→21:01)
[2020-08-16] MEDS: Multivitamins,Therapeutic Tablet 1 TABLET PO (07:48)
[2020-08-16] MEDS: Atenolol 100 MG Tablet PO ×2 (07:49→21:00)
[2020-08-16] MEDS: APIXABAN 2.5 MG TABLET PO ×2 (07:49→21:00)
[2020-08-16] MEDS: amLODIPine 5 MG Tablet PO ×2 (07:49→21:00)
[2020-08-16] MEDS: Pantoprazole Sodium 20 MG Tablet PO (07:49)
[2020-08-16 07:53] VITALS: BP 123/73; PULSE 64; RESP 16; TEMP 36.6; O2SAT 96
[2020-08-16] MEDS: Ferrous Sulfate 325 MG Tablet PO (11:15)
[2020-08-16] MEDS: Ascorbic Acid 500 MG Tablet PO (11:15)
[2020-08-16 11:33] VITALS: BMI 31.8
--- NOTE | 2020-08-16 13:42 | PCM.PROGNOTE ---
Patient Problems: Active and Suspected Problems PAF (paroxysmal atrial fibrillation) (Acute) Chronic anticoagulation (Acute) Debility (Acute) Cerebrovascular accident, embolic (Acute) Acidosis, metabolic (Acute) Dehydration (Acute) Normochromic normocytic anemia (Acute) Acute renal failure superimposed on chronic kidney disease (Acute) Right ankle sprain (Acute) Ankle pain (Acute) Subjective: 85-year-old pleasant female seen bedside for follow-up of right ankle sprain and arthritis. She is in the rehabilitation unit recovering from CVA related debility. She has been progressing well with her physical therapy and is able to perform her desired activities with her ankle-foot orthotic brace and supportive new balance sneakers. - Physical Exam Vitals/I&O's: Vital Signs Temp Pulse Resp BP Pulse Ox 97.9 F 64 16 123/73 H 96 08/16/20 07:53 08/16/20 07:53 08/16/20 07:53 08/16/20 07:53 08/16/20 07:53 Oxygen Delivery Method Room Air Weight: 81.193 kg Body Mass Index (BMI) 31.8 Intake and Output for Last 24 Hours 08/14/20 08/15/20 08/16/20 23:59 23:59 23:59 Intake Total 1140 / 1200 700 / 700 Output Total 650 / 650 500 / 500 Balance 490 / 550 200 / 200 General: Alert, Oriented x3, Cooperative HEENT: Atraumatic Extremities: No cyanosis, Capillary Refill Less than 3 Seconds, No Calf Tenderness, Edema - moderate bilateral lower extremities, Peripheral Pulses Normal - 2/4 dp right Skin: - - no ulcer, infection, necrosis Musculoskeletal: Muscle Wasting, Tenderness - distal lateral malleolus/lateral ankle ligaments. No laxity or pain with anterior drawer test of right ankle. Smooth and gliding range of motion and sagittal plane. 4+ out of 5 ankle strength in all directions., - Neurological: Sensory exam intact to light touch and pain Psych/Mental Status: Normal Affect, Appropriate Microbiology Past 72 Hours 08/16/20 07:45 Stool C. difficile DNA Amplification - Final Laboratory Results 08/16/20 05:36: Sodium 140, Potassium 3.7, Chloride 110 H, Carbon Dioxide 22.0, Anion Gap 8, BUN 74 H, Creatinine 2.78 H, Estim Creat Clear Calc 12.13, Est GFR (MDRD) Af Amer 21 L, Est GFR (MDRD) Non-Af 17 L, BUN/Creatinine Ratio 26.6 H, Glucose 103, Calcium 9.1 Current Medications Acetaminophen (Acetaminophen 325 Mg Tablet) 650 mg PO Q6H PRN PRN PRN Reason: Pain Score 1-10 Last Admin: 08/16/20 07:47 Dose: 650 mg Documented by: Amlodipine Besylate (Amlodipine 5 Mg Tablet) 5 mg PO BID [facility] Last Admin: 08/16/20 07:49 Dose: 5 mg Documented by: Apixaban (Eliquis) 2.5 mg PO BID [facility] Last Admin: 08/16/20 07:49 Dose: 2.5 mg Documented by: Ascorbic Acid (Ascorbic Acid 500 Mg Tablet) 500 mg PO DAILY@1200 [facility] Last Admin: 08/16/20 11:15 Dose: 500 mg Documented by: Atenolol (Atenolol 100 Mg Tablet) 100 mg PO BID [facility] Last Admin: 08/16/20 07:49 Dose: 100 mg Documented by: Bisacodyl (Bisacodyl 10 Mg Suppository) 10 mg RECTAL .PRN X 1 PRN PRN Reason: Constipation Calamine/Phenol (Menthol/Lanolin/Calamine/Znox 113 Gm Tube) 1 applic TOPICAL BID [facility]; Protocol Last Admin: 08/16/20 07:48 Dose: 1 applicatio Documented by: Compound Med (Arthritis Pain Compound 60 Click Tube) 0 click TOPICAL BID [facility]; Protocol Last Admin: 08/16/20 07:48 Dose: 1 click Documented by: Ferrous Sulfate (Ferrous Sulfate 325 Mg Tablet) 325 mg PO DAILY@1200 [facility] Last Admin: 08/16/20 11:15 Dose: 325 mg Documented by: Furosemide (Furosemide 20 Mg Tablet) 60 mg PO Q48H [facility] Last Admin: 08/12/20 07:49 Dose: 60 mg Documented by: Loperamide HCl (Loperamide 2 Mg Capsule) 2 mg PO PRN PRN PRN Reason: LOOSE STOOLS Last Admin: 08/16/20 07:47 Dose: 2 mg Documented by: Magnesium Hydroxide (Magnesium Hydroxide 30 Ml Udc) 30 ml PO .PRN X 1 PRN PRN Reason: Constipation Melatonin (Melatonin 3 Mg Tablet) 6 mg PO QHS [facility] Last Admin: 08/15/20 21:33 Dose: 6 mg Documented by: Multivitamins (Multivitamins,Therapeutic Tablet) 1 tablet PO DAILY@0800 [facility] Last Admin: 08/16/20 07:48 Dose: 1 tablet Documented by: Multivitamins/Minerals (Multivitamin (Healthy Eyes) [facility]apsule) [facility] Last Admin: 08/16/20 07:47 Dose: 1 capsule Documented by: Pantoprazole Sodium (Pantoprazole Sodium 20 Mg Tablet) 20 mg PO DAILY [facility] Last Admin: 08/16/20 07:49 Dose: 20 mg Documented by: Potassium Chloride (Potassium Chloride 10 Meq Tablet) [facility] Last Admin: 08/16/20 07:47 Dose: 10 meq Documented by: Senna/Docusate Sodium (Senna/Docusate Sodium 1 Tablet) 2 tablet PO BID [facility] Last Admin: 08/16/20 07:49 Dose: Not Given Documented by: Sodium Chloride (0.9% Saline Lock 10 Ml Syringe) 10 - 40 ml IV UD PRN PRN Reason: SALINE FLUSH Last Admin: 07/05/20 14:57 Dose: 10 ml Documented by: Sodium Chloride (0.9% Saline Lock 10 Ml Syringe) 10 - 40 ml IV UD PRN PRN Reason: SALINE FLUSH Medical Necessity - Tobacco Use Smoking Status: Never smoker Tobacco Use: Non-smoker Assessment/Plan All Active Problems PAF (paroxysmal atrial fibrillation) (Acute) Chronic anticoagulation (Acute) Debility (Acute) Cerebrovascular accident, embolic (Acute) Acidosis, metabolic (Acute) Dehydration (Acute) Normochromic normocytic anemia (Acute) Acute renal failure superimposed on chronic kidney disease (Acute) Right ankle sprain (Acute) Ankle pain (Acute) Lower extremity Edema Right ankle pain right ankle sprain right ankle arthritis Patient seen and examined. Patient was able to stand and bear weight without pain. She has progressed her activity well this past month. She wears supportive New balance shoes and right ankle foot orthotic. Discussed warming up her ankle joint before therapy by spelling the alphabet to preserve range of motion. Continue compression socks. [facility] within 6-8 week; [phone]. Please call if questions. Denisa Prather DPM, FACFAS [facility] [phone]
--- NOTE | 2020-08-16 19:11 | DCINST_ITS ---
- Discharge Diagnoses Current Active Problems: Current Active and Chronic Problems PAF (paroxysmal atrial fibrillation) (Acute) Chronic anticoagulation (Acute) Debility (Acute) Cerebrovascular accident, embolic (Acute) Osteoarthritis (Chronic) Hypertension (Chronic) Keratitis (Chronic) Obesity (BMI 30.0-34.9) (Chronic) Acidosis, metabolic (Acute) Dehydration (Acute) Normochromic normocytic anemia (Acute) Acute renal failure superimposed on chronic kidney disease (Acute) Gout (Chronic) Hyperuricemia (Chronic) Right ankle sprain (Acute) Ankle pain (Acute) You will use the following diet at home:: Cardiac, Other - NO RICE, NO PEAS (UNLESS MINCED), BANKS WATER PROTOCOL ( MAY SIP THIN WATER IF SHE DOES GOOD MOUTH CARE PRIOR TO DRINKING WATER) Your food should be the consistency of: Mechanical soft (ground) - MINCED/MOIST Your liquids should be the consistency of: [place] Thick Discharge Activity: May Not Drive, May Shower, Use Walker Weight Bearing Status: Full weight bearing Keep extremity elevated above heart level: Legs Additional Activity Instructions:: Do the exercises given to you by the therapists twice a day. USE or LOSE it Grandma! Call your doctor if you observe: Fever of 101 or Higher, Inability to urinate, Inability to have a bowel movement, Shortness of breath, Dizziness, Fainting spells, Swelling in the ankles, Chest pain, Increased palpitations (irregular heartbeat), Calf discomfort, Uncontrolled pain, - - Call your family doctor if any unusual bleeding such as bleeding from the gums, blood from the anus, blood in the urine, nose bleeds, large bruises or bleeding from the vagina if female. Instructions: Monitoring Kidney Health, Kidney Disease: Eating Less Sodium, Chronic Kidney Disease Additional Instructions: 1. Your BP is well controlled now on Amlodipine 5 mg twice a day and Atenolol 100 mg twice a day. you will continue both of these medications at discharge. It is very important to control the BP to prevent any further kidney damage AND to prevent any more strokes. 2. There are 5 stages of Kidney disease, 5 being the worst. You hover between 4-5. When your kidneys don't work well you will tend to accumulate fluid and get swelling in your legs, shortness of breath with walking and lying down and your weight will go up. If you eat a lot of salt this will make your body retain even more water SO stick to a low salt diet. Sometimes you are going to need to take Lasix (also called Furosemide). You will be taking the Lasix when your weight goes up. I want you to call me in the morning with your weight in the morning. Your scale may have a different number than ours. This will be your dry weight. If your weight goes up by 3 lbs you will take a Lasix that day. If the weight is not down the next day you will take another 60 mg of Lasix. If on the third day your weight is not down to baseline you will call Dr. Barragan or Myself to ask what to do. It is a fine balance with stage 4 kidney failure with what is too much fluid and what is not enough. If your weight drops below your baseline by more than 2 pounds increase your water intake for a day or 2. I think if you can limit your fluids to about 1500 cc's a day (50 ounces) and stick to a low salt diet you will not need to take much Lasix. 3. You had blood in your stool twice while in rehab and I put you on a medication called Protonix(also called Pantoprazole) to protect your stomach. Sometimes with kidney failure you can get inflammation in the lining of the stomach and it will bleed. After we started the Pantoprazole and the iron your blood count started to come up. The Vitamin C should be taken with the iron supplement at lunch everyday because the Vitamin C improves absorption of iron. 4. You will need to follow up with Dr. Barragan after discharge because she will help to keep your kidneys working so you hopefully will not need dialysis. Her office is in the hospital here on the second floor. 5. WE all loved having you around in rehab [facility]. I know we had you here longer than you wanted to be here BUT, you are good enough to go home rather than a jail and that is GREAT. I personally will miss your AMADO. Stay sassy and healthy my friend. If you have any questions after you go home or there is anything I can help you with please do not hesitate to call me at [phone] (cell) or [phone] (office) You could also call the rehab unit at [phone]. Have a great THANKSGIVING! Do NOT forget to call me tomorrow with your weight. Allergies/Adverse Reactions: Allergies amlodipine [From Norvasc] Adverse Reaction (Verified 07/04/20 16:03) PT UNSURE OF REACTION amoxicillin [From Augmentin] Adverse Reaction (Verified 07/04/20 17:59) PT UNSURE OF REACTION clavulanic acid [From Augmentin] Adverse Reaction (Verified 07/04/20 17:59) PT UNSURE OF REACTION diphtheria, pertussis, tetanus vacc Adverse Reaction (Verified 07/04/20 16:03) PT UNSURE OF REACTION hydrochlorothiazide [From Maxzide] Adverse Reaction (Verified 07/04/20 16:03) PT UNSURE OF REACTION lisinopril Adverse Reaction (Verified 07/04/20 16:03) PT UNSURE OF REACTION Sulfa (Sulfonamide Antibiotics) Adverse Reaction (Verified 07/04/20 16:03) PT UNSURE OF REACTION triamterene [From Maxzide] Adverse Reaction (Verified 07/04/20 16:03) PT UNSURE OF REACTION Medications to take at Discharge Multivitamin [Daily Multiple Vitamin] 1 ea PO DAILY 07/04/20 Vit A/Vit C/Vit E/Zinc/Copper [Preservision Areds Softgel] 1 ea PO BID 07/04/20 Acetaminophen [Tylenol Tablet] 650 mg PO Q6H PRN PRN tablet 08/16/20 Amlodipine [Norvasc] 5 mg PO BID #60 tab 08/16/20 Apixaban [Eliquis] 2.5 mg PO BID #60 tab 08/16/20 Arthritis Pain Compound 0 click TOPICAL BID #0 gm 08/16/20 Ascorbic Acid [Vitamin C] 500 mg PO DAILY@1200 tablet 08/16/20 Atenolol [Tenormin (beta logan)] 100 mg PO BID #60 tab 08/16/20 Ferrous Sulfate 325 mg PO DAILY@1200 #90 tab 08/16/20 Furosemide [Lasix] 60 mg PO UD #45 tab 08/16/20 Melatonin 6 mg PO QHS #60 tab 08/16/20 Menthol/Lanolin/Calamine/Znox [Calmoseptine Ointment] 1 applic TOPICAL BID tube 08/16/20 Multivitamins,Therapeutic [Multivitamin] 1 tablet PO DAILY@0800 tablet 08/16/20 Potassium Chloride [K-Dur] 10 meq PO UD #20 tab 08/16/20 Senna/Docusate Sodium [Senokot-S] 1 tablet PO BID #60 tablet 08/16/20 The following prescriptions were given: Apixaban [Eliquis] 2.5 mg PO BID #60 tab Transmission Status: Pending to [facility] Ferrous Sulfate 325 mg PO DAILY@1200 #90 tab Transmission Status: Pending to [facility] Potassium Chloride [K-Dur] 10 meq PO UD #20 tab Transmission Status: Pending to [facility] Furosemide [Lasix] 60 mg PO UD #45 tab Transmission Status: Pending to [facility] Melatonin 6 mg PO QHS #60 tab Transmission Status: Pending to [facility] Amlodipine [Norvasc] 5 mg PO BID #60 tab Transmission Status: Pending to [facility] Atenolol [Tenormin (beta logan)] 100 mg PO BID #60 tab Transmission Status: Pending to [facility] Test Results: Test results from this visit will be discussed in further detail at your follow- up appointment, if applicable. Please Follow Up With: Casey Thomson MD Please Follow Up With: Miriam Estrada DPM Please Follow Up With: Zenaida Barragan DO Please Follow Up With: Deshaun Wilson MD
--- NOTE | 2020-08-16 19:43 | PCM.DC.SUM ---
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 White blood cell count and platelets recovered with discontinuation of allopurinol Metabolic acidosis secondary to acute renal failure-resolved - Secondary Discharge Diagnosis Chronic Problems: Chronic Problems Chronic venous insufficiency of lower extremity (Chronic) Chronic renal failure, stage 4 (severe) (Chronic) Osteoarthritis (Chronic) Hypertension (Chronic) Keratitis (Chronic) Obesity (BMI 30.0-34.9) (Chronic) Normochromic normocytic anemia (Chronic)-most likely secondary to chronic renal failure Gout (Chronic) - she did not have gout with the discontinuation of the Allopurinol Hyperuricemia (Chronic) Chronic anticoagulation (Acute) with apixaban 2.5 mg twice daily ( dose adjusted for stage IV chronic renal failure) Hospital Course and Treatment Imaging Results: Clinical Impression(s) from Imaging Studies Renal Ultrasound 07/06/20 14:05 IMPRESSION: Nonspecific renal parenchymal disease and multiple bilateral cysts Electronically Signed: Jayy Duncan MD at 22:46 EDT , Service support , Brain CT 07/08/20 11:35 IMPRESSION: Chronic involutional changes of the brain. Evidence of ischemic change in the body of the right caudate nucleus. Partial opacification of the left sphenoid sinus. Electronically Signed: Keo Blackwell, at 12:24 EDT , Service support , Ankle X-Ray 07/19/20 10:19 IMPRESSION: There is soft tissue swelling at the ankle suggesting edema. Electronically Signed: Jacqueline De Jesus, at 12:31 EDT Tel , Service support , Chest X-Ray 08/12/20 14:25 IMPRESSION: Probable COPD with borderline cardiomegaly. Electronically Signed: Camilo Baig, DO at 18:16 EDT Tel [phone], Service support , Laboratory Last Values WBC 7.3 K/mm3 (4.4-11.0) 08/16/20 19: RBC 3.12 M/mm3 (4.2-5.4) L 08/16/20 19:30 Hgb 9.9 g/dL (12.0-15.0) L 08/16/20 19:30 Hct 30.4 % (37-47) L 08/16/20 19:30 MCV 97.4 fL (81-99) 08/16/20 19:30 MCH 31.7 pg (27.0-32.0) 08/16/20 19:30 MCHC 32.6 g/dL (32-36) 08/16/20 19:30 RDW Std Deviation 46.7 fl (35.1-43.9) H 08/16/20 19:30 RDW Coeff of Richar 13.1 % (11.6-14.6) 08/16/20 19:30 Plt Count 152 K/mm3 (150-450) 08/16/20 19:30 MPV 10.3 fl (6.2-12.0) 08/16/20 19:30 Immature Gran % (Auto) 0.500 % (0.0-0.9) 07/25/20 05:27 Neut % (Auto) 53.0 % (47-70) 07/25/20 05:27 Lymph % (Auto) 27.6 % (19-41) 07/25/20 05:27 [place] % (Auto) 13.4 % (0-10) H 07/25/20 05:27 Eos % (Auto) 5.0 % (0-5) 07/25/20 05:27 Baso % (Auto) 0.5 % (0-1) 07/25/20 05:27 Absolute Neuts (auto) 2.0 X10^3/uL (2.0-7.7) 07/25/20 05:27 Absolute Lymphs (auto) 1.05 X10^3/uL (0.83-4.51) 07/25/20 05:27 Nucleated RBC % 0 % (0-5) 07/25/20 05:27 Differential Comment SCANNED 07/15/20 05:33 Platelet Estimate MOD DEC (ADEQ) 07/15/20 05:33 Sodium 140 mmol/L (136-145) 08/16/20 05:36 Potassium 3.7 mmol/L (3.5-5.1) 08/16/20 05:36 Chloride 110 mmol/L (98-107) H 08/16/20 05:36 Carbon Dioxide 22.0 mmol/L (21.0-32.0) 08/16/20 05:36 Anion Gap 8 (5-15) 08/16/20 05:36 BUN 74 mg/dL (7-18) H 08/16/20 05:36 Creatinine 2.78 mg/dL (0.55-1.02) H 08/16/20 05:36 Estim Creat Clear Calc 12.13 ml/min 08/16/20 05:36 Est GFR (MDRD) Af Amer 21 mL/min (>60) L 08/16/20 05:36 Est GFR (MDRD) Non-Af 17 mL/min (>60) L 08/16/20 05:36 BUN/Creatinine Ratio 26.6 RATIO (-20) H 08/16/20 05:36 Glucose 103 mg/dL (74-106) 08/16/20 05:36 Hemoglobin A1c 5.7 % (3.8-5.6) H 07/06/20 05:25 Uric Acid 7.8 mg/dL (2.6-6.0) H 07/06/20 05:25 Calcium 9.1 mg/dL (8.5-10.1) 08/16/20 05:36 Phosphorus 4.0 mg/dL (2.5-4.9) 08/08/20 05:16 Magnesium 2.0 mg/dL (1.6-2.6) 07/05/20 05:30 Total Bilirubin 0.40 mg/dL (0.20-1.00) 07/05/20 05:30 AST 39 U/L (15-37) H 07/05/20 05:30 ALT 36 U/L (13-56) 07/05/20 05:30 Alkaline Phosphatase 89 U/L (45-117) 07/05/20 05:30 B-Natriuretic Peptide 122.9 pg/mL (0-100) H 08/12/20 15:39 Total Protein 6.5 g/dL (6.4-8.2) 07/05/20 05:30 Albumin 2.5 g/dL (3.2-5.0) L 07/07/20 05:35 Globulin 3.6 g/dL (2.2-4.2) 07/05/20 05:30 Albumin/Globulin Ratio 0.8 RATIO (0.9-2.4) L 07/05/20 05:30 Urine Color Straw (Yellow) 07/14/20 13:15 Urine Clarity Cloudy (Clear) 07/14/20 13:15 Urine pH 7.0 (5.0 - 8.0) 07/14/20 13:15 Ur Specific [place] 1.010 (1.002-1.030) 07/14/20 13:15 Urine Protein 30 mg/dl (Negative) H 07/14/20 13:15 Urine Glucose (UA) Normal mg/dl (Normal) 07/14/20 13:15 Urine Ketones Negative mg/dl (Negative) 07/14/20 13:15 Urine Occult Blood 10 /ul (Negative) H 07/14/20 13:15 Urine Nitrite Negative (Negative) 07/14/20 13:15 Urine Bilirubin Negative mg/dL (Negative) 07/14/20 13:15 Urine Urobilinogen Normal mg/dl (Normal) 07/14/20 13:15 Ur Leukocyte Esterase 25 /ul (Negative) H 07/14/20 13:15 Urine RBC 0 SEEN /hpf (0-5) 07/14/20 13:15 Urine WBC 5-10 SEEN /hpf (0-5) 07/14/20 13:15 Ur Squamous Epith Cells 0 SEEN /hpf (5-10) 07/14/20 13:15 Urine Bacteria 4+ /hpf (None Seen) 07/14/20 13:15 Urine Mucus 0 SEEN /hpf (<or=2+) 07/14/20 13:15 U Random Total Protein 29.1 mg/dL (<11.9) H 07/06/20 14:10 Ur Random Sodium 70 mmol/L (Not Establ.) 07/06/20 14:10 Urine Creatinine 91.50 mg/dL (NO RANGE EST.) 07/06/20 14:10 Urine Creatinine 93.10 mg/dL (NO RANGE EST.) 07/06/20 14:10 Protein/Creatinin Ratio 318 mg/g CRE (0-200) H 07/06/20 14:10 Microbiology 08/16/20 07:45 Stool C. difficile DNA Amplification - Final negative 08/08/20 14:00 Mucosa - Nasopharyngeal - Final negative for Covid antigen 07/14/20 13:15 Urine, Catheterized Urine Culture - Final Morganella morganii sp morgani Klebsiella pneumoniae sp pneum 07/15/20 11:15 Stool Stool Occult Blood (CARLOS) - Final positive 07/06/20 06:55 Stool Stool Occult Blood (CARLOS) - Final Occult Blood Positive Dr. Miriam Estrada and Dr. Denisa Prather - Podiatry Operations: None Procedures: None Summary of Care Provided: So Pabon is a 85 year old F with a past medical history of osteoarthritis, gout, hypertension, keratitis, obesity and chronic renal failure. She presented to the emergency room at [facility] on 06/28/2020 complaining of vertigo. She was diagnosed with atrial fibrillation with rapid ventricular response and was treated in the emergency department with diltiazem. A CT brain showed a small chronic/subacute infarct in the right basal ganglia. No focal neurologic deficits were mentioned on the ER report. The heart rate was controlled and she was transitioned to their swing unit. Lab in the emergency room showed a sodium of 139, potassium of 4.8, BUN of 71 and a creatinine of 2.35. Hemoglobin was 12.2. She was started on Xarelto. She later developed slurred speech and her BP went up. She had an MRI of the brain on 07/04/20 that showed left pontine and focal embolic appearing left brachium pontis late acute infarctions. There was no intracranial hemorrhage or mass. There was a lacunar encephalomalacia in the right striatal capsular region. No lab was repeated after she left the ED. She had an ECHO in the emergency department that showed a 55% left ventricular ejection fraction with a mild increased wall thickness of the left ventricle. The estimated right ventricular systolic pressure was 15 and the atria were both of normal size. She was transferred to the acute inpt rehab unit at [facility] on 07/04/20 with a diagnosis of acute embolic CVA for 3 hours of therapy daily to restore hear at or near her prior level of function. Patient Problems: Active and Suspected Problems PAF (paroxysmal atrial fibrillation) (Acute) Chronic anticoagulation (Acute) Debility (Acute) Cerebrovascular accident, embolic (Acute) Right ankle sprain (Acute) Ankle pain (Acute) - Physical Exam Vitals/I&O's: Vital Signs Temp Pulse Resp BP Pulse Ox 97.9 F 64 16 123/73 H 96 08/16/20 07:53 08/16/20 07:53 08/16/20 07:53 08/16/20 07:53 08/16/20 07:53 Oxygen Delivery Method Room Air Weight: 179 lb Body Mass Index (BMI) 31.8 Intake and Output for Last 24 Hours 08/14/20 08/15/20 08/16/20 23:59 23:59 23:59 Intake Total 1140 / 1200 1060 / 1060 Output Total 650 / 650 900 / 900 Balance 490 / 550 160 / 160 Microbiology Past 72 Hours 08/16/20 07:45 Stool C. difficile DNA Amplification - Final Laboratory Results 08/16/20 05:36: Sodium 140, Potassium 3.7, Chloride 110 H, Carbon Dioxide 22.0, Anion Gap 8, BUN 74 H, Creatinine 2.78 H, Estim Creat Clear Calc 12.13, Est GFR (MDRD) Af Amer 21 L, Est GFR (MDRD) Non-Af 17 L, BUN/Creatinine Ratio 26.6 H, Glucose 103, Calcium 9.1 08/16/20 19:30: WBC Pending, RBC Pending, Hgb Pending, Hct Pending, MCV Pending, MCH Pending, MCHC Pending, RDW Std Deviation Pending, RDW Coeff of Richar Pending, Plt Count Pending Current Medications Acetaminophen (Acetaminophen 325 Mg Tablet) 650 mg PO Q6H PRN PRN PRN Reason: Pain Score 1-10 Last Admin: 08/16/20 07:47 Dose: 650 mg Documented by: Amlodipine Besylate (Amlodipine 5 Mg Tablet) 5 mg PO BID [facility] Last Admin: 08/16/20 07:49 Dose: 5 mg Documented by: Apixaban (Eliquis) 2.5 mg PO BID [facility] Last Admin: 08/16/20 07:49 Dose: 2.5 mg Documented by: Ascorbic Acid (Ascorbic Acid 500 Mg Tablet) 500 mg PO DAILY@1200 [facility] Last Admin: 08/16/20 11:15 Dose: 500 mg Documented by: Atenolol (Atenolol 100 Mg Tablet) 100 mg PO BID [facility] Last Admin: 08/16/20 07:49 Dose: 100 mg Documented by: Bisacodyl (Bisacodyl 10 Mg Suppository) 10 mg RECTAL .PRN X 1 PRN PRN Reason: Constipation Calamine/Phenol (Menthol/Lanolin/Calamine/Znox 113 Gm Tube) 1 applic TOPICAL BID [facility]; Protocol Last Admin: 08/16/20 07:48 Dose: 1 applicatio Documented by: Compound Med (Arthritis Pain Compound 60 Click Tube) 0 click TOPICAL BID [facility]; Protocol Last Admin: 08/16/20 07:48 Dose: 1 click Documented by: Ferrous Sulfate (Ferrous Sulfate 325 Mg Tablet) 325 mg PO DAILY@1200 [facility] Last Admin: 08/16/20 11:15 Dose: 325 mg Documented by: Furosemide (Furosemide 20 Mg Tablet) 60 mg PO Q48H [facility] Last Admin: 08/12/20 07:49 Dose: 60 mg Documented by: Loperamide HCl (Loperamide 2 Mg Capsule) 2 mg PO PRN PRN PRN Reason: LOOSE STOOLS Last Admin: 08/16/20 07:47 Dose: 2 mg Documented by: Magnesium Hydroxide (Magnesium Hydroxide 30 Ml Udc) 30 ml PO .PRN X 1 PRN PRN Reason: Constipation Melatonin (Melatonin 3 Mg Tablet) 6 mg PO QHS [facility] Last Admin: 08/15/20 21:33 Dose: 6 mg Documented by: Multivitamins (Multivitamins,Therapeutic Tablet) 1 tablet PO DAILY@0800 [facility] Last Admin: 08/16/20 07:48 Dose: 1 tablet Documented by: Multivitamins/Minerals (Multivitamin (Healthy Eyes) Capsule) [facility] Last Admin: 08/16/20 16:15 Dose: 1 capsule Documented by: Pantoprazole Sodium (Pantoprazole Sodium 20 Mg Tablet) 20 mg PO DAILY [facility] Last Admin: 08/16/20 07:49 Dose: 20 mg Documented by: Potassium Chloride (Potassium Chloride 10 Meq Tablet) 10 meq PO DAILYCM [facility] Last Admin: 08/16/20 07:47 Dose: 10 meq Documented by: Senna/Docusate Sodium (Senna/Docusate Sodium 1 Tablet) 2 tablet PO BID [facility] Last Admin: 08/16/20 18:07 Dose: Not Given Documented by: Sodium Chloride (0.9% Saline Lock 10 Ml Syringe) 10 - 40 ml IV UD PRN PRN Reason: SALINE FLUSH Last Admin: 07/05/20 14:57 Dose: 10 ml Documented by: Sodium Chloride (0.9% Saline Lock 10 Ml Syringe) 10 - 40 ml IV UD PRN PRN Reason: SALINE FLUSH Discharge Activity: May Not Drive, May Shower, Use Walker Weight Bearing Status: Full weight bearing Keep extremity elevated above heart level: Legs Additional Activity Instructions:: Do the exercises given to you by the therapists twice a day. USE or LOSE it Grandma! Call your doctor if you observe: Fever of 101 or Higher, Inability to urinate, Inability to have a bowel movement, Shortness of breath, Dizziness, Fainting spells, Swelling in the ankles, Chest pain, Increased palpitations (irregular heartbeat), Calf discomfort, Uncontrolled pain, - - Call your family doctor if any unusual bleeding such as bleeding from the gums, blood from the anus, blood in the urine, nose bleeds, large bruises or bleeding from the vagina if female. Home Medications: Medications to take at Discharge Multivitamin [Daily Multiple Vitamin] 1 ea PO DAILY 07/04/20 Vit A/Vit C/Vit E/Zinc/Copper [Preservision Areds Softgel] 1 ea PO BID 07/04/20 Acetaminophen [Tylenol Tablet] 650 mg PO Q6H PRN PRN tablet 08/16/20 Amlodipine [Norvasc] 5 mg PO BID #60 tab 08/16/20 Apixaban [Eliquis] 2.5 mg PO BID #60 tab 08/16/20 Arthritis Pain Compound 0 click TOPICAL BID #0 gm 08/16/20 Ascorbic Acid [Vitamin C] 500 mg PO DAILY@1200 tablet 08/16/20 Atenolol [Tenormin (beta logan)] 100 mg PO BID #60 tab 08/16/20 Ferrous Sulfate 325 mg PO DAILY@1200 #90 tab 08/16/20 Furosemide [Lasix] 60 mg PO UD #45 tab 08/16/20 Melatonin 6 mg PO QHS #60 tab 08/16/20 Menthol/Lanolin/Calamine/Znox [Calmoseptine Ointment] 1 applic TOPICAL BID tube 08/16/20 Multivitamins,Therapeutic [Multivitamin] 1 tablet PO DAILY@0800 tablet 08/16/20 Potassium Chloride [K-Dur] 10 meq PO UD #20 tab 08/16/20 Senna/Docusate Sodium [Senokot-S] 1 tablet PO BID #60 tablet 08/16/20 Following Prescriptions Were Given to Patient: Apixaban [Eliquis] 2.5 mg PO BID #60 tab Transmission Status: Pending to [facility] Ferrous Sulfate 325 mg PO DAILY@1200 #90 tab Transmission Status: Pending to [facility] Potassium Chloride [K-Dur] 10 meq PO UD #20 tab Transmission Status: Pending to [facility] Furosemide [Lasix] 60 mg PO UD #45 tab Transmission Status: Pending to [facility] Melatonin 6 mg PO QHS #60 tab Transmission Status: Pending to [facility] Amlodipine [Norvasc] 5 mg PO BID #60 tab Transmission Status: Pending to [facility] Atenolol [Tenormin (beta logan)] 100 mg PO BID #60 tab Transmission Status: Pending to [facility] Please Follow Up With: Casey Thomson MD Please Follow Up With: Miriam Estrada DPM Please Follow Up With: Zenaida Barragan DO Please Follow Up With: Deshaun Wilson MD Patient Instructions: Monitoring Kidney Health, Kidney Disease: Eating Less Sodium, Chronic Kidney Disease Medical Necessity - Tobacco Use Smoking Status: Never smoker Tobacco Use: Non-smoker
[2020-08-16 19:47] LABS: Hematocrit 30.4 % (37-47); Hemoglobin 9.9 g/dL (12.0-15.0); Mean Corp Hgb Conc 32.6 g/dL (32-36); Mean Corpuscular Hgb 31.7 pg (27.0-32.0); Mean Corpuscular Volume 97.4 fL (81-99); Mean Platelet Vol. 10.3 fl (6.2-12.0); Platelet Count 152 K/mm3 (150-450); RBC Distribution Width CV 13.1 % (11.6-14.6); RBC Distribution Width SD 46.7 fl (35.1-43.9); Red Blood Count 3.12 M/mm3 (4.2-5.4); White Blood Count 7.3 K/mm3 (4.4-11.0)
[2020-08-16 21:00] VITALS: BP 135/59; PULSE 59; RESP 16; TEMP 36.6; O2SAT 98; BMI 31.8
[2020-08-16] MEDS: MELATONIN 3 MG TABLET 6 MG PO (21:00)
--- NOTE | 2020-08-17 02:32 | NURSING ---
Reviewed and agree with RN PRODUCTION documentation and charting.
[2020-08-17] MEDS: Loperamide 2 MG Capsule PO (03:50)
--- NOTE | 2020-08-17 06:44 | NURSING ---
0600 staff in room to assist with adls. pt was easy to awaken but noted an increase in slurring of words. staff placed dentures in pt mouth and slurring did not improve. pt is oriented times 3 but states that she is sleepy. pt required 2 assists to the bsc this am when pt earlier this shift had ambulated to the toilet with one assist. pt balance was unsteady. 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 accucheck was 97. 0630 speech is less slurred and pt requested a drink of water and coughed stating it went down the wrong pipe. rn aware of the above charting
[2020-08-17 06:46] LABS: Bedside Glucose 97 mg/dL (70-110)
--- NOTE | 2020-08-17 07:24 | CT_ITS ---
STUDY: CT BRAIN WITHOUT CONTRAST REASON FOR EXAM: Female, 85 years old. SLURRED SPEECH, HX STROKE RADIATION DOSAGE (If Supplied By Facility): CTDIvol = ( 44.99 ) mGy, DLP = ( 745.49 ) mGycm TECHNIQUE: Transaxial CT imaging of the brain was performed without administration of intravenous contrast material. Individualized dose optimization techniques were used for this CT. COMPARISON: No relevant priors. FINDINGS: Normal soft tissue structures. Normal calvarium. Normal size ventricles and extra-axial spaces for the patient''s age. There are areas of decreased attenuation within the white matter tracts of the supratentorial brain, consistent with microvascular disease changes. There is an old infarction in the right basal ganglia. Normal basal ganglia and thalami. Normal brainstem. Normal cerebellum. There is no intracranial hemorrhage. There are no findings of an acute ischemic infarction. Normal visualized paranasal sinuses. CT/Brain/Head without Contrast IMPRESSION: There is no acute intracranial abnormality. Electronically Signed: Jacqueline De Jesus, at 7:52 EST Tel , Service support ,
--- NOTE | 2020-08-17 07:29 | NURSING ---
Hospitalist, demetra Farrar. Reported to Hospitalist that Pt found with slurred speech that was garbled off and on. CT w/out contrast ordered for head/brain. Pt sitting up in wheelchair and answering questions appropriately but has some words slurred.
[2020-08-17] MEDS: Arthritis Pain Compound 60 CLICK TUBE TOPICAL (07:59)
[2020-08-17] MEDS: Atenolol 100 MG Tablet PO (08:00)
[2020-08-17] MEDS: APIXABAN 2.5 MG TABLET PO (08:00)
[2020-08-17] MEDS: Multivitamins,Therapeutic Tablet 1 TABLET PO (08:00)
[2020-08-17] MEDS: Pantoprazole Sodium 20 MG Tablet PO (08:00)
[2020-08-17] MEDS: Multivitamin (Healthy Eyes) Capsule 1 CAP PO (08:00)
[2020-08-17] MEDS: amLODIPine 5 MG Tablet PO (08:00)
[2020-08-17] MEDS: Menthol/Lanolin/Calamine/Znox 113 GM Tube 1 APPLIC TOPICAL (08:14)
[2020-08-17] MEDS: 0.9% Normal Saline 1,000 ML 100 ML IV (08:29)
[2020-08-17] MEDS: 0.9% Saline Lock 10 ML Syringe IV (08:30)
--- NOTE | 2020-08-17 09:04 | PCM.PN.BLA ---
Progress Note Afebrile VSS BP is well controlled and the HR is within normal range Maintaining appropriate oxygen saturation on RA Oral intake is fair to good Discussed with nursing - no problems that need addressed Reviewed the PT/OT/ST notes from yesterday Medication list reviewed. Sometime through the night So likely had another stroke. She was very weak when staff got her up to the BS. It took 2 people to assist with getting her on the bedside commode this morning. It took only 1 person to assist her ambulating to the bathroom last night. She was also maximal assistance with lower body dressing, lying to sitting on the side of the bed, putting on her foot wear and also required more assistance than usual with Upper body dressing, sit to stand and pivoting into the recliner. Her speech is very slurred today and she seems to be having a hard time handling her mouth secretions. A CTB without contrast showed no acute findings and specifically no bleeding. Lab yesterday looked very good. When I left last night at 8 PM she was doing well and looking forward to going home today. Her LKW was bedtime last night. She is c/o of NI on the right side of her head today. She tells me she feels very sleepy and weak. Vital signs at the time she was awoken this morning were blood pressure 132/70, heart rate 66, pulse ox on room air 96% and she had 16 respirations per minute. Accu-Chek was 97. 1. LOC Alert: 0 2. LOC/Orientation: 0 3. LOC Commands: 0 4. Horizontal extraocular movements : 0 5. Visual diamond: 0 6. Facial Paresis: +1 7. Dysarthria: +1 8. Best Language/aphasia: 0 9. Motor Left ARM : 0 10. Motor Left LE 11. Motor Right ARM: 0 12. Motor Right leg LEG: +1 13. Limb ataxia: 0 14. Sensory: 0 15. Neglect: 0 NIH score today is 3. She could name all the objects on on the NIH naming list...she hesitated with the hammock but eventually was able to tell me it was a hammock. She accurately describe what was going on in the picture description. She had dysarthria with the word list and the sentences but I could understand most of what she was saying. I had her repeat a word a few times when I was unsure of what she was saying. I spoke with the speech therapist and she is choking with thin liquids and yesterday she was 100% tolerating the Montiel water protocol fluids. She is going to finish a complete swallowing eval to determine an appropriate diet at this time. Impressions 1. 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 2. PAF on Apixaban - rate controlled 3. 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 HTN - controlled 5. anemia - suspect due to CRF however has been having loose stools latela dn she has had 2 heme + stools. NPO for today and reassess in the AM NS 1 L IV at 100 cc/her today and then 50 cc/hr for maintenance 325 mg Rectal aspirin today and then 81 mg daily Add Atorvastatin 80 mg daily to the drug regimen when she is approved for a diet again. IV meds for HR and BP control today Cancel the DC. We are going to maintain on rehab because we are doing everything for her here that she would get on the acute side of the hospital and there are many COVID patients of PCU at this time. I spoke with Satnam and updated him on the new CVA and the plan for tx She is improving with respect to dysarthria since the fluids have been running. Inpatient E&M: [id number] Subs Hosp L3
[2020-08-17 09:19] VITALS: BP 109/53; PULSE 63; RESP 18; TEMP 36.9; O2SAT 95
[2020-08-17 10:00] VITALS: PULSE 63; RESP 18; O2SAT 95
--- NOTE | 2020-08-17 10:12 | CASEMGMT ---
Social Work Due to major change in medical condition, physician postponed discharge this date. CM submitted insurance review to request additional time. Will Team with son 08/18. Will continue to follow. REMI ReynoldsW
--- NOTE | 2020-08-17 10:24 | DS.PCM_ITS ---
Discharge Date and Diagnosis - Problem List Patient Problems: Active and Suspected Problems PAF (paroxysmal atrial fibrillation) (Acute) Chronic anticoagulation (Acute) Debility (Acute) Cerebrovascular accident, embolic (Acute) Right ankle sprain (Acute) Ankle pain (Acute) Date of Admission: 07/04/20 Date of Discharge: 08/17/20 - to acute care on PCU - Primary Discharge Diagnosis Acute Problems: Active Problems ACUTE ischemic CVA on 08/17/20 with worsening dysphagia and dysarthria PAF (paroxysmal atrial fibrillation) (Acute) Chronic anticoagulation (Acute) with Apixaban Debility (Acute) - due to CVA Cerebrovascular accident, embolic (Acute) - Left dae Right ankle sprain (Acute) Ankle pain (Acute) - due top OA and acute sprain ARF on CRF stage 4 - resolved Hemoccult + stool X 2 - started on Protonix Metabolic acidosis secondary to acute on chronic renal failure-resolved Dysphagia Urinary tract infection secondary to Morganella morganii and Klebsiella pneumoniae-resolved Pancytopenia secondary to allopurinol-resolved with discontinuation - Secondary Discharge Diagnosis Chronic Problems: Chronic Problems Chronic venous insufficiency of lower extremity (Chronic) with persistent mild ankle edema Chronic renal failure, stage 4 (severe) (Chronic) Osteoarthritis (Chronic) Hypertension (Chronic) Keratitis (Chronic) Obesity (BMI 30.0-34.9) (Chronic) Normochromic normocytic anemia (Chronic) Hx of Gout (Chronic) Hyperuricemia (Chronic) Hospital Course and Treatment Imaging Results: 08/17/20 07:24 Brain/Head without Contrast [CT] Urgent Clinical Impression(s) from Imaging Studies Renal Ultrasound 07/06/20 14:05 IMPRESSION: Nonspecific renal parenchymal disease and multiple bilateral cysts Electronically Signed: Jayy Duncan MD at 22:46 EDT , Service support , Brain CT 07/08/20 11:35 IMPRESSION: Chronic involutional changes of the brain. Evidence of ischemic change in the body of the right caudate nucleus. Partial opacification of the left sphenoid sinus. Electronically Signed: Keo Blackwell at 12:24 EDT , Service support , Ankle X-Ray 07/19/20 10:19 IMPRESSION: There is soft tissue swelling at the ankle suggesting edema. Electronically Signed: Jacqueline Turneran, at 12:31 EDT Tel , Service support , Chest X-Ray 08/12/20 14:25 IMPRESSION: Probable COPD with borderline cardiomegaly. Electronically Signed: Camilo Baig, DO at 18:16 EDT Tel [phone], Service support , Brain CT 08/17/20 07:24 IMPRESSION: There is no acute intracranial abnormality. Electronically Signed: Phillips Neal, at 7:52 EST Tel , Service support , Laboratory Last Values WBC 7.3 K/mm3 (4.4-11.0) 08/16/20 19: RBC 3.12 M/mm3 (4.2-5.4) L 08/16/20 19:30 Hgb 9.9 g/dL (12.0-15.0) L 08/16/20 19:30 Hct 30.4 % (37-47) L 08/16/20 19:30 MCV 97.4 fL (81-99) 08/16/20 19: MCH 31.7 pg (27.0-32.0) 08/16/20 19: MCHC 32.6 g/dL (32-36) 08/16/20 19:30 RDW Std Deviation 46.7 fl (35.1-43.9) H 08/16/20 19: RDW Coeff of Richar 13.1 % (11.6-14.6) 08/16/20 19: Plt Count 152 K/mm3 (150-450) 08/16/20 19: MPV 10.3 fl (6.2-12.0) 08/16/20 19:30 Immature Gran % (Auto) 0.500 % (0.0-0.9) 07/25/20 05:27 Neut % (Auto) 53.0 % (47-70) 07/25/20 05:27 Lymph % (Auto) 27.6 % (19-41) 07/25/20 05:27 [place] % (Auto) 13.4 % (0-10) H 07/25/20 05:27 Eos % (Auto) 5.0 % (0-5) 07/25/20 05:27 Baso % (Auto) 0.5 % (0-1) 07/25/20 05:27 Absolute Neuts (auto) 2.0 X10^3/uL (2.0-7.7) 07/25/20 05:27 Absolute Lymphs (auto) 1.05 X10^3/uL (0.83-4.51) 07/25/20 05:27 Nucleated RBC % 0 % (0-5) 07/25/20 05:27 Differential Comment SCANNED 07/15/20 05:33 Platelet Estimate MOD DEC (ADEQ) 07/15/20 05:33 Sodium 140 mmol/L (136-145) 08/16/20 05:36 Potassium 3.7 mmol/L (3.5-5.1) 08/16/20 05:36 Chloride 110 mmol/L (98-107) H 08/16/20 05:36 Carbon Dioxide 22.0 mmol/L (21.0-32.0) 08/16/20 05:36 Anion Gap 8 (5-15) 08/16/20 05:36 BUN 74 mg/dL (7-18) H 08/16/20 05:36 Creatinine 2.78 mg/dL (0.55-1.02) H 08/16/20 05:36 Estim Creat Clear Calc 12.13 ml/min 08/16/20 05:36 Est GFR (MDRD) Af Amer 21 mL/min (>60) L 08/16/20 05:36 Est GFR (MDRD) Non-Af 17 mL/min (>60) L 08/16/20 05:36 BUN/Creatinine Ratio 26.6 RATIO (10-20) H 08/16/20 05:36 Glucose 103 mg/dL (74-106) 08/16/20 05:36 Hemoglobin A1c 5.7 % (3.8-5.6) H 07/06/20 05:25 Uric Acid 7.8 mg/dL (2.6-6.0) H 07/06/20 05:25 Calcium 9.1 mg/dL (8.5-10.1) 08/16/20 05:36 Phosphorus 4.0 mg/dL (2.5-4.9) 08/08/20 05:16 Magnesium 2.0 mg/dL (1.6-2.6) 07/05/20 05:30 Total Bilirubin 0.40 mg/dL (0.20-1.00) 07/05/20 05:30 AST 39 U/L (15-37) H 07/05/20 05:30 ALT 36 U/L (13-56) 07/05/20 05:30 Alkaline Phosphatase 89 U/L (45-117) 07/05/20 05:30 B-Natriuretic Peptide 122.9 pg/mL (0-100) H 08/12/20 15:39 Total Protein 6.5 g/dL (6.4-8.2) 07/05/20 05:30 Albumin 2.5 g/dL (3.2-5.0) L 07/07/20 05:35 Globulin 3.6 g/dL (2.2-4.2) 07/05/20 05:30 Albumin/Globulin Ratio 0.8 RATIO (0.9-2.4) L 07/05/20 05:30 Urine Color Straw (Yellow) 07/14/20 13:15 Urine Clarity Cloudy (Clear) 07/14/20 13:15 Urine pH 7.0 (5.0 - 8.0) 07/14/20 13:15 Ur Specific [place] 1.010 (1.002-1.030) 07/14/20 13:15 Urine Protein 30 mg/dl (Negative) H 07/14/20 13:15 Urine Glucose (UA) Normal mg/dl (Normal) 07/14/20 13:15 Urine Ketones Negative mg/dl (Negative) 07/14/20 13:15 Urine Occult Blood 10 /ul (Negative) H 07/14/20 13:15 Urine Nitrite Negative (Negative) 07/14/20 13:15 Urine Bilirubin Negative mg/dL (Negative) 07/14/20 13:15 Urine Urobilinogen Normal mg/dl (Normal) 07/14/20 13:15 Ur Leukocyte Esterase 25 /ul (Negative) H 07/14/20 13:15 Urine RBC 0 SEEN /hpf (0-5) 07/14/20 13:15 Urine WBC 5-10 SEEN /hpf (0-5) 07/14/20 13:15 Ur Squamous Epith Cells 0 SEEN /hpf (5-10) 07/14/20 13:15 Urine Bacteria 4+ /hpf (None Seen) 07/14/20 13:15 Urine Mucus 0 SEEN /hpf (<or=2+) 07/14/20 13:15 U Random Total Protein 29.1 mg/dL (<11.9) H 07/06/20 14:10 Ur Random Sodium 70 mmol/L (Not Establ.) 07/06/20 14:10 Urine Creatinine 91.50 mg/dL (NO RANGE EST.) 07/06/20 14:10 Urine Creatinine 93.10 mg/dL (NO RANGE EST.) 07/06/20 14:10 Protein/Creatinin Ratio 318 mg/g CRE (0-200) H 07/06/20 14:10 POC Glucose 97 mg/dL (70-110) 08/17/20 06:36 Microbiology 08/17/20 - heme stool is pending 08/16/20 07:45 Stool C. difficile DNA Amplification - Final 08/08/20 14:00 Mucosa - Nasopharyngeal - Final - negative 07/14/20 13:15 Urine, Catheterized Urine Culture - Final Morganella morganii sp morgani Klebsiella pneumoniae sp pneum 07/15/20 11:15 Stool Stool Occult Blood (CARLOS) - Final positive 07/06/20 06:55 Stool Stool Occult Blood (CARLOS) - Final positive Occult Blood Positive none Operations: None Procedures: None Summary of Care Provided: So is a 85 year old F with a past medical history of osteoarthritis, gout, hyperuricemia, hypertension, keratitis, obesity and chronic renal failure. She presented to the emergency room at [facility] on 06/28/2020 complaining of vertigo. She was diagnosed with atrial fibrillation with rapid ventricular response and was treated in the emergency department with diltiazem. A CT brain showed a small chronic/subacute infarct in the right basal ganglia. No focal neurologic deficits were mentioned on the ER report. The heart rate was controlled and she was transitioned to their swing unit. Lab in the emergency room showed a sodium of 139, potassium of 4.8, BUN of 71 and a creatinine of 2.35. Hemoglobin was 12.2. She was started on Xarelto despite having stage 4 CRF. She later developed slurred speech and her BP went up. She had an MRI of the brain on 07/04/20 that showed left pontine and focal embolic appearing left brachium pontis late acute infarctions. There was no intracranial hemorrhage or mass. There was a lacunar encephalomalacia in the right striatal capsular region. No lab was repeated after she left the ED. She had an ECHO in the emergency department that showed a 55% left ventricular ejection fraction with a mild increased wall thickness of the left ventricle. The estimated right ventricular systolic pressure was 15 and the atria were both of normal size. She was transferred to the acute inpt rehab unit at [facility] on 07/04/20 with a diagnosis of acute embolic CVA for 3 hours of therapy daily to restore hear at or near her prior level of function. Physical exam when she arrived on the rehab unit showed a mild right facial droop, drift with the right upper extremity (it did not hit the bed), weakness in the RLE with drift ( it did hit the bed), cognitive dysfunction, trouble with word finding and dysarthria. The heart was irregular with controlled VR and the lungs were CTA after a few deep breaths. She had no carotid bruits. Lab at admission to rehab showed hemoglobin of 11.2 with a normal white blood cell count and normal platelets. Serum bicarb was low at 20 and the BUN was 100 with a creatinine of 2.92. Fasting blood sugar was elevated at 120 but a hemoglobin A1c was 5.7. Uric acid was elevated at 7.8. Phosphorus and magnesium were within normal limits. LFTs were unremarkable. She was hydrated with NS and Dr. Barragan was consulted from nephrology. fortunately the creat improved with hydration and on 07/09/20 her creat was 2.41. Creat since 07/28/20 has ranged from 2.37 to 2.94. She has been receiving 60 mg of Lasix PRN when the weight is increased. So made steady progress in rehab and in fact she was scheduled to be discharged 08/17/20 to home. Unfortunately sometime during the night on 08/17/20 she had another stroke. When nursing woke her at 0600 on 08/17/20 her speech was quite slurred and she had increased generalized weakness. It took 2 people to assist her to the bedside commode and the preceding night it only took 1 person to assist with ambulation into the bathroom and toileting. NIH at the time I examined her was +3. She was seen by speech therapy and made n.p.o. due to severe dysphagia. She was started on an IV of normal saline at 100 cc/h and over the next few hours the dysarthria improved somewhat. A noncontrasted CT brain showed no acute changes. She was administered a rectal aspirin. She experienced some nausea after her speech evaluation and vomited a small to moderate amount of thick mucoid secretions. She denied any epigastric pain. She has recently been having some loose stool and this was thought to be secondary to stool softeners however after a few days she continued to have some loose stool. Hemoccult stool was sent to the lab and the results are currently pending. A High intensity statin was added to the drug regimen. She was transferred to the acute care side of the hospital, to the Progressive Care Unit for telemetry and the stroke protocol will be ordered. The LKW is unknown and since she is already on Apixaban she is not a candidate for TPA. I spoke with Dr. Leal and he accepted transfer to PCU under his service. So's son Satnam was notified of the change in her status nd of her transfer. We would be glad to accept her back when she is stable to leave PCU. 1. LOC Alert: 0 2. LOC/Orientation: 0 3. LOC Commands: 0 4. Horizontal extraocular movements : 0 5. Visual diamond: 0 6. Facial Paresis: +1 7. Dysarthria: +1 8. Best Language/aphasia: 0 9. Motor Left ARM : 0 10. Motor Left LE 11. Motor Right ARM: 0 12. Motor Right leg LEG: +1 13. Limb ataxia: 0 14. Sensory: 0 15. Neglect: 0 NIH score today is 3. She is alert and oriented x3 and appears to be in no acute distress. She does have dysarthria and she is having difficulty managing her oral secretions. No carotid bruits, no jugular vein distention Mucous membranes are moist No nuchal rigidity Lungs-rare coarse crackle in the right base but otherwise clear to auscultation Heart-regular rate and rhythm, no murmur, no gallop, no rub, heart sounds are somewhat distant Abdomen-soft, nontender, nondistended, normal bowel sounds present, no guarding with palpation No calf tenderness, mild ankle edema only No rashes and no skin breakdown She is pleasant, appropriate and has normal affect. This note was generated with Transfer To dictation software. It may contain incorrect words, spelling, and punctuation that were not noted in checking the note before signing. Patient Problems: Active and Suspected Problems PAF (paroxysmal atrial fibrillation) (Acute) Chronic anticoagulation (Acute) Debility (Acute) Cerebrovascular accident, embolic (Acute) Right ankle sprain (Acute) Ankle pain (Acute) - Physical Exam Vitals/I&O's: Vital Signs Temp Pulse Resp BP Pulse Ox 98.4 F 63 18 109/53 L 95 08/17/20 09:19 08/17/20 09:19 08/17/20 09:19 08/17/20 09:19 08/17/20 09:19 Oxygen Delivery Method Room Air Weight: 176 lb 12.972 oz Body Mass Index (BMI) 31.8 Intake and Output for Last 24 Hours 08/15/20 08/16/20 08/17/20 23:59 23:59 23:59 Intake Total 1140 / 1200 1060 / 1060 60 / 60 Output Total 650 / 650 900 / 1000 200 / 200 Balance 490 / 550 160 / 60 -140 / -140 Microbiology Past 72 Hours 08/16/20 07:45 Stool C. difficile DNA Amplification - Final Laboratory Results 08/16/20 19:30: WBC 7.3, RBC 3.12 L, Hgb 9.9 L, Hct 30.4 L, MCV 97.4, MCH 31.7, MCHC 32.6, RDW Std Deviation 46.7 H, RDW Coeff of Richar 13.1, Plt Count 152, MPV 10.3 08/17/20 06:36: POC Glucose 97 Current Medications Acetaminophen (Acetaminophen 325 Mg Tablet) 650 mg PO Q6H PRN PRN PRN Reason: Pain Score 1-10 Last Admin: 08/16/20 21:04 Dose: 650 mg Documented by: Amlodipine Besylate (Amlodipine 5 Mg Tablet) 5 mg PO BID [facility] Last Admin: 08/17/20 08:00 Dose: 5 mg Documented by: Apixaban (Eliquis) 2.5 mg PO BID [facility] Last Admin: 08/17/20 08:00 Dose: 2.5 mg Documented by: Ascorbic Acid (Ascorbic Acid 500 Mg Tablet) 500 mg PO DAILY@1200 [facility] Last Admin: 08/16/20 11:15 Dose: 500 mg Documented by: Aspirin (Aspirin 81 Mg Tab.Chew) 81 mg PO DAILY@0800 [facility] Atenolol (Atenolol 100 Mg Tablet) 100 mg PO BID [facility] Last Admin: 08/17/20 08:00 Dose: 100 mg Documented by: Atorvastatin Calcium (Atorvastatin Calcium 80 Mg Tablet) 80 mg PO QHS [facility] Bisacodyl (Bisacodyl 10 Mg Suppository) 10 mg RECTAL .PRN X 1 PRN PRN Reason: Constipation Calamine/Phenol (Menthol/Lanolin/Calamine/Znox 113 Gm Tube) 1 applic TOPICAL BID [facility]; Protocol Last Admin: 08/17/20 08:14 Dose: 1 applicatio Documented by: Compound Med (Arthritis Pain Compound 60 Click Tube) 0 click TOPICAL BID [facility]; Protocol Last Admin: 08/17/20 07:59 Dose: 1 click Documented by: Ferrous Sulfate (Ferrous Sulfate 325 Mg Tablet) 325 mg PO DAILY@1200 [facility] Last Admin: 08/16/20 11:15 Dose: 325 mg Documented by: Furosemide (Furosemide 20 Mg Tablet) 60 mg PO Q48H [facility] Last Admin: 08/12/20 07:49 Dose: 60 mg Documented by: Sodium Chloride () 1,000 mls @ 100 mls/hr IV .Q10H [facility] Last Admin: 08/17/20 08:29 Dose: 100 mls/hr Documented by: Loperamide HCl (Loperamide 2 Mg Capsule) 2 mg PO PRN PRN PRN Reason: LOOSE STOOLS Last Admin: 08/17/20 03:50 Dose: 2 mg Documented by: Magnesium Hydroxide (Magnesium Hydroxide 30 Ml Udc) 30 ml PO .PRN X 1 PRN PRN Reason: Constipation Melatonin (Melatonin 3 Mg Tablet) 6 mg PO QHS [facility] Last Admin: 08/16/20 21:00 Dose: 6 mg Documented by: Multivitamins (Multivitamins,Therapeutic Tablet) 1 tablet PO DAILY@0800 [facility] Last Admin: 08/17/20 08:00 Dose: 1 tablet Documented by: Multivitamins/Minerals (Multivitamin (Healthy Eyes) Capsule) [facility] Last Admin: 08/17/20 08:00 Dose: 1 capsule Documented by: Ondansetron HCl (Ondansetron 4 Mg/2 Ml Vial) 4 mg IV Q6H PRN PRN PRN Reason: NAUSEA Pantoprazole Sodium (Pantoprazole Sodium 20 Mg Tablet) 20 mg PO DAILY [facility] Last Admin: 08/17/20 08:00 Dose: 20 mg Documented by: Potassium Chloride (Potassium Chloride 10 Meq Tablet) [facility] Last Admin: 08/17/20 08:00 Dose: 10 meq Documented by: Senna/Docusate Sodium (Senna/Docusate Sodium 1 Tablet) 2 tablet PO BID [facility] Last Admin: 08/17/20 09:13 Dose: Not Given Documented by: Sodium Chloride (0.9% Saline Lock 10 Ml Syringe) 10 - 40 ml IV UD PRN PRN Reason: SALINE FLUSH Last Admin: 08/17/20 08:30 Dose: 20 ml Documented by: Sodium Chloride (0.9% Saline Lock 10 Ml Syringe) 10 - 40 ml IV UD PRN PRN Reason: SALINE FLUSH Discharge Activity: May Not Drive, May Shower, Use Walker Weight Bearing Status: Full weight bearing Keep extremity elevated above heart level: Legs Additional Activity Instructions:: Do the exercises given to you by the therapists twice a day. USE or LOSE it Grandma! Call your doctor if you observe: Fever of 101 or Higher, Inability to urinate, Inability to have a bowel movement, Shortness of breath, Dizziness, Fainting spells, Swelling in the ankles, Chest pain, Increased palpitations (irregular heartbeat), Calf discomfort, Uncontrolled pain, - - Call your family doctor if any unusual bleeding such as bleeding from the gums, blood from the anus, blood in the urine, nose bleeds, large bruises or bleeding from the vagina if female. Home Medications: Medications to take at Discharge Multivitamin [Daily Multiple Vitamin] 1 ea PO DAILY 07/04/20 Vit A/Vit C/Vit E/Zinc/Copper [Preservision Areds Softgel] 1 ea PO BID 07/04/20 Acetaminophen [Tylenol Tablet] 650 mg PO Q6H PRN PRN tab 08/16/20 Amlodipine [Norvasc] 5 mg PO BID #60 tab 08/16/20 Apixaban [Eliquis] 2.5 mg PO BID #60 tab 08/16/20 Arthritis Pain Compound 0 click TOPICAL BID #0 gm 08/16/20 Ascorbic Acid [Vitamin C] 500 mg PO DAILY@1200 tab 08/16/20 Atenolol [Tenormin (beta logan)] 100 mg PO BID #60 tab 08/16/20 Ferrous Sulfate 325 mg PO DAILY@1200 #90 tab 08/16/20 Furosemide [Lasix] 60 mg PO UD #45 tab 08/16/20 Melatonin 6 mg PO QHS #60 tab 08/16/20 Menthol/Lanolin/Calamine/Znox [Calmoseptine Ointment] 1 applic TOPICAL BID tube 08/16/20 Multivitamins,Therapeutic [Multivitamin] 1 tab PO DAILY@0800 tab 08/16/20 Potassium Chloride [K-Dur] 10 meq PO UD #20 tab 08/16/20 Senna/Docusate Sodium [Senokot-S] 1 tab PO BID #60 tab 08/16/20 Following Prescriptions Were Given to Patient: Apixaban [Eliquis] 2.5 mg PO BID #60 tab Transmission Status: Received by [facility] Ferrous Sulfate 325 mg PO DAILY@1200 #90 tab Transmission Status: Received by [facility] Potassium Chloride [K-Dur] 10 meq PO UD #20 tab Transmission Status: Received by [facility] Furosemide [Lasix] 60 mg PO UD #45 tab Transmission Status: Received by [facility] Melatonin 6 mg PO QHS #60 tab Transmission Status: Received by [facility] Amlodipine [Norvasc] 5 mg PO BID #60 tab Transmission Status: Received by [facility] Atenolol [Tenormin (beta logan)] 100 mg PO BID #60 tab Transmission Status: Received by [facility] Please Follow Up With: Casey Thomson MD Please Follow Up With: Miriam Estrada DPM Please Follow Up With: Zenaida Barragan DO Please Follow Up With: Deshaun Wilson MD Patient Instructions: Monitoring Kidney Health, Kidney Disease: Eating Less Sodium, Chronic Kidney Disease Medical Necessity - Tobacco Use Smoking Status: Never smoker Tobacco Use: Non-smoker Meaningful Use Info Meaningful Use Diagnoses (Choose all that apply): Ischemic CVA - CVA Therapy Assessed for PT,OT and/or ST?: Yes - Ischemic Stroke Antithrombotic order at d/c?: Yes Dx of Atrial fib/flutter?: Yes Anticoagulant at discharge?: Yes Statins at discharge?: Yes Primary Dx Acute Ischemic CVA?: Yes IV tPA ordered during stay?: No Reason IV t-PA not ordered: Treatment not Indicated - no LKW unknown and she is on an anticoagulant Inpatient E&M: 18205 Disch Hosp
[2020-08-17] MEDS: Aspirin 300 MG Suppository RECTAL (10:32)
[2020-08-17 10:54] LABS: Mucous, Urine 0 SEEN /hpf (<or=2+); Red Blood Cells-Urine 0 SEEN /hpf (0-5); Squamous Epithelial Cells - UA 0 SEEN /hpf (5-10)
[2020-08-17 11:08] LABS: Color, Urine Yellow (Yellow); Glucose, Dipstick Normal (Normal); Ketone-Dipstick Negative (Negative); Leukocyte Esterase-Dipstick 500 /ul (Negative); Nitrite-Dipstick Positive (Negative); Occult Blood-Urine 25 /ul (Negative); Protein-Dipstick 30 mg/dl (Negative); Specific Gravity, Urine 1.015 (1.002-1.030); Urine Bilirubin Dipstick Negative (Negative); Urine Clarity Clear (Clear); Urine Urobilinogen Normal (Normal)
[2020-08-17 11:14] LABS: Bacteria 2+ /hpf (None Seen); White Blood Cells 10-25 SEEN /hpf (0-5)
[2020-08-18 14:30] VITALS: BP 125/52; PULSE 63; RESP 16; TEMP 36.8; O2SAT 98
[2020-08-18 14:37] VITALS: PULSE 63; RESP 18; O2SAT 98
--- NOTE | 2020-08-18 17:53 | NURSING ---
Received order to stop lasix, per Dr. Hsu and start daily weights.
[2020-08-18 19:38] VITALS: BP 124/71; PULSE 67; RESP 14; TEMP 36.9; O2SAT 98
[2020-08-18 20:25] VITALS: BP 116/60; PULSE 65
[2020-08-18] MEDS: amLODIPine 5 MG Tablet PO (20:41)
[2020-08-18] MEDS: MELATONIN 3 MG TABLET 6 MG PO (20:41)
[2020-08-18] MEDS: Menthol/Lanolin/Calamine/Znox 113 GM Tube 1 APPLIC TOPICAL (20:42)
[2020-08-18] MEDS: Atenolol 100 MG Tablet PO (20:42)
[2020-08-18] MEDS: APIXABAN 2.5 MG TABLET PO (20:42)
[2020-08-18] MEDS: Atorvastatin Calcium 80 MG Tablet PO (20:42)
[2020-08-18] MEDS: Arthritis Pain Compound 60 CLICK TUBE TOPICAL (20:43)
[2020-08-19 04:07] VITALS: BMI 31.8
[2020-08-19] MEDS: Acetaminophen 500 MG Tablet PO ×2 (08:00→22:25)
[2020-08-19] MEDS: Multivitamin (Healthy Eyes) Capsule 1 CAP PO ×2 (08:01→17:15)
[2020-08-19] MEDS: Pantoprazole Sodium 20 MG Tablet PO (08:01)
[2020-08-19] MEDS: Atenolol 100 MG Tablet PO ×2 (08:01→22:26)
[2020-08-19] MEDS: Aspirin E.C. 81 MG Tablet PO (08:01)
[2020-08-19] MEDS: amLODIPine 5 MG Tablet PO ×2 (08:01→22:26)
[2020-08-19] MEDS: Multivitamins,Therapeutic Tablet 1 TABLET PO (08:03)
[2020-08-19 08:30] VITALS: BP 124/68; PULSE 67; RESP 20; TEMP 36.8; O2SAT 95
--- NOTE | 2020-08-19 09:00 | HP.PCM_ITS ---
Problem List (1) PAF (paroxysmal atrial fibrillation) Status: Chronic (2) Chronic anticoagulation Status: Chronic Comment: With apixaban (3) Debility Status: Acute Comment: Secondary to strokes. The first stroke occurred 06/28/2020 and the second stroke occurred 08/17/2020. (4) Cerebrovascular accident, embolic Status: Chronic Qualifiers: Laterality of affected vessel: left Comment: left dae on 06/28/2020 secondary to new onset atrial fibrillation. (5) Osteoarthritis Status: Chronic (6) Hypertension Status: Chronic (7) Keratitis Status: Chronic (8) Obesity (BMI 30.0-34.9) Status: Chronic (9) Acidosis, metabolic Status: Acute (10) Dehydration Status: Resolved (11) Normochromic normocytic anemia Status: Chronic (12) Acute renal failure superimposed on chronic kidney disease Status: Resolved Qualifiers: Chronic kidney disease stage: stage 4 (severe) (13) Gout Status: Chronic (14) Hyperuricemia Status: Chronic (15) CVA (cerebral vascular accident) Status: Acute Comment: Occured on 08/17/20 with worsening dysarthria and dysphagia and increased R side weakness (16) Iron deficiency Status: Chronic (17) Dysarthria Status: Acute (18) Dysphagia Status: Acute Comment: Acute worsening of dysphagia secondary to CVA on 10/17/2019 (19) Ankle pain Status: Resolved (20) Right ankle sprain Status: Resolved (21) Drug-induced pancytopenia Status: Resolved Comment: Secondary to allopurinol (22) Insomnia Status: Resolved (23) UTI (urinary tract infection) Status: Acute Qualifiers: Urinary tract infection type: acute cystitis Comment: Secondary to Enterobacter cloacae (24) CVA (cerebral vascular accident) Status: Chronic Qualifiers: CVA mechanism: embolism Laterality of affected vessel: left Comment: 06/28/2020 (25) Chronic renal failure, stage 4 (severe) Status: Chronic (26) Chronic venous insufficiency of lower extremity Status: Chronic (27) Heme + stool Status: Chronic (28) Thrush Status: Resolved History of Present Illness Date of Admission: 08/18/20 Chief Complaint: severe dysphagia and dysarthria due to a new CVA on 08/17/20 with increased R side weakness So Pabon is a 85 year old F who was initially admitted to the inpt rehab unit at [facility] on 07/04/2020 following an embolic left dae CVA secondary to new onset atrial fibrillation. She had right-sided weakness, dysarthria and dysphagia. She did very well in therapy and was due to be discharged on 08/17/2020 however sometime during the night on 08/17/2020 she experienced another ischemic stroke. She had severe dysphagia, worsening dysarthria and increased right side weakness. She was alert and oriented X 3 and following commands. She was not confused. A stat noncontrasted CT brain showed no acute findings. She was transferred to the Progressive Care Unit of [facility] and the stroke protocol was initiated. MRI of the brain was obtained and showed no acute stroke. The MRI was obtained less than 12 hours after sx onset. [facility] tele-neurology was consulted and the neurologist diagnosed her with Encephalopathy due to a UTI. She had a UA showing 10-25 WBC's per HPF and the culture grew Enterobacter cloacae resistant to cefazolin. She was asymptomatic and afebrile. The WBC was normal and there was no left shift. She was not confused and her sx were consistent with a new CVA. I do not agree with neurology's diagnosis of encephalopathy. On 08/19/20 she still has severe dysphagia, increased dysarthria and persistent increased R side weakness when compared with Exam on 08/16/20. She was transferred back to the inpt rehab unit at [facility] on 08/18/20 with a diagnosis of new ischemic CVA. She is now on Aspirin and high intensity Atorvastatin in addition to Apixaban. I do not feel she would be able to tolerate dual antiplatelet agents due to heme + stool. She will have 3 hours of therapy to restore her at or near her prior level of function as of 08/16/20. [ Carotid US showed < 50% stenosis in the right external carotid with smooth plaqu e at the proximal internal carotid artery with less than 50% stenosis. There was less than 50% stenosis in the left external carotid. Vertebrals were patent and antegrade bilaterally.] Past Medical History Past Medical History (Chronic Problems): Chronic Problems CVA (cerebral vascular accident) (Chronic) 06/28/2020 Iron deficiency (Chronic) Chronic venous insufficiency of lower extremity (Chronic) Chronic renal failure, stage 4 (severe) (Chronic) Heme + stool (Chronic) PAF (paroxysmal atrial fibrillation) (Chronic) Chronic anticoagulation (Chronic) With apixaban Cerebrovascular accident, embolic (Chronic) left dae on 06/28/2020 secondary to new onset atrial fibrillation. Osteoarthritis (Chronic) Hypertension (Chronic) Keratitis (Chronic) Obesity (BMI 30.0-34.9) (Chronic) Normochromic normocytic anemia (Chronic) Gout (Chronic) Hyperuricemia (Chronic) Allergies amlodipine [From Norvasc] Adverse Reaction (Verified 07/04/20 16:03) PT UNSURE OF REACTION amoxicillin [From Augmentin] Adverse Reaction (Verified 07/04/20 17:59) PT UNSURE OF REACTION clavulanic acid [From Augmentin] Adverse Reaction (Verified 07/04/20 17:59) PT UNSURE OF REACTION diphtheria, pertussis, tetanus vacc Adverse Reaction (Verified 07/04/20 16:03) PT UNSURE OF REACTION hydrochlorothiazide [From Maxzide] Adverse Reaction (Verified 07/04/20 16:03) PT UNSURE OF REACTION lisinopril Adverse Reaction (Verified 07/04/20 16:03) PT UNSURE OF REACTION Sulfa (Sulfonamide Antibiotics) Adverse Reaction (Verified 07/04/20 16:03) PT UNSURE OF REACTION triamterene [From Maxzide] Adverse Reaction (Verified 07/04/20 16:03) PT UNSURE OF REACTION Home Medications: Ambulatory Orders Medication Instructions Recorded Multivitamin [Daily Multiple 1 ea PO DAILY 07/04/20 Vitamin] Vit A/Vit C/Vit E/Zinc/Copper 1 ea PO BID 07/04/20 [Preservision Areds Softgel] Acetaminophen [Tylenol Tablet] 650 mg PO Q6H PRN PRN tab 08/16/20 Amlodipine [Norvasc] 5 mg PO BID #60 tab 08/16/20 Apixaban [Eliquis] 2.5 mg PO BID #60 tab 08/16/20 Arthritis Pain Compound 0 click TOPICAL BID #0 gm 08/16/20 Ascorbic Acid [Vitamin C] 500 mg PO DAILY@1200 tab 08/16/20 Atenolol [Tenormin (beta logan)] 100 mg PO BID #60 tab 08/16/20 Ferrous Sulfate 325 mg PO DAILY@1200 #90 tab 08/16/20 Furosemide [Lasix] 60 mg PO UD #45 tab 08/16/20 Melatonin 6 mg PO QHS #60 tab 08/16/20 Menthol/Lanolin/Calamine/Znox 1 applic TOPICAL BID tube 08/16/20 [Calmoseptine Ointment] Multivitamins,Therapeutic 1 tab PO DAILY@0800 tab 08/16/20 [Multivitamin] Potassium Chloride [K-Dur] 10 meq PO UD #20 tab 08/16/20 Senna/Docusate Sodium [Senokot-S] 1 tab PO BID #60 tab 08/16/20 Aspirin [Aspirin EC] 81 mg PO DAILY 08/17/20 Atorvastatin Calcium 80 mg PO 08/17/20 Ondansetron [Zofran] 4 mg IV 08/17/20 Pantoprazole Sodium [Protonix] 20 mg PO DAILY 08/17/20 Acetaminophen [8 Hour] 650 mg PO Q6H PRN PRN 08/18/20 Amlodipine Besylate [Norvasc] 5 mg PO BID 08/18/20 Apixaban [Eliquis] 2.5 mg PO BID 08/18/20 Arthritis Pain Compound See Protocol click TOPICAL BID 08/18/20 Ascorbic Acid [Vitamin C] 500 mg PO DAILY@1200 08/18/20 Atenolol 100 mg PO BID 08/18/20 Ferrous Sulfate 325 mg PO DAILY@1200 08/18/20 Furosemide [Lasix] 60 mg PO UD 08/18/20 Melatonin 6 mg PO QHS 08/18/20 Menthol/Lanolin/Calamine/Znox 1 applicatio TOPICAL BID 08/18/20 [Calmoseptine Ointment] Multivitamin 1 ea PO DAILY 08/18/20 Potassium Chloride 10 meq PO UD 08/18/20 Senna/Docusate Sodium [Senokot-S, 1 tab PO BID 08/18/20 Shefali-Colace] Vit A/Vit C/Vit E/Zinc/Copper 1 cap PO BID 08/18/20 [Preservision Areds Softgel] levoFLOXacin tablet [Levaquin 500 mg PO Q48@0600 tab 08/18/20 tablet] Surgical History: cataract - with IOL implants, cholecystectomy, hysterectomy Psychiatric History: No pertinent psych hx 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 Denies: Chills, Fever, Weight Change Eyes: Denies: Blurred vision, Vision Change HEENT: Reports: Difficulty Swallowing. Denies: Head Aches, Nasal Congestion, Sinus Congestion, Sinus Drainage, Sore Throat, Visual Changes Cardiovascular: Reports: Edema - she always has mild ankle edema due to chronic venous insufficiency.. Denies: Chest Pain, Light Headedness, Orthopnea, Palpitations, Paroxysmal Noc. Dyspnea, Syncope Respiratory: Reports: Shortness of breath upon exertion - when she has her mask on. Denies: Cough, Hemoptysis, Pleuritic Pain, Shortness of breath at rest, Sputum production, Wheezing Gastrointestinal: Denies: Abdominal Pain, Constipation, Diarrhea, Nausea, Vomiting Genitourinary: Denies: Dysuria, Hesitancy Musculoskeletal: Reports: Joint Tenderness - she has OA and has joint pain when it is cold and rainy. This has improved with athritic compounded cream containing Lidocaine, Voltaren and baclofen. Denies: Joint Pain Skin: Denies: Rash, Wounds Neurological: Denies: Numbness, Tingling, Focal weakness Psychiatric: Reports: Depression - bobby was so looking forward to going home on the and is sad that she has had a set back. Denies: Anxiety, Homicidal Ideations, Suicidal Ideations Endocrine: Denies: Change in Body Habitus Hematologic/ Lymphatic: Reports: Easy Bleeding - she is on Apixaban. Denies: Easy Bruising, Hx of blood clot VTE Information - Inpt Only VTE Present on Admission: No VTE Mechan Device Prophylaxis: Knee High KRYSTIAN Hose VTE Pharm Prophylaxis ordered?: No Reason prophylaxis not ordered:: Treatment Not Indicated - she is on Apixaban for AF Patient Problems: Active and Suspected Problems Dysarthria (Acute) UTI (urinary tract infection) (Acute) Secondary to Enterobacter cloacae CVA (cerebral vascular accident) (Acute) Occured on 08/17/20 with worsening dysarthria and dysphagia and increased R side weakness Dysphagia (Acute) Acute worsening of dysphagia secondary to CVA on 08/17/2020 Debility (Acute) Secondary to strokes. The first stroke occurred 06/28/2020 and the second stroke occurred 08/17/2020. Acidosis, metabolic (Acute) - Physical Exam Vitals/I&O's: Vital Signs Temp Pulse Resp BP Pulse Ox 98.4 F 65 14 116/60 98 08/18/20 19:38 08/18/20 20:25 08/18/20 19:38 08/18/20 20:25 08/18/20 19:38 Oxygen Delivery Method Room Air Weight: 179 lb 14.355 oz Body Mass Index (BMI) 31.8 Intake and Output for Last 24 Hours 08/17/20 08/18/20 08/19/20 23:59 23:59 23:59 Intake Total 60 / 60 480 / 580 220 / 220 Output Total 200 / 200 200 / 200 Balance -140 / -140 480 / 530 General: Alert, Oriented x3, Cooperative, No apparent distress, - - She has dysarthria HEENT: Atraumatic, PERRLA, EOMI, Normocephalic Oral: Moist Mucosa, No Gingival or Mucosal Lesions/ Ulcerations Neck: Supple, No JVD, Negative Carotid Bruits, Trachea Midline Lungs: No wheeze, Rales - rare coarse crackles in the right base, - - not tachypneic, no conversational dyspnea. Cardiovascular: Regular rate, Regular Rhythm, Normal S1, Normal S2, No murmurs, No Gallop Abdomen: Bowel Sounds Present, Soft, Non Tender, Non-Distended Extremities: No clubbing, No cyanosis, Edema - minimal at the ankle Skin: No rashes, No breakdown Musculoskeletal: Arthritic Changes Neurological: Cranial nerves II-XII grossly intact, Neuro grossly intact Psych/Mental Status: Appropriate, Depressed - and very tearful.....this is a marked change from Saturday this week prior to the second CVA Microbiology Past 72 Hours 08/17/20 10:25 Urine Catheter - Catheter Urine Culture - Final Enterobacter cloacae complex 08/17/20 09:51 Stool Stool Occult Blood (CARLOS) - Final Occult Blood Positive 08/16/20 07:45 Stool C. difficile DNA Amplification - Final Current Medications Acetaminophen (Acetaminophen 500 Mg Tablet) 500 mg PO Q6H PRN PRN PRN Reason: Pain 1-10 or Fever Last Admin: 08/19/20 08:00 Dose: 500 mg Documented by: Amlodipine Besylate (Amlodipine 5 Mg Tablet) 5 mg PO BID [facility] Last Admin: 08/19/20 08:01 Dose: 5 mg Documented by: Apixaban (Apixaban 2.5 Mg Tablet) 2.5 mg PO BID [facility] Last Admin: 08/18/20 20:42 Dose: 2.5 mg Documented by: Ascorbic Acid (Ascorbic Acid 500 Mg Tablet) 500 mg PO DAILY@1200 [facility] Aspirin (Aspirin E.C. 81 Mg Tablet) 81 mg PO DAILY@0800 [facility] Last Admin: 08/19/20 08:01 Dose: 81 mg Documented by: Atenolol (Atenolol 100 Mg Tablet) 100 mg PO BID [facility] Last Admin: 08/19/20 08:01 Dose: 100 mg Documented by: Atorvastatin Calcium (Atorvastatin Calcium 80 Mg Tablet) 80 mg PO QHS [facility] Last Admin: 08/18/20 20:42 Dose: 80 mg Documented by: Calamine/Phenol (Menthol/Lanolin/Calamine/Znox 113 Gm Tube) 1 applic TOPICAL BID [facility]; Protocol Last Admin: 08/18/20 20:42 Dose: 1 applicatio Documented by: Compound Med (Arthritis Pain Compound 60 Click Tube) 0 click TOPICAL BID [facility]; Protocol Last Admin: 08/18/20 20:43 Dose: 1 click Documented by: Ferrous Sulfate (Ferrous Sulfate 325 Mg Tablet) 325 mg PO DAILY@1200 [facility] Levofloxacin (Levofloxacin 500 Mg Tablet) 500 mg PO Q48@0600 [facility] Melatonin (Melatonin 3 Mg Tablet) 6 mg PO QHS [facility] Last Admin: 08/18/20 20:41 Dose: 6 mg Documented by: Multivitamins (Multivitamins,Therapeutic Tablet) [facility] Last Admin: 08/19/20 08:03 Dose: 1 tablet Documented by: Multivitamins/Minerals (Multivitamin (Healthy Eyes) Capsule) [facility] Last Admin: 08/19/20 08:01 Dose: 1 capsule Documented by: Ondansetron HCl (Ondansetron 4 Mg/2 Ml Vial) 4 mg IV Q6H PRN PRN PRN Reason: NAUSEA/VOMITING Pantoprazole Sodium (Pantoprazole Sodium 20 Mg Tablet) 20 mg PO DAILY [facility] Last Admin: 08/19/20 08:01 Dose: 20 mg Documented by: Senna/Docusate Sodium (Senna/Docusate Sodium 1 Tablet) 1 tablet PO BID [facility] Last Admin: 08/18/20 20:42 Dose: Not Given Documented by: Assessment/Plan All Active Problems Dysarthria (Acute) UTI (urinary tract infection) (Acute) CVA (cerebral vascular accident) (Acute) Dysphagia (Acute) Insomnia (Resolved) Thrush (Resolved) Drug-induced pancytopenia (Resolved) Debility (Acute) Acidosis, metabolic (Acute) Dehydration (Resolved) Acute renal failure superimposed on chronic kidney disease (Resolved) Right ankle sprain (Resolved) Ankle pain (Resolved) Impressions 1. Debility secondary to embolic left pontine CVA with dysphagia, dysarthria and right hemiplegia and now a second ischemic CVA causing increased weakness and marked worsening in the dysphagia and dysarthria 2. Embolic left pontine CVA At admission to the rehab unit and now another ischemic CVA while on Apixaban 3. Acute renal failure on chronic renal failure stage IV- Improving with holding the Lasix 4. Metabolic acidosis secondary to chronic kidney disease -serum bicarb is stable at 25 off bicarb tabs. Resolved 5. Normochromic normocytic anemia-more likely than not secondary to chronic renal failure 6. Hyperuricemia with history of gout -she had pancytopenia with allopurinol at 150 mg p.o. daily so Allopurinol was discontinued 7. Osteoarthritis of the Right ankle - pain is adequately controlled with Arthritis cream containing Baclofen, lidocaine and Voltaren 8. Hypertension-controlled 9. Keratitis-chronic 10. Paroxysmal atrial fibrillation -rate controlled. She is frequently in SR recently 11. 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 Resolved with discontinuation of allopurinol 12. Chronic venous insufficiency - edema is controlled with KRYSTIAN hose 13. Hemoccult positive stool-on chronic anticoagulation with apixaban. She is on Protonix for GI prophylaxis. Has had 3 heme positive stools and she is iron deficient - this will need to be evaluated as an OP 14. Dysphagia/dysarthria 15. iron deficiency - on an iron supplement 16. Chronic renal failure stage IV 17. Depression 18. Insomnia-resolved with melatonin 6 mg p.o. nightly PLAN PT for gait stability OT for ADL's ST for evaluation Bowel protocol Fall precautions Assess for Anxiety/Depression GI prophylaxis with pantoprazole DVT prophylaxis-not needed, patient is on apixaban 2.5 mg twice daily for paroxysmal atrial fibrillation Follow up with neurology and PCP following DC from IP Rehab Continue aspirin and high intensity statin Start sertraline 25 mg p.o. daily Continue iron supplementation Inpatient E&M: 89716 Init Hosp L3
[2020-08-19] MEDS: APIXABAN 2.5 MG TABLET PO ×2 (09:25→22:27)
[2020-08-19] MEDS: Arthritis Pain Compound 60 CLICK TUBE TOPICAL ×2 (09:25→22:27)
[2020-08-19] MEDS: Menthol/Lanolin/Calamine/Znox 113 GM Tube 1 APPLIC TOPICAL ×2 (09:27→22:27)
[2020-08-19] MEDS: Ascorbic Acid 500 MG Tablet PO (12:18)
[2020-08-19] MEDS: Ferrous Sulfate 325 MG Tablet PO (12:18)
[2020-08-19 15:19] VITALS: BMI 31.8
[2020-08-19 19:33] VITALS: BP 136/58; PULSE 64; RESP 16; TEMP 37; O2SAT 96
[2020-08-19] MEDS: MELATONIN 3 MG TABLET 6 MG PO (22:26)
[2020-08-19] MEDS: Atorvastatin Calcium 80 MG Tablet PO (22:26)
[2020-08-19] MEDS: 0.9% Saline Lock 10 ML Syringe IV (22:35)
[2020-08-20] MEDS: levoFLOXacin 500 MG Tablet PO (06:09)
[2020-08-20 06:37] LABS: Hematocrit 29.6 % (37-47); Hemoglobin 9.4 g/dL (12.0-15.0); Mean Corp Hgb Conc 31.8 g/dL (32-36); Mean Corpuscular Hgb 31.5 pg (27.0-32.0); Mean Corpuscular Volume 99.3 fL (81-99); Platelet Count 165 K/mm3 (150-450); RBC Distribution Width CV 13.1 % (11.6-14.6); RBC Distribution Width SD 47.8 fl (35.1-43.9); Red Blood Count 2.98 M/mm3 (4.2-5.4); White Blood Count 5.4 K/mm3 (4.4-11.0)
[2020-08-20 06:55] LABS: ALB/GLOB Ratio 0.8 RATIO (0.9-2.4); AST(SGOT) 17 U/L (15-37); Alanine Aminotransfer ALT/SGPT 19 U/L (13-56); Alkaline Phosphatase 85 U/L (45-117); Anion Gap 7 (5-15); BUN 53 mg/dL (7-18); Calcium,Total 9.3 mg/dL (8.5-10.1); Chloride 115 mmol/L (98-107); Creatinine, Serum 2.65 mg/dL (0.55-1.02); EST Glomerular Filtration Rate 18 mL/min (>60); Est Glom Filt Rate - Afr Amer 22 mL/min (>60); Estimated Creatinine Clearance 12.72 ml/min; Globulin 3.7 g/dL (2.2-4.2); Glucose 121 mg/dL (74-106); Protein, Total 6.7 g/dL (6.4-8.2); Sodium Level 143 mmol/L (136-145)
[2020-08-20 08:23] VITALS: BP 129/66; PULSE 63; RESP 20; TEMP 36.9; O2SAT 95
[2020-08-20] MEDS: Arthritis Pain Compound 60 CLICK TUBE TOPICAL ×2 (09:23→20:24)
[2020-08-20] MEDS: amLODIPine 5 MG Tablet PO ×2 (09:24→20:21)
[2020-08-20] MEDS: Multivitamin (Healthy Eyes) Capsule 1 CAP PO ×2 (09:24→17:55)
[2020-08-20] MEDS: Sertraline 50 MG Tablet 25 MG PO (09:24)
[2020-08-20] MEDS: Pantoprazole Sodium 20 MG Tablet PO (09:24)
[2020-08-20] MEDS: Multivitamins,Therapeutic Tablet 1 TABLET PO (09:24)
[2020-08-20] MEDS: Atenolol 100 MG Tablet PO ×2 (09:24→20:21)
[2020-08-20] MEDS: Aspirin E.C. 81 MG Tablet PO (09:25)
[2020-08-20] MEDS: APIXABAN 2.5 MG TABLET PO ×2 (09:25→20:23)
[2020-08-20] MEDS: Ferrous Sulfate 325 MG Tablet PO (13:27)
[2020-08-20] MEDS: Menthol/Lanolin/Calamine/Znox 113 GM Tube 1 APPLIC TOPICAL ×2 (13:27→20:23)
[2020-08-20] MEDS: Ascorbic Acid 500 MG Tablet PO (13:27)
[2020-08-20 19:23] VITALS: BP 127/65; PULSE 67; RESP 16; TEMP 36.7; O2SAT 95
[2020-08-20] MEDS: MELATONIN 3 MG TABLET 6 MG PO (20:22)
[2020-08-20] MEDS: Atorvastatin Calcium 80 MG Tablet PO (20:23)
[2020-08-20 20:29] VITALS: BMI 31.8
[2020-08-20] MEDS: Acetaminophen 500 MG Tablet PO (20:33)
[2020-08-20 22:00] VITALS: PULSE 67; RESP 16
[2020-08-21 07:36] VITALS: BP 124/57; PULSE 62; RESP 16; TEMP 36.7; O2SAT 95
[2020-08-21] MEDS: Menthol/Lanolin/Calamine/Znox 113 GM Tube 1 APPLIC TOPICAL ×2 (09:19→20:41)
[2020-08-21] MEDS: Arthritis Pain Compound 60 CLICK TUBE TOPICAL ×2 (09:19→20:41)
[2020-08-21] MEDS: Aspirin E.C. 81 MG Tablet PO (09:19)
[2020-08-21] MEDS: Multivitamin (Healthy Eyes) Capsule 1 CAP PO ×2 (09:19→16:27)
[2020-08-21] MEDS: Multivitamins,Therapeutic Tablet 1 TABLET PO (09:19)
[2020-08-21] MEDS: APIXABAN 2.5 MG TABLET PO ×2 (09:20→20:41)
[2020-08-21] MEDS: amLODIPine 5 MG Tablet PO ×2 (09:20→20:40)
[2020-08-21] MEDS: Pantoprazole Sodium 20 MG Tablet PO (09:20)
[2020-08-21] MEDS: Sertraline 50 MG Tablet 25 MG PO (09:20)
[2020-08-21] MEDS: Atenolol 100 MG Tablet PO ×2 (09:20→20:39)
[2020-08-21] MEDS: Ferrous Sulfate 325 MG Tablet PO (13:02)
[2020-08-21] MEDS: Ascorbic Acid 500 MG Tablet PO (13:02)
[2020-08-21 16:21] VITALS: BMI 31.8
[2020-08-21 19:52] VITALS: BP 127/67; PULSE 62; RESP 18; TEMP 36.6; O2SAT 98
[2020-08-21 19:56] VITALS: BMI 31.8
[2020-08-21] MEDS: Acetaminophen 500 MG Tablet PO (20:39)
[2020-08-21] MEDS: MELATONIN 3 MG TABLET 6 MG PO (20:40)
[2020-08-21] MEDS: Atorvastatin Calcium 80 MG Tablet PO (20:41)
[2020-08-21 22:00] VITALS: PULSE 66; RESP 16
[2020-08-22] MEDS: levoFLOXacin 500 MG Tablet PO (06:17)
[2020-08-22] MEDS: Multivitamins,Therapeutic Tablet 1 TABLET PO (07:27)
[2020-08-22] MEDS: Aspirin E.C. 81 MG Tablet PO (07:27)
[2020-08-22] MEDS: Arthritis Pain Compound 60 CLICK TUBE TOPICAL ×2 (07:27→20:29)
[2020-08-22] MEDS: Multivitamin (Healthy Eyes) Capsule 1 CAP PO ×2 (07:27→18:36)
[2020-08-22] MEDS: Menthol/Lanolin/Calamine/Znox 113 GM Tube 1 APPLIC TOPICAL ×2 (07:28→20:29)
[2020-08-22] MEDS: APIXABAN 2.5 MG TABLET PO ×2 (07:28→20:29)
[2020-08-22] MEDS: amLODIPine 5 MG Tablet PO ×2 (07:28→20:28)
[2020-08-22] MEDS: Sertraline 50 MG Tablet 25 MG PO (07:29)
[2020-08-22] MEDS: Pantoprazole Sodium 20 MG Tablet PO (07:29)
[2020-08-22] MEDS: Atenolol 100 MG Tablet PO ×2 (07:29→20:28)
[2020-08-22 08:57] VITALS: BP 128/63; PULSE 66; RESP 17; TEMP 36.6; O2SAT 95
[2020-08-22 09:57] VITALS: BMI 31.8
--- NOTE | 2020-08-22 10:27 | CASEMGMT ---
Social Work IDT met with patient and son for Team meeting. Discussed patient's progress in therapy. Pt is mod for tx, moving a little slower, ambulating 10ft with FWW at Adithya at a slower pace, completed toe touches to steps. OT to complete full ADL 08/23. Nursing completing ADLs with two assist. St has pt on honey thick liquids, solid textures and will be completing MBS 08/23. Will continue trails to upgrade liquids as pt is not fond of honey thick and resulting in dehydration. may start pt on IV fluids this day. Pt still has slurred speech but improved already. Explained insurance approved with [employer] 08/25 and continued stay is not guaranteed. Will ReTeam next week. Will continue to follow. Tuyet Silva, LANGUAGE PATH BRAZER ASSEMBLER
--- NOTE | 2020-08-22 10:50 | PCM.RU.PYE ---
Admission Information Actual Problem List:: Falls, Cognitve Impr/Memory Loss, Bladder Incontinence, Mobility Impaired, Self Care Deficit, Know.Dfct of Medicaitons, BP, Hypertension, Fluid Change-Dehydration, Alteration-Leisure Activ. Potential Problem List:: DVT, Bleeding, Infection, UTI, Aspiration, Falls, Skin Integrity, Depression Risk of Complications DVT: KRYSTIAN Waggoner Bleeding: Monitor Lab Values, Nursing to Teach Precautions for anti-coagulation therapy., Wound, if applicable, to be assessed every shift., Stroke patients assessed for lethargy or change in status. Infection: Clinical Staff to Monitor for S/S of infection:, S/S of infection include fever, redness, warmth, etc. Urinary Tract Infection: Monitor for frequency, burning, discomfort, or incontinence., Nursing will obtain urine sample for urinalysis and C&S when ordered. Aspiration: Clinical staff will monitor for coughing, drooling, congestion., Speech will evaluate swallowing and dsyphasia., Nursing will monitor patient swallowing during meals. Falls: Patient will be evaluated for Fall Precautions, Patient will be placed on Fall Precautions as indicated per protocol. Skin Breakdown: Nursing will assess skin daily using assessment tool., Nursing will place on Skin Breakdown Precautions as indicated. Pain: Clinical staff will assess patient's pain level per protocol., Medications will be given, if needed, and the pain level reassessed., Other methods: Massage, distraction, decrease stimulus, etc. used PRN. Plan of Care Patient requires physician specializing in physical medicine and rehab oversight to provide close medical supervision of rehab issues including: Pain Management, Sleep Problems, Bowel and Bladder, Medical and co-morbidity Management, DVT prophylaxis, Rehabilitation Leadership, Coordination of treatment team Patient needs Physical Therapy: For a minimum of 1 hour, At least 5 out of 7 days Patient needs Physical Therapy to improve:: Mobility, Mobility, Mobility, Strengthening, Transfers, Stretching, ROM, Endurance, Stairs, Gait, Balance Patient needs Occupational Therapy: For a minimum of 1 hour, At least 5 out of 7 days Patient needs Occupational Therapy to improve ADL's incl.: Eating, Grooming, Bathing, Dressing, Toileting, Toilet transfers, Community Reintegration, Higher functioning activities, Household tasks, Adaptive Equipment, Splinting, Other activities as determined Patient requires speech therapy: For a minimum of 1 hour, At least 5 out of 7 days Patient requires speech therapy for: Swallowing, Cognition, Language Skills, Compensatory Strategies Patient requires 24/ Rehabilitation Nursing for: Pain Issues, Identifying and preventing risk factors, Monitoring and reporting current medical conditions, Assisting with ambulation, transfer, and all ADL's, Teaching patients about disease process and medications, Family teaching, Providing safe environment, Bowel and Bladder Issues, Skin integrity, Medication Management Patient needs Adult Daycare Coordinator/ Case Management for: Discharge Planning, Arranging Home Equipment or Services, Family Interventions Patient needs Dietary and Nutrition Services for: Adequate Nutrition, Nutritional Supplements, Nutritional Education Goals Patient will remain: free from falls, or injury at time of discharge. Patient will perform bed mobility at: MOD I level of assist. Patient will complete transfers from bed to chair at: MOD I level of assist. Patient will ambulate: with standby assist, with LRD, - - 150 Patient will complete upper body dressing at: - - Minimal assistance Patient will complete lower body dressing at: - - Moderate assistance Patient will complete toileting at: - - Minimal assistance x1 Patient will perform bathing at: - - Minimal assistance Patient will complete grooming at: MOD I level of assist. Patient will complete home management skills at: MOD I level of assist. Patient will achieve: - - 3 steps at contact-guard assist Patient will have pain level of: of 3 or less Patient's skin will: remain intact, free from infection. Patient will receive: adequate nutrition. Discharge Planning Pt Prognosis for Sig. Practical Improv. w/in Reasonable Time: Good Estimated Length of stay (days): 21 Anticipated D/C Destination: Home Was Preadmission Assessment Accurate?: Yes
--- NOTE | 2020-08-22 10:58 | PN_ITS ---
Patient Problems: Active and Suspected Problems Dysarthria (Acute) UTI (urinary tract infection) (Acute) Secondary to Enterobacter cloacae CVA (cerebral vascular accident) (Acute) Occured on 08/17/20 with worsening dysarthria and dysphagia and increased R side weakness Dysphagia (Acute) Acute worsening of dysphagia secondary to CVA on 08/17/2020 Debility (Acute) Secondary to strokes. The first stroke occurred 06/28/2020 and the second stroke occurred 08/17/2020. Acidosis, metabolic (Acute) Subjective: So was seen on team rounds today. Her son Satnam was present in the room for rounds. Afebrile VSS Maintaining appropriate oxygen saturation on RA Oral intake is poor-fluid balance for 08/21/2020 is -445. weight is decreasing -her weight today was 175 pounds and 8 ounces, down from 179 pounds and 14 ounces on 08/19/2020 when she came back from PCU. Good bowel function Discussed with nursing - no problems that need addressed Reviewed the PT/OT/ST notes - she is walking and walked 160 feet this morning with a WW and slow pace. Did the Nustep for 10 minutes. she cut the TUG in 10/15 since Saturday. Medication list reviewed. She is c/o lightheadedness when she stands. She does not like the honey thick liquids. She denies CP, SOB, N/V/abd pain. She tells me her mood is a little better today. She is complaining that her mattress is very uncomfortable. - Physical Exam Vitals/I&O's: Vital Signs Temp Pulse Resp BP Pulse Ox 97.9 F 66 17 128/63 H 95 08/22/20 08:57 08/22/20 08:57 08/22/20 08:57 08/22/20 08:57 08/22/20 08:57 Oxygen Delivery Method Room Air Weight: 175 lb 8 oz Body Mass Index (BMI) 31.8 Intake and Output for Last 24 Hours 08/20/20 08/21/20 08/22/20 23:59 23:59 23:59 Intake Total 495 / 495 745 / 745 480 / 480 Output Total 600 / 600 1190 / 1190 450 / 450 Balance -105 / -105 -445 / -445 30 / 30 General: Alert, Oriented x3, Cooperative, No apparent distress, Well developed, Well nourished Oral: Dry Mucosa, - - she has a white coating on her tongue but she denies any pain in her mouth or a bad taste Neck: Supple, Trachea Midline Lungs: Rales - coarse crackles in both bases today. I had her do the IS and she is only able to get the float to 250cc even with coaching. She is not tachypneic and she has no conversational dyspnea Cardiovascular: Regular rate, Regular Rhythm, Normal S1, Normal S2, - - distant heart sounds, RRR Abdomen: Bowel Sounds Present, Soft, Non Tender, Non-Distended Extremities: No Calf Tenderness, Edema - of the ankles - this is her baseline, no pretibial edema, no posterior thigh edema and she denies her legs feeling tight Skin: No rashes, No breakdown Musculoskeletal: No Muscle Wasting, Arthritic Changes Neurological: - - less facial droop today and she is enunciating much better and I am easily able to understand her today Psych/Mental Status: Appropriate, Depressed - she is sassy today and more like her usual self......allowing her son to visit Saturday and today has made a big difference in her depressed mode. She is putting forth great effort with therapy and is very motivated to get better and get home. Microbiology Past 72 Hours 08/17/20 10:25 Urine Catheter - Catheter Urine Culture - Final Enterobacter cloacae complex Current Medications Acetaminophen (Acetaminophen 500 Mg Tablet) 500 mg PO Q6H PRN PRN PRN Reason: Pain 1-10 or Fever Last Admin: 08/21/20 20:39 Dose: 500 mg Documented by: Amlodipine Besylate (Amlodipine 5 Mg Tablet) 5 mg PO BID [facility] Last Admin: 08/22/20 07:28 Dose: 5 mg Documented by: Apixaban (Apixaban 2.5 Mg Tablet) 2.5 mg PO BID [facility] Last Admin: 08/22/20 07:28 Dose: 2.5 mg Documented by: Ascorbic Acid (Ascorbic Acid 500 Mg Tablet) 500 mg PO DAILY@1200 [facility] Last Admin: 08/21/20 13:02 Dose: 500 mg Documented by: Aspirin (Aspirin E.C. 81 Mg Tablet) 81 mg PO DAILY@0800 [facility] Last Admin: 08/22/20 07:27 Dose: 81 mg Documented by: Atenolol (Atenolol 100 Mg Tablet) 100 mg PO BID [facility] Last Admin: 08/22/20 07:29 Dose: 100 mg Documented by: Atorvastatin Calcium (Atorvastatin Calcium 80 Mg Tablet) 80 mg PO QHS [facility] Last Admin: 08/21/20 20:41 Dose: 80 mg Documented by: Calamine/Phenol (Menthol/Lanolin/Calamine/Znox 113 Gm Tube) 1 applic TOPICAL BID [facility]; Protocol Last Admin: 08/22/20 07:28 Dose: 1 applicatio Documented by: Compound Med (Arthritis Pain Compound 60 Click Tube) 0 click TOPICAL BID [facility]; Protocol Last Admin: 08/22/20 07:27 Dose: 1 click Documented by: Ferrous Sulfate (Ferrous Sulfate 325 Mg Tablet) 325 mg PO DAILY@1200 [facility] Last Admin: 08/21/20 13:02 Dose: 325 mg Documented by: Sodium Chloride () 1,000 mls @ 75 mls/hr IV .[id number] [facility] Levofloxacin (Levofloxacin 500 Mg Tablet) 500 mg PO Q48@0600 [facility] Stop: 08/24/20 06:01 Last Admin: 08/22/20 06:17 Dose: 500 mg Documented by: Melatonin (Melatonin 3 Mg Tablet) 6 mg PO QHS [facility] Last Admin: 08/21/20 20:40 Dose: 6 mg Documented by: Multivitamins ([facility],Therapeutic Tablet) [facility] Last Admin: 08/22/20 07:27 Dose: 1 tablet Documented by: Multivitamins/Minerals (Multivitamin (Healthy Eyes) Capsule) [facility] Last Admin: 08/22/20 07:27 Dose: 1 capsule Documented by: Ondansetron HCl (Ondansetron 4 Mg/2 Ml Vial) 4 mg IV Q6H PRN PRN PRN Reason: NAUSEA/VOMITING Pantoprazole Sodium (Pantoprazole Sodium 20 Mg Tablet) 20 mg PO DAILY [facility] Last Admin: 08/22/20 07:29 Dose: 20 mg Documented by: Senna/Docusate Sodium (Senna/Docusate Sodium 1 Tablet) 1 tablet PO BID [facility] Last Admin: 08/22/20 07:29 Dose: Not Given Documented by: Sertraline HCl (Sertraline 50 Mg Tablet) 25 mg PO DAILY [facility] Last Admin: 08/22/20 07:29 Dose: 25 mg Documented by: Sodium Chloride (0.9% Saline Lock 10 Ml Syringe) 10 - 40 ml IV UD PRN PRN Reason: SALINE FLUSH Last Admin: 08/19/20 22:35 Dose: 10 ml Documented by: Sodium Chloride (0.9% Saline Lock 10 Ml Syringe) 10 - 40 ml IV UD PRN PRN Reason: SALINE FLUSH Medical Necessity - Tobacco Use Smoking Status: Never smoker Tobacco Use: Non-smoker Assessment/Plan All Active Problems Dysarthria (Acute) UTI (urinary tract infection) (Acute) CVA (cerebral vascular accident) (Acute) Dysphagia (Acute) Insomnia (Resolved) Thrush (Resolved) Drug-induced pancytopenia (Resolved) Debility (Acute) Acidosis, metabolic (Acute) Dehydration (Resolved) Acute renal failure superimposed on chronic kidney disease (Resolved) Right ankle sprain (Resolved) Ankle pain (Resolved) Impressions 1. 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 she had this while on Apixaban and she was started on ASA and high intensity statin. 2. 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 Heme + stool X 3 - will need to work up as an OP 4. Chronic anemia - more likely than not multifactorial due to CRF stage 4-5 and also to iron deficiency. 5. Iron deficiency 6. Symptomatic Dehydration - due to poor oral intake. 7. CRF stage 4-5 8. HTN - controlled 9. Atelectasis Start an IV of NS at 75cc/hr and check lab in the AM Continue IS ST upgraded diet and she was advanced to nectar thick which she has been on before and tolerates better than honey thick MBS tomorrow BMP and a CBC in the AM Continue therapy- she has made very good progress since Saturday Inpatient E&M: 44006 Subs Hosp L2
[2020-08-22] MEDS: 0.9% Normal Saline 1,000 ML 75 ML IV (11:41)
[2020-08-22] MEDS: 0.9% Saline Lock 10 ML Syringe IV (11:42)
[2020-08-22] MEDS: Ferrous Sulfate 325 MG Tablet PO (11:50)
[2020-08-22] MEDS: Ascorbic Acid 500 MG Tablet PO (11:50)
[2020-08-22 20:14] VITALS: BP 124/62; PULSE 67; RESP 16; TEMP 36.4; O2SAT 95
[2020-08-22] MEDS: MELATONIN 3 MG TABLET 6 MG PO (20:29)
[2020-08-22] MEDS: Atorvastatin Calcium 80 MG Tablet PO (20:31)
[2020-08-22] MEDS: Acetaminophen 500 MG Tablet PO (20:31)
[2020-08-23] MEDS: 0.9% Normal Saline 1,000 ML 75 ML IV (00:02)
[2020-08-23 06:09] LABS: Hematocrit 28.4 % (37-47); Hemoglobin 9.2 g/dL (12.0-15.0); Mean Corp Hgb Conc 32.4 g/dL (32-36); Mean Corpuscular Hgb 31.8 pg (27.0-32.0); Mean Corpuscular Volume 98.3 fL (81-99); Mean Platelet Vol. 9.9 fl (6.2-12.0); Platelet Count 162 K/mm3 (150-450); RBC Distribution Width CV 13.2 % (11.6-14.6); RBC Distribution Width SD 47.2 fl (35.1-43.9); Red Blood Count 2.89 M/mm3 (4.2-5.4); White Blood Count 5.3 K/mm3 (4.4-11.0)
[2020-08-23 06:35] LABS: Anion Gap 5 (5-15); BUN 43 mg/dL (7-18); BUN/Creat Ratio 17.3 RATIO (10-20); Calcium,Total 8.9 mg/dL (8.5-10.1); Chloride 119 mmol/L (98-107); Creatinine, Serum 2.48 mg/dL (0.55-1.02); EST Glomerular Filtration Rate 20 mL/min (>60); Est Glom Filt Rate - Afr Amer 24 mL/min (>60); Estimated Creatinine Clearance 13.59 ml/min; Glucose 105 mg/dL (74-106); Potassium 3.7 mmol/L (3.5-5.1); Sodium Level 146 mmol/L (136-145)
[2020-08-23] MEDS: Multivitamins,Therapeutic Tablet 1 TABLET PO (07:59)
[2020-08-23] MEDS: Arthritis Pain Compound 60 CLICK TUBE TOPICAL ×2 (07:59→20:27)
[2020-08-23] MEDS: Aspirin E.C. 81 MG Tablet PO (07:59)
[2020-08-23] MEDS: Multivitamin (Healthy Eyes) Capsule 1 CAP PO ×2 (07:59→15:54)
[2020-08-23] MEDS: Atenolol 100 MG Tablet PO ×2 (08:00→20:26)
[2020-08-23] MEDS: Pantoprazole Sodium 20 MG Tablet PO (08:00)
[2020-08-23] MEDS: APIXABAN 2.5 MG TABLET PO ×2 (08:00→20:27)
[2020-08-23] MEDS: Sertraline 50 MG Tablet 25 MG PO (08:00)
[2020-08-23] MEDS: amLODIPine 5 MG Tablet PO ×2 (08:00→20:26)
[2020-08-23] MEDS: Acetaminophen 500 MG Tablet PO ×2 (08:13→20:29)
[2020-08-23] MEDS: Menthol/Lanolin/Calamine/Znox 113 GM Tube 1 APPLIC TOPICAL ×2 (08:18→20:27)
--- NOTE | 2020-08-23 08:48 | PCM.PN.BLA ---
Progress Note Afebrile Blood pressure is well controlled She is maintaining appropriate oxygen saturation on room air Better oral intake yesterday-she had 1130 in and 950 out. Nursing reports no problems PT/OT/ST notes reviewed -she required moderate assistance with grooming today and moderate assistance with bathing. Lower body dressing was max assist. She required moderate assistance for toileting and moderate assistance for getting on and off the toilet. She was able to walk to and from the bathroom using a wheeled walker with minimal assistance. All lab was personally reviewed. Hemoglobin is 9.2 today and the white blood cell count is 5.3 with 162,000 platelets. Sodium today is 146 with a chloride of 119. The BUN is down to 43 from 53 and the creatinine today is 2.48, down from 2.65 yesterday. Calcium is within normal limits and the fasting blood sugar is 105. Potassium is 3.7. Denies SOB, palpitations, CP, N/V/Abd pain. No complaints today. She is scheduled for a modified barium swallow today. alert, appropriate slurred speech but, mostly intelligible Lungs - coarse crackles in the bases, R>L, no conversational dyspnea,. not tachypneic at rest HRRR, no gallop appreciated but, the heart sounds are distant and difficult to hear no pretibial edema and no posterior thigh edema no calf tenderness no rashes and no skin breakdown Impressions 1. post stroke debility 2. admitted to the unit in June after a L dae CVA due to new onset AF. Second ischemic CVA on 08/17/20 with increased dysarthria and dysphagia 3. dehydration with lightheadedness - better today after IV fluids. She is not eating or drinking much and I found her coughing with tears in her eyes while trying to eat lunch.........awaiting the recommendations of ST after the MBS 4. hypernatremia - IV fluid changed to D5W 0.45 saline with 10 KCL for 1 liter today and DC. Creat is back to baseline. 5. CRF stage 4 6. cystitis due to Enterobacter Cloacae - will finish a 7 day course of Levaquin tomorrow morning Continue therapy Inpatient E&M: 78241 Subs Hosp L2
[2020-08-23] MEDS: Potassium Chloride 10 MEQ in Dext 5%-0.45% NS 1,000 ML 75 MEQ IV (09:39)
[2020-08-23 09:48] VITALS: BP 125/72; PULSE 63; RESP 20; TEMP 36.7; O2SAT 96
--- NOTE | 2020-08-23 10:13 | CASEMGMT ---
Social Work Met with pt for follow up. Pt having nausea today, is on IV fluids, but reports to sleeping better. She received a different mattress. Pt reports mood is better. No longer tearful and seeing son at Team helped. Pt was upgraded to nectar thick liquids in ST yesterday. Pt happier. Pt reported no other issues/concerns/questions. Tuyet Silva, AGILE SCRUM COACH DEHYDROGENATION CONVERTER OPERATOR
--- NOTE | 2020-08-23 11:00 | SP.MBSS_ITS ---
Modified Barium Swallow - Patient Information Study Date: 08/23/20 Study Time: 11:00 Direct Billable Minutes: 145 Total Minutes procedure & reportin Diagnosis: dysphagia Referring Physician: Lisset Hsu Reason for Referral: Objective assessment of swallow function under fluoroscopy required to elucidate etiology of dysphagia for determination of the least restrictive PO diet, appropriate compensatory strategies and improve specificity of targeted dysphagia interventions for optimal outcome. Medical History: The 85 year old female who was initially admitted to the [facility] on 07/04/2020 following an embolic left dae CVA secondary to new onset atrial fibrillation. She had right-sided weakness, dysarthria and dysphagia. She did very well in therapy and was due to be discharged on 08/17/2020 on a moist and minced diet w/ mildly thick liquids w/ plan for continued home health speech therapy services, however sometime during the night on 08/17/2020 she experienced another ischemic stroke. She had severe dysphagia, worsening dysarthria and increased right side weakness. She was alert and charisma ented and following commands. She was not confused. A stat noncontrasted CT brain showed no acute findings. She was transferred to the Progressive Care Unit of [facility] and the stroke protocol was initiated. MRI of the brain was obtained and showed no acute stroke w/ SOC tele-neurology consulted and the neurologist diagnosed her with Encephalopathy due to a UTI. The patient was readmitted to [facility] on 08/18/2020 with a diagnosis of new ischemic CVA, as she continued to present w/ severe dysphagia, increased dysarthria and persistent increased R side weakness when compared with exam on 08/16/2020. Past medical history is significant for Iron deficiency; Chronic venous insufficiency of lower extremity; Chronic renal failure, stage 4 (severe); Heme + stool; PAF (paroxysmal atrial fibrillation); Chronic anticoagulation with apixaban; Cerebrovascular accident, embolic, left dae on 06/28/2020 secondary to new onset atrial fibrillation; Osteoarthritis; Hypertension; Keratitis; Obesity (BMI 30.0- 34.9); Normochromic normocytic anemia; Gout; Hyperuricemia Current Diet Ordered: moist and minced textures/mildly thick liquids Dentition: Upper Dentures - patient has lower dentures but they were not present in mouth upon arrival to radiology for MBS Mental Status: WNL Comment: able to sufficiently follow commands for successful participation in MBSS Respiratory Status: Oxygenating on Room Air - Penetration-Aspiration Scale Penetration-Aspiration Scale: OBJECTIVE ASSESSMENT OF SWALLOW FUNCTION (QUANTITATIVE PER TRIAL): PENETRATION / ASPIRATION SCALE (MCCLELLAN): 1 = does not enter airway 2 = enters airway/above vocal folds/ejected 3 = enters airway/above vocal folds/not ejected 4 = enters airway/contacts vocal folds/ejected 5 = enters airway/contacts vocal folds/not ejected 6 = enters airway/below vocal folds/ejected 7 = enters airway/below vocal folds/not ejected despite effort 8 = enters airway/below vocal folds/no effort VIDEOFLOROSCOPIC SCALE SCORE (MCCLELLAN): Grade I = aspiration of material that has penetrated into the laryngeal vestibule, intact cough reflex Grade II = aspiration < 10 % of the bolus, intact cough reflex Grade III = aspiration of < 10 % of the bolus, reduced cough reflex or aspiration of > 10 % of the bolus, intact cough reflex Grade IV = aspiration of > 10 % of the bolus, reduced cough reflex 1. Thin liquid teaspoon: 8 = enters airway/below vocal folds/no effort; Grade III = aspiration of < 10 % of the bolus, reduced cough reflex image not available for review d/t recording malfunction 2. Thin liquid small sip via cup: not scored, image not available for review d/t recording malfunction 3. Thin liquid small sip via cup effortful swallow: 3 = enters airway/above vocal folds/not ejected 4. Thin liquid small sip via cup effortful swallow trial 2: 8 = enters airway/below vocal folds/no effort; Grade III = aspiration of < 10 % of the bolus, reduced cough reflex 5. [place] thick liquid small sip via cup effortful swallow: 5 = enters airway/contacts vocal folds/not ejected 6. [place] thick liquid small sip via cup chin tuck: 5 = enters airway/contacts vocal folds/not ejected; suboptimal/delayed chin tuck execution w/ laryngeal vestibule penetration to the vocal folds prior to chin tuck execution/swallow 7. [place] thick liquid small sip via cup chin tuck trial 2: 2 = enters airway/above vocal folds/ejected 8. [place] thick liquid small sip via cup: 3 = enters airway/above vocal folds/not ejected; 8 = enters airway/below vocal folds/no effort visible aspiration of retained laryngeal vestibule contrast while viewing next trial; Grade III = aspiration of < 10 % of the bolus, reduced cough reflex 9. Honey thick liquid small sip via cup: 1 = does not enter airway 10. Honey thick liquid large sip via cup: 2 = enters airway/above vocal folds/ejected 11. Honey thick liquid small sip via cup trial 2: 1 = does not enter airway 12. Pudding via teaspoon: 1 = does not enter airway 13. Pudding via teaspoon trial 2: 1 = does not enter airway 14. Honey thick liquid via teaspoon: 5 = enters airway/contacts vocal folds/not ejected 15. Honey thick liquid via teaspoon chin tuck: 3 = enters airway/above vocal folds/not ejected, suboptimal/delayed chin tuck execution 16. Honey thick liquid via teaspoon chin tuck trial 2: 2 = enters airway/above vocal folds/ejected 17. Thin liquid small sip via cup chin tuck: 5 = enters airway/contacts vocal folds/not ejected, view of trachea obstructed d/t positioning, unable to confirm/deny aspiration 18. Thin liquid small sip via cup chin tuck trial 2: 8 = enters airway/below vocal folds/no effort; Grade III = aspiration of < 10 % of the bolus, reduced cough reflex 19. [place] thick liquid small sip via cup chin tuck: 8 = enters airway/below vocal folds/no effort; Grade III = aspiration of < 10 % of the bolus, reduced cough reflex 20. [place] thick liquid small sip via cup trial 2: 5 = enters airway/contacts vocal folds/not ejected - Oral Phase Labial Seal: Interlabial escape, no progression to anterior lip Tongue Control During Bolus Hold: Posterior escape of less than half of bolus Bolus Preparation/Mastication: Slow prolonged chewing/mashing with complete recollection - solid texture trials not completed d/t lack of lower dentition in place upon presentation to radiology for MBS Bolus Transport/Lingual Motion: Slowed tongue motion Oral Residue: Residue collection on oral structures - Pharyngeal Phase Initiation of Pharyngeal Swallow: Bolus head in pyriforms Soft Palate Elevation: No bolus between soft palate and pharyngeal wall Laryngeal Elevation: Min superior movement thyroid cart/min apprx aryte cart- epig petiole Anterior Hyoid Excursion: Partial anterior movement Epiglottic Movement: Complete inversion Laryngeal Vestibule Closure at Height of Swallow: Incomplete; narrow column of air/contrast in laryngeal vestibule Pharyngeal Stripping Wave: Present - complete Pharyngoesophageal Segment Opening: Complete distension and complete duration; no obstruction of flow Tongue Base Retraction: Narrow column of contrast between tongue base & post. pharyngeal wall Pharyngeal Residue: Complete pharyngeal clearance - Esophageal Phase Esophageal Clearance: Complete clearance - Treatment Strategies Effects of treatment strategies attemped:: Cued cough/expectoration: not effective, weak cough Throat clear/re-swallow: not effective, unable to elicit a volitional swallow Effortful swallow: not effective Chin tuck: not effective Reducing bolus volume: effective Liquid provision via teaspoon: not effective - Diagnosis/Impression Diagnosis: moderate oropharyngeal dysphagia Impression: This patient presents with moderate oropharyngeal dysphagia secondary to CVA. The oral phase is marked by: * impaired oral control w/ posterior loss/premature oropharyngeal bolus entry * delayed lingual initiation for bolus transfer w/ slowed movement * mild oral residue post deglutition * solid textures not trialed d/t lack of lower denture placement upon arrival to radiology for MBS The pharyngeal phase is marked by: * suboptimal bolus location at time of swallow onset w/ delayed initiation of pharyngeal swallow * contrast pooling in the valleculae w/ bolus spilling to the pyriform sinuses and into the into the laryngeal vestibule before/during the swallow onset, resulting in penetration/aspiration d/t swallow delay w/ insufficient hyolaryngeal excursion and delayed and incomplete arytenoid to epiglottic petiole contact * impaired sensory awareness; minimal to no response to penetration, contrast accumulation atop the vocal folds or jay aspiration * extremely weak throat clearing was inconsistently present in response to aspiration 1x, otherwise aspiration was silent * dystussia w/ insufficient cough strength to expel contrast from the trachea/laryngeal vestibule The esophageal function was unremarkable. - Recommendations Diet: Mechanical Soft Textures, Honey-thick Liquids Comment: PATIENT IS A SILENT ASPIRATOR - does not cough or show outward signs in response to aspiration. Direct 1:1 supervision w/ all PO intake (moist & minced/mechanical soft and moderately thick/nectar), encourage small bites, small sips, limit distractions, no talking w/ PO intake, seated upright during and for 30-60 minutes after intake w/ oral hygiene to be completed following each meal. Supervision: 1:1 Close Supervision Recommend Repeat Modified Barium Swallow: Yes Comment: A repeat MBS is required prior to diet advancement d/t poor sensory awareness w/ lack of external response to aspiration. Dysphagia intervention is recommended to improve oral control, pharyngeal swallow onset timing and laryngeal vestibule closure as these are the primary causes of current dysphagia. Need for Skilled Speech Therapy Services: Yes Education Completed: 1. Described result of evaluation., 2. Pt understands evaluation & agrees with goals and treatment plan., 7. Pt requires further education on strategies & risks. - Image Count: [phone] - Status Active ST Patient: Active - Contact Information [facility] Speech Therapy:: Veronica Norton M.A., CCC-SUPERINTENDENT DIVISION [facility] Speech-Language Pathiologist [email or web address] [phone]
[2020-08-23] MEDS: Ascorbic Acid 500 MG Tablet PO (13:59)
[2020-08-23] MEDS: Ferrous Sulfate 325 MG Tablet PO (13:59)
[2020-08-23 14:39] VITALS: BMI 31.8
[2020-08-23 19:18] VITALS: BP 118/59; PULSE 67; RESP 17; TEMP 36.4; O2SAT 96
[2020-08-23] MEDS: MELATONIN 3 MG TABLET 6 MG PO (20:26)
[2020-08-23] MEDS: Atorvastatin Calcium 80 MG Tablet PO (20:27)
[2020-08-24] MEDS: levoFLOXacin 500 MG Tablet PO (06:47)
[2020-08-24] MEDS: Multivitamin (Healthy Eyes) Capsule 1 CAP PO ×2 (08:00→17:19)
[2020-08-24] MEDS: Aspirin E.C. 81 MG Tablet PO (08:00)
[2020-08-24] MEDS: APIXABAN 2.5 MG TABLET PO ×2 (08:01→19:48)
[2020-08-24] MEDS: Atenolol 100 MG Tablet PO ×2 (08:01→19:51)
[2020-08-24] MEDS: Pantoprazole Sodium 20 MG Tablet PO (08:01)
[2020-08-24] MEDS: amLODIPine 5 MG Tablet PO ×2 (08:01→19:51)
[2020-08-24] MEDS: Sertraline 50 MG Tablet 25 MG PO (08:01)
[2020-08-24] MEDS: Multivitamins,Therapeutic Tablet 1 TABLET PO (08:01)
[2020-08-24] MEDS: Menthol/Lanolin/Calamine/Znox 113 GM Tube 1 APPLIC TOPICAL ×2 (08:09→19:55)
[2020-08-24] MEDS: Arthritis Pain Compound 60 CLICK TUBE TOPICAL ×2 (08:10→19:49)
[2020-08-24 08:31] VITALS: BP 125/56; PULSE 66; RESP 16; TEMP 36.7; O2SAT 96
[2020-08-24 09:48] VITALS: PULSE 66; RESP 16; O2SAT 96
[2020-08-24] MEDS: Ferrous Sulfate 325 MG Tablet PO (11:15)
[2020-08-24] MEDS: Ascorbic Acid 500 MG Tablet PO (11:15)
[2020-08-24] MEDS: 0.9% Saline Lock 10 ML Syringe IV (12:42)
[2020-08-24] MEDS: Ondansetron 4 MG/2 ML Vial IV (12:42)
[2020-08-24 19:38] VITALS: BP 141/73; PULSE 63; RESP 16; TEMP 37; O2SAT 96
[2020-08-24] MEDS: MELATONIN 3 MG TABLET 6 MG PO (19:49)
[2020-08-24] MEDS: Atorvastatin Calcium 80 MG Tablet PO (19:50)
[2020-08-24 20:03] VITALS: PULSE 63; RESP 18; O2SAT 96
[2020-08-25 07:25] VITALS: BP 144/70; PULSE 72; RESP 16; TEMP 36.8; O2SAT 92
--- NOTE | 2020-08-25 08:26 | PCM.PROGNOTE ---
Patient Problems: Active and Suspected Problems Dysarthria (Acute) UTI (urinary tract infection) (Acute) Secondary to Enterobacter cloacae CVA (cerebral vascular accident) (Acute) Occured on 08/17/20 with worsening dysarthria and dysphagia and increased R side weakness Dysphagia (Acute) Acute worsening of dysphagia secondary to CVA on 08/17/2020 Debility (Acute) Secondary to strokes. The first stroke occurred 06/28/2020 and the second stroke occurred 08/17/2020. Acidosis, metabolic (Acute) Subjective: Afebrile VSS Maintaining appropriate oxygen saturation on RA - however the pulse ox this AM is down at 92%. Oral intake is poor. She coughs and chokes when eating and drinking, brings tears to her eyes. Diet was downgraded to pureed with honey thick liquids. Gets nauseated after prolonged coughing paroxysms and has had to have Zofran. Discussed with nursing - no problems that need addressed Reviewed the PT/OT/ST notes Medication list reviewed. Denies SOB, CP, palpitations, lightheadedness today. Denies nausea at this time. No abdominal pain and no dysuria. She finished 7 days of antibiotics for cystitis. Will do a follow up UA in a few days to document clearance. She was asymptomatic......she could be colonized. I spoke with the ST yesterday after she had lunch with So. She had <25% intake and she was coughing and could not clear her throat. If things do not start to improve will need to insert a Corpak or think about a PEG. She was very down yesterday. She realizes that the swallowing is not going well and that she is going to need to stay longer. I am hopeful that this will improve over time. - Physical Exam Vitals/I&O's: Vital Signs Temp Pulse Resp BP Pulse Ox 98.2 F 72 16 144/70 H 92 08/25/20 07:25 08/25/20 07:25 08/25/20 07:25 08/25/20 07:25 08/25/20 07:25 Oxygen Delivery Method Room Air Weight: 179 lb 0.246 oz Body Mass Index (BMI) 31.8 Intake and Output for Last 24 Hours 08/23/20 08/24/20 08/25/20 23:59 23:59 23:59 Intake Total 3783.75 / 3783.75 620 / 620 Output Total 1100 / 1100 775 / 1075 400 / 400 Balance 2683.75 / 2683.75 -155 / -455 -400 / -400 General: Alert, Oriented x3, Cooperative, No apparent distress, - - sitting in the recliner at the bedside HEENT: EOMI, - - PERRL Oral: No Gingival or Mucosal Lesions/ Ulcerations, Dry Mucosa, - - tongue is coated but she denies a bad taste in her mouth and she denies mouth pain. No lesions on the buccal mucosa. Neck: Supple, No JVD, Trachea Midline Lungs: No wheeze, Rales - rare coarse crackles in the bases, - - she is not tachypneic and she has no conversational dyspnea Cardiovascular: Regular rate, Regular Rhythm, No rub noted, No Gallop Abdomen: Bowel Sounds Present, Soft, Non Tender, Non-Distended, - - denies diarrhea and abdominal pain Extremities: No Calf Tenderness, Edema - limited to the ankles Skin: No rashes, No breakdown Neurological: Facial Droop - Much more pronounced after the second stroke, Slurred Speech, - - And lower body dressing. She is ambulating well with the FWW. She is using the RUE more and is usiung a 1 lb weight for strengthening exercises.....2 lb with the LUE. She is requiring a lot of assistance with toileting and lower body dressing Psych/Mental Status: Appropriate, Depressed - she is not her usual joking sassy self......Her son Satnam visited today and this picked her mood up some. she is worried that she will not get to go home. Current Medications Acetaminophen (Acetaminophen 500 Mg Tablet) 500 mg PO Q6H PRN PRN PRN Reason: Pain 1-10 or Fever Last Admin: 08/23/20 20:29 Dose: 500 mg Documented by: Amlodipine Besylate (Amlodipine 5 Mg Tablet) 5 mg PO BID [facility] Last Admin: 08/24/20 19:51 Dose: 5 mg Documented by: Apixaban (Apixaban 2.5 Mg Tablet) 2.5 mg PO BID [facility] Last Admin: 08/24/20 19:48 Dose: 2.5 mg Documented by: Ascorbic Acid (Ascorbic Acid 500 Mg Tablet) 500 mg PO DAILY@1200 [facility] Last Admin: 08/24/20 11:15 Dose: 500 mg Documented by: Aspirin (Aspirin E.C. 81 Mg Tablet) 81 mg PO DAILY@0800 [facility] Last Admin: 08/24/20 08:00 Dose: 81 mg Documented by: Atenolol (Atenolol 100 Mg Tablet) 100 mg PO BID [facility] Last Admin: 08/24/20 19:51 Dose: 100 mg Documented by: Atorvastatin Calcium (Atorvastatin Calcium 80 Mg Tablet) 80 mg PO QHS [facility] Last Admin: 08/24/20 19:50 Dose: 80 mg Documented by: Calamine/Phenol (Menthol/Lanolin/Calamine/Znox 113 Gm Tube) 1 applic TOPICAL BID [facility]; Protocol Last Admin: 08/24/20 19:55 Dose: 1 applicatio Documented by: Compound Med (Arthritis Pain Compound 60 Click Tube) 0 click TOPICAL BID [facility]; Protocol Last Admin: 08/24/20 19:49 Dose: 1 click Documented by: Ferrous Sulfate (Ferrous Sulfate 325 Mg Tablet) 325 mg PO DAILY@1200 [facility] Last Admin: 08/24/20 11:15 Dose: 325 mg Documented by: Melatonin (Melatonin 3 Mg Tablet) 6 mg PO QHS [facility] Last Admin: 08/24/20 19:49 Dose: 6 mg Documented by: Multivitamins (Multivitamins,Therapeutic Tablet) [facility] Last Admin: 08/24/20 08:01 Dose: 1 tablet Documented by: Multivitamins/Minerals (Multivitamin (Healthy Eyes) Capsule) [facility] capsule [facility] Last Admin: 08/24/20 17:19 Dose: 1 capsule Documented by: Ondansetron HCl (Ondansetron 4 Mg/2 Ml Vial) 4 mg IV Q6H PRN PRN PRN Reason: NAUSEA/VOMITING Last Admin: 08/24/20 12:42 Dose: 4 mg Documented by: Pantoprazole Sodium (Pantoprazole Sodium 20 Mg Tablet) 20 mg PO DAILY [facility] Last Admin: 08/24/20 08:01 Dose: 20 mg Documented by: Senna/Docusate Sodium (Senna/Docusate Sodium 1 Tablet) 1 tablet PO BID [facility] Last Admin: 08/24/20 19:52 Dose: Not Given Documented by: Sertraline HCl (Sertraline 50 Mg Tablet) 25 mg PO DAILY [facility] Last Admin: 08/24/20 08:01 Dose: 25 mg Documented by: Sodium Chloride (0.9% Saline Lock 10 Ml Syringe) 10 - 40 ml IV UD PRN PRN Reason: SALINE FLUSH Last Admin: 08/24/20 12:42 Dose: 10 ml Documented by: Sodium Chloride (0.9% Saline Lock 10 Ml Syringe) 10 - 40 ml IV UD PRN PRN Reason: SALINE FLUSH Medical Necessity - Tobacco Use Smoking Status: Never smoker Tobacco Use: Non-smoker Assessment/Plan All Active Problems Dysarthria (Acute) UTI (urinary tract infection) (Acute) CVA (cerebral vascular accident) (Acute) Dysphagia (Acute) Insomnia (Resolved) Thrush (Resolved) Drug-induced pancytopenia (Resolved) Debility (Acute) Acidosis, metabolic (Acute) Dehydration (Resolved) Acute renal failure superimposed on chronic kidney disease (Resolved) Right ankle sprain (Resolved) Ankle pain (Resolved) Impressions 1. 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 The first was a L dae presumed to be embolic and the second occurred on 08/17/20. MRI was negative BUT, she clearly has severe dysphagia now and much more prominent facial droop and dysarthria. I think the MRI may have been obtained too soon. I suspect she may have had a R cerebral sichemic CVA since the predominant sx are dysphagia and dysarthria and no significant change in extremity weakness or gait instability. 2. Mild cystitis secondary to Enterobacter cloacae-received 7 days of antibiotics 3. Severe dysphagia 4. Dysarthria 5. 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 decreased oral intake due to severe dysphagia.......She is not taking adequate intake and I am afraid she will not be able to take enough calories and fluid to sustain herself going forward continue the pureed diet with the Montiel free water protocol I discussed a PEG tube with So......she is fearful that this will keep her in the hospital and I explained we would be able to discharge sooner if she had an alternate method of feeding rather than staying in the hospital to get IV's. She denied being ready to . Calorie counts for the next 72 hours. Accurate I and O's. Start Magic cup BID to boost the calories....it is pudding texture. Recheck a BMP on Saturday. Discussed the plan with ST. Will discuss the PEG with Satnam also if she is not able to take adequate calories PO Inpatient E&M: [id number] Subs Hosp L2
[2020-08-25] MEDS: Sertraline 50 MG Tablet 25 MG PO (08:42)
[2020-08-25] MEDS: Multivitamin (Healthy Eyes) Capsule 1 CAP PO ×2 (08:43→17:31)
[2020-08-25] MEDS: Aspirin E.C. 81 MG Tablet PO (08:43)
[2020-08-25] MEDS: Multivitamins,Therapeutic Tablet 1 TABLET PO (08:43)
[2020-08-25] MEDS: Pantoprazole Sodium 20 MG Tablet PO (08:43)
[2020-08-25] MEDS: APIXABAN 2.5 MG TABLET PO ×2 (08:43→21:12)
[2020-08-25] MEDS: amLODIPine 5 MG Tablet PO ×2 (08:43→21:11)
[2020-08-25] MEDS: Atenolol 100 MG Tablet PO ×2 (08:43→21:11)
[2020-08-25] MEDS: Arthritis Pain Compound 60 CLICK TUBE TOPICAL ×2 (08:44→21:12)
[2020-08-25] MEDS: Menthol/Lanolin/Calamine/Znox 113 GM Tube 1 APPLIC TOPICAL ×2 (08:46→21:12)
[2020-08-25 10:47] VITALS: BMI 31.8
[2020-08-25] MEDS: Ferrous Sulfate 325 MG Tablet PO (12:33)
[2020-08-25] MEDS: Ascorbic Acid 500 MG Tablet PO (12:33)
[2020-08-25 19:32] VITALS: BP 124/60; PULSE 67; RESP 18; TEMP 36.8; O2SAT 96
[2020-08-25 20:53] VITALS: BMI 31.8
[2020-08-25 20:55] VITALS: PULSE 67; RESP 18; O2SAT 96
[2020-08-25] MEDS: 0.9% Saline Lock 10 ML Syringe IV (21:05)
[2020-08-25] MEDS: Acetaminophen 500 MG Tablet PO (21:10)
[2020-08-25] MEDS: MELATONIN 3 MG TABLET 6 MG PO (21:11)
[2020-08-25] MEDS: Atorvastatin Calcium 80 MG Tablet PO (21:11)
[2020-08-26 09:42] VITALS: BP 137/61; PULSE 62; RESP 18; TEMP 37; O2SAT 98
[2020-08-26] MEDS: amLODIPine 5 MG Tablet PO ×2 (09:45→21:38)
[2020-08-26] MEDS: Multivitamin (Healthy Eyes) Capsule 1 CAP PO ×2 (09:45→17:55)
[2020-08-26] MEDS: Aspirin E.C. 81 MG Tablet PO (09:45)
[2020-08-26] MEDS: Multivitamins,Therapeutic Tablet 1 TABLET PO (09:45)
[2020-08-26] MEDS: Pantoprazole Sodium 20 MG Tablet PO (09:45)
[2020-08-26] MEDS: Sertraline 50 MG Tablet 25 MG PO (09:46)
[2020-08-26] MEDS: Arthritis Pain Compound 60 CLICK TUBE TOPICAL ×2 (09:46→21:38)
[2020-08-26] MEDS: Atenolol 100 MG Tablet PO ×2 (09:46→21:38)
[2020-08-26] MEDS: APIXABAN 2.5 MG TABLET PO (09:46)
[2020-08-26] MEDS: Menthol/Lanolin/Calamine/Znox 113 GM Tube 1 APPLIC TOPICAL ×2 (09:47→21:41)
[2020-08-26] MEDS: Ferrous Sulfate 325 MG Tablet PO (13:10)
[2020-08-26] MEDS: Ascorbic Acid 500 MG Tablet PO (13:10)
--- NOTE | 2020-08-26 14:38 | PN_ITS ---
Progress Note Afebrile Vital signs stable Maintaining appropriate oxygen saturation on room air I spoke with So and Satnam about the PEG tube again and Satnam feels it is up to his mother to make the decision. She has decided to proceed with the PEG. I explained everything to her again and told her it would speed up her DC home. Alert, oriented x3, no apparent distress, appropriate Lungs-rare coarse crackle in the bases Heart-regular rate and rhythm, no gallop Abdomen-soft, nontender, nondistended, bowel sounds present No calf tenderness Very mild ankle edema only with no pitting in the pretibial areas bilaterally or in the posterior thighs. Impressions 1. Post stroke debility 2. Severe dysphagia-unable to take adequate calories or fluids to sustain her 3. Hypertension-controlled 4. Paroxysmal atrial fibrillation 5. Chronic anticoagulation with apixaban. Dr. Gore has been consulted and states he will likely do the procedure on Saturday. Hold the Eliquis and aspirin until after PEG tube insertion Check CBC with differential, BMP, mag, Phos, PT, PTT in the a.m. Will need a COVID-19 antigen test prior to surgery. Inpatient E&M: [id number] [facility] Hosp L1
--- NOTE | 2020-08-26 14:57 | NURSING ---
chief crew scheduler calls and states resident scheduled to have PEG tube placement this Saturday at 12:15. They will pick resident up at 11:15. Resident scheduled for placement with Dr Mcgrath.
[2020-08-26 18:00] VITALS: BP 145/65; PULSE 63; RESP 16; TEMP 36.8; O2SAT 98
[2020-08-26] MEDS: 0.9% Saline Lock 10 ML Syringe IV ×2 (18:03→21:41)
[2020-08-26 19:30] VITALS: BP 145/65; PULSE 63; RESP 16; TEMP 37.1; O2SAT 98
[2020-08-26 20:45] VITALS: BMI 31.8
[2020-08-26] MEDS: MELATONIN 3 MG TABLET 6 MG PO (21:38)
[2020-08-26] MEDS: Atorvastatin Calcium 80 MG Tablet PO (21:38)
[2020-08-26] MEDS: Acetaminophen 500 MG Tablet PO (21:40)
[2020-08-26 22:00] VITALS: PULSE 66; RESP 17; O2SAT 97
[2020-08-27 07:47] LABS: Absolute Lymphocyte Count 1.49 X10^3/uL (0.83-4.51); Absolute Neutrophil Count 3.2 X10^3/uL (2.0-7.7); Basophil# 0.03 X10^3/uL; Basophil% 0.6 % (0-1); Eosinophil# 0.18 X10^3/uL; Eosinophils% 3.4 % (0-5); Hematocrit 29.2 % (37-47); Hemoglobin 8.9 g/dL (12.0-15.0); Lymphocyte # 1.49 X10^3/ul (4.0); Lymphocyte % 27.9 % (19-41); Mean Corp Hgb Conc 30.5 g/dL (32-36); Mean Corpuscular Hgb 31.7 pg (27.0-32.0); Mean Corpuscular Volume 103.9 fL (81-99); Mean Platelet Vol. 9.9 fl (6.2-12.0); Monocyte# 0.46 X10^3/uL; Monocyte% 8.6 % (0-10); NRBC Flagged by Analyzer 0 % (0-5); Neutrophil # 3.17 X10^3/uL (2.7-7.7); Neutrophil % 59.1 % (47-70); Platelet Count 142 K/mm3 (150-450); RBC Distribution Width CV 13.3 % (11.6-14.6); RBC Distribution Width SD 51.1 fl (35.1-43.9); Red Blood Count 2.81 M/mm3 (4.2-5.4); White Blood Count 5.4 K/mm3 (4.4-11.0)
[2020-08-27 07:56] LABS: Anion Gap 4 (5-15); BUN 38 mg/dL (7-18); BUN/Creat Ratio 16.9 RATIO (10-20); Calcium,Total 8.6 mg/dL (8.5-10.1); Chloride 115 mmol/L (98-107); Creatinine, Serum 2.25 mg/dL (0.55-1.02); EST Glomerular Filtration Rate 22 mL/min (>60); Est Glom Filt Rate - Afr Amer 27 mL/min (>60); Estimated Creatinine Clearance 14.98 ml/min; Glucose 105 mg/dL (74-106); Magnesium 1.4 mg/dL (1.6-2.6); Phosphorus 2.8 mg/dL (2.5-4.9); Potassium 4.1 mmol/L (3.5-5.1); Sodium Level 144 mmol/L (136-145)
[2020-08-27 08:03] LABS: International Normalized Ratio 1.3; Prothrombin Time (Protime)PT. 15.4 SECONDS (11.7-14.9)
[2020-08-27 08:26] VITALS: BP 122/61; PULSE 61; RESP 16; TEMP 36.6; O2SAT 96
[2020-08-27] MEDS: Multivitamin (Healthy Eyes) Capsule 1 CAP PO ×2 (09:39→16:39)
[2020-08-27] MEDS: Arthritis Pain Compound 60 CLICK TUBE TOPICAL ×2 (09:40→22:03)
[2020-08-27] MEDS: Multivitamins,Therapeutic Tablet 1 TABLET PO (09:40)
[2020-08-27] MEDS: Menthol/Lanolin/Calamine/Znox 113 GM Tube 1 APPLIC TOPICAL ×2 (09:41→22:02)
[2020-08-27] MEDS: amLODIPine 5 MG Tablet PO ×2 (09:41→22:01)
[2020-08-27] MEDS: Pantoprazole Sodium 20 MG Tablet PO (09:42)
[2020-08-27] MEDS: Sertraline 50 MG Tablet PO (09:42)
[2020-08-27] MEDS: Atenolol 100 MG Tablet PO ×2 (09:42→22:01)
[2020-08-27 11:52] VITALS: BMI 31.8
[2020-08-27] MEDS: Ferrous Sulfate 325 MG Tablet PO (13:10)
[2020-08-27] MEDS: Ascorbic Acid 500 MG Tablet PO (13:10)
--- NOTE | 2020-08-27 17:27 | NURSING ---
When attempting to flush SL to rt AC, IV site began leaking, discontinued at this time, catheter intact upon removal and pt tolerated well.
[2020-08-27 19:26] VITALS: BP 122/54; PULSE 64; RESP 16; TEMP 36.6; O2SAT 92
[2020-08-27] MEDS: MELATONIN 3 MG TABLET 6 MG PO (22:01)
[2020-08-27] MEDS: Atorvastatin Calcium 80 MG Tablet PO (22:01)
[2020-08-27] MEDS: Acetaminophen 500 MG Tablet PO (22:02)
[2020-08-28] MEDS: Menthol/Lanolin/Calamine/Znox 113 GM Tube 1 APPLIC TOPICAL ×2 (07:54→21:11)
[2020-08-28] MEDS: Pantoprazole Sodium 20 MG Tablet PO (07:56)
[2020-08-28] MEDS: Multivitamin (Healthy Eyes) Capsule 1 CAP PO ×2 (07:56→16:43)
[2020-08-28] MEDS: Senna/Docusate Sodium 1 Tablet PO (07:56)
[2020-08-28] MEDS: Multivitamins,Therapeutic Tablet 1 TABLET PO (07:56)
[2020-08-28] MEDS: Sertraline 50 MG Tablet PO (07:56)
[2020-08-28] MEDS: amLODIPine 5 MG Tablet PO ×2 (07:57→21:09)
[2020-08-28] MEDS: Arthritis Pain Compound 60 CLICK TUBE TOPICAL ×2 (07:57→21:08)
[2020-08-28] MEDS: Atenolol 100 MG Tablet PO ×2 (07:57→21:09)
[2020-08-28 08:41] VITALS: BP 133/71; PULSE 67; RESP 16; TEMP 36.6; O2SAT 95
--- NOTE | 2020-08-28 09:34 | CON.PCM_ITS ---
Problem List (1) CVA (cerebral vascular accident) Status: Chronic Qualifiers: CVA mechanism: embolism Laterality of affected vessel: left Comment: 06/28/2020 (2) Dysphagia Status: Acute Comment: Acute worsening of dysphagia secondary to CVA on 08/17/2020 Reason for Consult Date of Consultation: 08/28/20 History of Present Illness: The patient is a 85 year old F who is here with CVA dysphagia. The patient had a repeat stroke and failed swallow study and needs a feeding tube. 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 Osteoarthritis (Chronic) Hypertension (Chronic) Keratitis (Chronic) Obesity (BMI 30.0-34.9) (Chronic) Normochromic normocytic anemia (Chronic) Gout (Chronic) Hyperuricemia (Chronic) Allergies amlodipine [From Norvasc] Adverse Reaction (Verified 07/04/20 16:03) PT UNSURE OF REACTION amoxicillin [From Augmentin] Adverse Reaction (Verified 07/04/20 17:59) PT UNSURE OF REACTION clavulanic acid [From Augmentin] Adverse Reaction (Verified 07/04/20 17:59) PT UNSURE OF REACTION diphtheria, pertussis, tetanus vacc Adverse Reaction (Verified 07/04/20 16:03) PT UNSURE OF REACTION hydrochlorothiazide [From Maxzide] Adverse Reaction (Verified 07/04/20 16:03) PT UNSURE OF REACTION lisinopril Adverse Reaction (Verified 07/04/20 16:03) PT UNSURE OF REACTION Sulfa (Sulfonamide Antibiotics) Adverse Reaction (Verified 07/04/20 16:03) PT UNSURE OF REACTION triamterene [From Maxzide] Adverse Reaction (Verified 07/04/20 16:03) PT UNSURE OF REACTION Home Medications: Ambulatory Orders Medication Instructions Recorded Multivitamin [Daily Multiple 1 ea PO DAILY 07/04/20 Vitamin] Vit A/Vit C/Vit E/Zinc/Copper 1 ea PO BID 07/04/20 [Preservision Areds Softgel] Acetaminophen [Tylenol Tablet] 650 mg PO Q6H PRN PRN tab 08/16/20 Amlodipine [Norvasc] 5 mg PO BID #60 tab 08/16/20 Apixaban [Eliquis] 2.5 mg PO BID #60 tab 08/16/20 Arthritis Pain Compound 0 click TOPICAL BID #0 gm 08/16/20 Ascorbic Acid [Vitamin C] 500 mg PO DAILY@1200 tab 08/16/20 Atenolol [Tenormin (beta logan)] 100 mg PO BID #60 tab 08/16/20 Ferrous Sulfate 325 mg PO DAILY@1200 #90 tab 08/16/20 Furosemide [Lasix] 60 mg PO UD #45 tab 08/16/20 Melatonin 6 mg PO QHS #60 tab 08/16/20 Menthol/Lanolin/Calamine/Znox 1 applic TOPICAL BID tube 08/16/20 [Calmoseptine Ointment] Multivitamins,Therapeutic 1 tab PO DAILY@0800 tab 08/16/20 [Multivitamin] Potassium Chloride [K-Dur] 10 meq PO UD #20 tab 08/16/20 Senna/Docusate Sodium [Senokot-S] 1 tab PO BID #60 tab 08/16/20 Aspirin [Aspirin EC] 81 mg PO DAILY 08/17/20 Atorvastatin Calcium 80 mg PO 08/17/20 Ondansetron [Zofran] 4 mg IV 08/17/20 Pantoprazole Sodium [Protonix] 20 mg PO DAILY 08/17/20 Acetaminophen [8 Hour] 650 mg PO Q6H PRN PRN 08/18/20 Amlodipine Besylate [Norvasc] 5 mg PO BID 08/18/20 Apixaban [Eliquis] 2.5 mg PO BID 08/18/20 Arthritis Pain Compound See Protocol click TOPICAL BID 08/18/20 Ascorbic Acid [Vitamin C] 500 mg PO DAILY@1200 08/18/20 Atenolol 100 mg PO BID 08/18/20 Ferrous Sulfate 325 mg PO DAILY@1200 08/18/20 Furosemide [Lasix] 60 mg PO UD 08/18/20 Melatonin 6 mg PO QHS 08/18/20 Menthol/Lanolin/Calamine/Znox 1 applicatio TOPICAL BID 08/18/20 [Calmoseptine Ointment] Multivitamin 1 ea PO DAILY 08/18/20 Potassium Chloride 10 meq PO UD 08/18/20 Senna/Docusate Sodium [Senokot-S, 1 tab PO BID 08/18/20 Shefali-Colace] Vit A/Vit C/Vit E/Zinc/Copper 1 cap PO BID 08/18/20 [Preservision Areds Softgel] levoFLOXacin tablet [Levaquin 500 mg PO Q48@0600 tab 08/18/20 tablet] Surgical History: cataract - with IOL implants, cholecystectomy, hysterectomy Psychiatric History: No pertinent psych hx [employer]ADSIDE MECH[employer]IC History: No pertinent [employer]ADSIDE MECH[employer]IC history Lives: With Family - she lives with her son Satnam Smoking Status: Never smoker Tobacco Use: Non-smoker Alcohol: None Drugs: None - *Family History Maternal History Items: Hypertension, Stroke Paternal History Items: Cancer, Pulmonary Disease, Stroke Sibling History Items: Cancer, Diabetes, Heart Disease, Stroke Offspring History Items: Stroke - in her daughter Review of Systems Constitutional: Denies: Anorexia, Fever HEENT: Reports: Difficulty Swallowing, Dysphasia. Denies: Difficulty Hearing Cardiovascular: Denies: Chest Pain Gastrointestinal: Denies: Abdominal Pain, Nausea, Vomiting Patient Problems: Active and Suspected Problems Dysarthria (Acute) UTI (urinary tract infection) (Acute) Secondary to Enterobacter cloacae CVA (cerebral vascular accident) (Acute) Occured on 08/17/20 with worsening dysarthria and dysphagia and increased R side weakness Dysphagia (Acute) Acute worsening of dysphagia secondary to CVA on 08/17/2020 Debility (Acute) Secondary to strokes. The first stroke occurred 06/28/2020 and the second stroke occurred 08/17/2020. Acidosis, metabolic (Acute) - Physical Exam Vitals/I&O's: Vital Signs Temp Pulse Resp BP Pulse Ox 98 F 67 16 133/71 H 95 08/28/20 08:41 08/28/20 08:41 08/28/20 08:41 08/28/20 08:41 08/28/20 08:41 Oxygen Delivery Method Room Air Weight: 178 lb 9.191 oz Body Mass Index (BMI) 31.8 Intake and Output for Last 24 Hours 08/26/20 08/27/20 08/28/20 23:59 23:59 23:59 Intake Total 1180 / 1180 1140 / 1190 540 / 540 Output Total 1025 / 1025 800 / 900 900 / 900 Balance 155 / 155 340 / 290 -360 / -360 General: Alert, Oriented x3 HEENT: Atraumatic Lungs: Normal air movement Cardiovascular: Regular rate, Regular Rhythm Abdomen: Soft, Non Tender, Non-Distended Current Medications Acetaminophen (Acetaminophen 500 Mg Tablet) 500 mg PO Q6H PRN PRN PRN Reason: Pain 1-10 or Fever Last Admin: 08/27/20 22:02 Dose: 500 mg Documented by: Amlodipine Besylate (Amlodipine 5 Mg Tablet) 5 mg PO BID [facility] Last Admin: 08/28/20 07:57 Dose: 5 mg Documented by: Apixaban (Apixaban 2.5 Mg Tablet) 2.5 mg PO BID [facility] Last Admin: 08/26/20 09:46 Dose: 2.5 mg Documented by: Ascorbic Acid (Ascorbic Acid 500 Mg Tablet) 500 mg PO DAILY@1200 [facility] Last Admin: 08/27/20 13:10 Dose: 500 mg Documented by: Aspirin (Aspirin E.C. 81 Mg Tablet) 81 mg PO DAILY@0800 [facility] Last Admin: 08/26/20 09:45 Dose: 81 mg Documented by: Atenolol (Atenolol 100 Mg Tablet) 100 mg PO BID [facility] Last Admin: 08/28/20 07:57 Dose: 100 mg Documented by: Atorvastatin Calcium (Atorvastatin Calcium 80 Mg Tablet) 80 mg PO QHS [facility] Last Admin: 08/27/20 22:01 Dose: 80 mg Documented by: Calamine/Phenol (Menthol/Lanolin/Calamine/Znox 113 Gm Tube) 1 applic TOPICAL BID [facility]; Protocol Last Admin: 08/28/20 07:54 Dose: 1 applicatio Documented by: Compound Med (Arthritis Pain Compound 60 Click Tube) 0 click TOPICAL BID [facility]; Protocol Last Admin: 08/28/20 07:57 Dose: 1 click Documented by: Ferrous Sulfate (Ferrous Sulfate 325 Mg Tablet) 325 mg PO DAILY@1200 [facility] Last Admin: 08/27/20 13:10 Dose: 325 mg Documented by: Melatonin (Melatonin 3 Mg Tablet) 6 mg PO QHS [facility] Last Admin: 08/27/20 22:01 Dose: 6 mg Documented by: Multivitamins ([facility],Therapeutic Tablet) [facility] Admin: 08/28/20 07:56 Dose: 1 tablet Documented by: Multivitamins/Minerals (Multivitamin (Healthy Eyes) Capsule) [facility] Last Admin: 08/28/20 07:56 Dose: 1 capsule Documented by: Ondansetron HCl (Ondansetron 4 Mg/2 Ml Vial) 4 mg IV Q6H PRN PRN PRN Reason: NAUSEA/VOMITING Last Admin: 08/24/20 12:42 Dose: 4 mg Documented by: Pantoprazole Sodium (Pantoprazole Sodium 20 Mg Tablet) 20 mg PO DAILY [facility] Last Admin: 08/28/20 07:56 Dose: 20 mg Documented by: Senna/Docusate Sodium (Senna/Docusate Sodium 1 Tablet) 1 tablet PO BID [facility] Last Admin: 08/28/20 07:56 Dose: 1 tablet Documented by: Sertraline HCl (Sertraline 50 Mg Tablet) 50 mg PO DAILY [facility] Last Admin: 08/28/20 07:56 Dose: 50 mg Documented by: Sodium Chloride (0.9% Saline Lock 10 Ml Syringe) 10 - 40 ml IV UD PRN PRN Reason: SALINE FLUSH Last Admin: 08/26/20 21:41 Dose: 10 ml Documented by: Sodium Chloride (0.9% Saline Lock 10 Ml Syringe) 10 - 40 ml IV UD PRN PRN Reason: SALINE FLUSH Assessment/Plan All Active Problems Dysarthria (Acute) UTI (urinary tract infection) (Acute) CVA (cerebral vascular accident) (Acute) Dysphagia (Acute) Insomnia (Resolved) Thrush (Resolved) Drug-induced pancytopenia (Resolved) Debility (Acute) Acidosis, metabolic (Acute) Dehydration (Resolved) Acute renal failure superimposed on chronic kidney disease (Resolved) Right ankle sprain (Resolved) Ankle pain (Resolved) 85-year-old female with dysphagia 1. I discussed PEG placement with the patient in detail. I explained endoscopy in detail to the patient. I explained the risks including but not limited to stroke or heart attack with anesthesia, perforation of the GI tract, bleeding, infection. I explained that any of these could necessitate further emergency surgery. The patient understands and all questions were answered sufficiently. The patient wishes to proceed with procedure. 2. Patient's blood thinners have been held and I will plan for EGD with PEG tube placement tomorrow. Armando Gore MD Pager: [facility] [address] [place] [address], [facility] [address] [place] [address] Office:
[2020-08-28 09:37] VITALS: BMI 31.8
[2020-08-28] MEDS: Ascorbic Acid 500 MG Tablet PO (12:52)
[2020-08-28] MEDS: Ferrous Sulfate 325 MG Tablet PO (12:52)
[2020-08-28] MEDS: MELATONIN 3 MG TABLET 6 MG PO (21:09)
[2020-08-28] MEDS: Atorvastatin Calcium 80 MG Tablet PO (21:09)
[2020-08-28] MEDS: Acetaminophen 500 MG Tablet PO (21:23)
[2020-08-28 21:27] VITALS: BP 143/79; PULSE 66; RESP 16; TEMP 36.4; O2SAT 97
[2020-08-29] VITALS (10 sets, daily range): BP systolic 116–142; BP diastolic 46–77; PULSE 59–68; RESP 16–20; TEMP 36.3–36.9; O2SAT 94–100; BMI 31.8; BMI 32.6
[2020-08-29] MEDS: 0.9% Normal Saline 1,000 ML 30 ML IV (09:44)
[2020-08-29] MEDS: Magnesium Sulfate 4gm/100mL 4 GM/100 ML IV.SOLN. IV (09:45)
[2020-08-29] MEDS: Menthol/Lanolin/Calamine/Znox 113 GM Tube 1 APPLIC TOPICAL ×2 (10:00→20:26)
--- NOTE | 2020-08-29 10:11 | CASEMGMT ---
Social Work IDT met with patient and son via conference call for Team meeting. Discussed patient's progress in therapy. Pt is min-mod tx, ambulating 190 ft SBA with FWW using AFO, foot dragging less, completing steps backwards, mod-max toileting tasks, set up seated for grooming, min for dentures. Pt is min for UE ADLs, max for LE ADLs. ST using ESTIM on throat for strengthening, speech clarity. Pt getting PEG placed today and IV magnesium. Explained NRD 09/01, and continued stay is not guaranteed. Explained will see how pt recovers from PEG surgery and possibly set DC date end of week or next week. Will continue to follow. Tuyet Silva, TEST TUBE MAKER GRINDER SET UP OPERATOR THREAD
--- NOTE | 2020-08-29 10:57 | NURSING ---
PT TO AC VIA W/C FOR PEG TUBE PLACEMENT.
--- NOTE | 2020-08-29 11:59 | OP.EGD_ITS ---
Patient Name: So Pabon Procedure Date: 08/29/2020 11:33 AM Date of : 1935 Age: 85 Procedure: Upper GI endoscopy Indications: Dysphagia Providers: Armando Gore MD Medicines: Monitored Anesthesia Care Patient Profile: This is an 85 year old female. Refer to note in patient chart for documentation of history and physical. Complications: No immediate complications. Estimated blood loss: Minimal. Procedure: Pre-Anesthesia Assessment: - Prior to the procedure, a History and Physical was performed, and patient medications and allergies were reviewed. The patient's tolerance of previous anesthesia was also reviewed. The risks and benefits of the procedure and the sedation options and risks were discussed with the patient. All questions were answered, and informed consent was obtained. Prior Anticoagulants: The patient has taken Eliquis (apixaban), last dose was 2 days prior to procedure. After reviewing the risks and benefits, the patient was deemed in satisfactory condition to undergo the procedure. After obtaining informed consent, the endoscope was passed under direct vision. Throughout the procedure, the patient's blood pressure, pulse, and oxygen saturations were monitored continuously. The Endoscope was introduced through the mouth, and advanced to the fourth part of duodenum. The upper GI endoscopy was accomplished without difficulty. The patient tolerated the procedure well. Scope In: 11:45:14 AM Scope Out: 11:52:36 AM Total Procedure Duration Time 0 hours 7 minutes 22 seconds Findings: The esophagus was normal. The stomach was normal. The patient was placed in the supine position for PEG placement. The stomach was insufflated to appose gastric and abdominal thomas. A site was located in the body of the stomach with excellent transillumination and manual external pressure for placement. The abdominal wall was marked and prepped in a sterile manner. The area was anesthetized with 4 mL of 0.5% lidocaine. The trocar needle was introduced through the abdominal wall and into the stomach under direct endoscopic view. A snare was introduced through the endoscope and opened in the gastric lumen. The guide wire was passed through the trocar and into the open snare. The snare was closed around the guide wire. The endoscope and snare were removed, pulling the wire out through the mouth. A skin incision was made at the site of needle insertion. The externally removable 20 Fr EndoVive Safety gastrostomy tube was lubricated. The G-tube was tied to the guide wire and pulled through the mouth and into the stomach. The trocar needle was removed, and the gastrostomy tube was pulled out from the stomach through the skin. The external bumper was attached to the gastrostomy tube, and the tube was cut to remove the guide wire. The final position of the gastrostomy tube was confirmed by relook endoscopy, and skin marking noted to be 3 cm at the external bumper. The final tension and compression of the abdominal wall by the PEG tube and external bumper were checked and revealed that the bumper was loose and lightly touching the skin and that the PEG balloon was moderately tight and mildly compressing the stomach. The feeding tube was capped, and the tube site cleaned and dressed. Impression: - Normal esophagus. - Normal stomach. - An externally removable PEG placement was successfully completed. - No specimens collected. Recommendation: - Return patient to [facility] for ongoing care. - Advance diet as tolerated. - Please follow the post-PEG recommendations including: external bolster 1 cm from abdominal wall, change dressing once per day, may use PEG tomorrow for feedings, check site for bleeding q 4 hrs and clean site with soap and water daily and dry thoroughly. - Continue present medications. Procedure Code(s): --- Professional --- 03458, Esophagogastroduodenoscopy, flexible, transoral; with directed placement of percutaneous gastrostomy tube Diagnosis Code(s): --- Professional --- R13.10, Dysphagia, unspecified CPT copyright 2017 [employer]. All rights reserved. The codes documented in this report are preliminary and upon information technology internship review may be revised to meet current compliance requirements. Armando Gore MD 08/29/2020 11:58:06 AM This report has been signed electronically. Number of Addenda: 0 Note Initiated On: 08/29/2020 11:33 AM
--- NOTE | 2020-08-29 12:00 | PN_ITS ---
Progress Note Patient had successful EGD with PEG tube placement. The patient may resume a diet in 4 hours by mouth. She may use the PEG tube for feeding tomorrow. She may resume her anticoagulation tomorrow. Armando Gore MD Pager: [facility] [address] [place] [address], [address] [place] [address] Office: [facility] Vital Signs/Narrative: Vital Signs Temp Pulse Resp BP Pulse Ox 08/29/20 08:08 98.3 F 68 16 120/60 96
--- NOTE | 2020-08-29 12:00 | PCM.PN.BLA ---
Progress Note Patient had successful EGD with PEG tube placement. The patient may resume a diet in 4 hours by mouth. She may use the PEG tube for feeding tomorrow. She may resume her anticoagulation tomorrow. Armando Gore MD Pager: [facility] [address] [place] [address], [address] [place] [address] Office: [facility] Vital Signs/Narrative: Vital Signs Temp Pulse Resp BP Pulse Ox 08/29/20 08:08 98.3 F 68 16 120/60 96
--- NOTE | 2020-08-29 13:17 | PCM.NTREPORT ---
Nutrition Therapy Report - History Nutrition Services has been consulted to:: Manage enteral nutrition Current diet / nutrition support order:: NPO for surgery - previously Regular puree w/ honey thick liquids and magic cup bid - Anthropometric Measurements Height:: 5 ft 2 in Weight:: 81 kg Body Mass Index (BMI):: 32.6 - Relevant Labs Relevant Labs:: WBC 3.8 K/mm3 (4.4-11.0) L 07/28/20 05:25 RBC 2.81 M/mm3 (4.2-5.4) L 08/27/20 07:10 Hgb 8.9 g/dL (12.0-15.0) L 08/27/20 07:10 Hct 29.2 % (37-47) L 08/27/20 07:10 MCV 103.9 fL (81-99) H D 08/27/20 07:10 MCHC 30.5 g/dL (32-36) L D 08/27/20 07:10 RDW Std Deviation 51.1 fl (35.1-43.9) H 08/27/20 07:10 Plt Count 142 K/mm3 (150-450) L 08/27/20 07:10 [place]ford % (Auto) 13.4 % (0-10) H 07/25/20 05:27 Eos % (Auto) 5.7 % (0-5) H 07/21/20 05:15 PT 15.4 SECONDS (11.7-14.9) H 08/27/20 07:10 Sodium 146 mmol/L (136-145) H 08/23/20 05:22 Chloride 115 mmol/L (98-107) H 08/27/20 07:10 Carbon Dioxide 17.0 mmol/L (21.0-32.0) L 07/07/20 05:35 Anion Gap 4 (5-15) L 08/27/20 07:10 BUN 38 mg/dL (7-18) H 08/27/20 07:10 Creatinine 2.25 mg/dL (0.55-1.02) H 08/27/20 07:10 Est GFR (MDRD) Af Amer 27 mL/min (>60) L 08/27/20 07:10 Est GFR (MDRD) Non-Af 22 mL/min (>60) L 08/27/20 07:10 BUN/Creatinine Ratio 26.6 RATIO (10-20) H 08/16/20 05:36 Glucose 121 mg/dL (74-106) H 08/20/20 06:24 Hemoglobin A1c 5.7 % (3.8-5.6) H 07/06/20 05:25 Uric Acid 7.8 mg/dL (2.6-6.0) H 07/06/20 05:25 Magnesium 1.4 mg/dL (1.6-2.6) L 08/27/20 07:10 AST 39 U/L (15-37) H 07/05/20 05:30 B-Natriuretic Peptide 122.9 pg/mL (0-100) H 08/12/20 15:39 Albumin 3.0 g/dL (3.2-5.0) L 08/20/20 06:24 Albumin/Globulin Ratio 0.8 RATIO (0.9-2.4) L 08/20/20 06:24 - Assessment Food / Nutrition-Related History:: Pt had PEG placed today w/ orders to start using tomorrow per Dr. Gore. Has difficulty chewing and swallowing foods - shana count day 1 was poor and since plans for PEG was d/c'd - over weekend, pt had improved po intake. However, po intake inconsistent so will order TF bolus and provide if less than 50% of meal consumed. WT increase .2 kg since last review - wt appears stable. Has+1 nonpitting dolly ankle/feet edema - may see wt loss as fluid status improves. [ End ] - Nutrition Diagnosis Problem / Etiology / Signs & Symptoms (PES):: Pt with inadequate oral po intake r/t issues w/ dysphagia AEB necessary for PEG placement to maintain adequate nutritional status. [ End ] Evidence of Malnutrition Exists:: No - Nutrition Intervention Nutrition Prescription:: [id number] shana / 47-57 gm pro/day - Food / Nutrient Delivery Interventions Summary of nutrition intervention:: Will order Regular-- consistency per PROCUREMENT CLERK: (pureed/honey-thick liquids previously) starting at dinner tonight. Starting tomorrow: Jevity 1.5 bolus feeds: 270 ml 4x/day w/ 200 ml free water each bolus feed to provide ~ 1620 shana / 68 gm pro / 1620 ml free water/day. Bolus after meals only if po intake <50% and give additional bolus feed at hs to help ensure adequate nutrition. [ End ] Nutrition support ordered as / adjusted to:: Jevity 1.5 bolus feeds: 270 ml 4x/day w/ 200 ml free water each bolus feed to provide ~ 1620 shana / 68 gm pro / 1620 ml free water/day. Bolus only if po intake <50% and give additional bolus feed at hs to help ensure adequate nutrition. Nutrition education provided?: No - MNT Monitoring Further MNT monitoring and evaluation required?: Yes MNT Follow-up in:: 1-2 days - if questions - call RD/LD at x [phone]
[2020-08-29] MEDS: Sertraline 50 MG Tablet PO (17:21)
[2020-08-29] MEDS: Ascorbic Acid 500 MG Tablet PO (17:21)
[2020-08-29] MEDS: Multivitamin (Healthy Eyes) Capsule 1 CAP PO (17:21)
[2020-08-29] MEDS: Multivitamins,Therapeutic Tablet 1 TABLET PO (17:22)
[2020-08-29] MEDS: Pantoprazole Sodium 20 MG Tablet PO (17:22)
[2020-08-29] MEDS: Acetaminophen 500 MG Tablet PO (18:12)
[2020-08-29] MEDS: amLODIPine 5 MG Tablet PO (20:26)
[2020-08-29] MEDS: Atenolol 100 MG Tablet PO (20:27)
[2020-08-29] MEDS: Magnesium Chloride 64 MG Delay Rel.Tablet 128 MG PO (20:27)
[2020-08-29] MEDS: MELATONIN 3 MG TABLET 6 MG PO (20:27)
[2020-08-29] MEDS: Arthritis Pain Compound 60 CLICK TUBE TOPICAL (20:28)
[2020-08-29] MEDS: Atorvastatin Calcium 80 MG Tablet PO (20:29)
[2020-08-30] MEDS: Acetaminophen 500 MG Tablet PO (01:09)
[2020-08-30 03:16] VITALS: BMI 32.6
[2020-08-30 08:24] VITALS: BP 130/63; PULSE 58; RESP 18; TEMP 36.6; O2SAT 94
--- NOTE | 2020-08-30 09:03 | PN_ITS ---
Patient Problems: Active and Suspected Problems Dysarthria (Acute) UTI (urinary tract infection) (Acute) Secondary to Enterobacter cloacae CVA (cerebral vascular accident) (Acute) Occured on 08/17/20 with worsening dysarthria and dysphagia and increased R side weakness Dysphagia (Acute) Acute worsening of dysphagia secondary to CVA on 08/17/2020 Debility (Acute) Secondary to strokes. The first stroke occurred 06/28/2020 and the second stroke occurred 08/17/2020. Acidosis, metabolic (Acute) Subjective: POD #1 S/P PEG Afebrile VSS Maintaining appropriate oxygen saturation on RA Weight today is 175 pounds and 8 ounces. No complaints today She is doing a little better with swallowing this week. She is on pureed and honey thick diet. Not taking at least 50% at meals. No CP, no SOB, no palpitations. She had some mild superficial abdominal discomfort last night....better today. - Physical Exam Vitals/I&O's: Vital Signs Temp Pulse Resp BP Pulse Ox 97.8 F 58 L 18 130/63 H 94 08/30/20 08:24 08/30/20 08:24 08/30/20 08:24 08/30/20 08:24 08/30/20 08:24 Oxygen Delivery Method Room Air Weight: 175 lb 7.807 oz Body Mass Index (BMI) 32.6 Intake and Output for Last 24 Hours 08/28/20 08/29/20 08/30/20 23:59 23:59 23:59 Intake Total 1160 / 1160 566 / 591 45 / 45 Output Total 1400 / 1400 300 / 300 300 / 300 Balance -240 / -240 266 / 291 -255 / -255 General: Alert, Oriented x3, Cooperative, No apparent distress, Well developed, Well nourished Oral: Moist Mucosa Neck: Supple, No JVD Lungs: Rales - rare crackles in the bases only, no wheezing and no coughing today Cardiovascular: Regular rate, Regular Rhythm, No rub noted, No Gallop, - - distant heart sounds Abdomen: Bowel Sounds Present, Soft, Non-Distended, Tender - superficial at 6 o'clock below the PEG site. No purulent DC and no erythema. Extremities: Edema - trace ankle edema only Skin: No rashes, No breakdown Neurological: - - dysarthria is improving.....I have no difficulty understanding speech no unless she is tired. I watched her eat this morning and she was drin elvis honey thick liquid and eating pureed foods......doin better, she did not cough while I was watching and ST thought she is doing better. she took 25%. Psych/Mental Status: Normal Affect, Appropriate Microbiology Past 72 Hours 08/28/20 10:34 Mucosa - Nose SARS-CoV-2 Antigen (Rapid) - Final Current Medications Acetaminophen (Acetaminophen 500 Mg Tablet) 500 mg PO Q6H PRN PRN PRN Reason: Pain 1-10 or Fever Last Admin: 08/30/20 01:09 Dose: 500 mg Documented by: Amlodipine Besylate (Amlodipine 5 Mg Tablet) 5 mg PO BID [facility] Last Admin: 08/29/20 20:26 Dose: 5 mg Documented by: Apixaban (Apixaban 2.5 Mg Tablet) 2.5 mg PO BID [facility] Last Admin: 08/26/20 09:46 Dose: 2.5 mg Documented by: Ascorbic Acid (Ascorbic Acid 500 Mg Tablet) 500 mg PO DAILY@1200 [facility] Last Admin: 08/29/20 17:21 Dose: 500 mg Documented by: Aspirin (Aspirin E.C. 81 Mg Tablet) 81 mg PO DAILY@0800 [facility] Last Admin: 08/26/20 09:45 Dose: 81 mg Documented by: Atenolol (Atenolol 100 Mg Tablet) 100 mg PO BID [facility] Last Admin: 08/29/20 20:27 Dose: 100 mg Documented by: Atorvastatin Calcium (Atorvastatin Calcium 80 Mg Tablet) 80 mg PO QHS [facility] Last Admin: 08/29/20 20:29 Dose: 80 mg Documented by: Calamine/Phenol (Menthol/Lanolin/Calamine/Znox 113 Gm Tube) 1 applic TOPICAL BID [facility]; Protocol Last Admin: 08/29/20 20:26 Dose: 1 applicatio Documented by: Compound Med (Arthritis Pain Compound 60 Click Tube) 0 click TOPICAL BID [facility]; Protocol Last Admin: 08/29/20 20:28 Dose: 1 click Documented by: Enteral Nutritional Formula (Jevity 1.5. 1,000 Ml Bottle) 270 ml GT TID PRN PRN PRN Reason: PO INTAKE < 50% Enteral Nutritional Formula (Jevity 1.5. 1,000 Ml Bottle) 270 ml GT HS TARUN Last Admin: 08/29/20 17:31 Dose: Not Given Documented by: Ferrous Sulfate (Ferrous Sulfate 325 Mg Tablet) 325 mg PO DAILY@1200 [facility] Last Admin: 08/29/20 13:45 Dose: Not Given Documented by: Sodium Chloride () 1,000 mls @ 30 mls/hr IV .[id number] [facility] Last Admin: 08/29/20 09:44 Dose: 30 mls/hr Documented by: Magnesium Chloride (Magnesium Chloride 64 Mg Delay Rel.Tablet) 128 mg PO BID [facility] Last Admin: 08/29/20 20:27 Dose: 128 mg Documented by: Melatonin (Melatonin 3 Mg Tablet) 6 mg PO QHS [facility] Last Admin: 08/29/20 20:27 Dose: 6 mg Documented by: Multivitamins ([facility]ivit[facility],Therapeutic Tablet) [facility] Last Admin: 08/29/20 17:22 Dose: 1 tablet Documented by: Multivitamins/Minerals (Multivitamin (Healthy Eyes) Capsule) [facility] capsule [facility] Last Admin: 08/29/20 17:21 Dose: 1 capsule Documented by: Ondansetron HCl (Ondansetron 4 Mg/2 Ml Vial) 4 mg IV Q6H PRN PRN PRN Reason: NAUSEA/VOMITING Last Admin: 08/24/20 12:42 Dose: 4 mg Documented by: Pantoprazole Sodium (Pantoprazole Sodium 20 Mg Tablet) 20 mg PO DAILY [facility] Last Admin: 08/29/20 17:22 Dose: 20 mg Documented by: Senna/Docusate Sodium (Senna/Docusate Sodium 1 Tablet) 1 tablet PO BID [facility] Last Admin: 08/29/20 20:28 Dose: Not Given Documented by: Sertraline HCl (Sertraline 50 Mg Tablet) 50 mg PO DAILY [facility] Last Admin: 08/29/20 17:21 Dose: 50 mg Documented by: Sodium Chloride (0.9% Saline Lock 10 Ml Syringe) 10 - 40 ml IV UD PRN PRN Reason: SALINE FLUSH Last Admin: 08/26/20 21:41 Dose: 10 ml Documented by: Sodium Chloride (0.9% Saline Lock 10 Ml Syringe) 10 - 40 ml IV UD PRN PRN Reason: SALINE FLUSH Medical Necessity - Tobacco Use Smoking Status: Never smoker Tobacco Use: Non-smoker Assessment/Plan All Active Problems Dysarthria (Acute) UTI (urinary tract infection) (Acute) CVA (cerebral vascular accident) (Acute) Dysphagia (Acute) Insomnia (Resolved) Thrush (Resolved) Drug-induced pancytopenia (Resolved) Debility (Acute) Acidosis, metabolic (Acute) Dehydration (Resolved) Acute renal failure superimposed on chronic kidney disease (Resolved) Right ankle sprain (Resolved) Ankle pain (Resolved) Impressions 1. 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 The first was a L dae presumed to be embolic and the second occurred on 08/17/20. MRI was negative BUT, she clearly has severe dysphagia now and much more prominent facial droop and dysarthria. I think the MRI may have been obtained too soon. I suspect she may have had a R cerebral sichemic CVA since the predominant sx are dysphagia and dysarthria and no significant change in extremity weakness or gait instability. 2. Mild cystitis secondary to Enterobacter cloacae-received 7 days of antibiotics 3. Severe dysphagia 4. Dysarthria 5. 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 decreased oral intake due to severe dysphagia.......She is not taking adequate intake and I am afraid she will not be able to take enough calories and fluid to sustain herself going forward 7. bradycardia Decrease the Atenolol to 75 mg BID Iron sucrose 200 mg today IV Ferrous sulfate syrup 300 mg daily per the PEG DC the fluid restriction - continue to monitor daily weights and give lasix for > 3 lb weight gain. Right now she is hovering between 175-179 will keep there for now. Creat is 2.25 which is excellent. Recheck a BMP,HH and mag on Saturday. Start Mag Oxide 400 mg daily via the PEG She finished the Antibiotic last week. Will get a UA and culture Saturday. Plan DC for next week Saturday or Sat. Restart the [facility] Inpatient E&M: [id number] [facility] Hosp L2
[2020-08-30] MEDS: Atenolol 100 MG Tablet PO (09:18)
[2020-08-30] MEDS: Multivitamin (Healthy Eyes) Capsule 1 CAP PO (09:19)
[2020-08-30] MEDS: amLODIPine 5 MG Tablet PO (09:19)
[2020-08-30] MEDS: Arthritis Pain Compound 60 CLICK TUBE TOPICAL ×2 (09:19→20:18)
[2020-08-30] MEDS: Magnesium Chloride 64 MG Delay Rel.Tablet 128 MG PO (09:19)
[2020-08-30] MEDS: Menthol/Lanolin/Calamine/Znox 113 GM Tube 1 APPLIC TOPICAL ×2 (10:00→20:20)
[2020-08-30 10:31] VITALS: BMI 32.6
[2020-08-30] MEDS: Sodium Ferric Gluconat 250 MG in 0.9% Normal Saline 250 ML 135 MG IV (11:19)
[2020-08-30] MEDS: Jevity 1.5. 1,000 ML Bottle 270 ML GT ×2 (11:20→20:46)
--- NOTE | 2020-08-30 16:19 | CHAPLAIN ---
Type of Pastoral Visit ___ Initial Visit _x__ Follow-up Visit ___ On-call Visit ___ General Patient Visit ___ Spiritual Assessment ___ Family Conference ___ Bereavement ___ Rapid Response ___ Code Blue ___ Other (describe below) Pastoral Care Referral From _x__ Patient ___ Family ___ Nurse ___ Physician ___ Spring Up Supervisor ___ Freelance Data Entry ___ Other (describe below) Sacrament/Intervention _x__ Active listening ___ Anointing ___ Latter-Day ___ Bereavement ___ Communion ___ Radha exploration ___ ___ Life review _x__ Prayer ___ Reconciliation ___ Sacrament of Sick _x__ Supportive presence ___ Wedding ___ Other (describe below) Pastoral Comments
[2020-08-30] MEDS: Ascorbic Acid 500 MG Tablet GT (16:34)
[2020-08-30 19:23] VITALS: BP 135/65; PULSE 65; RESP 20; TEMP 36.6; O2SAT 97
[2020-08-30 19:33] VITALS: BMI 32.6
[2020-08-30] MEDS: 0.9% Saline Lock 10 ML Syringe IV (20:15)
[2020-08-30] MEDS: Acetaminophen 650 MG/20 ML UDC 500 MG GT (20:17)
[2020-08-30] MEDS: APIXABAN 2.5 MG TABLET GT (20:20)
[2020-08-30] MEDS: Atorvastatin Calcium 80 MG Tablet GT (20:21)
[2020-08-30] MEDS: MELATONIN 3 MG TABLET 6 MG GT (20:21)
[2020-08-30] MEDS: amLODIPine 5 MG Tablet GT (20:22)
[2020-08-30] MEDS: Atenolol 25 MG Tablet 75 MG GT (20:22)
[2020-08-30 22:00] VITALS: PULSE 65; RESP 16; O2SAT 97
[2020-08-31] MEDS: Ferrous Sulfate 300 MG/5 ML UDC GT (08:03)
[2020-08-31] MEDS: Multivitamin/Minerals/Iron (9 mg/15 ml) Liquid GT (08:03)
[2020-08-31] MEDS: Atenolol 25 MG Tablet 75 MG GT ×2 (08:03→20:06)
[2020-08-31] MEDS: Aspirin 81 MG TAB.CHEW GT (08:03)
[2020-08-31] MEDS: MAGNESIUM OXIDE 400 MG TABLET GT (08:04)
[2020-08-31] MEDS: APIXABAN 2.5 MG TABLET GT ×2 (08:04→20:07)
[2020-08-31] MEDS: Sertraline 50 MG Tablet GT (08:04)
[2020-08-31] MEDS: Ascorbic Acid 500 MG Tablet GT (08:04)
[2020-08-31] MEDS: Arthritis Pain Compound 60 CLICK TUBE TOPICAL ×2 (08:04→20:05)
[2020-08-31] MEDS: amLODIPine 5 MG Tablet GT ×2 (08:05→20:07)
[2020-08-31] MEDS: Menthol/Lanolin/Calamine/Znox 113 GM Tube 1 APPLIC TOPICAL ×2 (08:06→20:09)
[2020-08-31 08:26] VITALS: PULSE 64; RESP 18; O2SAT 97
--- NOTE | 2020-08-31 08:34 | PCM.PN.BLA ---
Progress Note Postoperative day #2 Afebrile Vital signs are stable-blood pressure is well controlled and the heart rate is primarily in the 60s. Metoprolol dose was decreased yesterday for bradycardia. Maintaining appropriate oxygen saturation on room air Oral fluid intake yesterday was only 430 cc. She had 550 cc out. She had to Jevity boluses yesterday with 0 residual after the first feeding. Last bowel movement was today. PT/OT/ST notes reviewed No problems reported by nursing. So denies dysuria. She has had some dribbling. No SOB and no cough unless she is choking. Denies CP, palpitations, lightheadedness.- alert, NAD, pleasant, interacting well MM moist Lungs - rare crackle in the R base only HRRR, no rub abd- the PEG site is clean and without DC. There is no erythema. The abd is soft and no guarding with palpation. NL BS's. trace ankle edema only no calf tenderness Impressions 1. post stroke debility 2. severe dysphagia 3. recent cystitis 4. CRF stage 4 - stable 5. PAF 200 CC water flush 4 X's a day Lab ordered for Saturday UA today with 0 WBC's Continue therapy [facility] Vital Signs/Narrative: Vital Signs Pulse Resp Pulse Ox 08/31/20 08:26 64 18 97 Inpatient E&M: [id number] Subs Hosp L2
[2020-08-31 09:53] VITALS: BP 127/65; PULSE 64; RESP 18; TEMP 36.9; O2SAT 97
[2020-08-31] MEDS: LANSOPRAZOLE 15 MG CAPSULE.DR GT (11:03)
[2020-08-31] MEDS: 0.9% Saline Lock 10 ML Syringe IV (13:49)
[2020-08-31 16:52] LABS: Bacteria 0 SEEN /hpf (None Seen); Mucous, Urine 0 SEEN /hpf (<or=2+); Red Blood Cells-Urine 0 SEEN /hpf (0-5); Squamous Epithelial Cells - UA 0 SEEN /hpf (5-10); White Blood Cells 0 SEEN /hpf (0-5)
[2020-08-31 16:53] LABS: Color, Urine Yellow (Yellow); Glucose, Dipstick Normal (Normal); Ketone-Dipstick Negative (Negative); Leukocyte Esterase-Dipstick Negative /ul (Negative); Nitrite-Dipstick Negative (Negative); Occult Blood-Urine Negative /ul (Negative); Protein-Dipstick 30 mg/dl (Negative); Specific Gravity, Urine 1.015 (1.002-1.030); Urine Bilirubin Dipstick Negative (Negative); Urine Clarity Clear (Clear); Urine Urobilinogen Normal (Normal)
[2020-08-31] MEDS: Acetaminophen 650 MG/20 ML UDC 500 MG GT (20:05)
[2020-08-31] MEDS: Atorvastatin Calcium 80 MG Tablet GT (20:06)
[2020-08-31] MEDS: MELATONIN 3 MG TABLET 6 MG GT (20:07)
[2020-08-31] MEDS: Jevity 1.5. 1,000 ML Bottle 270 ML GT (20:08)
[2020-08-31 20:14] VITALS: BP 135/66; PULSE 70; RESP 16; TEMP 36.6; O2SAT 97
[2020-08-31 23:04] VITALS: BMI 32.6
[2020-09-01 07:37] VITALS: BP 124/52; PULSE 66; RESP 18; TEMP 36.3; O2SAT 97
[2020-09-01 08:11] VITALS: BP 124/52; PULSE 66; RESP 18; TEMP 36.3; O2SAT 97
[2020-09-01] MEDS: Aspirin 81 MG TAB.CHEW GT (08:51)
[2020-09-01] MEDS: Acetaminophen 650 MG/20 ML UDC 500 MG GT ×2 (08:51→20:28)
[2020-09-01] MEDS: Ferrous Sulfate 300 MG/5 ML UDC GT (08:52)
[2020-09-01] MEDS: Arthritis Pain Compound 60 CLICK TUBE TOPICAL ×2 (08:52→20:31)
[2020-09-01] MEDS: APIXABAN 2.5 MG TABLET GT ×2 (08:52→20:30)
[2020-09-01] MEDS: Multivitamin/Minerals/Iron (9 mg/15 ml) Liquid GT (08:52)
[2020-09-01] MEDS: MAGNESIUM OXIDE 400 MG TABLET GT (08:52)
[2020-09-01] MEDS: amLODIPine 5 MG Tablet GT ×2 (08:53→20:30)
[2020-09-01] MEDS: Lansoprazole 15 MG Capsule.DR GT (08:53)
[2020-09-01] MEDS: Atenolol 25 MG Tablet 75 MG GT ×2 (08:53→20:29)
[2020-09-01] MEDS: Sertraline 50 MG Tablet GT (08:53)
[2020-09-01] MEDS: Jevity 1.5. 1,000 ML Bottle 270 ML GT ×2 (08:54→20:31)
[2020-09-01] MEDS: Menthol/Lanolin/Calamine/Znox 113 GM Tube 1 APPLIC TOPICAL ×2 (09:08→20:31)
[2020-09-01 09:44] VITALS: BMI 32.6
--- NOTE | 2020-09-01 10:40 | PN_ITS ---
Progress Note Postoperative day #3 Continues to be afebrile. Vital signs are stable and the blood pressure is well controlled. She is maintaining appropriate oxygen saturation on room air Tolerating the TF boluses with no residuals Only 100 cc of urine output was documented yesterday. I discussed with nursing and patient is definitely voiding and is not incontinent so I suspect this is inaccurate. Wt is up 6 lbs today from yesterday. She was weighed with the WC today. Yesterday she walked onto the scale......will have the NA weigh again standing on the scale. Denies SOB. Denies nausea, abdominal pain ( except superficial around the PEG site), CP, palpitations, lightheadedness. She had a prolonged episode of choking yesterday when she was drinking and simultaneously trying to take a breath. I listened to the lungs immediately afterward and she was clear except for a few coarse crackles in the R base which she has chronically. Denies tigh tness in her legs. Alert, oriented X3 Neck is supple, no JVD Lungs-coarse crackles in the bases, left basilar crackles resolved after a few deep breaths but right basilar crackles are persistent and they are not fine, they are coarse. I suspect she has some scarring in the right base and chest x- ray is consistent with this. Heart-regular rate and rhythm, no murmur, no gallop, no rub Abdomen-soft, nontender, nondistended, normal bowel sounds, no guarding with palpation Chronic ankle edema with no pretibial edema and no edema in the posterior thighs. No calf tenderness No rashes or skin breakdown No significant change in neuro exam Impressions 1. Post stroke debility 2. Dysphagia-required PEG tube to maintain nutrition and hydration. 3. Dysarthria-much improved 4. Right hemiparesis-not completely back to her performance on 08/16/2020 prior to the second stroke. 5. Chronic renal failure stage IV?5 6. Iron deficiency 7. Hemoccult positive stool Lab ordered for the AM [facility] Vital Signs/Narrative: Vital Signs Temp Pulse Resp BP Pulse Ox 09/01/20 08:11 97.4 F L 66 18 124/52 H 97 09/01/20 07:37 97.4 F L 66 18 124/52 H 97 Inpatient E&M: [id number] Subs Hosp L2
--- NOTE | 2020-09-01 10:41 | CASEMGMT ---
Social Work IDT met and discussed DC date for patient. IDT agreeable to DC 09/07. Spoke with pt about DC - pt agreeable and excited. Left message with son about DC plans and inquired about ensuring additional help at home with pt. Notified [facility] of DC date - PT/OT/ST/SN/NI. No DME needs. Will Team Saturday. Plan: DC home with sons support 09/07 with [facility] PT/OT/ST/SN/NI. Tuyet Silva, REMI FISHMANW
[2020-09-01] MEDS: Ascorbic Acid 500 MG Tablet GT (11:52)
[2020-09-01 17:29] VITALS: BP 140/55; PULSE 68; RESP 18; TEMP 36.9; O2SAT 97
[2020-09-01] MEDS: Atorvastatin Calcium 80 MG Tablet GT (20:30)
[2020-09-01] MEDS: MELATONIN 3 MG TABLET 6 MG GT (20:30)
[2020-09-02 08:42] VITALS: BP 133/72; PULSE 65; RESP 12; TEMP 36.6; O2SAT 96
[2020-09-02] MEDS: Acetaminophen 650 MG/20 ML UDC 500 MG GT ×2 (08:57→21:38)
[2020-09-02] MEDS: Ferrous Sulfate 300 MG/5 ML UDC GT (08:58)
[2020-09-02] MEDS: MAGNESIUM OXIDE 400 MG TABLET GT (08:58)
[2020-09-02] MEDS: Arthritis Pain Compound 60 CLICK TUBE TOPICAL ×2 (08:58→21:13)
[2020-09-02] MEDS: Multivitamin/Minerals/Iron (9 mg/15 ml) Liquid GT (08:58)
[2020-09-02] MEDS: Aspirin 81 MG TAB.CHEW GT (08:58)
[2020-09-02] MEDS: Menthol/Lanolin/Calamine/Znox 113 GM Tube 1 APPLIC TOPICAL ×2 (08:59→21:16)
[2020-09-02] MEDS: APIXABAN 2.5 MG TABLET GT ×2 (08:59→21:13)
[2020-09-02] MEDS: Lansoprazole 15 MG Capsule.DR GT (09:00)
[2020-09-02] MEDS: Sertraline 50 MG Tablet GT (09:00)
[2020-09-02] MEDS: amLODIPine 5 MG Tablet GT ×2 (09:00→21:14)
[2020-09-02] MEDS: Atenolol 25 MG Tablet 75 MG GT ×2 (09:00→21:15)
[2020-09-02 09:20] LABS: Hematocrit 35.4 % (37-47); Hemoglobin 10.4 g/dL (12.0-15.0)
[2020-09-02 09:37] LABS: Anion Gap 5 (5-15); BUN 29 mg/dL (7-18); BUN/Creat Ratio 13.6 RATIO (10-20); Calcium,Total 9.2 mg/dL (8.5-10.1); Chloride 109 mmol/L (98-107); Creatinine, Serum 2.13 mg/dL (0.55-1.02); EST Glomerular Filtration Rate 24 mL/min (>60); Est Glom Filt Rate - Afr Amer 28 mL/min (>60); Estimated Creatinine Clearance 15.83 ml/min; Glucose 122 mg/dL (74-106); Magnesium 2.2 mg/dL (1.6-2.6); Potassium 4.7 mmol/L (3.5-5.1); Sodium Level 137 mmol/L (136-145)
--- NOTE | 2020-09-02 11:03 | NURSING ---
Pt refused Prevnar 13 vaccine stating I don't want that or any other vaccine. education provided, pt declined. Will make Dr. Hsu aware. RN aware.
[2020-09-02] MEDS: Ascorbic Acid 500 MG Tablet GT (11:17)
[2020-09-02 11:49] VITALS: BMI 32.6
[2020-09-02 19:09] VITALS: BP 124/52; PULSE 65; RESP 18; TEMP 37; O2SAT 95
[2020-09-02 21:00] VITALS: BMI 32.6
[2020-09-02] MEDS: MELATONIN 3 MG TABLET 6 MG GT (21:13)
[2020-09-02] MEDS: Atorvastatin Calcium 80 MG Tablet GT (21:14)
[2020-09-02] MEDS: Jevity 1.5. 1,000 ML Bottle 270 ML GT (21:16)
[2020-09-02 22:00] VITALS: PULSE 69; RESP 16; O2SAT 96
[2020-09-03 07:34] VITALS: BP 128/60; PULSE 65; RESP 16; TEMP 36.6; O2SAT 96
[2020-09-03] MEDS: Sertraline 50 MG Tablet GT (08:32)
[2020-09-03] MEDS: APIXABAN 2.5 MG TABLET GT ×2 (08:32→22:44)
[2020-09-03] MEDS: Aspirin 81 MG TAB.CHEW GT (08:32)
[2020-09-03] MEDS: amLODIPine 5 MG Tablet GT ×2 (08:32→22:47)
[2020-09-03] MEDS: Acetaminophen 650 MG/20 ML UDC 500 MG GT (08:33)
[2020-09-03] MEDS: Multivitamin/Minerals/Iron (9 mg/15 ml) Liquid GT (08:33)
[2020-09-03] MEDS: Atenolol 25 MG Tablet 75 MG GT ×2 (08:33→23:13)
[2020-09-03] MEDS: Ferrous Sulfate 300 MG/5 ML UDC GT (08:33)
[2020-09-03] MEDS: MAGNESIUM OXIDE 400 MG TABLET GT (08:36)
[2020-09-03] MEDS: Lansoprazole 15 MG Capsule.DR GT (08:37)
[2020-09-03] MEDS: Arthritis Pain Compound 60 CLICK TUBE TOPICAL ×2 (09:01→22:44)
[2020-09-03] MEDS: Menthol/Lanolin/Calamine/Znox 113 GM Tube 1 APPLIC TOPICAL ×2 (09:01→22:52)
[2020-09-03] MEDS: Ascorbic Acid 500 MG Tablet GT (13:22)
[2020-09-03 17:00] VITALS: BMI 32.6
[2020-09-03 19:41] VITALS: BP 151/74; PULSE 64; RESP 16; TEMP 36.7; O2SAT 97
[2020-09-03 22:00] VITALS: RESP 15
[2020-09-03] MEDS: Atorvastatin Calcium 80 MG Tablet GT (22:45)
[2020-09-03] MEDS: MELATONIN 3 MG TABLET 6 MG GT (22:46)
[2020-09-03] MEDS: Jevity 1.5. 1,000 ML Bottle 270 ML GT (22:52)
[2020-09-04 07:55] VITALS: BP 141/69; PULSE 68; RESP 16; TEMP 36.6; O2SAT 96
[2020-09-04] MEDS: Aspirin 81 MG TAB.CHEW GT (10:11)
[2020-09-04] MEDS: APIXABAN 2.5 MG TABLET GT ×2 (10:11→19:54)
[2020-09-04] MEDS: Sertraline 50 MG Tablet GT (10:11)
[2020-09-04] MEDS: Ferrous Sulfate 300 MG/5 ML UDC GT (10:11)
[2020-09-04] MEDS: Atenolol 25 MG Tablet 75 MG GT ×2 (10:11→19:53)
[2020-09-04] MEDS: Lansoprazole 15 MG Capsule.DR GT (10:11)
[2020-09-04] MEDS: Multivitamin/Minerals/Iron (9 mg/15 ml) Liquid GT (10:12)
[2020-09-04] MEDS: Acetaminophen 650 MG/20 ML UDC 500 MG GT ×2 (10:12→19:51)
[2020-09-04] MEDS: Ascorbic Acid 500 MG Tablet GT (10:12)
[2020-09-04] MEDS: amLODIPine 5 MG Tablet GT ×2 (10:12→19:53)
[2020-09-04] MEDS: MAGNESIUM OXIDE 400 MG TABLET GT (10:12)
[2020-09-04] MEDS: Arthritis Pain Compound 60 CLICK TUBE TOPICAL ×2 (10:12→20:12)
[2020-09-04] MEDS: Menthol/Lanolin/Calamine/Znox 113 GM Tube 1 APPLIC TOPICAL ×2 (10:21→19:56)
[2020-09-04 14:34] VITALS: BMI 32.6
[2020-09-04 19:50] VITALS: BP 134/61; PULSE 64; RESP 16; TEMP 36.6; O2SAT 95
[2020-09-04] MEDS: MELATONIN 3 MG TABLET 6 MG GT (19:53)
[2020-09-04] MEDS: Atorvastatin Calcium 80 MG Tablet GT (19:53)
[2020-09-04] MEDS: Jevity 1.5. 1,000 ML Bottle 270 ML GT (19:54)
[2020-09-05 08:27] VITALS: BP 154/69; PULSE 65; RESP 20; TEMP 36.6; O2SAT 96
[2020-09-05] MEDS: Aspirin 81 MG TAB.CHEW GT (09:27)
[2020-09-05] MEDS: Arthritis Pain Compound 60 CLICK TUBE TOPICAL (09:28)
[2020-09-05] MEDS: Menthol/Lanolin/Calamine/Znox 113 GM Tube 1 APPLIC TOPICAL ×2 (09:28→21:51)
[2020-09-05] MEDS: Multivitamin/Minerals/Iron (9 mg/15 ml) Liquid GT (09:28)
[2020-09-05] MEDS: Ferrous Sulfate 300 MG/5 ML UDC GT (09:28)
[2020-09-05] MEDS: MAGNESIUM OXIDE 400 MG TABLET GT (09:28)
[2020-09-05] MEDS: APIXABAN 2.5 MG TABLET GT ×2 (09:29→21:23)
[2020-09-05] MEDS: Lansoprazole 15 MG Capsule.DR GT (09:29)
[2020-09-05] MEDS: amLODIPine 5 MG Tablet GT ×2 (09:30→21:23)
[2020-09-05] MEDS: Atenolol 25 MG Tablet 75 MG GT ×2 (09:30→21:23)
[2020-09-05] MEDS: Sertraline 50 MG Tablet GT (09:31)
--- NOTE | 2020-09-05 09:56 | PN_ITS ---
Patient Problems: Active and Suspected Problems Dysarthria (Acute) UTI (urinary tract infection) (Acute) Secondary to Enterobacter cloacae CVA (cerebral vascular accident) (Acute) Occured on 08/17/20 with worsening dysarthria and dysphagia and increased R side weakness Dysphagia (Acute) Acute worsening of dysphagia secondary to CVA on 08/17/2020 Debility (Acute) Secondary to strokes. The first stroke occurred 06/28/2020 and the second stroke occurred 08/17/2020. Acidosis, metabolic (Acute) Subjective: So was seen on team rounds today. Her son Satnam participated by phone. Satnam will be coming in tomorrow morning at 8 AM for family training. Afebrile VSS-there is an occasional mildly increased blood pressure but for the most part the blood pressure is well controlled. Maintaining appropriate oxygen saturation on RA Oral intake is good. She has not required a tube feeds since last . Her weight is stable at approximately 178 to 179 pounds. Discussed with nursing - no problems that need addressed Reviewed the PT/OT/ST notes. Medication list reviewed. So denies shortness of breath, chest pain, palpitations, nausea, vomiting, abdominal pain, constipation, NI, joint pain, changes in vision. Her only question to me today was when am I going home? - Physical Exam Vitals/I&O's: Vital Signs Temp Pulse Resp BP Pulse Ox 98 F 65 20 H 154/69 H 96 09/05/20 08:27 09/05/20 08:27 09/05/20 08:27 09/05/20 08:27 09/05/20 08:27 Oxygen Delivery Method Room Air Weight: 178 lb 12.718 oz Body Mass Index (BMI) 32.6 Intake and Output for Last 24 Hours 09/03/20 09/04/20 09/05/20 23:59 23:59 23:59 Intake Total 2600 / 2600 2990 / 2990 180 / 180 Output Total 1850 / 1850 1100 / 1300 500 / 500 Balance 750 / 750 1890 / 1690 -320 / -320 General: Alert, Oriented x3, Cooperative, No apparent distress, Well developed, Well nourished, - - sitting in the recliner with her legs dependent HEENT: EOMI, - - Pupils are equal round and reactive to light Oral: Moist Mucosa Neck: Supple Lungs: Rales - Few coarse crackles in the bases bilaterally that mostly cleared, with the exception of the right base, after several deep breaths. She chronically has a few coarse crackles in the right base. Cardiovascular: Regular rate, Regular Rhythm, No rub noted, No Gallop Abdomen: Bowel Sounds Present, Soft, Non Tender, Non-Distended, - - PEG site is without erythema, purulent discharge. Functioning well with no post feeding residuals. Extremities: Edema - ankles only Skin: No rashes, No breakdown Musculoskeletal: Arthritic Changes Neurological: - - I can not detect a facial droop when she smiles today. Her speech is much more intelligible. Still with R side weakness....RUE is not quite back to where is was prior to the second stroke. Psych/Mental Status: Appropriate Comment: She is upbeat and no tears. continue the same dose of the anti- depressant Microbiology Past 72 Hours 08/31/20 11:36 Urine Catheter - Catheter Urine Culture - Final Culture exhibits no growth. Current Medications Acetaminophen (Acetaminophen 650 Mg/20 Ml Udc) 500 mg GT Q6H PRN PRN PRN Reason: Pain 1-10 or Fever Last Admin: 09/04/20 19:51 Dose: 500 mg Documented by: Amlodipine Besylate (Amlodipine 5 Mg Tablet) 5 mg GT BID [facility] Last Admin: 09/05/20 09:30 Dose: 5 mg Documented by: Apixaban (Apixaban 2.5 Mg Tablet) 2.5 mg GT BID [facility] Last Admin: 09/05/20 09:29 Dose: 2.5 mg Documented by: Ascorbic Acid (Ascorbic Acid 500 Mg Tablet) 500 mg GT DAILY@1200 [facility] Last Admin: 09/04/20 10:12 Dose: 500 mg Documented by: Aspirin (Aspirin 81 Mg Tab.Chew) 81 mg GT DAILY@0800 [facility] Last Admin: 09/05/20 09:27 Dose: 81 mg Documented by: Atenolol (Atenolol 25 Mg Tablet) 75 mg GT BID [facility] Last Admin: 09/05/20 09:30 Dose: 75 mg Documented by: Atorvastatin Calcium (Atorvastatin Calcium 80 Mg Tablet) 80 mg GT QHS [facility] Last Admin: 09/04/20 19:53 Dose: 80 mg Documented by: Calamine/Phenol (Menthol/Lanolin/Calamine/Znox 113 Gm Tube) 1 applic TOPICAL BID TARUN; Protocol Last Admin: 09/05/20 09:28 Dose: 1 applicatio Documented by: Compound Med (Arthritis Pain Compound 60 Click Tube) 0 click TOPICAL BID TARUN; Protocol Last Admin: 09/05/20 09:28 Dose: 1 click Documented by: Enteral Nutritional Formula (Jevity 1.5. 1,000 Ml Bottle) 270 ml GT TID PRN PRN PRN Reason: PO INTAKE < 50% Last Admin: 09/01/20 08:54 Dose: 270 ml Documented by: Enteral Nutritional Formula (Jevity 1.5. 1,000 Ml Bottle) 270 ml GT HS [facility] Last Admin: 09/04/20 19:54 Dose: 270 ml/min Documented by: Ferrous Sulfate (Ferrous Sulfate 300 Mg/5 Ml Udc) 300 mg GT DAILY@0800 [facility] Last Admin: 09/05/20 09:28 Dose: 300 mg Documented by: Lansoprazole (Lansoprazole 15 Mg Capsule.Dr) 15 mg GT DAILY [facility] Last Admin: 09/05/20 09:29 Dose: 15 mg Documented by: Magnesium Oxide ([facility]esium [facility] 400 Mg Tablet) [facility] Last Admin: 09/05/20 09:28 Dose: 400 mg Documented by: Melatonin (Melatonin 3 Mg Tablet) 6 mg GT QHS [facility] Last Admin: 09/04/20 19:53 Dose: 6 mg Documented by: Ondansetron HCl (Ondansetron 4 Mg/2 Ml Vial) 4 mg IV Q6H PRN PRN PRN Reason: NAUSEA/VOMITING Last Admin: 08/24/20 12:42 Dose: 4 mg Documented by: Senna/Docusate Sodium (Senna/Docusate Sodium 1 Tablet) 1 tablet GT BID PRN PRN Reason: Constipation Sertraline HCl (Sertraline 50 Mg Tablet) 50 mg GT DAILY [facility] Last Admin: 09/05/20 09:31 Dose: 50 mg Documented by: Sodium Chloride (0.9% Saline Lock 10 Ml Syringe) 10 - 40 ml IV UD PRN PRN Reason: SALINE FLUSH Last Admin: 08/31/20 13:49 Dose: 10 ml Documented by: Sodium Chloride (0.9% Saline Lock 10 Ml Syringe) 10 - 40 ml IV UD PRN PRN Reason: SALINE FLUSH Medical Necessity - Tobacco Use Smoking Status: Never smoker Tobacco Use: Non-smoker Assessment/Plan All Active Problems Dysarthria (Acute) UTI (urinary tract infection) (Acute) CVA (cerebral vascular accident) (Acute) Dysphagia (Acute) Insomnia (Resolved) Thrush (Resolved) Drug-induced pancytopenia (Resolved) Debility (Acute) Acidosis, metabolic (Acute) Dehydration (Resolved) Acute renal failure superimposed on chronic kidney disease (Resolved) Right ankle sprain (Resolved) Ankle pain (Resolved) Impressions 1. 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 The first was a L dae presumed to be embolic and the second occurred on 08/17/20. MRI was negative BUT, she clearly has severe dysphagia now and much more prominent facial droop and dysarthria. I think the MRI may have been obtained too soon. I suspect she may have had a R cerebral sichemic CVA since the predominant sx are dysphagia and dysarthria and no significant change in extremity weakness or gait instability. 2. Mild cystitis secondary to Enterobacter cloacae-received 7 days of antibiotics. Recheck had 0 WBC's 3. Severe dysphagia 4. Dysarthria 5. 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 decreased oral intake due to severe dysphagia.......She is not taking adequate intake and I am afraid she will not be able to take enough calories and fluid to sustain herself going forward 7. bradycardia Recheck lab in the AM continue the current drug regimen. Satnam will come in tomorrow for family training Inpatient E&M: [id number] [facility] Hosp L2
--- NOTE | 2020-09-05 10:02 | CASEMGMT ---
Social Work IDT met with patient and son via conference call for Team meeting. Discussed patient's progress in therapy. Pt is mod for tx, left foot slides out, ambulating 165 ft with F[facility] at [facility], completing steps vary - sometimes can do it, other times cannot. Improving on right arm strength. Pt is set up while seated for grooming, max for LE ADLs, min-mod shower tx, min for bathing. Pt remains on honey thick, puree diet - intake has increased and has not needed to use Peg. Pt does get meds crushed through peg. Pt is on FFWP and ST using vital stim fo strengthening and continuing to work on speech clarity. Son to come in for peg and therapy training 09/06. Pt to DC home 09/07 with son support. [facility] ordered for PT/OT/ST/SN/NI. No DME needs. Tuyet Silva, SIGN LANGUAGE INTERPRETER HORSE IDENTIFIER
[2020-09-05 10:06] VITALS: BMI 32.6
[2020-09-05] MEDS: Ascorbic Acid 500 MG Tablet GT (11:56)
[2020-09-05 19:35] VITALS: BP 140/82; PULSE 68; RESP 18; TEMP 36.8; O2SAT 96
[2020-09-05 20:51] VITALS: BMI 32.6
[2020-09-05] MEDS: Acetaminophen 650 MG/20 ML UDC 500 MG GT (21:22)
[2020-09-05] MEDS: Atorvastatin Calcium 80 MG Tablet GT (21:23)
[2020-09-05] MEDS: MELATONIN 3 MG TABLET 6 MG GT (21:23)
[2020-09-05] MEDS: Jevity 1.5. 1,000 ML Bottle 270 ML GT (21:32)
[2020-09-05 22:00] VITALS: RESP 17; O2SAT 96
[2020-09-06] MEDS: MAGNESIUM OXIDE 400 MG TABLET GT (08:03)
[2020-09-06] MEDS: Lansoprazole 15 MG Capsule.DR GT (08:04)
[2020-09-06] MEDS: Aspirin 81 MG TAB.CHEW GT (08:04)
[2020-09-06] MEDS: Ferrous Sulfate 300 MG/5 ML UDC GT (08:04)
[2020-09-06] MEDS: Atenolol 25 MG Tablet 75 MG GT ×2 (08:05→20:17)
[2020-09-06] MEDS: Multivitamin/Minerals/Iron (9 mg/15 ml) Liquid GT (08:05)
[2020-09-06] MEDS: APIXABAN 2.5 MG TABLET GT ×2 (08:05→20:16)
[2020-09-06] MEDS: amLODIPine 5 MG Tablet GT ×2 (08:06→20:17)
[2020-09-06] MEDS: Menthol/Lanolin/Calamine/Znox 113 GM Tube 1 APPLIC TOPICAL ×2 (08:06→20:21)
[2020-09-06] MEDS: Sertraline 50 MG Tablet GT (08:06)
[2020-09-06 08:33] LABS: Hematocrit 30.2 % (37-47); Hemoglobin 9.5 g/dL (12.0-15.0); Mean Corp Hgb Conc 31.5 g/dL (32-36); Mean Corpuscular Hgb 32.1 pg (27.0-32.0); Mean Platelet Vol. 9.9 fl (6.2-12.0); Platelet Count 164 K/mm3 (150-450); RBC Distribution Width CV 13.2 % (11.6-14.6); RBC Distribution Width SD 49.1 fl (35.1-43.9); Red Blood Count 2.96 M/mm3 (4.2-5.4); White Blood Count 5.6 K/mm3 (4.4-11.0)
[2020-09-06 09:01] LABS: ALB/GLOB Ratio 0.8 RATIO (0.9-2.4); AST(SGOT) 21 U/L (15-37); Alanine Aminotransfer ALT/SGPT 18 U/L (13-56); Albumin, Serum 2.9 g/dL (3.2-5.0); Alkaline Phosphatase 99 U/L (45-117); Anion Gap 4 (5-15); BUN 35 mg/dL (7-18); BUN/Creat Ratio 15.2 RATIO (10-20); Calcium,Total 9.3 mg/dL (8.5-10.1); Chloride 105 mmol/L (98-107); EST Glomerular Filtration Rate 22 mL/min (>60); Est Glom Filt Rate - Afr Amer 26 mL/min (>60); Estimated Creatinine Clearance 14.66 ml/min; Globulin 3.7 g/dL (2.2-4.2); Glucose 135 mg/dL (74-106); Phosphorus 3.7 mg/dL (2.5-4.9); Protein, Total 6.6 g/dL (6.4-8.2); Sodium Level 137 mmol/L (136-145)
[2020-09-06 10:00] VITALS: BP 131/63; PULSE 61; RESP 16; TEMP 36.8; O2SAT 97; O2SAT 98
--- NOTE | 2020-09-06 11:21 | PN_ITS ---
Progress Note Afebrile VSS-blood pressures are adequately controlled. Maintaining appropriate oxygen saturation on RA Oral intake is good Discussed with nursing - no problems that need addressed Reviewed the PT/OT/ST notes Medication list reviewed. Tolerating the nightly TF with no significant residuals All lab was personally reviewed. White blood cell count is within normal limits. Hemoglobin is 9.5 and stable. MCV is still mildly elevated at 102 and this indicates that she has increased reticulocytes. Potassium is 5.0 today BUN is 35 and the creatinine is stable at 2.3. Fasting blood sugar is 135 and she is known to have glucose intolerance. Magnesium is normal at 2 and the phosphorus is normal at 3.7. LFTs are normal. She has no complaints. She is eating well but, tells me she had a choking episode again yesterday....she was not eating at the time. Denies cough, SOB, palpitations, N/V/abdominal pain. alert, oriented X3, pleasant and anxious to go home MM are moist Lungs few coarse crackles in the bases that mostly resolve after a few deep breaths, she is not tachypneic and she has no conversational dyspnea HRRR Abd - soft and NT, no erythema around the PEG site, no DC mild ankle edema - chronic. she has been sitting with her legs down more often recently no calf pain. Impressions 1. post stroke debility 2. dysphagia 3. S/P PEG placement 4. Borderline hyperkalemia add a potassium restriction to the diet. Consult the acid dumper to instruct in potassium restriction......she has been eating a lot of mashed potatoes with gravy lately because it is easier for her to swallow. Recheck the potassium level in the AM Home tomorrow with [facility] Satnam came in for family training today and his brother will help to get So home tomorrow STROKE Vital Signs/Narrative: Vital Signs Temp Pulse Resp BP Pulse Ox 09/06/20 10:00 98.2 F 61 16 131/63 H 97 Inpatient E&M: 17802 Subs Hosp L2
--- NOTE | 2020-09-06 13:01 | DCINST_ITS ---
- Discharge Diagnoses Current Active Problems: Current Active and Chronic Problems Dysarthria (Acute) CVA (cerebral vascular accident) (Chronic) 06/28/2020 UTI (urinary tract infection) (Acute) Secondary to Enterobacter cloacae CVA (cerebral vascular accident) (Acute) Occured on 08/17/20 with worsening dysarthria and dysphagia and increased R side weakness Iron deficiency (Chronic) Chronic venous insufficiency of lower extremity (Chronic) Dysphagia (Acute) Acute worsening of dysphagia secondary to CVA on 08/17/2020 Chronic renal failure, stage 4 (severe) (Chronic) Heme + stool (Chronic) PAF (paroxysmal atrial fibrillation) (Chronic) Chronic anticoagulation (Chronic) With apixaban Debility (Acute) Secondary to strokes. The first stroke occurred 06/28/2020 and the second stroke occurred 08/17/2020. 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 Osteoarthritis (Chronic) Hypertension (Chronic) Keratitis (Chronic) Obesity (BMI 30.0-34.9) (Chronic) Acidosis, metabolic (Acute) Normochromic normocytic anemia (Chronic) Gout (Chronic) Hyperuricemia (Chronic) You will use the following diet at home:: Regular, Other - low potassium Your food should be the consistency of: Puree Your liquids should be the consistency of: Honey Thick Discharge Activity: May Not Drive, - - do your exercises given to you by the therapists twice a day at least 6 days a week. This will maintain and improve your strength. MOVE IT AND USE IT OR LOSE IT! Weight Bearing Status: Full weight bearing Lifting Restrictions: no lifting Keep extremity elevated above heart level: Legs - to help control swelling Call your doctor if you observe: Fever of 101 or Higher, Inability to urinate, Inability to have a bowel movement, Shortness of breath, Dizziness, Fainting spells, Chest pain, Increased palpitations (irregular heartbeat), Uncontrolled pain, - Instructions: Monitoring Kidney Health, Kidney Disease: Eating Less Sodium, Chronic Kidney Disease Additional Instructions: 1. You are amazing So. You have worked hard and you have been a delight to everyone who works in rehab. We will all miss you BUT, we are all thrilled to see you going HOME. GOOD JOB! 2. You have been doing better swallowing and I suspect you are not going to need the PEG tube in another 2 months. You must wait at least 6 weeks before taking it out.......or you risk bleeding a lot. Dr. Gore put the tube in and he will be the one to remove it. He can do this in the office. 3. Go the ED or call 911 immediately if sudden onset: 1. facial droop 2. slurred speech or inability to get words out 3. weakness or numbness on 1 side of the face, arm or leg. 4. vertigo or room spinning 5. loss of vision or trouble seeing in one eye 6. Confusion 7. Trouble walking or maintaining balance and trouble with coordination 8. Sudden severe headache with no known cause 4. When you are eating someone must be with you. Take small bites/sips, single sips, and swallow until your mouth is clear. Alternate liquids and solids. Slow rate of eating. You must sit upright at 90 degrees while eating and for 1 hour after eating and also after tube feeds. NO straws. 5. You are on more medications than when you came to us but, I review all your meds every day and you really need to take all of the meds you have been given to help prevent strokes in the future. I started you on an anti-depressant (Sertraline) after the second stroke and you have done well with no bad side effects to the medication. I recommend you take the Sertraline for at least 3 months and then if you are doing well and want to try getting off the medication you must wean the dose. Decrease to 25 mg daily for a month and then if you are still doing well you can try stopping it. If depressive symptoms recur then restart at 25 mg. 6. If you have any questions So please call me. My office number is [phone] and my cell number is [phone]. You could also call the rehab unit at [phone]. I image you were an awesome mother So......you raised a great son. Satnam is a good man and he surely loves his momma. Pending Tests on Discharge: none Allergies/Adverse Reactions: Allergies amlodipine [From Norvasc] Adverse Reaction (Verified 07/04/20 16:03) PT UNSURE OF REACTION amoxicillin [From Augmentin] Adverse Reaction (Verified 07/04/20 17:59) PT UNSURE OF REACTION clavulanic acid [From Augmentin] Adverse Reaction (Verified 07/04/20 17:59) PT UNSURE OF REACTION diphtheria, pertussis, tetanus vacc Adverse Reaction (Verified 07/04/20 16:03) PT UNSURE OF REACTION hydrochlorothiazide [From Maxzide] Adverse Reaction (Verified 07/04/20 16:03) PT UNSURE OF REACTION lisinopril Adverse Reaction (Verified 07/04/20 16:03) PT UNSURE OF REACTION Sulfa (Sulfonamide Antibiotics) Adverse Reaction (Verified 07/04/20 16:03) PT UNSURE OF REACTION triamterene [From Maxzide] Adverse Reaction (Verified 07/04/20 16:03) PT UNSURE OF REACTION Medications to take at Discharge Arthritis Pain Compound 0 click TOPICAL BID #0 gm 08/16/20 Acetaminophen [8 Hour Acetaminophen] 650 mg PO Q6H PRN PRN 08/18/20 Arthritis Pain Compound See Protocol click TOPICAL BID 08/18/20 Menthol/Lanolin/Calamine/Znox [Calmoseptine Ointment] 1 applicatio TOPICAL BID 08/18/20 Amlodipine Besylate [Norvasc] 5 mg PO BID #60 tab 09/06/20 Apixaban [Eliquis] 2.5 mg PO BID #60 tab 09/06/20 Ascorbic Acid [Vitamin C] 500 mg GT DAILY@1200 #30 tab 09/06/20 Aspirin [Aspirin EC] 81 mg PO DAILY #1 bottle 09/06/20 Atenolol [Tenormin (beta logan)] 75 mg GT BID #180 tab 09/06/20 Atorvastatin Calcium [Lipitor] 80 mg GT QHS #30 tab 09/06/20 Ferrous Sulfate Syrup 300 mg GT DAILY@0800 #5 oz 09/06/20 Furosemide [Lasix] 60 mg PO DAILY PRN #30 tab 09/06/20 Jevity 1.5 270 ml GT UD #15 bottle 09/06/20 Lansoprazole 15 mg GT DAILY #30 capsule. 09/06/20 Melatonin 6 mg GT QHS #60 tab 09/06/20 Multivitamin 1 ea PO DAILY #30 tab 09/06/20 Sertraline HCl [Zoloft] 50 mg GT DAILY #30 tab 09/06/20 The following prescriptions were given: Aspirin [Aspirin EC] 81 mg PO DAILY #1 bottle Transmission Status: Pending to [facility] Apixaban [Eliquis] 2.5 mg PO BID #60 tab Transmission Status: Pending to [facility] Ferrous Sulfate Syrup 300 mg GT DAILY@0800 #5 oz Transmission Status: Pending to [facility] Jevity 1.5 270 ml GT UD #15 bottle Transmission Status: Pending to [facility] Lansoprazole 15 mg GT DAILY #30 capsule.dr Transmission Status: Pending to [facility] Furosemide [Lasix] 60 mg PO DAILY PRN #30 tab PRN Reason: See instructions Transmission Status: Pending to [facility] Atorvastatin Calcium [Lipitor] 80 mg GT QHS #30 tab Transmission Status: Pending to [facility] Melatonin 6 mg GT QHS #60 tab Transmission Status: Pending to [facility] Multivitamin 1 ea PO DAILY #30 tab Prescription Printed Amlodipine Besylate [Norvasc] 5 mg PO BID #60 tab Transmission Status: Pending to [facility] Atenolol [Tenormin (beta logan)] 75 mg GT BID #180 tab Transmission Status: Pending to [facility] Ascorbic Acid [Vitamin C] 500 mg GT DAILY@1200 #30 tab Transmission Status: Pending to [facility] Sertraline HCl [Zoloft] 50 mg GT DAILY #30 tab Transmission Status: Pending to [facility] Test Results: Test results from this visit will be discussed in further detail at your follow- up appointment, if applicable. Please Follow Up With: Dr. Mario Perez - Internal Medicine When: Saturday Please Follow Up With: Miriam Estrada DPM - thread inspector When: as needed for nail care Please Follow Up With: Zenaida Barragan DO - kidney specialist Please Follow Up With: Deshaun Wilson MD - neurologist Proposed Discharge Date: 09/07/20
[2020-09-06] MEDS: Ascorbic Acid 500 MG Tablet GT (13:04)
--- NOTE | 2020-09-06 13:35 | PCM.DC.SUM ---
Discharge Date and Diagnosis - Problem List Patient Problems: Active and Suspected Problems Dysarthria (Acute) UTI (urinary tract infection) (Acute) Secondary to Enterobacter cloacae CVA (cerebral vascular accident) (Acute) Occured on 08/17/20 with worsening dysarthria and dysphagia and increased R side weakness Dysphagia (Acute) Acute worsening of dysphagia secondary to CVA on 08/17/2020 Debility (Acute) Secondary to strokes. The first stroke occurred 06/28/2020 and the second stroke occurred 08/17/2020. Date of Admission: 08/18/20 Date of Discharge: 09/07/20 - Primary Discharge Diagnosis Acute Problems: Active Problems Post stroke debility UTI (urinary tract infection) (Acute) 08/17/20 Secondary to Enterobacter cloacae 07/14/20 due to Morganella morganii and Klebsiella pneumoniae I CVA (cerebral vascular accident) (Acute) x2 06/28/2020 due to emboli related to new onset paroxysmal atrial fibrillation.... Left dae 08/17/2020 while on apixaban with increased right upper extremity weakness, severe dysarthria and severe dysphagia Dysphagia (Acute) Acute worsening of dysphagia secondary to CVA on 08/17/2020 PEG tube insertion 08/29/[address] Gore for severe dysphagia Hemoccult positive stool Iron deficiency Hypomagnesemia-resolved Dehydration-resolved Metabolic acidosis-resolved Pancytopenia secondary to allopurinol-resolved with discontinuation of allopurinol Right ankle sprain Bradycardia-resolved with decrease in the dose of atenolol to 75 mg twice daily Hyperkalemia Suspected Problems: Osteoporosis Evidence of bone loss on Xray. Has not had a DEXA but, she is now at increased risk for osteoporosis since mobility is greatly decreased since she has had 2 strokes since Jun. - Secondary Discharge Diagnosis Chronic Problems: Chronic Problems Iron deficiency (Chronic) Chronic venous insufficiency of lower extremity (Chronic) Chronic renal failure, stage 4 (severe) (Chronic) Heme + stool (Chronic) - 3 times while in the hospital. 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 Osteoarthritis (Chronic) Hypertension (Chronic) Keratitis (Chronic) Obesity (BMI 30.0-34.9) (Chronic) Normochromic normocytic anemia (Chronic) due to iron deficiency and to CRF stage 4-5 Gout (Chronic) Hyperuricemia (Chronic) Hospital Course and Treatment Imaging Results: Clinical Impression(s) from Imaging Studies Renal Ultrasound 07/06/20 14:05 IMPRESSION: Nonspecific renal parenchymal disease and multiple bilateral cysts Electronically Signed: Jayy Duncan MD at 22:46 EDT , Service support , Brain CT 07/08/20 11:35 IMPRESSION: Chronic involutional changes of the brain. Evidence of ischemic change in the body of the right caudate nucleus. Partial opacification of the left sphenoid sinus. Electronically Signed: Keo Blackwell, at 12:24 EDT , Service support , Ankle X-Ray 07/19/20 10:19 IMPRESSION: There is soft tissue swelling at the ankle suggesting edema. Electronically Signed: Jacqueline De Jesus at 12:31 EDT Tel , Service support , Chest X-Ray 08/12/20 14:25 IMPRESSION: Probable COPD with borderline cardiomegaly. Electronically Signed: Camilo Baig DO at 18:16 EDT Tel [phone], Service support , Brain CT 08/17/20 07:24 IMPRESSION: There is no acute intracranial abnormality. Electronically Signed: Jacqueline De Jesus at 7:52 EST Tel , Service support , MRI/Brain without Contrast IMPRESSION: Involutional changes of the brain, as described above. No acute infarct. This is being reviewed. She had persistent new focal neurologic deficits that persisted. Electronically Signed: Melecio Denney MD at 13:25 EST Tel , Service support , Laboratory Last Values WBC 5.6 K/mm3 (4.4-11.0) 09/06/20 08:15 RBC 2.96 M/mm3 (4.2-5.4) L 09/06/20 08:15 Hgb 9.5 g/dL (12.0-15.0) L 09/06/20 08:15 Hct 30.2 % (37-47) L 09/06/20 08:15 MCV 102.0 fL (81-99) H 09/06/20 08:15 MCH 32.1 pg (27.0-32.0) H 09/06/20 08:15 MCHC 31.5 g/dL (32-36) L 09/06/20 08:15 RDW Std Deviation 49.1 fl (35.1-43.9) H 09/06/20 08:15 RDW Coeff of Richar 13.2 % (11.6-14.6) 09/06/20 08:15 Plt Count 164 K/mm3 (150-450) 09/06/20 08:15 MPV 9.9 fl (6.2-12.0) 09/06/20 08:15 Immature Gran % (Auto) 0.400 % (0.0-0.9) 08/27/20 07:10 Neut % (Auto) 59.1 % (47-70) 08/27/20 07:10 Lymph % (Auto) 27.9 % (19-41) 08/27/20 07:10 [place] % (Auto) 8.6 % (0-10) 08/27/20 07:10 Eos % (Auto) 3.4 % (0-5) 08/27/20 07:10 Baso % (Auto) 0.6 % (0-1) 08/27/20 07:10 Absolute Neuts (auto) 3.2 X10^3/uL (2.0-7.7) 08/27/20 07:10 Absolute Lymphs (auto) 1.49 X10^3/uL (0.83-4.51) 08/27/20 07:10 Nucleated RBC % 0 % (0-5) 08/27/20 07:10 Differential Comment SCANNED 07/15/20 05:33 Platelet Estimate MOD DEC (ADEQ) 07/15/20 05:33 PT 15.4 SECONDS (11.7-14.9) H 08/27/20 07:10 INR 1.3 08/27/20 07:10 APTT 33.0 Seconds (24.1-36.2) 08/27/20 07:10 Sodium 137 mmol/L (136-145) 09/06/20 08:15 Potassium 5.0 mmol/L (3.5-5.1) 09/06/20 08:15 Chloride 105 mmol/L (98-107) 09/06/20 08:15 Carbon Dioxide 28.0 mmol/L (21.0-32.0) 09/06/20 08:15 Anion Gap 4 (5-15) L 09/06/20 08:15 BUN 35 mg/dL (7-18) H 09/06/20 08:15 Creatinine 2.30 mg/dL (0.55-1.02) H 09/06/20 08:15 Estim Creat Clear Calc 14.66 ml/min 09/06/20 08:15 Est GFR (MDRD) Af Amer 26 mL/min (>60) L 09/06/20 08:15 Est GFR (MDRD) Non-Af 22 mL/min (>60) L 09/06/20 08:15 BUN/Creatinine Ratio 15.2 RATIO (-20) 09/06/20 08:15 Glucose 135 mg/dL (74-106) H 09/06/20 08:15 Hemoglobin A1c 5.7 % (3.8-5.6) H 07/06/20 05:25 Uric Acid 7.8 mg/dL (2.6-6.0) H 07/06/20 05:25 Calcium 9.3 mg/dL (8.5-10.1) 09/06/20 08:15 Phosphorus 3.7 mg/dL (2.5-4.9) 09/06/20 08:15 Magnesium 2.0 mg/dL (1.6-2.6) 09/06/20 08:15 Total Bilirubin 0.30 mg/dL (0.20-1.00) 09/06/20 08:15 AST 21 U/L (15-37) 09/06/20 08:15 ALT 18 U/L (13-56) 09/06/20 08:15 Alkaline Phosphatase 99 U/L (45-117) 09/06/20 08:15 B-Natriuretic Peptide 122.9 pg/mL (0-100) H 08/12/20 15:39 Total Protein 6.6 g/dL (6.4-8.2) 09/06/20 08:15 Albumin 2.9 g/dL (3.2-5.0) L 09/06/20 08:15 Globulin 3.7 g/dL (2.2-4.2) 09/06/20 08:15 Albumin/Globulin Ratio 0.8 RATIO (0.9-2.4) L 09/06/20 08:15 Urine Color Yellow (Yellow) 08/31/20 11:36 Urine Clarity Clear (Clear) 08/31/20 11:36 Urine pH 5.0 (5.0 - 8.0) 08/31/20 11:36 Ur Specific [place] 1.015 (1.002-1.030) 08/31/20 11:36 Urine Protein 30 mg/dl (Negative) H 08/31/20 11:36 Urine Glucose (UA) Normal mg/dl (Normal) 08/31/20 11:36 Urine Ketones Negative mg/dl (Negative) 08/31/20 11:36 Urine Occult Blood Negative /ul (Negative) 08/31/20 11:36 Urine Nitrite Negative (Negative) 08/31/20 11:36 Urine Bilirubin Negative mg/dL (Negative) 08/31/20 11:36 Urine Urobilinogen Normal mg/dl (Normal) 08/31/20 11:36 Ur Leukocyte Esterase Negative /ul (Negative) 08/31/20 11:36 Urine RBC 0 SEEN /hpf (0-5) 08/31/20 11:36 Urine WBC 0 SEEN /hpf (0-5) 08/31/20 11:36 Ur Squamous Epith Cells 0 SEEN /hpf (5-10) 08/31/20 11:36 Urine Bacteria 0 SEEN /hpf (None Seen) 08/31/20 11:36 Urine Mucus 0 SEEN /hpf (<or=2+) 08/31/20 11:36 U Random Total Protein 29.1 mg/dL (<11.9) H 07/06/20 14:10 Ur Random Sodium 70 mmol/L (Not Establ.) 07/06/20 14:10 Urine Creatinine 91.50 mg/dL (NO RANGE EST.) 07/06/20 14:10 Urine Creatinine 93.10 mg/dL (NO RANGE EST.) 07/06/20 14:10 Protein/Creatinin Ratio 318 mg/g CRE (0-200) H 07/06/20 14:10 POC Glucose 97 mg/dL (70-110) 08/17/20 06:36 Microbiology 08/31/20 11:36 Urine Catheter - Catheter Urine Culture - Final Culture exhibits no growth. 08/28/20 10:34 Mucosa - Nose SARS-CoV-2 Antigen (Rapid) - Final negative 08/17/20 10:25 Urine Catheter - Catheter Urine Culture - Final Enterobacter cloacae complex 08/17/20 09:51 Stool Stool Occult Blood (CARLOS) - Final Occult Blood Positive 08/16/20 07:45 Stool C. 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 The oral phase is marked by: impaired oral control w/ posterior loss/premature oropharyngeal bolus entry delayed lingual initiation for bolus transfer w/ slowed movement mild oral residue post deglutition solid textures not trialed d/t lack of lower denture placement upon arrival to radiology for MBS The pharyngeal phase is marked by: suboptimal bolus location at time of swallow onset w/ delayed initiation of pharyngeal swallow contrast pooling in the valleculae w/ bolus spilling to the pyriform sinuses and into the into the laryngeal vestibule before/during the swallow onset, resulting in penetration/aspiration d/t swallow delay w/ insufficient hyolaryngeal excursion and delayed and incomplete arytenoid to epiglottic petiole contact impaired sensory awareness; minimal to no response to penetration, contrast accumulation atop the vocal folds or jay aspiration extremely weak throat clearing was inconsistently present in response to aspiration 1x, otherwise aspiration was silent dystussia w/ insufficient cough strength to expel contrast from the trachea/laryngeal vestibule The esophageal function was unremarkable. none Operations: - Procedures: Peg tube placement - By Dr. Gore on 08/29/2020 for severe dysphagia with inability to take adequate nutritional intake or fluids. Summary of Care Provided: So is an 85 year old F with a past medical history of osteoarthritis, gout, hyperuricemia, hypertension, keratitis, obesity and chronic renal failure. She presented to the emergency room at [facility] on 06/28/2020 complaining of vertigo. She was diagnosed with atrial fibrillation with rapid ventricular response and was treated in the emergency department with diltiazem. A CT brain showed a small chronic/subacute infarct in the right basal ganglia. No focal neurologic deficits were mentioned on the ER report. The heart rate was controlled and she was transitioned to their swing unit. Lab in the emergency room showed a sodium of 139, potassium of 4.8, BUN of 71 and a creatinine of 2.35. Hemoglobin was 12.2. She was started on Xarelto despite having stage 4 CRF. She later developed slurred speech and her BP went up. She had an MRI of the brain on 07/04/20 that showed left pontine CVA and focal (embolic appearing) left brachium pontis late acute infarctions. There was no intracranial hemorrhage or mass. There was lacunar encephalomalacia in the right striatal capsular region. No lab was repeated after she left the ED. She had an ECHO in the emergency department that showed a 55% left ventricular ejection fraction with a mild increased wall thickness of the left ventricle. The estimated right ventricular systolic pressure was 15 and the atria were both of normal size. She was transferred to the acute inpt rehab unit at [facility] on 07/04/20 with a diagnosis of acute embolic CVA for 3 hours of therapy daily to restore hear at or near her prior level of function. So made steady progress in rehab and in fact she was scheduled to be discharged 08/17/20 to home. Unfortunately sometime during the night on 08/17/20 she had another stroke. When nursing woke her at 0600 on 08/17/20 her speech was quite slurred and she had increased generalized weakness. It took 2 people to assist her to the bedside commode and the preceding night it only took 1 person to assist with ambulation into the bathroom and toileting. NIH at the time I examined her was +3. She was seen by speech therapy and made n.p.o. due to severe dysphagia. She was started on an IV of normal saline at 100 cc/h and over the next few hours the dysarthria improved somewhat. A noncontrasted CT brain showed no acute changes. She was administered a rectal aspirin. She experienced some nausea after her speech evaluation and vomited a small to moderate amount of thick mucoid secretions. She denied any epigastric pain. A High intensity statin was added to the drug regimen. She was transferred to the acute care side of the hospital, to the Progressive Care Unit, for telemetry and the stroke protocol was initiated. The LKW was unknown and since she was already on Apixaban she was not a candidate for TPA. MRI of the brain done on 08/17/2020 was reported as involutional changes of the brain with no acute infarct.The MRI is currently under review because she has had persistent dysarthria and worsened dysphagia and increased R side weakness. Lab done at admission to the progressive care unit showed a urinary tract infection with positive nitrites and 10-25 WBCs per high-power field with 2+ bacteria. White blood cell count was normal at 6.6 with 73% neutrophils. Hemoglobin was stable at 9.2 and the platelets were mildly decreased at 145,000. Consultation was obtained with teleneurology and the neurologist's opinion was acute encephalopathy secondary to urinary tract infection. I disagree with this diagnosis because I have been seeing her daily since admission to the rehab unit and she had acute persistent worsened dysphagia to the point that She required a PEG tube following transfer back to the rehab unit on 08/19/20. The dysarthria improved over the next 2 weeks with daily speech therapy. The R side is weaker than on 08/16/20 and she is requiring increased assistance with toileting and toilet transfer. She is now on pureed textures and honey thick liquids and although she occasionally chokes for the most part she is able to tolerate her diet and has been eating at least 50% of her meals at [place]. She gets Jevity 1.5 at bedtime. The urine culture grew Enterobacter cloacae and she was treated with a 7-day course of appropriate antibiotics. Follow-up UA was done on 08/31/2020 and she had 0 WBCs, negative nitrites and no bacteria on the UA. Urine culture had no growth. She was quite depressed when she returned to rehab on the and was started on Sertraline with good improvement in mood. On 09/06/20 the potassium had increased to 5.0 and she was placed on a potassium restricted diet and instructed in potassium restriction by the library technical assistant. The creat has actually improved and is 2.3 prior to DC. She has not required any Lasix since transfer back to rehab on 08/19. The Jevity 1.5 has potassium in it but she is only getting 1 feeding a day. All other TF has higher protein. Nepro has high protein and is designed primarily for patients on HD. I am hopeful that with potassium restriction in her diet potassium will stay within normal limits. She has been doing well with eating a pur?ed honey thick liquid diet and if she continues to do well at home we can likely discontinue tube feed.. On the day of DC the K was 5.4 and she was given 30 GM of Kayexalate and 20 mg of Lasix. I am going to have Satnam hold the TF Sat and night and restart on Saturday evening. A BMP will be drawn by [facility] on Saturday and the results will be called to me. After she was started on iron (She received a few doses of iron sucrose IV and is now on Vitamin C and Ferrous sulfate liquid) the HGB started to improve and prior to DC was up to 10.4. She has had 3 + hemoccult stools and I have her on Protonix now. She has a hx of Hemorrhoids. No mention was made on the PEG surgical report of any gastritis or ulcerations in the stomach She is currently very upbeat and has been cooperative with therapy and working hard. Her son Satnam came in on 09/06/20 for family training and So was discharged home on 09/07/20. Satnam has hired 2 women to come in to help So while he is at work. PT/OT/ST/SN/NI was arranged by the social sciences chair prior to discharge. She has many chronic medical conditions including stage 4-5 CRF. I discussed follow up with So and Satnam and the general consensus is she is complicated with many co-morbid conditions and she will follow up with IM and nephrology. Appts were made with Dr. Perez and Dr. Zenaida Barragan who consulted on So while she was in rehab for Acute on CRF due to dehydration. She is going to follow up with Dr. Deshaun Wilson for neurology. She will follow up with Dr. Gore in about 1 month for the PEG tube which can be removed if she has not been requiring tube feeds to maintain nutrition. Alert and oriented X 3, appropriate, pleasant with normal affect. Pupils are equal, round and reactive to light. Mucous membranes are moist with no gingival or mucosal lesions. The neck is supple and there are no carotid bruits or jugular vein distention. Lungs-clear to auscultation, mildly diminished, coarse crackles in the bases which is chronic. After several deep breaths the crackles in the left base went away but the right basilar crackles have been persistent since admission in June. Heart-regular rate and rhythm, normal S1, normal S2, no murmurs, no ectopy, no gallop and no pericardial friction rub. Abdomen-soft, nontender, normal bowel sounds She has some ankle edema bilaterally which is chronic and due to venous insufficiency. She has been sitting in her chair with her legs dependent more often recently No calf tenderness No rashes and no skin breakdown No significant dysarthria and her speech is very intelligible. No facial droop could be detected when she smiles. She continues to have right hemiparesis. She has intact sensation throughout and no ataxia. This note was generated with [employer] dictation software. It may contain incorrect words, spelling, and punctuation that were not noted in checking the note before signing. Patient Problems: Active and Suspected Problems Dysarthria (Acute) UTI (urinary tract infection) (Acute) Secondary to Enterobacter cloacae CVA (cerebral vascular accident) (Acute) Occured on 08/17/20 with worsening dysarthria and dysphagia and increased R side weakness Dysphagia (Acute) Acute worsening of dysphagia secondary to CVA on 08/17/2020 Debility (Acute) Secondary to strokes. The first stroke occurred 06/28/2020 and the second stroke occurred 08/17/2020. - Physical Exam Vitals/I&O's: Vital Signs Temp Pulse Resp BP Pulse Ox 98.2 F 61 16 131/63 H 98 09/06/20 10:00 09/06/20 10:00 09/06/20 10:00 09/06/20 10:00 09/06/20 10:00 Oxygen Delivery Method Room Air Weight: 179 lb 3.773 oz Body Mass Index (BMI) 32.6 Intake and Output for Last 24 Hours 09/04/20 09/05/20 09/06/20 23:59 23:59 23:59 Intake Total 2990 / 2990 1750 / 1750 480 / 480 Output Total 1100 / 1300 1750 / 1750 850 / 850 Balance 1890 / 1690 0 / 0 -370 / -370 Laboratory Results 09/06/20 08:15: WBC 5.6, RBC 2.96 L, Hgb 9.5 L, Hct 30.2 L, MCV 102.0 H, MCH 32.1 H, MCHC 31.5 L, RDW Std Deviation 49.1 H, RDW Coeff of Richar 13.2, Plt Count 164, MPV 9.9 09/06/20 08:15: Sodium 137, Potassium 5.0, Chloride 105, Carbon Dioxide 28.0, Anion Gap 4 L, BUN 35 H, Creatinine 2.30 H, Estim Creat Clear Calc 14.66, Est GFR (MDRD) Af Amer 26 L, Est GFR (MDRD) Non-Af 22 L, BUN/Creatinine Ratio 15.2, Glucose 135 H, Calcium 9.3, Phosphorus 3.7, Magnesium 2.0, Total Bilirubin 0.30, AST 21, ALT 18, Alkaline Phosphatase 99, Total Protein 6.6, Albumin 2.9 L, Globulin 3.7, Albumin/Globulin Ratio 0.8 L Current Medications Acetaminophen (Acetaminophen 650 Mg/20 Ml Udc) 500 mg GT Q6H PRN PRN PRN Reason: Pain 1-10 or Fever Last Admin: 09/05/20 21:22 Dose: 500 mg Documented by: Amlodipine Besylate (Amlodipine 5 Mg Tablet) 5 mg GT BID [facility] Last Admin: 09/06/20 08:06 Dose: 5 mg Documented by: Apixaban (Apixaban 2.5 Mg Tablet) 2.5 mg GT BID [facility] Last Admin: 09/06/20 08:05 Dose: 2.5 mg Documented by: Ascorbic Acid (Ascorbic Acid 500 Mg Tablet) 500 mg GT DAILY@1200 [facility] Last Admin: 09/06/20 13:04 Dose: 500 mg Documented by: Aspirin (Aspirin 81 Mg Tab.Chew) 81 mg GT DAILY@0800 [facility] Last Admin: 09/06/20 08:04 Dose: 81 mg Documented by: Atenolol (Atenolol 25 Mg Tablet) 75 mg GT BID [facility] Last Admin: 09/06/20 08:05 Dose: 75 mg Documented by: Atorvastatin Calcium (Atorvastatin Calcium 80 Mg Tablet) 80 mg GT QHS [facility] Last Admin: 09/05/20 21:23 Dose: 80 mg Documented by: Calamine/Phenol (Menthol/Lanolin/Calamine/Znox 113 Gm Tube) 1 applic TOPICAL BID [facility]; Protocol Last Admin: 09/06/20 08:06 Dose: 1 applicatio Documented by: Compound Med (Arthritis Pain Compound 60 Click Tube) 1 click TOPICAL BID PRN; Protocol PRN Reason: joint pain Enteral Nutritional Formula (Jevity 1.5. 1,000 Ml Bottle) 270 ml GT TID PRN PRN PRN Reason: PO INTAKE < 50% Last Admin: 09/01/20 08:54 Dose: 270 ml Documented by: Enteral Nutritional Formula (Jevity 1.5. 1,000 Ml Bottle) 270 ml GT HS [facility] Last Admin: 09/05/20 21:32 Dose: 270 ml/min Documented by: Ferrous Sulfate (Ferrous Sulfate 300 Mg/5 Ml Udc) 300 mg GT DAILY@0800 [facility] Last Admin: 09/06/20 08:04 Dose: 300 mg Documented by: Lansoprazole (Lansoprazole 15 Mg Capsule.) 15 mg GT DAILY [facility] Last Admin: 09/06/20 08:04 Dose: 15 mg Documented by: Magnesium Oxide ([facility] Oxide 400 Mg Tablet) [facility] Last Admin: 09/06/20 08:03 Dose: 400 mg Documented by: Melatonin (Melatonin 3 Mg Tablet) 6 mg GT QHS [facility] Last Admin: 09/05/20 21:23 Dose: 6 mg Documented by: Ondansetron HCl (Ondansetron 4 Mg/2 Ml Vial) 4 mg IV Q6H PRN PRN PRN Reason: NAUSEA/VOMITING Last Admin: 08/24/20 12:42 Dose: 4 mg Documented by: Senna/Docusate Sodium (Senna/Docusate Sodium 1 Tablet) 1 tablet GT BID PRN PRN Reason: Constipation Sertraline HCl (Sertraline 50 Mg Tablet) 50 mg GT DAILY [facility] Last Admin: 09/06/20 08:06 Dose: 50 mg Documented by: Discharge Activity: May Not Drive, - - do your exercises given to you by the therapists twice a day at least 6 days a week. This will maintain and improve your strength. MOVE IT AND USE IT OR LOSE IT! Weight Bearing Status: Full weight bearing Keep extremity elevated above heart level: Legs - to help control swelling Call your doctor if you observe: Fever of 101 or Higher, Inability to urinate, Inability to have a bowel movement, Shortness of breath, Dizziness, Fainting spells, Chest pain, Increased palpitations (irregular heartbeat), Uncontrolled pain, - Home Medications: Medications to take at Discharge Arthritis Pain Compound 0 click TOPICAL BID #0 gm 08/16/20 Acetaminophen [8 Hour Acetaminophen] 650 mg PO Q6H PRN PRN 08/18/20 Arthritis Pain Compound See Protocol click TOPICAL BID 08/18/20 Menthol/Lanolin/Calamine/Znox [Calmoseptine Ointment] 1 applicatio TOPICAL BID 08/18/20 Amlodipine Besylate [Norvasc] 5 mg PO BID #60 tab 09/06/20 Apixaban [Eliquis] 2.5 mg PO BID #60 tab 09/06/20 Ascorbic Acid [Vitamin C] 500 mg GT DAILY@1200 #30 tab 09/06/20 Aspirin [Aspirin EC] 81 mg PO DAILY #1 bottle 09/06/20 Atenolol [Tenormin (beta logan)] 75 mg GT BID #180 tab 09/06/20 Atorvastatin Calcium [Lipitor] 80 mg GT QHS #30 tab 09/06/20 Ferrous Sulfate Syrup 300 mg GT DAILY@0800 #5 oz 09/06/20 Furosemide [Lasix] 60 mg PO DAILY PRN #30 tab 09/06/20 Jevity 1.5 270 ml GT UD #15 bottle 09/06/20 Lansoprazole 15 mg GT DAILY #30 capsule. 09/06/20 Melatonin 6 mg GT QHS #60 tab 09/06/20 Multivitamin 1 ea PO DAILY #30 tab 09/06/20 Sertraline HCl [Zoloft] 50 mg GT DAILY #30 tab 09/06/20 Following Prescriptions Were Given to Patient: Aspirin [Aspirin EC] 81 mg PO DAILY #1 bottle Transmission Status: Received by [facility] Apixaban [Eliquis] 2.5 mg PO BID #60 tab Transmission Status: Received by [facility] Ferrous Sulfate Syrup 300 mg GT DAILY@0800 #5 oz Transmission Status: Received by [facility] Jevity 1.5 270 ml GT UD #15 bottle Transmission Status: Received by [facility] Lansoprazole 15 mg GT DAILY #30 capsule.dr Transmission Status: Received by [facility] Furosemide [Lasix] 60 mg PO DAILY PRN #30 tab PRN Reason: See instructions Transmission Status: Received by [facility] Atorvastatin Calcium [Lipitor] 80 mg GT QHS #30 tab Transmission Status: Received by [facility] Melatonin 6 mg GT QHS #60 tab Transmission Status: Received by [facility] Multivitamin 1 ea PO DAILY #30 tab Prescription Printed Amlodipine Besylate [Norvasc] 5 mg PO BID #60 tab Transmission Status: Received by [facility] Atenolol [Tenormin (beta logan)] 75 mg GT BID #180 tab Transmission Status: Received by [facility] Ascorbic Acid [Vitamin C] 500 mg GT DAILY@1200 #30 tab Transmission Status: Received by [facility] Sertraline HCl [Zoloft] 50 mg GT DAILY #30 tab Transmission Status: Received by [facility] Please Follow Up With: Dr. Mario Perez - Internal Medicine When: Saturday Please Follow Up With: Miriam Estrada DPM - core worker When: as needed for nail care Please Follow Up With: Zenaida Barragan DO - kidney specialist Please Follow Up With: Deshaun Wilson MD - neurologist Patient Instructions: Monitoring Kidney Health, Kidney Disease: Eating Less Sodium, Chronic Kidney Disease Additional Instructions: BMP on Saturday with results to be called to me. Disposition: Home with Home Health Minutes spent on discharge:: 45 Patient Condition:: Stable - [facility] Medical Necessity - Tobacco Use Smoking Status: Never smoker Tobacco Use: Non-smoker Meaningful Use Info Meaningful Use Diagnoses (Choose all that apply): Ischemic CVA - CVA Therapy Assessed for PT,OT and/or ST?: Yes - Ischemic Stroke Antithrombotic order at d/c?: Yes Dx of Atrial fib/flutter?: Yes Anticoagulant at discharge?: Yes Statins at discharge?: Yes Primary Dx Acute Ischemic CVA?: Yes IV tPA ordered during stay?: No Reason IV t-PA not ordered: Treatment not Indicated - Pt was on Apixaban when she had the second stroke while in rehab on 08/17/20. Inpatient E&M: [id number] [facility]
--- NOTE | 2020-09-06 14:26 | NT.THERAPY_ITS ---
Nutrition Therapy Report - History Nutrition Services has been consulted to:: Manage nutrient details of diet order, Manage enteral nutrition, Conduct nutrition education Current diet / nutrition support order:: Regular-potassium restricted, puree/honey thick w/ Ensure Pudding BID; via PEG 270mL Jevity 1.5 bolus feed if PO at meals <50% of meal + 270mL Jevity 1.5 bolus HS. - Anthropometric Measurements Height:: 5 ft 2 in Weight:: 81.3 kg Body Mass Index (BMI):: 32.8 - Relevant Labs Relevant Labs:: WBC 3.8 K/mm3 (4.4-11.0) L 07/28/20 05:25 RBC 2.96 M/mm3 (4.2-5.4) L 09/06/20 08:15 Hgb 9.5 g/dL (12.0-15.0) L 09/06/20 08:15 Hct 30.2 % (37-47) L 09/06/20 08:15 MCV 102.0 fL (81-99) H 09/06/20 08:15 MCH 32.1 pg (27.0-32.0) H 09/06/20 08:15 MCHC 31.5 g/dL (32-36) L 09/06/20 08:15 RDW Std Deviation 49.1 fl (35.1-43.9) H 09/06/20 08:15 Plt Count 142 K/mm3 (150-450) L 08/27/20 07:10 [place] % (Auto) 13.4 % (0-10) H 07/25/20 05:27 Eos % (Auto) 5.7 % (0-5) H 07/21/20 05:15 PT 15.4 SECONDS (11.7-14.9) H 08/27/20 07:10 Sodium 146 mmol/L (136-145) H 08/23/20 05:22 Chloride 109 mmol/L (98-107) H 09/02/20 09:00 Carbon Dioxide 17.0 mmol/L (21.0-32.0) L 07/07/20 05:35 Anion Gap 4 (5-15) L 09/06/20 08:15 BUN 35 mg/dL (7-18) H 09/06/20 08:15 Creatinine 2.30 mg/dL (0.55-1.02) H 09/06/20 08:15 Est GFR (MDRD) Af Amer 26 mL/min (>60) L 09/06/20 08:15 Est GFR (MDRD) Non-Af 22 mL/min (>60) L 09/06/20 08:15 BUN/Creatinine Ratio 26.6 RATIO (10-20) H 08/16/20 05:36 Glucose 135 mg/dL (74-106) H 09/06/20 08:15 Hemoglobin A1c 5.7 % (3.8-5.6) H 07/06/20 05:25 Uric Acid 7.8 mg/dL (2.6-6.0) H 07/06/20 05:25 Magnesium 1.4 mg/dL (1.6-2.6) L 08/27/20 07:10 AST 39 U/L (15-37) H 07/05/20 05:30 B-Natriuretic Peptide 122.9 pg/mL (0-100) H 08/12/20 15:39 Albumin 2.9 g/dL (3.2-5.0) L 09/06/20 08:15 Albumin/Globulin Ratio 0.8 RATIO (0.9-2.4) L 09/06/20 08:15 - Assessment Food / Nutrition-Related History:: Consulted for education regarding low potassium diet prior to pt's discharge tomorrow. Continues w/ PO diet (regular- puree/honey thick) and supplemental Jevity 1.5 bolus feeds via PEG if PO at meals is <50% and 1 bolus of 270mL at night. Wt appears stable since initiating bolus feeds. Increase of 0.2kg noted since last review. Pt has not required many bolus tube feeds after meals d/t adequate PO intake. Eating lunch at time of assessment, complains of foods being too thick, but otherwise w/ good PO intake. - Food / Nutrient Delivery Interventions Summary of nutrition intervention:: Reviewed sources of potassium in diet. Pt w/ increased intake of mashed potatoes d/t puree/thickened diet. Discussed w/ pt how to alonso potatoes at home to reduce potassium content. Handouts provided and reviewed w/ pt. Pt to go home w/ enteral nutrition supplies and instructed to continue w/ bolus feeds after meals if PO intake is less than <50% of meal and 1 270mL bolus 1 hour before bedtime. [facility] Enteral Nutrition book placed in folder for family/HH aides to review. Pt w/ no questions for RDN at this time. Nutrition support ordered as / adjusted to:: 1) Continue regular diet w/ potassium restriction, consistency per DIRECTOR INSURANCE. 2) Recommend continuing Ensure Pudding/fortified pudding 2x/day. 3) Continue Jevity 1.5 bolus feeds if intake at meals is less than 50% of meals: 270 mL w/ 30 mL free water flush w/ each bolus. 4) Continue Jevity 1.5 270 mL at night w/ 30mL flush (at least 1 hour before bed) to assist w/ wt maintence/prevent significant wt loss. Each bolus provides ~405 calories, 17 g protein, and 205mL fluid+30mL from flush for 235mL total. 5) Would benefit from referral to [facility] Outpatient Nutrition Services for ongoing nutrition education r/t CKD, PEG tube, and monitoring of nutritional status. - MNT Monitoring Further MNT monitoring and evaluation required?: Yes
[2020-09-06 14:33] VITALS: BMI 32.8
[2020-09-06] MEDS: Atorvastatin Calcium 80 MG Tablet GT (20:16)
[2020-09-06] MEDS: MELATONIN 3 MG TABLET 6 MG GT (20:17)
[2020-09-06] MEDS: Jevity 1.5. 1,000 ML Bottle 270 ML GT (20:19)
[2020-09-06] MEDS: Acetaminophen 650 MG/20 ML UDC 500 MG GT (20:20)
[2020-09-06 21:48] VITALS: BP 122/55; PULSE 63; RESP 18; TEMP 37.1; O2SAT 97
[2020-09-07 00:30] VITALS: BMI 32.8
[2020-09-07 06:28] LABS: Potassium 5.4 mmol/L (3.5-5.1)
[2020-09-07 08:25] VITALS: BP 134/58; PULSE 62; RESP 18; TEMP 36.8; O2SAT 96
[2020-09-07] MEDS: Ferrous Sulfate 300 MG/5 ML UDC GT (10:10)
[2020-09-07] MEDS: MAGNESIUM OXIDE 400 MG TABLET GT (10:10)
[2020-09-07] MEDS: Multivitamin/Minerals/Iron (9 mg/15 ml) Liquid GT (10:10)
[2020-09-07] MEDS: Aspirin 81 MG TAB.CHEW GT (10:10)
[2020-09-07] MEDS: APIXABAN 2.5 MG TABLET GT (10:11)
[2020-09-07] MEDS: Atenolol 25 MG Tablet 75 MG GT (10:11)
[2020-09-07] MEDS: Lansoprazole 15 MG Capsule.DR GT (10:11)
[2020-09-07] MEDS: Sertraline 50 MG Tablet GT (10:11)
[2020-09-07] MEDS: amLODIPine 5 MG Tablet GT (10:11)
[2020-09-07] MEDS: Menthol/Lanolin/Calamine/Znox 113 GM Tube 1 APPLIC TOPICAL (10:12)
[2020-09-07 11:37] VITALS: BMI 32.8
[2020-09-07] MEDS: Furosemide 20 MG Tablet PO (11:38)
[2020-09-07] MEDS: Ascorbic Acid 500 MG Tablet GT (12:32)
[2020-09-07] MEDS: Sodium Polystyrene Sulfonate 15 GM/60 ML UDC 30 GM PO (12:32)
--- NOTE | 2020-09-07 13:37 | NURSING ---
discharged home with son. discharge instructions, medication, and appointments reviewed with pt and son. denies questions or concerns
[2020-09-07 13:39] VITALS: BP 134/58; PULSE 62; RESP 18; TEMP 36.8; O2SAT 96
== END 2020-09-07 13:15 | disposition home health service (06) | DRG 56 ==
PROVIDERS: Family Medicine; Internal Medicine Nephrology; Surgery; Admitting Provider Internal Medicine; Visit Provider Internal Medicine
PROC: 0DJ08ZZ Inspection of Upper Intestinal Tract, Via Natural or Artificial Opening Endoscopic (ICD-10-PCS; CPT 43235; principal; 2020-08-29 12:10)
DX: I69.351 Hemiplegia and hemiparesis following cerebral infarction affecting right dominant side (principal); D61.811 Other drug-induced pancytopenia; I63.40 Cerebral infarction due to embolism of unspecified cerebral artery; I48.19 Other persistent atrial fibrillation; N18.4 Chronic kidney disease, stage 4 (severe); E87.2 Acidosis; B37.0 Candidal stomatitis; E66.9 Obesity, unspecified; I12.9 Hypertensive chronic kidney disease with stage 1 through stage 4 chronic kidney disease, or unspecified chronic kidney disease; M1A.9XX0 Chronic gout, unspecified, without tophus (tophi); Z68.31 Body mass index [BMI] 31.0-31.9, adult; M19.071 Primary osteoarthritis, right ankle and foot; I69.321 Dysphasia following cerebral infarction; I69.322 Dysarthria following cerebral infarction; I69.391 Dysphagia following cerebral infarction; H16.9 Unspecified keratitis; E86.0 Dehydration; I69.392 Facial weakness following cerebral infarction; Z79.01 Long term (current) use of anticoagulants; N30.90 Cystitis, unspecified without hematuria; B96.1 Klebsiella pneumoniae [K. pneumoniae] as the cause of diseases classified elsewhere; B96.89 Other specified bacterial agents as the cause of diseases classified elsewhere; S93.401A Sprain of unspecified ligament of right ankle, initial encounter; X58.XXXA Exposure to other specified factors, initial encounter; Y93.9 Activity, unspecified; Y92.129 Unspecified place in nursing home as the place of occurrence of the external cause; M21.371 Foot drop, right foot; T50.4X5A Adverse effect of drugs affecting uric acid metabolism, initial encounter; D63.1 Anemia in chronic kidney disease; I87.2 Venous insufficiency (chronic) (peripheral); R19.5 Other fecal abnormalities; R13.12 Dysphagia, oropharyngeal phase; E61.1 Iron deficiency
CPT/HCPCS: 36415; 70450; 70551; 71046; 73610; 74230; 76770; 80048; 80053; 80061; 80069; 81001; 82274; 82570; 82962; 83036; 83540; 83550; 83735; 83880; 84100; 84132; 84156; 84300; 84443; 84550; 85014; 85018; 85025; 85027; 85610; 85730; 87077; 87086; 87088; 87186; 87426; 87493; 92507; 92523; 92526; 92610; 92611; 93005; 93880; 96365; 96366; 96367; 96372; 97110; 97112; 97116; 97162; 97164; 97166; 97167; 97168; 97530; 97535; 97802; 97803; 99218; 99251; J7030; J7050; A4216; G0378; G0379; G0463; J2405; J2916; J7799

== ENCOUNTER 2020-08-17 11:26 | Observation (INO) | payer MEDICARE, SELFPAY ==
[2020-08-16 21:00] VITALS: BMI 31.8
--- NOTE | 2020-08-17 11:15 | CDU_ITS ---
Reason For Study: STROKE Rt. Velocities/BP Lt. Velocities/BP Prox CCA 113/17 cm/sec. Prox CCA 82/18 cm/sec. Mid CCA 84/11 cm/sec. Mid CCA 96/18 cm/sec. Dist CCA 85/13 cm/sec. Dist CCA 1374/18 cm/sec. Prox ICA 82/13 cm/sec. Prox ICA 106/22 cm/sec. Mid ICA 98/18 cm/sec. Mid ICA 75/18 cm/sec. Dist ICA 98/14 cm/sec. Dist ICA 84/22 cm/sec. Rt. ICA/CCA = 1.2. Lt. ICA/CCA = 1.1. Prox ECA 111/0 cm/sec. Prox ECA 146/0 cm/sec. Rt. Vert. 77/14 cm/sec. Lt. Vert. 86/18 cm/sec. Right Extracranial There is no significant atherosclerotic plaque noted in the right common carotid artery. The right common carotid artery is not well visualized. There is no significant atherosclerotic plaque noted in the right internal carotid artery. There is heterogeneous, irregular atherosclerotic plaque noted in the right external carotid artery. Antegrade flow is noted in the right vertebral artery. There is heterogeneous, irregular atherosclerotic plaque noted in the right bulb. Left Extracranial There is intimal thickening but no significant atherosclerotic plaque noted in the left common carotid artery. There is homogeneous, smooth atherosclerotic plaque noted in the left internal carotid artery. The left internal carotid artery is not well visualized. There is homogeneous, smooth atherosclerotic plaque noted in the left external carotid artery. Antegrade flow is noted in the left vertebral artery. There is homogeneous, smooth atherosclerotic plaque noted in the left bulb. Procedure Carotid Duplex 28152. The study was technically difficult. Pt is s/p stroke and not able to move head to make neck accessible for exam. Exam performed portable in patient room. Interpretation Summary Deeply placed right common carotid artery No hemodynamically significant plaque right proximal internal carotid artery with less than 50% stenosis <50% stenosis right external carotid Smooth plaque at the proximal left internal carotid with less than 50% stenosis. <50% stenosis left external carotid Patent and antegrade vertebrals bilaterally Ordering Physician: Shyam Dickinson Performed By: Oma Cyr, YENI, RVT
--- NOTE | 2020-08-17 11:15 | MRI_ITS ---
STUDY: MRI BRAIN WITHOUT CONTRAST REASON FOR EXAM: Female, 85 years old. cva, rt sided silva, dysphasgia, h/o prior stroke TECHNIQUE: Standardized multiplanar fat and water weighted pulse sequences were obtained. COMPARISON: CT 08/17/2020 FINDINGS: There is mild cerebral atrophy with widening of the extra-axial spaces and ventricular dilatation. There are a limited number of small white matter hyperintensities, distributed throughout the deep white matter tracts of the cerebral hemispheres, consistent with mild chronic white matter ischemic changes. There is no evidence for recent intracranial ischemia or other cause of cytotoxic edema on diffusion weighted imaging (DWI). Normal T2* images of the brain without demonstrated susceptibility artifact. There is no demonstrated hemosiderin stain. Chronic lacunar infarct of the peroneal white matter of the right parietal lobe with with blurry and degeneration of the right side of the brainstem. Normal bilateral basal ganglia. Normal thalami. There is no extra-axial fluid accumulation. Normal flow voids within the major intracranial circulation suggesting patency by spin echo criteria. Normal sella turcica, pituitary gland, infundibular stalk, optic chiasm and hypothalamus. Normal tectal plate and pineal gland. Chronic lacunar infarct of the left side of the brainstem. Normal cerebellum. Normal basal cisterns. Normal bilateral temporal bones. Normal bilateral internal auditory canals. There are bilateral ocular lens implants with otherwise normal intraorbital contents. There is mucoperiosteal inflammatory disease of the paranasal sinuses consistent with mild chronic sinusitis. Normal calvarium and skull base. Normal visualized soft tissue structures. Normal visualized upper cervical spine. MRI/Brain without Contrast IMPRESSION: Involutional changes of the brain, as described above. No acute infarct. Electronically Signed: Melecio Denney MD at 13:25 EST Tel , Service support ,
--- NOTE | 2020-08-17 12:07 | EKG12_ITS ---
Test Reason : Blood Pressure : / mmHG Vent. Rate : 069 BPM Atrial Rate : 069 BPM P-R Int : 200 ms QRS Dur : 130 ms QT Int : 412 ms P-R-T Axes : 094 -64 024 degrees QTc Int : 441 ms Normal sinus rhythm Right bundle branch block Left anterior fascicular block Bifascicular block Abnormal ECG Confirmed by BERTO ROCHA, BÁRBARA ([id number]), brands editor ROXANA FLORES ([id number]) on 08/22/2020 2:34:57 PM Referred By: HUMBLE Confirmed By:BÁRBARA THOMSON MD
[2020-08-17 12:08] VITALS: BMI 32.3
[2020-08-17 12:20] VITALS: BMI 32.3
[2020-08-17 12:38] LABS: Absolute Lymphocyte Count 1.04 X10^3/uL (0.83-4.51); Absolute Neutrophil Count 4.8 X10^3/uL (2.0-7.7); Basophil# 0.03 X10^3/uL; Basophil% 0.5 % (0-1); Eosinophil# 0.12 X10^3/uL; Eosinophils% 1.8 % (0-5); Hematocrit 28.7 % (37-47); Hemoglobin 9.2 g/dL (12.0-15.0); Lymphocyte # 1.04 X10^3/ul (4.0); Lymphocyte % 15.9 % (19-41); Mean Corp Hgb Conc 32.1 g/dL (32-36); Mean Corpuscular Hgb 31.4 pg (27.0-32.0); Mean Platelet Vol. 10.6 fl (6.2-12.0); Monocyte# 0.54 X10^3/uL; Monocyte% 8.2 % (0-10); NRBC Flagged by Analyzer 0 % (0-5); Neutrophil % 73.3 % (47-70); Platelet Count 145 K/mm3 (150-450); RBC Distribution Width SD 46.2 fl (35.1-43.9); Red Blood Count 2.93 M/mm3 (4.2-5.4); White Blood Count 6.6 K/mm3 (4.4-11.0)
[2020-08-17 12:48] LABS: Hemoglobin A1c 5.6 % (3.8-5.6)
[2020-08-17 12:53] LABS: Cholesterol 133 mg/dL (200); High Density Lipoprotein 46 mg/dL; Iron 36 ug/dL (50-170); Iron Binding Capacity,Total 233 ug/dL (250-450); PERCENT IRON SATURATION 15.5 % (15.0-55.0); Thyroid Stim Hormone (TSH) 1.65 uIU/mL (0.358-3.74); Triglycerides 123 mg/dL; Very Low Density Lipoprotein 25 mg/dL (5-40)
[2020-08-17 13:21] VITALS: BP 125/44; PULSE 68; RESP 18; TEMP 36.8; O2SAT 100
--- NOTE | 2020-08-17 14:01 | PCM.HP.STD ---
<Shyam Dickinson - Last Filed: 08/17/20 14:01> Problem List (1) UTI (urinary tract infection) Status: Acute (2) Dysarthria Status: Acute (3) CVA (cerebral vascular accident) Status: Chronic (4) Debility Status: Chronic (5) Dysphagia Status: Chronic (6) Heme + stool Status: Chronic (7) PAF (paroxysmal atrial fibrillation) Status: Chronic (8) Chronic renal failure, stage 4 (severe) Status: Chronic (9) Gout Status: Chronic (10) Hypertension Status: Chronic History of Present Illness Date of Admission: 08/17/20 Chief Complaint: Slurring of speech, worsening dysphagia The patient is a 85 year old F past medical history of recent CVA with right-sided deficits treated at [facility] and subsequently discharged to the rehab unit at [facility], who was found this morning to have worsening of her dysarthria and dysphagia. Patient woke up with the symptoms, time of onset unclear. She underwent a CT of the brain which was negative for acute infarct. She does have a history of paroxysmal atrial fibrillation however she is appropriately anticoagulated with Eliquis and she is currently in sinus rhythm. The patient had been faring well in the rehab unit and the plan was for her to be discharged home with her son today. The patient was transferred to the PCU and placed on telemetry. Her urinalysis is positive further complicating matters. She is very difficult to understand and reportedly when speech therapy saw her this morning they noted the dysphagia was much worse. The patient complains of a frontal headache at this time. No new paresthesias, no double vision, no blurry vision, no lightheadedness, no increased weakness of the extremities. She is not short of breath or coughing at this time. No fevers or chills. [] Past Medical History Past Medical History (Chronic Problems): Chronic Problems CVA (cerebral vascular accident) (Chronic) Chronic venous insufficiency of lower extremity (Chronic) Dysphagia (Chronic) Chronic renal failure, stage 4 (severe) (Chronic) Heme + stool (Chronic) PAF (paroxysmal atrial fibrillation) (Chronic) Debility (Chronic) Osteoarthritis (Chronic) Hypertension (Chronic) Keratitis (Chronic) Obesity (BMI 30.0-34.9) (Chronic) Normochromic normocytic anemia (Chronic) Gout (Chronic) Hyperuricemia (Chronic) Allergies amlodipine [From Norvasc] Adverse Reaction (Verified 07/04/20 16:03) PT UNSURE OF REACTION amoxicillin [From Augmentin] Adverse Reaction (Verified 07/04/20 17:59) PT UNSURE OF REACTION clavulanic acid [From Augmentin] Adverse Reaction (Verified 07/04/20 17:59) PT UNSURE OF REACTION diphtheria, pertussis, tetanus vacc Adverse Reaction (Verified 07/04/20 16:03) PT UNSURE OF REACTION hydrochlorothiazide [From Maxzide] Adverse Reaction (Verified 07/04/20 16:03) PT UNSURE OF REACTION lisinopril Adverse Reaction (Verified 07/04/20 16:03) PT UNSURE OF REACTION Sulfa (Sulfonamide Antibiotics) Adverse Reaction (Verified 07/04/20 16:03) PT UNSURE OF REACTION triamterene [From Maxzide] Adverse Reaction (Verified 07/04/20 16:03) PT UNSURE OF REACTION Home Medications: Ambulatory Orders Medication Instructions Recorded Multivitamin [Daily Multiple 1 ea PO DAILY 07/04/20 Vitamin] Vit A/Vit C/Vit E/Zinc/Copper 1 ea PO BID 07/04/20 [Preservision Areds Softgel] Acetaminophen [Tylenol Tablet] 650 mg PO Q6H PRN PRN tab 08/16/20 Amlodipine [Norvasc] 5 mg PO BID #60 tab 08/16/20 Apixaban [Eliquis] 2.5 mg PO BID #60 tab 08/16/20 Arthritis Pain Compound 0 click TOPICAL BID #0 gm 08/16/20 Ascorbic Acid [Vitamin C] 500 mg PO DAILY@1200 tab 08/16/20 Atenolol [Tenormin (beta logan)] 100 mg PO BID #60 tab 08/16/20 Ferrous Sulfate 325 mg PO DAILY@1200 #90 tab 08/16/20 Furosemide [Lasix] 60 mg PO UD #45 tab 08/16/20 Melatonin 6 mg PO QHS #60 tab 08/16/20 Menthol/Lanolin/Calamine/Znox 1 applic TOPICAL BID tube 08/16/20 [Calmoseptine Ointment] Multivitamins,Therapeutic 1 tab PO DAILY@0800 tab 08/16/20 [Multivitamin] Potassium Chloride [K-Dur] 10 meq PO UD #20 tab 08/16/20 Senna/Docusate Sodium [Senokot-S] 1 tab PO BID #60 tab 08/16/20 Aspirin [Aspirin EC] 81 mg PO 08/17/20 Atorvastatin Calcium 80 mg PO 08/17/20 Ondansetron [Zofran] 4 mg IV 08/17/20 Pantoprazole Sodium [Protonix] 20 mg PO DAILY 08/17/20 Surgical History: cataract - with IOL implants, cholecystectomy, hysterectomy Psychiatric History: No pertinent psych hx MORPHOLOGIST History: No pertinent MORPHOLOGIST history Lives: With Family Smoking Status: Never smoker Tobacco Use: Non-smoker Alcohol: None Drugs: None - *Family History Maternal History Items: Hypertension, Stroke Paternal History Items: Cancer, Pulmonary Disease, Stroke Sibling History Items: Cancer, Diabetes, Heart Disease, Stroke Offspring History Items: Stroke - in her daughter Review of Systems Constitutional: Denies: Chills, Fever, Weight Change HEENT: Denies: Head Aches, Sinus Congestion, Sinus Drainage Cardiovascular: Denies: Chest Pain, Palpitations Respiratory: Denies: Cough, Shortness of breath at rest, Sputum production Gastrointestinal: Denies: Abdominal Pain, Nausea, Vomiting Genitourinary: Denies: Dysuria Musculoskeletal: Denies: Joint Pain, Joint Tenderness Skin: Denies: Rash, Wounds Neurological: Reports: Change in Speech, Slurred speech, Headaches. Denies: Confusion, Focal weakness, Numbness, Tingling Psychiatric: Denies: Anxiety, Depression, Homicidal Ideations, Suicidal Ideations Hematologic/ Lymphatic: Denies: Easy Bruising, Easy Bleeding VTE Information - Inpt Only VTE Present on Admission: No VTE Mechan Device Prophylaxis: None - Physical Exam Vitals/I&O's: Vital Signs Temp Pulse Resp BP Pulse Ox 98.3 F 68 18 125/44 H 100 08/17/20 13:21 08/17/20 13:21 08/17/20 13:21 08/17/20 13:21 08/17/20 13:21 Oxygen Delivery Method Room Air Weight: 176 lb 12.972 oz Body Mass Index (BMI) 32.3 General: Alert, Oriented x3, Cooperative HEENT: Atraumatic, PERRLA, EOMI, Normocephalic Neck: Supple, No JVD, Negative Carotid Bruits Lungs: Clear to auscultation, Normal air movement Cardiovascular: Regular rate, No murmurs Abdomen: Bowel Sounds Present, Soft, Non Tender Extremities: No edema, Capillary Refill Less than 3 Seconds Skin: No rashes, No breakdown Musculoskeletal: No Tenderness to Palpation of Joints or Extremities Neurological: Slurred Speech, - - She does have right upper and lower extremity weakness consistent with prior stroke. Psych/Mental Status: Normal Affect, Appropriate Laboratory Results 08/17/20 12:05: Iron 36 L, TIBC 233 L, Iron Saturation 15.5, Triglycerides 123, Cholesterol 133, LDL Cholesterol 62, VLDL Cholesterol 25, HDL Cholesterol 46, TSH 1.65 08/17/20 12:05: Hemoglobin A1c 5.6 08/17/20 12:05: WBC 6.6, RBC 2.93 L, Hgb 9.2 L, Hct 28.7 L, MCV 98.0, MCH 31.4, MCHC 32.1, RDW Std Deviation 46.2 H, RDW Coeff of Richar 13.0, Plt Count 145 L, MPV 10.6, Immature Gran % (Auto) 0.300, Neut % (Auto) 73.3 H, Lymph % (Auto) 15.9 L, Baldwin % (Auto) 8.2, Eos % (Auto) 1.8, Baso % (Auto) 0.5, Absolute Neuts (auto) 4.8, Absolute Lymphs (auto) 1.04, Nucleated RBC % 0 Current Medications Acetaminophen (Acetaminophen 650 Mg Suppository) 650 mg RECTAL Q6H PRN PRN PRN Reason: Pain 1-10 or Fever Aspirin (Aspirin 300 Mg Suppository) 300 mg RECTAL DAILY [facility] Heparin Sodium (Porcine) (Heparin Injection (Vial) 5,000 Unit/Ml Vial) 5,000 unit SC Q12 [facility] Piperacillin Sod/Tazobactam (Sod 3.375 gm/ Sodium Chloride) 50 mls @ 12.5 mls/hr IV Q12 [facility] Last Admin: 08/17/20 13:34 Dose: 12.5 mls/hr Documented by: Ondansetron HCl (Ondansetron 4 Mg/2 Ml Vial) 4 mg IV Q6H PRN PRN PRN Reason: NAUSEA Sodium Chloride (0.9% Saline Lock 10 Ml Syringe) 10 - 40 ml IV UD PRN PRN Reason: SALINE FLUSH Assessment/Plan All Active Problems Dysarthria (Acute) UTI (urinary tract infection) (Acute) Insomnia (Acute) Cystitis (Resolved) Thrush (Resolved) Drug-induced pancytopenia (Acute) Chronic anticoagulation (Acute) Cerebrovascular accident, embolic (Acute) Acidosis, metabolic (Resolved) Dehydration (Resolved) Acute renal failure superimposed on chronic kidney disease (Resolved) Right ankle sprain (Acute) Ankle pain (Acute) 1. Aphasia, worsening dysphagia-recent stroke, ischemic, treated at [facility] (acute right basal ganglia infarct). Pt had been doing well with acute rehab until today. Concern for recurrent stroke at this time. Complicating this is that she appears to have a urinary tract infection so this may be encephalopathy. The patient was given aspirin this morning and is currently NPO. We will continue rectal aspirin plan to initiate high-dose statin when able to tolerate oral intake. MRI of the brain does not show acute infarct at this time so we will consult SOC regarding differential. No imaging of her vessels was done at her last admission to [place] with stroke be due to her CKD stage III-IV. Will obtain carotid ultrasounds at this time. Hemoglobin A1c is 5.6, TSH is normal. She has chronic right-sided weakness from her prior stroke. 2. Acute urinary tract infection-last cultures with Morganella and Klebsiella with multiple drug resistances. Patient will be started on Zosyn based on prior sensitivities. She has a questionable allergy listed in her chart however when I asked the patient she did not remember having any anaphylaxis or shortness of breath when she received amoxicillin in the past. No fever or leukocytosis. 3. Paroxysmal atrial fibrillation-rate controlled, patient has been compliant with Eliquis. Will hold Eliquis given possible acute CVA. MRI pending. 4. Iron deficiency anemia-positive Hemoccult. Despite positive Hemoccult hemoglobin has been stable while she has been on Eliquis. Will replace iron with Venofer today, continue oral iron when appropriate, and plan for endoscopy as an outpatient if hemoglobin stays stable. 5. 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 We will continue to monitor while here and adjust accordingly. She does not appear volume overloaded at this time. 6. Hypertension-permissive DVT prophylaxis: Heparin DC planning: If acute infarct plan for return to rehab unit for ongoing therapy. This patient was seen by Shyam Dickinson PA-C under the supervision of Doctor Mel. <Phani Leal - Last Filed: 08/17/20 14:53> History of Present Illness The patient is a 85 year old F [] Past Medical History Allergies amlodipine [From Norvasc] Adverse Reaction (Verified 07/04/20 16:03) PT UNSURE OF REACTION amoxicillin [From Augmentin] Adverse Reaction (Verified 07/04/20 17:59) PT UNSURE OF REACTION clavulanic acid [From Augmentin] Adverse Reaction (Verified 07/04/20 17:59) PT UNSURE OF REACTION diphtheria, pertussis, tetanus vacc Adverse Reaction (Verified 07/04/20 16:03) PT UNSURE OF REACTION hydrochlorothiazide [From Maxzide] Adverse Reaction (Verified 07/04/20 16:03) PT UNSURE OF REACTION lisinopril Adverse Reaction (Verified 07/04/20 16:03) PT UNSURE OF REACTION Sulfa (Sulfonamide Antibiotics) Adverse Reaction (Verified 07/04/20 16:03) PT UNSURE OF REACTION triamterene [From Maxzide] Adverse Reaction (Verified 07/04/20 16:03) PT UNSURE OF REACTION - Physical Exam Vitals/I&O's: Vital Signs Temp Pulse Resp BP Pulse Ox 98.3 F 68 18 125/44 H 100 08/17/20 13:21 08/17/20 13:21 08/17/20 13:21 08/17/20 13:21 08/17/20 13:21 Oxygen Delivery Method Room Air Weight: 80.2 kg Body Mass Index (BMI) 32.3 Laboratory Results 08/17/20 12:05: Iron 36 L, TIBC 233 L, Iron Saturation 15.5, Triglycerides 123, Cholesterol 133, LDL Cholesterol 62, VLDL Cholesterol 25, HDL Cholesterol 46, TSH 1.65 08/17/20 12:05: Hemoglobin A1c 5.6 08/17/20 12:05: WBC 6.6, RBC 2.93 L, Hgb 9.2 L, Hct 28.7 L, MCV 98.0, MCH 31.4, MCHC 32.1, RDW Std Deviation 46.2 H, RDW Coeff of Richar 13.0, Plt Count 145 L, MPV 10.6, Immature Gran % (Auto) 0.300, Neut % (Auto) 73.3 H, Lymph % (Auto) 15.9 L, Baldwin % (Auto) 8.2, Eos % (Auto) 1.8, Baso % (Auto) 0.5, Absolute Neuts (auto) 4.8, Absolute Lymphs (auto) 1.04, Nucleated RBC % 0 Current Medications Acetaminophen (Acetaminophen 650 Mg Suppository) 650 mg RECTAL Q6H PRN PRN PRN Reason: Pain 1-10 or Fever Aspirin (Aspirin 300 Mg Suppository) 300 mg RECTAL DAILY [facility] Heparin Sodium (Porcine) (Heparin Injection (Vial) 5,000 Unit/Ml Vial) 5,000 unit SC Q12 [facility] Hydralazine HCl (Hydralazine 20 Mg/Ml Vial) 5 mg IV Q6H PRN PRN PRN Reason: BLOOD PRESSURE Piperacillin Sod/Tazobactam (Sod 3.375 gm/ Sodium Chloride) 50 mls @ 12.5 mls/hr IV Q12 [facility] Last Admin: 08/17/20 13:34 Dose: 12.5 mls/hr Documented by: Ferric Sodium Gluconate Complex 250 mg/ Sodium Chloride 270 mls @ 135 mls/hr IV X1 ONE Stop: 08/17/20 16:59 Ondansetron HCl (Ondansetron 4 Mg/2 Ml Vial) 4 mg IV Q6H PRN PRN PRN Reason: NAUSEA Sodium Chloride (0.9% Saline Lock 10 Ml Syringe) 10 - 40 ml IV UD PRN PRN Reason: SALINE FLUSH Assessment/Plan This patient was seen in conjunction with Shyam Dickinson PA-C . I have independently interviewed and examined the patient and reviewed pertinent historical, laboratory, and other data. Please refer to Shyam Dickinson PA-C note for details of this patient's presentation, findings, and recommendations. I have reviewed Shyam Dickinson PA-C note and concur with documented findings. In brief, patient is an 85 -year-old lady with history of CVA who was being managed at the rehab unit readmmited with worsening dysarthria with a suspicion for recurrent CVA Physical Examination: GENERAL: Frail and cachectic looking HEENT: Atraumatic; EYES; Anicteric, NECK; supple, normal thyroid, RESPIRATORY: Diminished to auscultation CARDIOVASCULAR: Regular S1 S2, GI: Abdominal distention : No Renal angle tenderness; EXTREMITIES: No edema, no clubbing, MUSCULOSKELETAL: muscle waisting NEURO: Awake; R sided hemiparesis SKIN: No Rash PSYCH; Flat affect Assessment: 1. Recurrent CVA 2. Significant dysarthria 3. Acute Cystitis 4. P Afib 5. CKD III 6. Essential Hypertension 7. Anemia 8. DVT prophylaxis SC Heparin Recommendations: 1. I have discussed the results of my overview and impressions with the patient 2. Options for management were reviewed Inpatient E&M: [id number] Init Hosp L3
--- NOTE | 2020-08-17 14:13 | TELEMED_ITS ---
SOC Telemed has confirmed receipt of a request for visit. This document confirms receipt of the order initiating the consult. To find the results of the consultation, please view the patient's reports for the scanned Telemed Consult.
--- NOTE | 2020-08-17 14:44 | CHAPLAIN ---
Type of Pastoral Visit ___ Initial Visit _x__ Follow-up Visit ___ On-call Visit ___ General Patient Visit ___ Spiritual Assessment ___ Family Conference ___ Bereavement ___ Rapid Response ___ Code Blue ___ Other (describe below) Pastoral Care Referral From _x__ Patient ___ Family ___ Nurse ___ Physician ___ Administrative Associate ___ Sap Director ___ Other (describe below) Sacrament/Intervention _x__ Active listening ___ Anointing ___ Congregational ___ Bereavement ___ Communion ___ Radha exploration ___ ___ Life review _x__ Prayer ___ Reconciliation ___ Sacrament of Sick _x__ Supportive presence ___ Wedding ___ Other (describe below) Pastoral Comments patient has been seen several times by this production line worker in ; pt has new diagnosis; offer of presence and support; pt is receptive; pt had disappointment since today was to be her discharge date;
[2020-08-17 15:00] VITALS: PULSE 72
[2020-08-17] MEDS: 0.9% Saline Lock 10 ML Syringe IV (15:11)
[2020-08-17 18:15] VITALS: BP 110/35; PULSE 67; RESP 18; TEMP 37.4; O2SAT 100
[2020-08-17 19:03] VITALS: PULSE 65
[2020-08-17] MEDS: Sodium Ferric Gluconat 250 MG in 0.9% Normal Saline 250 ML 135 MG IV (19:18)
[2020-08-17 21:40] VITALS: BP 116/67; PULSE 68; RESP 18; TEMP 36.9; O2SAT 96
[2020-08-17] MEDS: Heparin Injection (Vial) 5,000 UNIT/ML VIAL 5000 UNIT SC (21:42)
[2020-08-17 23:49] VITALS: PULSE 70
[2020-08-18 02:59] VITALS: PULSE 64
[2020-08-18 03:40] VITALS: BP 131/56; PULSE 75; RESP 20; TEMP 37.3; O2SAT 95
[2020-08-18 05:28] LABS: Absolute Lymphocyte Count 1.11 X10^3/uL (0.83-4.51); Absolute Neutrophil Count 3.6 X10^3/uL (2.0-7.7); Basophil# 0.05 X10^3/uL; Basophil% 0.9 % (0-1); Eosinophil# 0.13 X10^3/uL; Eosinophils% 2.3 % (0-5); Hematocrit 25.8 % (37-47); Hemoglobin 8.5 g/dL (12.0-15.0); Lymphocyte # 1.11 X10^3/ul (4.0); Lymphocyte % 19.8 % (19-41); Mean Corp Hgb Conc 32.9 g/dL (32-36); Mean Corpuscular Hgb 32.2 pg (27.0-32.0); Mean Corpuscular Volume 97.7 fL (81-99); Mean Platelet Vol. 9.8 fl (6.2-12.0); Monocyte% 12.5 % (0-10); NRBC Flagged by Analyzer 0 % (0-5); Neutrophil # 3.59 X10^3/uL (2.7-7.7); Neutrophil % 64.1 % (47-70); Platelet Count 124 K/mm3 (150-450); RBC Distribution Width CV 13.2 % (11.6-14.6); RBC Distribution Width SD 47.1 fl (35.1-43.9); Red Blood Count 2.64 M/mm3 (4.2-5.4); White Blood Count 5.6 K/mm3 (4.4-11.0)
[2020-08-18 05:52] LABS: Anion Gap 9 (5-15); BUN 61 mg/dL (7-18); BUN/Creat Ratio 23.4 RATIO (10-20); Calcium,Total 8.8 mg/dL (8.5-10.1); Chloride 116 mmol/L (98-107); Creatinine, Serum 2.61 mg/dL (0.55-1.02); EST Glomerular Filtration Rate 19 mL/min (>60); Est Glom Filt Rate - Afr Amer 23 mL/min (>60); Estimated Creatinine Clearance 12.92 ml/min; Glucose 85 mg/dL (74-106); Potassium 3.8 mmol/L (3.5-5.1); Sodium Level 144 mmol/L (136-145)
[2020-08-18 07:55] VITALS: PULSE 67
[2020-08-18 09:30] VITALS: PULSE 82; RESP 18
[2020-08-18 09:40] VITALS: BP 119/51; PULSE 68; RESP 18; TEMP 36.9; O2SAT 96
[2020-08-18] MEDS: Heparin Injection (Vial) 5,000 UNIT/ML VIAL 5000 UNIT SC (09:56)
[2020-08-18] MEDS: Aspirin 300 MG Suppository RECTAL (09:57)
[2020-08-18] MEDS: 0.9% Saline Lock 10 ML Syringe IV (09:58)
--- NOTE | 2020-08-18 10:05 | CASEMGMT ---
PETRA spoke with [facility] in the Rehab Unit. She said that Dr Hsu would like for patient to return to them. Patient is still observation status so PETRA will call [employer] to see if we need to obtain another insurance authorization. PETRA called [employer] and left a voice mail for Ciara requesting a return call about patient. Chanda MANUEL MSW
--- NOTE | 2020-08-18 10:43 | CASEMGMT ---
Addendum entered by Chanda Zeng 08/18/20 12:02: PETRA also called patient's son and let him know patient will be headed back to Acute Rehab today. He said Dr Hsu called him and updated him and he was thankful everyone was keeping him up to date. Plan: d/c back to [facility] 4th floor Rehab Unit. Chanda KHALIL Addendum entered by Chanda Zeng 08/18/20 11:59: PETRA received a call from Opal with [facility]. She approved patient to go back to [facility] Acute Rehab Unit. PETRA called L[facility] and notified her patient was approved and will return today. Plan: d/c back to [facility] 4th floor Acute Rehab Unit. Chanda KHALIL Original Note: PETRA received a return call from Ciara at [facility]. She said if patient returns to the rehab unit within 24 hours she does not need another pre-cert. Patient will likely not be discharged before 24 hours so PETRA faxed Ciara all necessary information. Await return call from [facility] with authorization. Plan: d/c back to [facility] Acute Rehab Unit. Chanda KHALIL
--- NOTE | 2020-08-18 11:42 | DCINST_ITS ---
- Discharge Diagnoses Current Active Problems: Current Active and Chronic Problems Dysarthria (Acute) CVA (cerebral vascular accident) (Chronic) UTI (urinary tract infection) (Acute) Dysphagia (Chronic) Chronic renal failure, stage 4 (severe) (Chronic) Heme + stool (Chronic) PAF (paroxysmal atrial fibrillation) (Chronic) Debility (Chronic) Hypertension (Chronic) Gout (Chronic) You will use the following diet at home:: Other - Mechanical soft textures/nectar thick liquids. Aspiration precautions with one-to-one alvarenga pervised meals. Your food should be the consistency of: Mechanical soft (ground) Your liquids should be the consistency of: [place] Thick Discharge Activity: Return to Normal Activity Allergies/Adverse Reactions: Allergies amlodipine [From Norvasc] Adverse Reaction (Verified 07/04/20 16:03) PT UNSURE OF REACTION amoxicillin [From Augmentin] Adverse Reaction (Verified 07/04/20 17:59) PT UNSURE OF REACTION clavulanic acid [From Augmentin] Adverse Reaction (Verified 07/04/20 17:59) PT UNSURE OF REACTION diphtheria, pertussis, tetanus vacc Adverse Reaction (Verified 07/04/20 16:03) PT UNSURE OF REACTION hydrochlorothiazide [From Maxzide] Adverse Reaction (Verified 07/04/20 16:03) PT UNSURE OF REACTION lisinopril Adverse Reaction (Verified 07/04/20 16:03) PT UNSURE OF REACTION Sulfa (Sulfonamide Antibiotics) Adverse Reaction (Verified 07/04/20 16:03) PT UNSURE OF REACTION triamterene [From Maxzide] Adverse Reaction (Verified 07/04/20 16:03) PT UNSURE OF REACTION Medications to take at Discharge Multivitamin [Daily Multiple Vitamin] 1 ea PO DAILY 07/04/20 Vit A/Vit C/Vit E/Zinc/Copper [Preservision Areds Softgel] 1 ea PO BID 07/04/20 Acetaminophen [Tylenol Tablet] 650 mg PO Q6H PRN PRN tab 08/16/20 Amlodipine [Norvasc] 5 mg PO BID #60 tab 08/16/20 Apixaban [Eliquis] 2.5 mg PO BID #60 tab 08/16/20 Arthritis Pain Compound 0 click TOPICAL BID #0 gm 08/16/20 Ascorbic Acid [Vitamin C] 500 mg PO DAILY@1200 tab 08/16/20 Atenolol [Tenormin (beta logan)] 100 mg PO BID #60 tab 08/16/20 Ferrous Sulfate 325 mg PO DAILY@1200 #90 tab 08/16/20 Furosemide [Lasix] 60 mg PO UD #45 tab 08/16/20 Melatonin 6 mg PO QHS #60 tab 08/16/20 Menthol/Lanolin/Calamine/Znox [Calmoseptine Ointment] 1 applic TOPICAL BID tube 08/16/20 Multivitamins,Therapeutic [Multivitamin] 1 tab PO DAILY@0800 tab 08/16/20 Potassium Chloride [K-Dur] 10 meq PO UD #20 tab 08/16/20 Senna/Docusate Sodium [Senokot-S] 1 tab PO BID #60 tab 08/16/20 Aspirin [Aspirin EC] 81 mg PO 08/17/20 Atorvastatin Calcium 80 mg PO 08/17/20 Ondansetron [Zofran] 4 mg IV 08/17/20 Pantoprazole Sodium [Protonix] 20 mg PO DAILY 08/17/20 levoFLOXacin tablet [Levaquin tablet] 500 mg PO Q48@0600 tab 08/18/20 Test Results: Test results from this visit will be discussed in further detail at your follow- up appointment, if applicable. Please Follow Up With: Casey Thomson MD When: 1 Week Please Follow Up With: Zenaida Barragan DO When: As scheduled Please Follow Up With: Jose Roberto Vincent MD - or primary neurology When: 2 Weeks Proposed Discharge Date: 08/18/20
[2020-08-18 11:46] VITALS: BP 131/77; PULSE 86; RESP 18; TEMP 36.7; O2SAT 95
--- NOTE | 2020-08-18 11:47 | DS.PCM_ITS ---
<Sweetie Palmer [employer] SALES REPRESENTATIVE - Last Filed: 08/18/20 12:03> Discharge Date and Diagnosis - Problem List Patient Problems: Active and Suspected Problems Dysarthria (Acute) UTI (urinary tract infection) (Acute) Date of Admission: 08/17/20 Date of Discharge: 08/18/20 - Primary Discharge Diagnosis Acute Problems: Active Problems 1. 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 Acute UTI 3. Paroxysmal atrial fibrillation 4. Chronic kidney disease stage IV 5. Hypertension 6. Anemia of chronic disease/iron deficiency anemia with recent Hemoccult positive stools - Secondary Discharge Diagnosis Chronic Problems: Chronic Problems CVA (cerebral vascular accident) (Chronic) Chronic venous insufficiency of lower extremity (Chronic) Dysphagia (Chronic) Chronic renal failure, stage 4 (severe) (Chronic) Heme + stool (Chronic) PAF (paroxysmal atrial fibrillation) (Chronic) Debility (Chronic) Osteoarthritis (Chronic) Hypertension (Chronic) Keratitis (Chronic) Obesity (BMI 30.0-34.9) (Chronic) Normochromic normocytic anemia (Chronic) Gout (Chronic) Hyperuricemia (Chronic) Hospital Course and Treatment Imaging Results: Diagnostic Data Brain MRI 08/17/20 11:15 IMPRESSION: Involutional changes of the brain, as described above. No acute infarct. Electronically Signed: Melecio Denney MD at 13:25 EST Tel , Service support , SOC neurology Operations: None Procedures: None Summary of Care Provided: The patient is a 85 year old F admitted 08/17/2020 due to sudden onset weakness, dysphagia and dysarthria. 1. 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 No confusion was noted. MRI of brain without acute infarct however due to presentation and onset of symptoms, do suspect recurrent ischemic CVA. Patient had recent ischemic CVA prior to rehab admission secondary to atrial fibrillation. Carotid duplex shows less than 50% stenosis bilaterally. Patient symptoms have improved. Continue aspirin, Eliquis, statin. Return to rehab for ongoing therapy. Follow-up with neurology in 2 weeks. Continue PT/OT/ST. Continue dietary modifications per speech therapy recommendations. 2. Acute UTI-UA with 500 leukocytes, 2+ bacteria and positive nitrite. Urine culture pending. Previous urine culture from 07/14/2020 grew Morganella and Klebsiella. Begin renally dosed Levaquin pending urine culture. 3. Paroxysmal atrial fibrillation-continue atenolol, Eliquis. 4. Chronic kidney disease stage IV-stable, continue follow-up with nephrology. 5. Hypertension-stable, continue amlodipine, atenolol, Lasix. 6. Anemia of chronic disease/iron deficiency anemia with recent Hemoccult positive stools-hemoglobin stable. Trend CBC. Continue aspirin, Eliquis at this time secondary to #1. General: Alert, Oriented x3, Cooperative HEENT: Atraumatic, PERRLA, EOMI, Normocephalic Neck: Supple, No JVD, Negative Carotid Bruits Lungs: Clear to auscultation, Normal air movement Cardiovascular: Regular rate, No murmurs Abdomen: Bowel Sounds Present, Soft, Non Tender Extremities: No edema, Capillary Refill Less than 3 Seconds Skin: No rashes, No breakdown Musculoskeletal: No Tenderness to Palpation of Joints or Extremities Neurological: Slurred Speech, chronic right upper and lower extremity weakness. otherwise neuro grossly intact. Psych/Mental Status: Normal Affect, Appropriate Patient seen and examined prior to discharge. Physical assessment as noted above. Patient is stable for discharge with follow up recommendations as noted above. This patient was seen by RICARDO Price under the supervision of Dr. Leal. Patient Problems: Active and Suspected Problems Dysarthria (Acute) UTI (urinary tract infection) (Acute) - Physical Exam Vitals/I&O's: Vital Signs Temp Pulse Resp BP Pulse Ox 98.5 F 68 18 119/51 L 96 08/18/20 09:40 08/18/20 09:40 08/18/20 09:40 08/18/20 09:40 08/18/20 09:40 Oxygen Delivery Method Room Air Weight: 176 lb 12.972 oz Body Mass Index (BMI) 32.3 Intake and Output for Last 24 Hours 08/16/20 08/17/20 08/18/20 23:59 23:59 23:59 Intake Total 320 / 320 50 / 50 Balance 320 / 320 50 / 50 Laboratory Results 08/17/20 12:05: Iron 36 L, TIBC 233 L, Iron Saturation 15.5, Triglycerides 123, Cholesterol 133, LDL Cholesterol 62, VLDL Cholesterol 25, HDL Cholesterol 46, TSH 1.65 08/17/20 12:05: Hemoglobin A1c 5.6 08/17/20 12:05: WBC 6.6, RBC 2.93 L, Hgb 9.2 L, Hct 28.7 L, MCV 98.0, MCH 31.4, MCHC 32.1, RDW Std Deviation 46.2 H, RDW Coeff of Richar 13.0, Plt Count 145 L, MPV 10.6, Immature Gran % (Auto) 0.300, Neut % (Auto) 73.3 H, Lymph % (Auto) 15.9 L, Antelope % (Auto) 8.2, Eos % (Auto) 1.8, Baso % (Auto) 0.5, Absolute Neuts (auto) 4.8, Absolute Lymphs (auto) 1.04, Nucleated RBC % 0 08/18/20 05:18: WBC 5.6, RBC 2.64 L, Hgb 8.5 L, Hct 25.8 L, MCV 97.7, MCH 32.2 H , MCHC 32.9, RDW Std Deviation 47.1 H, RDW Coeff of Richar 13.2, Plt Count 124 L, MPV 9.8, Immature Gran % (Auto) 0.400, Neut % (Auto) 64.1, Lymph % (Auto) 19.8, Antelope % (Auto) 12.5 H, Eos % (Auto) 2.3, Baso % (Auto) 0.9, Absolute Neuts (auto) 3.6, Absolute Lymphs (auto) 1.11, Nucleated RBC % 0 08/18/20 05:18: Sodium 144, Potassium 3.8, Chloride 116 H, Carbon Dioxide 19.0 L , Anion Gap 9, BUN 61 H, Creatinine 2.61 H, Estim Creat Clear Calc 12.92, Est GFR (MDRD) Af Amer 23 L, Est GFR (MDRD) Non-Af 19 L, BUN/Creatinine Ratio 23.4 H , Glucose 85, Calcium 8.8 Current Medications Acetaminophen (Acetaminophen 650 Mg Suppository) 650 mg RECTAL Q6H PRN PRN PRN Reason: Pain 1-10 or Fever Aspirin (Aspirin 300 Mg Suppository) 300 mg RECTAL DAILY TARUN Last Admin: 11/05/20 09:57 Dose: 300 mg Documented by: Heparin Sodium (Porcine) (Heparin Injection (Vial) 5,000 Unit/Ml Vial) 5,000 unit SC Q12 [facility] Last Admin: 08/18/20 09:56 Dose: 5,000 unit Documented by: Hydralazine HCl (Hydralazine 20 Mg/Ml Vial) 5 mg IV Q6H PRN PRN PRN Reason: BLOOD PRESSURE Levofloxacin (Levofloxacin 500 Mg Tablet) 500 mg PO Q48@0600 [facility] Ondansetron HCl (Ondansetron 4 Mg/2 Ml Vial) 4 mg IV Q6H PRN PRN PRN Reason: NAUSEA Sodium Chloride (0.9% Saline Lock 10 Ml Syringe) 10 - 40 ml IV UD PRN PRN Reason: SALINE FLUSH Last Admin: 08/18/20 09:58 Dose: 20 ml Documented by: Discharge Diet: - - Mechanical soft, nectar thick Discharge Activity: Return to Normal Activity Home Medications: Medications to take at Discharge Multivitamin [Daily Multiple Vitamin] 1 ea PO DAILY 07/04/20 Vit A/Vit C/Vit E/Zinc/Copper [Preservision Areds Softgel] 1 ea PO BID 07/04/20 Acetaminophen [Tylenol Tablet] 650 mg PO Q6H PRN PRN tab 08/16/20 Amlodipine [Norvasc] 5 mg PO BID #60 tab 08/16/20 Apixaban [Eliquis] 2.5 mg PO BID #60 tab 08/16/20 Arthritis Pain Compound 0 click TOPICAL BID #0 gm 08/16/20 Ascorbic Acid [Vitamin C] 500 mg PO DAILY@1200 tab 08/16/20 Atenolol [Tenormin (beta logan)] 100 mg PO BID #60 tab 08/16/20 Ferrous Sulfate 325 mg PO DAILY@1200 #90 tab 08/16/20 Furosemide [Lasix] 60 mg PO UD #45 tab 08/16/20 Melatonin 6 mg PO QHS #60 tab 08/16/20 Menthol/Lanolin/Calamine/Znox [Calmoseptine Ointment] 1 applic TOPICAL BID tube 08/16/20 Multivitamins,Therapeutic [Multivitamin] 1 tab PO DAILY@0800 tab 08/16/20 Potassium Chloride [K-Dur] 10 meq PO UD #20 tab 08/16/20 Senna/Docusate Sodium [Senokot-S] 1 tab PO BID #60 tab 08/16/20 Aspirin [Aspirin EC] 81 mg PO 08/17/20 Atorvastatin Calcium 80 mg PO 08/17/20 Ondansetron [Zofran] 4 mg IV 08/17/20 Pantoprazole Sodium [Protonix] 20 mg PO DAILY 08/17/20 levoFLOXacin tablet [Levaquin tablet] 500 mg PO Q48@0600 tab 08/18/20 Please Follow Up With: Casey Thomson MD When: 1 Week Please Follow Up With: Zenaida Barragan DO When: As scheduled Please Follow Up With: Jose Roberto Vincent MD - or primary neurology When: 2 Weeks Disposition: Inpt Rehab Unit/Facility Minutes spent on discharge:: 35 Patient Condition:: Stable Medical Necessity - Tobacco Use Smoking Status: Never smoker Tobacco Use: Non-smoker Meaningful Use Info Meaningful Use Diagnoses (Choose all that apply): Ischemic CVA - CVA Therapy Assessed for PT,OT and/or ST?: Yes - Ischemic Stroke Antithrombotic order at d/c?: Yes Dx of Atrial fib/flutter?: Yes Anticoagulant at discharge?: Yes Statins at discharge?: Yes Primary Dx Acute Ischemic CVA?: Yes IV tPA ordered during stay?: No Reason IV t-PA not ordered: Medical Contraindication <Phani Leal - Last Filed: 08/18/20 14:31> Discharge Date and Diagnosis - Primary Discharge Diagnosis Acute Problems: Active Problems Dysarthria (Acute) UTI (urinary tract infection) (Acute) - Secondary Discharge Diagnosis Chronic Problems: Chronic Problems CVA (cerebral vascular accident) (Chronic) Chronic venous insufficiency of lower extremity (Chronic) Dysphagia (Chronic) Chronic renal failure, stage 4 (severe) (Chronic) Heme + stool (Chronic) PAF (paroxysmal atrial fibrillation) (Chronic) Debility (Chronic) Osteoarthritis (Chronic) Hypertension (Chronic) Keratitis (Chronic) Obesity (BMI 30.0-34.9) (Chronic) Normochromic normocytic anemia (Chronic) Gout (Chronic) Hyperuricemia (Chronic) Hospital Course and Treatment Summary of Care Provided: This patient was seen in conjunction with RICARDO Price. I have independently interviewed and examined the patient and reviewed pertinent historical, laboratory, and other data. Please refer to RICARDO Price note for details of this patient's presentation, findings, and recommendations. I have reviewed RICARDO Price note and concur with documented findings. In brief, patient is an 85 -year-old lady with history of CVA who was being managed at the rehab unit readmmited with worsening dysarthria with a suspicion for recurrent CVA Assessment: 1. Recurrent CVA 2. Significant dysarthria 3. Acute Cystitis 4. P Afib 5. CKD III 6. Essential Hypertension 7. Anemia 8. DVT prophylaxis SC Heparin Hospital course as documented above - Physical Exam Vitals/I&O's: Vital Signs Temp Pulse Resp BP Pulse Ox 98.0 F 86 18 131/77 H 95 08/18/20 11:46 08/18/20 11:46 08/18/20 11:46 08/18/20 11:46 08/18/20 11:46 Oxygen Delivery Method Room Air Weight: 80.2 kg Body Mass Index (BMI) 32.3 Intake and Output for Last 24 Hours 08/16/20 08/17/20 08/18/20 23:59 23:59 23:59 Intake Total 320 / 320 50 / 50 Balance 320 / 320 50 / 50 Laboratory Results 08/18/20 05:18: WBC 5.6, RBC 2.64 L, Hgb 8.5 L, Hct 25.8 L, MCV 97.7, MCH 32.2 H , MCHC 32.9, RDW Std Deviation 47.1 H, RDW Coeff of Richar 13.2, Plt Count 124 L, MPV 9.8, Immature Gran % (Auto) 0.400, Neut % (Auto) 64.1, Lymph % (Auto) 19.8, Antelope % (Auto) 12.5 H, Eos % (Auto) 2.3, Baso % (Auto) 0.9, Absolute Neuts (auto) 3.6, Absolute Lymphs (auto) 1.11, Nucleated RBC % 0 08/18/20 05:18: Sodium 144, Potassium 3.8, Chloride 116 H, Carbon Dioxide 19.0 L , Anion Gap 9, BUN 61 H, Creatinine 2.61 H, Estim Creat Clear Calc 12.92, Est GFR (MDRD) Af Amer 23 L, Est GFR (MDRD) Non-Af 19 L, BUN/Creatinine Ratio 23.4 H , Glucose 85, Calcium 8.8 Inpatient E&M: 26131 Disch Hosp
--- NOTE | 2020-08-18 12:20 | CASEMGMT ---
This RN CM to room with ROMAN form at this time, explanation done-pt voices understanding, and attempts to sign ROMAN form at this time. Pt has limited use of right arm d/t recent CVA. Pt makes anderson and gives verbal consent for signature to this RN CM at this time. Original to chart and copy to pt at this time. Pt voices no further questions/concerns/needs at this time. SStaten RN CM
== END 2020-08-18 13:31 ==
PROVIDERS: Physician Assistant; Admitting Provider Internal Medicine; Visit Provider Internal Medicine
DX: R47.1 Dysarthria and anarthria (principal); N30.00 Acute cystitis without hematuria; I12.9 Hypertensive chronic kidney disease with stage 1 through stage 4 chronic kidney disease, or unspecified chronic kidney disease; N18.4 Chronic kidney disease, stage 4 (severe); I48.0 Paroxysmal atrial fibrillation; M10.9 Gout, unspecified; R13.10 Dysphagia, unspecified; I69.351 Hemiplegia and hemiparesis following cerebral infarction affecting right dominant side; Z79.899 Other long term (current) drug therapy; Z79.01 Long term (current) use of anticoagulants; Z79.82 Long term (current) use of aspirin; M19.90 Unspecified osteoarthritis, unspecified site; E66.9 Obesity, unspecified; Z68.32 Body mass index [BMI] 32.0-32.9, adult; D50.9 Iron deficiency anemia, unspecified; D63.8 Anemia in other chronic diseases classified elsewhere
CPT/HCPCS: 70551; 80048; 80061; 83036; 83540; 83550; 84443; 85025; 87086; 92610; 93005; 93880; 96365; 96366; 96367; 96372; 97110; 97162; 97166; 97535; 99218; J7050; A4216; G0378; G0379; J2916

== ENCOUNTER 2020-09-10 14:51 | Outpatient (RCR) | payer MEDICARE, SELFPAY ==
[2020-09-07 11:55] VITALS: BMI 32.8
[2020-09-10 15:20] LABS: Anion Gap 5 (5-15); BUN 35 mg/dL (7-18); BUN/Creat Ratio 16.1 RATIO (10-20); Calcium,Total 9.2 mg/dL (8.5-10.1); Chloride 107 mmol/L (98-107); Creatinine, Serum 2.18 mg/dL (0.55-1.02); EST Glomerular Filtration Rate 23 mL/min (>60); Est Glom Filt Rate - Afr Amer 28 mL/min (>60); Glucose 114 mg/dL (74-106); Potassium 4.3 mmol/L (3.5-5.1); Sodium Level 141 mmol/L (136-145)
--- NOTE | 2020-09-13 11:30 | PCM.PN.BLA ---
Progress Note I spoke to So on the phone on 09/12/2020 at approximately 2:15 PM. I reviewed the lab that was drawn on 09/10/2020 and her creatinine is good at 2.18 which is within her baseline. The BUN was 35 and the potassium is now within normal limits at 4.3 since she has been placed on a potassium restricted diet. She will let him know that her lab work looks good. She has a follow-up appointment with Dr. Bob Ugalde this week to assume her chronic medical care.
== END 2020-09-10 18:00 | disposition home or self-care (01) ==
LOC: HHLAB 14:51
PROVIDERS: Visit Provider Internal Medicine
DX: N17.9 Acute kidney failure, unspecified (principal)
CPT/HCPCS: 80048

== ENCOUNTER → 2020-09-30 15:10 | Outpatient (CLI) | payer MEDICARE, SELFPAY ==
[2020-09-30 17:25] LABS: Absolute Lymphocyte Count 1.39 X10^3/uL (0.83-4.51); Absolute Neutrophil Count 4.4 X10^3/uL (2.0-7.7); Basophil# 0.05 X10^3/uL; Basophil% 0.7 % (0-1); Eosinophil# 0.28 X10^3/uL; Eosinophils% 4.2 % (0-5); Hematocrit 30.6 % (37-47); Hemoglobin 9.3 g/dL (12.0-15.0); Lymphocyte # 1.39 X10^3/ul (4.0); Lymphocyte % 20.6 % (19-41); Mean Corp Hgb Conc 30.4 g/dL (32-36); Mean Corpuscular Hgb 31.4 pg (27.0-32.0); Mean Corpuscular Volume 103.4 fL (81-99); Mean Platelet Vol. 10.6 fl (6.2-12.0); Monocyte# 0.62 X10^3/uL; Monocyte% 9.2 % (0-10); NRBC Flagged by Analyzer 0 % (0-5); Neutrophil # 4.38 X10^3/uL (2.7-7.7); Platelet Count 182 K/mm3 (150-450); RBC Distribution Width CV 12.6 % (11.6-14.6); RBC Distribution Width SD 47.4 fl (35.1-43.9); Red Blood Count 2.96 M/mm3 (4.2-5.4); White Blood Count 6.7 K/mm3 (4.4-11.0)
[2020-09-30 17:40] LABS: ALB/GLOB Ratio 0.9 RATIO (0.9-2.4); AST(SGOT) 18 U/L (15-37); Alanine Aminotransfer ALT/SGPT 19 U/L (13-56); Albumin, Serum 3.4 g/dL (3.2-5.0); Alkaline Phosphatase 92 U/L (45-117); Anion Gap 6 (5-15); BUN 55 mg/dL (7-18); BUN/Creat Ratio 27.1 RATIO (10-20); Calcium,Total 9.4 mg/dL (8.5-10.1); Chloride 108 mmol/L (98-107); Creatinine, Serum 2.03 mg/dL (0.55-1.02); EST Glomerular Filtration Rate 25 mL/min (>60); Est Glom Filt Rate - Afr Amer 30 mL/min (>60); Globulin 3.8 g/dL (2.2-4.2); Glucose 128 mg/dL (74-106); Magnesium 1.9 mg/dL (1.6-2.6); Potassium 4.1 mmol/L (3.5-5.1); Protein, Total 7.2 g/dL (6.4-8.2); Sodium Level 141 mmol/L (136-145)
== END ==
PROVIDERS: PCP Internal Medicine; Referring Provider Internal Medicine; Visit Provider Internal Medicine
DX: I10 Essential (primary) hypertension (principal); I48.0 Paroxysmal atrial fibrillation; E83.42 Hypomagnesemia
CPT/HCPCS: 80053; 83735; 85025

== ENCOUNTER 2020-10-16 16:40 | Emergency (ER) | payer MEDICARE, SELFPAY ==
[2020-10-16 16:41] VITALS: BP 146/70; PULSE 73; RESP 20; TEMP 36.2; O2SAT 96; BMI 33.7
--- NOTE | 2020-10-16 16:52 | CT_ITS ---
STUDY: CT BRAIN WITHOUT CONTRAST REASON FOR EXAM: Female, 85 years old. FELL, LAC TO TOP OF HEAD, ON BLOOD THINNERS, HTN, CVA, CRF STAGE 4 RADIATION DOSAGE (If Supplied By Facility): CTDIvol = ( 44.99 ) mGy, DLP = ( 798.92 ) mGycm TECHNIQUE: Transaxial CT imaging of the brain was performed without administration of intravenous contrast material. Individualized dose optimization techniques were used for this CT. COMPARISON: 08/17/2020 FINDINGS: There is a soft tissue swelling of the right parietal scalp with small locules of air. Normal calvarium. Normal size ventricles and extra-axial spaces for the patient''s age. There is an old infarction of the right basal ganglia. Normal basal ganglia and thalami. Normal brainstem. Normal cerebellum. There is no intracranial hemorrhage. There are no findings of an acute ischemic infarction. Normal visualized paranasal sinuses. CT/Brain/Head without Contrast IMPRESSION: 1. No acute intracranial hemorrhage or mass effect. 2. Right parietal scalp soft tissue swelling/laceration. Electronically Signed: Ezra Santiago MD (Brooks) at 17:56 EST , Service support ,
--- NOTE | 2020-10-16 16:58 | ED.DCSUM_ITS ---
- ER Visit Summary Date of Service: 10/16/20 Chief Complaint: Fall with scalp laceration History of Present Illness: The patient is a 85 F prior history of a stroke with right-sided weakness, renal sufficiency and anemia. Reportedly on blood thinners. Patient lost her footing at home fell struck the back of her head causing a laceration. This occurred within the last hour and he wondered to be evaluated. She denies any other injuries. She denies any headache. Physical Examination: Elderly female no acute distress vital signs are stable afebrile. Initial blood pressure 146/70. H EENT exam she has a head dressing on has a laceration the posterior scalp. There is fresh blood. Pupils round reactive light no facial trauma. C-spine nontender. Trachea midline. Lungs clear to auscultation. Heart regular rhythm chest wall nontender. Abdomen soft nontender. Pelvic girdle intact. Left upper and left lower extremity are nontender and unremarkable with normal range of motion. She has an old injury skin wound to her left lower lateral leg just above the ankle it is healing it is edematous there is no bony deformity she has been walking on it. The right upper and right lower extremity are both weak from her recent stroke but there is no deformity and are nontender. Back is nontender. Neurologically she is awake and alert. She has right upper and lower extremity weakness from her prior stroke as previously stated. She is acting appropriately. Test Results: CAT scan of her brain without contrast read by the radiologist and reviewed by me shows scalp hematoma. No skull fracture. No intracranial bleed. Procedure note: Nurses cleaned the patient's scalp. There is a lot of blood. She is a large L-shaped flap laceration on top of her scalp. Is approximately 8 cm in length. Area was cleaned with Shur-Clens washed with saline and explored. There did not appear to be any obvious step-off. There was mild oozing but no pulsatile bleeding. No obvious foreign body. I closed it using 10 simple interrupted 3-0 Ethilon sutures. Patient tolerated procedure well. On repeat exam she is doing well at 7:10 PM. She has no other new injuries. She is awake alert talking. She is comfortable being discharged home and again does not want a tetanus shot. Emergency Department Course and Treatment: Elderly female fall with scalp laceration and no need to be repaired. She did have a CAT scan of her brain due to to being on reportedly a blood thinner. Otherwise I do not find any other acute injuries. She does not want a tetanus shot. Treatment Plan: Wound care. Disposition: Discharge Impression: Acute fall Closed head injury Scalp laceration with ER repair approximately 8 cm with an L-shaped configuration Status post recent stroke with right-sided weakness This note was generated with [employer] Portal (CAP) dictation software. It may contain incorrect words, spelling, and punctuation that were not noted in review of the chart prior to signing ED Disposition - Plan for ED Patient: Referrals: Mario Perez MD [Primary Care Provider] -
[2020-10-16 17:43] VITALS: BP 129/62; PULSE 75; RESP 18; O2SAT 95
[2020-10-16] MEDS: Lidocaine 1% (20 ml mdv) 20 ML Vial 10 ML INFILT (18:56)
--- NOTE | 2020-10-16 19:11 | ED.DEP ---
ED Disposition - Plan for ED Patient: Disposition: Home or Assisted Living Instructions: ED Laceration: All Closures, ED Head Injury (Adult) Referrals: Mario Perez MD [Primary Care Provider] - 10 Day for suture removal Additional Instructions: You had an L shaped laceration on your scalp the very top. There are [address] in place. These need to be removed in 10 days. Keep the area clean. May wash with soap and water or just plain water or peroxide. Dry thoroughly. Ice to area to decrease swelling. Tylenol for any pain. Return for further evaluation if intractable vomiting or severe headache. Your CAT scan today did not show any acute abnormality.
== END 2020-10-16 19:31 | disposition home or self-care (01) ==
PROVIDERS: Emergency Provider Emergency Medicine; PCP Internal Medicine
DX: S01.01XA Laceration without foreign body of scalp, initial encounter (principal); W19.XXXA Unspecified fall, initial encounter; Y92.9 Unspecified place or not applicable; Y93.9 Activity, unspecified; I69.351 Hemiplegia and hemiparesis following cerebral infarction affecting right dominant side; N28.9 Disorder of kidney and ureter, unspecified; D64.9 Anemia, unspecified; Z79.01 Long term (current) use of anticoagulants; Z79.899 Other long term (current) drug therapy
CPT/HCPCS: 12004; 70450; 99284

== ENCOUNTER → 2020-10-19 12:32 | Outpatient (CLI) | payer MEDICARE, SELFPAY ==
[2020-10-16 16:41] VITALS: BMI 33.7
--- NOTE | 2020-10-19 18:11 | ST.MBS ---
Modified Barium Swallow - Patient Information Study Date: 10/19/20 Study Time: 13:00 Direct Billable Minutes: 70 Total Minutes procedure & reportin Diagnosis: Dysphagia (R13.10) Referring Physician: Mario Perez Reason for Referral: The patient is an 85 year old female referred for a modified barium swallow (MBS) study to objectively assess the patients oropharyngeal swallow function under fluoroscopy secondary to a recent left pontine cerebrovascular accident on 06/28/2020. 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 PER TRIAL): PENETRATION / ASPIRATION SCALE (MCCLELLAN): 1 = does not enter airway 2 = enters airway/above vocal folds/ejected 3 = enters airway/above vocal folds/not ejected 4 = enters airway/contacts vocal folds/ejected 5 = enters airway/contacts vocal folds/not ejected 6 = enters airway/below vocal folds/ejected 7 = enters airway/below vocal folds/not ejected despite effort 8 = enters airway/below vocal folds/no effort VIDEOFLOROSCOPIC SCALE SCORE (MCCLELLAN): Grade I = aspiration of material that has penetrated into the laryngeal vestibule, intact cough reflex Grade II = aspiration < 10 % of the bolus, intact cough reflex Grade III = aspiration of < 10 % of the bolus, reduced cough reflex or aspiration of > 10 % of the bolus, intact cough reflex Grade IV = aspiration of > 10 % of the bolus, reduced cough reflex PENETRATION / ASPIRATION SCALE (SCORE) WITH VIDEOFLOROSCOPIC SCALE SCORE: Thin liquid - 5 mL tsp.: 6 - Grade III Thin liquids via cup (single): 3 Thin liquids via cup (single): 4 Thin liquids via cup (single): 3 Thin liquids via straw (single): 2 Thin liquids via straw (single): 4 [place] thickened liquids via straw (single): 1 [place] thickened liquids via straw (single): 2 [place] thickened liquids via straw (single): 1 [place] thickened liquids via straw (chin tuck): 1 [place] thickened liquids via straw (chin tuck): 1 [place] thickened liquids via straw (chin tuck): 1 Pudding via spoon: 1 Solid textures: 1 Thin liquids via straw (chin tuck): 2 Thin liquids via straw (chin tuck): 2 Thin liquids via straw (chin tuck): 3 Thin liquids via straw (chin tuck): 3 - Oral Phase Labial Seal: Interlabial escape, no progression to anterior lip Tongue Control During Bolus Hold: Posterior escape of less than half of bolus Bolus Preparation/Mastication: Slow prolonged chewing/mashing with complete recollection Bolus Transport/Lingual Motion: Repetitive/disorganized tongue motion Oral Residue: Trace residue lining oral structures - Pharyngeal Phase Initiation of Pharyngeal Swallow: Bolus head in pyriforms Soft Palate Elevation: No bolus between soft palate and pharyngeal wall Laryngeal Elevation: Min superior movement thyroid cart/min apprx aryte cart-epig petiole Anterior Hyoid Excursion: Partial anterior movement Epiglottic Movement: Partial inversion Laryngeal Vestibule Closure at Height of Swallow: Incomplete; narrow column of air/contrast in laryngeal vestibule Pharyngeal Stripping Wave: Present - complete Tongue Base Retraction: Trace column of contrast between tongue base & post. pharyngeal wall Pharyngeal Residue: Trace residue within or on pharyngeal structures - Diagnosis/Impression Diagnosis: Dysphagia (R13.12) Impression: The patient presents with moderate oropharyngeal dysphagia (DSRS: 4; DCS: D0) with grade III transient and SILENT aspiration of thin liquids secondary to a recent left pontine cerebrovascular accident. Her swallow profile was marked by a consistent pharyngeal swallow dyssynchrony resulting in pre-prandial and prandial penetration during liquid ingestion with mild variations in bolus dwell time (1-3 seconds) which was further complicated by an inconsistent ability to contain liquid bolus? within the oral cavity leading to premature posterior bolus loss during the oral transition phase. She additionally demonstrates reductions in hyolaryngeal excursion and duration with inconsistent laryngeal vestibule pressure generated to expel penetrated material. She does demonstrate appropriate pharyngeal motility and velopharyngeal functioning. She demonstrates a weak cued volitional cough intensity generated to expel penetrated material / tracheobronchial aspiration (dystussia), with an absent cough in response to tracheal aspiration (dystussia / atussia), though the singular event consisted of scant quantities and was transient in nature, with limited inferior movement of contrast from the vocal folds. She appears to demonstrate kyphosis which may have an impact on full pharyngoesophageal dilation, though this appeared to have minimal to no impact on pharyngoesophageal motility or esophageal clearance timing. All deficits were managed successfully with bolus rate / volume adjustments, diet texture adjustments, and execution of the chin tuck posture via straw; insufficient effects noted from any one strategy alone. Given the location of infarction she will likely experience a protracted recovery, though there are noticeable improvements between the most current study and the 08/2020 study. I would recommend a repeat MBS within the next 4-6 weeks following continued intervention, with possible advancement opportunities to a thin liquid diet following continued training with the chin tuck posture and continued functional improvements following the pontine stroke. - Recommendations Comment: DIET TEXTURE RECOMMENDATIONS: mechanical soft textured (IDDSI: 5), nectar thickened liquid (IDDSI: 2) diet RECOMMENDED COMPENSATORY STRATEGIES: supervision with assistance as needed, chin tuck execution via straw, reduced bolus volume / rate of ingestion, seated upright at 90 degrees during PO intake, remain upright for 30-60 minutes post meal (GERD precaution), medications one at a time with purees; enteral supplementation as needed during transition to full PO diet. Recommend Repeat Modified Barium Swallow: Yes Need for Skilled Speech Therapy Services: Yes Education Completed: 1. Described result of evaluation., 4. Family/caregivers understand evaluation & agree w/ goals & tx plan., 7. Pt requires further education on strategies & risks., 8. Family/caregivers require further education on strategies & risks. - Image Count: [id number] - Status Active ST Patient: Not Active
== END ==
PROVIDERS: PCP Internal Medicine; Referring Provider Internal Medicine; Visit Provider Internal Medicine
DX: I69.351 Hemiplegia and hemiparesis following cerebral infarction affecting right dominant side (principal); I69.322 Dysarthria following cerebral infarction; I69.391 Dysphagia following cerebral infarction
CPT/HCPCS: 74230; 92611

== ENCOUNTER → 2020-11-22 13:30 | Outpatient (CLI) | payer MEDICARE, SELFPAY ==
[2020-11-22 16:40] LABS: Hematocrit 34.1 % (37-47); Hemoglobin 10.1 g/dL (12.0-15.0); Mean Corp Hgb Conc 29.6 g/dL (32-36); Mean Corpuscular Hgb 30.9 pg (27.0-32.0); Mean Corpuscular Volume 104.3 fL (81-99); Mean Platelet Vol. 10.9 fl (6.2-12.0); Platelet Count 160 K/mm3 (150-450); RBC Distribution Width CV 14.5 % (11.6-14.6); RBC Distribution Width SD 55.7 fl (35.1-43.9); Red Blood Count 3.27 M/mm3 (4.2-5.4)
[2020-11-22 16:52] LABS: Albumin, Serum 3.4 g/dL (3.2-5.0); BUN 35 mg/dL (7-18); Calcium,Total 9.2 mg/dL (8.5-10.1); Chloride 114 mmol/L (98-107); Creatinine, Serum 2.33 mg/dL (0.55-1.02); EST Glomerular Filtration Rate 21 mL/min (>60); Est Glom Filt Rate - Afr Amer 26 mL/min (>60); Ferritin 307 ng/mL (8-252); Glucose 117 mg/dL (74-106); Iron 67 ug/dL (50-170); Iron Binding Capacity,Total 254 ug/dL (250-450); PERCENT IRON SATURATION 26.4 % (15.0-55.0); Phosphorus 3.5 mg/dL (2.5-4.9); Sodium Level 144 mmol/L (136-145)
[2020-11-23 08:35] LABS: PTHIN 163.9 pg/mL (18.4-80.1)
== END ==
PROVIDERS: PCP Internal Medicine; Visit Provider Internal Medicine Nephrology
DX: N18.4 Chronic kidney disease, stage 4 (severe) (principal); D64.9 Anemia, unspecified
CPT/HCPCS: 36415; 80069; 82728; 83540; 83550; 83970; 85027

== ENCOUNTER 2020-12-04 17:07 | Inpatient (IN) | payer MEDICARE, SELFPAY ==
[2020-12-04] VITALS (18 sets, daily range): BP systolic 73–108; BP diastolic 46–89; PULSE 41–449; RESP 15–21; TEMP 30.5–34.4; O2SAT 93–99; BMI 37.3
--- NOTE | 2020-12-04 17:45 | EKG12_ITS ---
Test Reason : WEAKNESS Blood Pressure : / mmHG Vent. Rate : 055 BPM Atrial Rate : 125 BPM P-R Int : 000 ms QRS Dur : 110 ms QT Int : 536 ms P-R-T Axes : 000 -26 001 degrees QTc Int : 512 ms Atrial fibrillation Low voltage QRS Prolonged QT Abnormal ECG Confirmed by SHYANN ROCHA, AFIA ([id number]), editorial manager ROXANA FLORES ([id number]) on 12/06/2020 11:33:51 AM Referred By: MACY Confirmed By:AFIA BOOTHE MD
[2020-12-04] MEDS: 0.9% Normal Saline 1,000 ML 1000 ML IV ×2 (17:55→19:13)
[2020-12-04 18:33] LABS: Absolute Lymphocyte Count 0.64 X10^3/uL (0.83-4.51); Basophil# 0.01 X10^3/uL; Basophil% 0.2 % (0-1); Eosinophil# 0.03 X10^3/uL; Eosinophils% 0.6 % (0-5); Hematocrit 32.8 % (37-47); Hemoglobin 9.8 g/dL (12.0-15.0); Lymphocyte # 0.64 X10^3/ul (4.0); Lymphocyte % 12.9 % (19-41); Mean Corp Hgb Conc 29.9 g/dL (32-36); Mean Corpuscular Hgb 31.2 pg (27.0-32.0); Mean Corpuscular Volume 104.5 fL (81-99); Mean Platelet Vol. 11.9 fl (6.2-12.0); Monocyte# 0.29 X10^3/uL; Monocyte% 5.9 % (0-10); NRBC Flagged by Analyzer 0.8 % (0-5); Neutrophil # 3.97 X10^3/uL (2.7-7.7); Neutrophil % 80.2 % (47-70); POSITIVE COUNT YES; Platelet Count 99 K/mm3 (150-450); RBC Distribution Width CV 15.3 % (11.6-14.6); RBC Distribution Width SD 58.2 fl (35.1-43.9); Red Blood Count 3.14 M/mm3 (4.2-5.4)
--- NOTE | 2020-12-04 18:40 | RAD_ITS ---
STUDY: X-RAY CHEST REASON FOR EXAM: Female, 85 years old. INCREASING WEAKNESS TECHNIQUE: Frontal view COMPARISON: 08/12/2020 FINDINGS: The lungs are not fully expanded. Right pleural effusion with basilar consolidation. Normal size heart. Normal mediastinum and james. Normal visualized pulmonary arteries. Normal visualized aortic arch and descending thoracic aorta. Mild degenerative changes of the thoracic spine. Normal visualized ribs, clavicles, and shoulders. There is no demonstrated abnormality of the visualized soft tissue structures of the upper abdomen. RAD/Chest 1 View (Portable) IMPRESSION: Right pleural effusion with basilar consolidation. Electronically Signed: Deion Howard DO at 19:47 EST Tel [phone], Service support ,
[2020-12-04 18:45] LABS: Prothrombin Time (Protime)PT. 21.9 SECONDS (11.7-14.9)
[2020-12-04 18:47] LABS: Lactic Acid 1.4 mmol/L (0.4-1.9)
[2020-12-04 18:51] LABS: Mucous, Urine 0 SEEN /hpf (<or=2+)
[2020-12-04 18:51] LABS: ALB/GLOB Ratio 1.1 RATIO (0.9-2.4); AST(SGOT) 18 U/L (15-37); Alanine Aminotransfer ALT/SGPT 29 U/L (13-56); Albumin, Serum 3.3 g/dL (3.2-5.0); Alkaline Phosphatase 106 U/L (45-117); Anion Gap 8 (5-15); BUN 54 mg/dL (7-18); BUN/Creat Ratio 13.8 RATIO (10-20); Calcium,Total 8.9 mg/dL (8.5-10.1); Chloride 112 mmol/L (98-107); Creatinine, Serum 3.92 mg/dL (0.55-1.02); EST Glomerular Filtration Rate 12 mL/min (>60); Est Glom Filt Rate - Afr Amer 14 mL/min (>60); Globulin 3.1 g/dL (2.2-4.2); Glucose 117 mg/dL (74-106); Protein, Total 6.4 g/dL (6.4-8.2); Sodium Level 143 mmol/L (136-145)
[2020-12-04 18:55] LABS: Color, Urine Yellow (Yellow); Glucose, Dipstick Normal (Normal); Ketone-Dipstick Negative (Negative); Leukocyte Esterase-Dipstick 500 /ul (Negative); Nitrite-Dipstick Negative (Negative); Occult Blood-Urine 250 /ul (Negative); Protein-Dipstick 100 mg/dl (Negative); Urine Clarity Sl. Cloudy (Clear); Urine Urobilinogen Normal (Normal)
[2020-12-04 19:26] LABS: Differential Indicated SCAN CRITERIA MET
--- NOTE | 2020-12-04 19:29 | ED.DCSUM_ITS ---
History of Present Illness Chief Complaint: Weakness Informant: Patient Onset: Days Context: Gradual Onset Timing: Continuous Quality: Weakness, not feeling well and lightheadedness Location: Generalized Current Severity: Moderate Maximum Severity: Moderate Worsened by: Upright position Relieved by: Nothing Associated Symptoms: Patient is not a good informant. She is not alert. She is not oriented. Narrative: Patient is an elderly woman with multiple medical problems. She does have history of cystitis in the past. She is not alert. She will answer questions. Her speech is slightly slurred. Her major complaint is she does not feel well. She also complains of weakness and lightheadedness. She denies history of thyroid disease. She denies cold intolerance. Patient denies fever or chills. She denies headache. She denies change in vision. She denies cough or shortness of breath. She denies chest discomfort. She denies nausea, vomiting or diarrhea. She denies dysuria, frequency, urgency or hematuria. Prior similar symptoms: No Recent Illness/Hospitalization: No - Past Medical History (1) Bradycardia Status: Acute (2) CVA (cerebral vascular accident) Status: Acute (3) Debility Status: Acute Comment: Secondary to strokes. The first stroke occurred 06/28/2020 and the second stroke occurred 08/17/2020. 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 (8) Chronic anticoagulation Status: Chronic Comment: With apixaban (9) Chronic renal failure, stage 4 (severe) Status: Chronic (10) Chronic venous insufficiency of lower extremity Status: Chronic (11) Essential hypertension Status: Chronic (12) Gout Status: Chronic (13) Iron deficiency Status: Chronic (14) Obesity (BMI 30.0-34.9) Status: Chronic (15) PAF (paroxysmal atrial fibrillation) Status: Chronic Past Medical History - Allergies and Home Meds Allergies/Adverse Reactions: Allergies meperidine [From Demerol] Allergy (Mild, Verified 12/04/20 17:21) nausea amlodipine [From Norvasc] Adverse Reaction (Verified 12/04/20 17:21) PT UNSURE OF REACTION amoxicillin [From Augmentin] Adverse Reaction (Verified 12/04/20 17:21) PT UNSURE OF REACTION clavulanic acid [From Augmentin] Adverse Reaction (Verified 12/04/20 17:21) PT UNSURE OF REACTION diphtheria, pertussis, tetanus vacc Adverse Reaction (Verified 12/04/20 17:21) PT UNSURE OF REACTION hydrochlorothiazide [From Maxzide] Adverse Reaction (Verified 12/04/20 17:21) PT UNSURE OF REACTION lisinopril Adverse Reaction (Verified 12/04/20 17:21) PT UNSURE OF REACTION Sulfa (Sulfonamide Antibiotics) Adverse Reaction (Verified 12/04/20 17:21) PT UNSURE OF REACTION triamterene [From Maxzide] Adverse Reaction (Verified 12/04/20 17:21) PT UNSURE OF REACTION Primary Care Physician: Mario Perez MD [Primary Care Provider] - Prior records reviewed: Yes Surgical History: cataract - with IOL implants, cholecystectomy, hysterectomy Lives: Alone Smoking Status: Never smoker Alcohol: None Drugs: None - Family History Maternal Family History: Family History (Last Updated 09/30/20 @ 14:25 by Christina Bermeo) Brother Diabetes Sister Diabetes Father Cancer Mother CVA (cerebral vascular accident) Family History: Reports: Hypertension, Stroke Paternal Family History: Family History (Last Updated 09/30/20 @ 14:25 by Christina Bermeo) Brother Diabetes Sister Diabetes Father Cancer Mother CVA (cerebral vascular accident) Family History: Reports: Cancer, Pulmonary Disease, Stroke Sibling Family History: Family History (Last Updated 09/30/20 @ 14:25 by Christina Bermeo) Brother Diabetes Sister Diabetes Father Cancer Mother CVA (cerebral vascular accident) Family History: Reports: Cancer, Diabetes, Heart Disease, Stroke Offspring Family History: Family History (Last Updated 09/30/20 @ 14:25 by Christina Bermeo) Brother Diabetes Sister Diabetes Father Cancer Mother CVA (cerebral vascular accident) Family History: Reports: Stroke - in her daughter Review of Systems General: Denies: Chills, Fever, Subjective, Sweats Eyes: Denies: Visual changes - bilaterally, Blurred Vision - bilaterally ENT: Denies: Rhinorrhea, Sore throat Cardiovascular: Denies: Chest pain, Palpitations Respiratory: Denies: Dyspnea, Cough, Dyspnea on exertion Gastrointestinal: Denies: Abdominal pain, Nausea, Vomiting, Diarrhea, Melena, Hematochezia Genitourinary: Denies: Dysuria, Hematuria, Frequency Musculoskeletal: Denies: Myalgias, Arthralgias, Neck pain, Back pain, Swelling, Extremity Pain, -, - Skin: Denies: Rash Neurological: Reports: Weakness. Denies: Headache, Parasthesia Endocrine: Denies: Polyuria, Polydipsia Hematologic: Denies: Easy bruising Physical Exam Vital Signs/Narrative: Vital Signs Temp Pulse Resp BP Pulse Ox 12/04/20 19:03 91 F L 50 L 16 83/51 L 99 12/04/20 18:45 91 F L 12/04/20 18:26 90.1 F L 41 L 21 H 80/56 L 98 12/04/20 17:45 88.9 F L 12/04/20 17:15 86.9 F L 48 L 19 H 93/59 L 96 Inital Vital Signs reviewed: Yes General: Well nourished, Well developed, Obese Head: Normocephalic, Atraumatic Eyes: Perrl, EOMI, Pale conjunctiva. Negative for: Scleral icterus ENT: No rhinorrhea, TM's clear, Dry mucous membranes Neck: Supple, Nontender, No lymphadenopathy, No JVD Cardiovascular: No murmurs, Irregular, Bradycardia Respiratory: No distress, CTA bilaterally, Chest nontender Abdomen: Soft, Nontender, Nondistended, Normal bowel sounds Rectal: Deferred Back: Nontender, Normal Inspection Extremities: Nontender, Edema Skin: No rash, Pallor. Negative for: Cyanosis, Diaphoresis, Jaundice Neurological: Cranial nerves II-XII grossly intact, Normal Strength, Normal Sensation, Normal DTR. Negative for: Alert, Oriented x3 Psychological: Normal affect Diagnostic/Tx/Re-eval Impressions Chest X-Ray 12/04/20 18:40 IMPRESSION: Right pleural effusion with basilar consolidation. Electronically Signed: Deion Howard DO at 19:47 EST Tel [phone], Service support , 12/04/20 18:40 Chest 1 View (Portable) [RAD] Stat Laboratory Results 12/04/20 12/04/20 12/04/20 18:00 18:00 18:00 WBC 5.0 RBC 3.14 L Hgb 9.8 L Hct 32.8 L MCV 104.5 H MCH 31.2 MCHC 29.9 L RDW Std Deviation 58.2 H RDW Coeff of Richar 15.3 H Plt Count 99 L MPV 11.9 Immature Gran % (Auto) 0.200 Neut % (Auto) 80.2 H Lymph % (Auto) 12.9 L [place] % (Auto) 5.9 Eos % (Auto) 0.6 Baso % (Auto) 0.2 Absolute Neuts (auto) 4.0 Absolute Lymphs (auto) 0.64 L Nucleated RBC % 0.8 Differential Comment SCANNED Platelet Estimate SLT DEC Acanthocytes (Spur) 1+ PT 21.9 H INR 2.0 APTT 41.0 H Sodium 143 Potassium 4.0 Chloride 112 H Carbon Dioxide 23.0 Anion Gap 8 BUN 54 H Creatinine 3.92 H Estim Creat Clear Calc 8.60 Est GFR (MDRD) Af Amer 14 L Est GFR (MDRD) Non-Af 12 L BUN/Creatinine Ratio 13.8 Glucose 117 H Lactic Acid Calcium 8.9 Total Bilirubin 0.40 AST 18 ALT 29 Alkaline Phosphatase 106 Total Protein 6.4 Albumin 3.3 Globulin 3.1 Albumin/Globulin Ratio 1.1 TSH Urine Color Urine Clarity Urine pH Ur Specific [place] Urine Protein Urine Glucose (UA) Urine Ketones Urine Occult Blood Urine Nitrite Urine Bilirubin Urine Urobilinogen Ur Leukocyte Esterase Urine RBC Urine WBC Ur Squamous Epith Cells Amorphous Sediment Urine Bacteria Urine Mucus 12/04/20 12/04/20 12/04/20 18:00 18:00 18:30 WBC RBC Hgb Hct MCV MCH MCHC RDW Std Deviation RDW Coeff of Richar Plt Count MPV Immature Gran % (Auto) Neut % (Auto) Lymph % (Auto) [place] % (Auto) Eos % (Auto) Baso % (Auto) Absolute Neuts (auto) Absolute Lymphs (auto) Nucleated RBC % Differential Comment Platelet Estimate Acanthocytes (Spur) PT INR APTT Sodium Potassium Chloride Carbon Dioxide Anion Gap BUN Creatinine Estim Creat Clear Calc Est GFR (MDRD) Af Amer Est GFR (MDRD) Non-Af BUN/Creatinine Ratio Glucose Lactic Acid 1.4 Calcium Total Bilirubin AST ALT Alkaline Phosphatase Total Protein Albumin Globulin Albumin/Globulin Ratio TSH 3.02 Urine Color Yellow Urine Clarity Sl. Cloudy Urine pH 5.0 Ur Specific [place] 1.020 Urine Protein 100 H Urine Glucose (UA) Normal Urine Ketones Negative Urine Occult Blood 250 H Urine Nitrite Negative Urine Bilirubin 1 H Urine Urobilinogen Normal Ur Leukocyte Esterase 500 H Urine RBC 25-50 SEEN Urine WBC >100 SEEN Ur Squamous Epith Cells 5-10 SEEN Amorphous Sediment 1+ URATE Urine Bacteria 2+ Urine Mucus 0 SEEN - EKG Initial EKG Interpretation: Atrial Flutter - Ventricular rate is 55. Cures duration under 10 ms. QT duration 536 ms, which is prolonged. [place] is normal. Voltage is low. - Medical Decision Making Is hypotensive, bradycardic and hypothermic. Concern patient has sepsis. Need to rule out hypothyroidism as well. Patient will receive a 30 cc/kg bolus. Her urine had the consistency of cream of mushroom soup. Since I believe the cause of her infection is urinary she was treated with Rocephin. Sepsis work-up was initiated. If patient remains hypotensive after the 30 cc/kg bolus will place a central line and initiate pressors. Nurses were unable to obtain blood for diagnostic work-up. The right femoral vein was cannulated successfully on first attempt by me. Patient remained hypotensive after fluid bolus. Right subclavian line was placed and Levophed was ordered. - Critical Care Time Critical care time (excluding procedures): 30-74 minutes - Critical care time 42 minutes. This includes obtaining history, physical exam, documentation, review of prior records, patient care. This excludes time for placement of right subclavian line., Discussing w/Patient &/or Family/[employer], Discussing w/Consultants, Arranging Admission or Transfer Procedures Procedure(s): 1. Blood draw right femoral vein by me. 2. Right subclavian line. Patient mental status has deteriorated. She not able to give consent. Procedure was performed under emergent conditions. Patient was prepped draped sterile fashion. Everyone was properly dressed in gowns. The area was prepped draped in sterile manner. The right subclavian vein was came excessively first attempt on the way in. Using Seldinger technique 7.5 [place] triple-lumen was placed. Blood was aspirated from all 3 ports. Ports were irrigated. Chest x- ray was obtained to confirm proper position. ED Disposition - Plan for ED Patient: Disposition: Acute Care Hospital [facility] Diagnosis: Septic shock, Urinary tract infection, Anemia, Acute on chronic renal failure, Bradycardia, Obesity (BMI 30.0-34.9), Shock, hypothermic Referrals: Mario Perez MD [Primary Care Provider] -
[2020-12-04 19:37] LABS: Urine Bilirubin Dipstick 1 mg/dL (Negative)
[2020-12-04 19:39] LABS: Red Blood Cells-Urine 25-50 SEEN /hpf (0-5); White Blood Cells >100 SEEN /hpf (0-5)
[2020-12-04 19:40] LABS: Amorphous Sediment 1+ URATE; Bacteria 2+ /hpf (None Seen); Squamous Epithelial Cells - UA 5-10 SEEN /hpf (5-10)
[2020-12-04 20:02] LABS: Thyroid Stim Hormone (TSH) 3.02 uIU/mL (0.358-3.74)
[2020-12-04 20:26] LABS: Differential Comment SCANNED
[2020-12-04 20:27] LABS: Acanthocytes 1+; Platelet Estimate SLT DEC (ADEQ)
[2020-12-04] MEDS: Ceftriaxone 1 GM/50 ML BAG IV (20:43)
--- NOTE | 2020-12-04 21:40 | RAD_ITS ---
STUDY: X-RAY CHEST REASON FOR EXAM: Female, 85 years old. CENTRAL LINE PLACEMENT TECHNIQUE: Frontal view COMPARISON: 12/04/2020 FINDINGS: Right PICC line with tip in the mid SVC level. The lungs are not fully expanded. Right pleural effusion with consolidation. Normal size heart. Normal mediastinum and james. Normal visualized pulmonary arteries. Normal visualized aortic arch and descending thoracic aorta. Normal visualized thoracic spine. Normal visualized ribs, clavicles, and shoulders. There is no demonstrated abnormality of the visualized soft tissue structures of the upper abdomen. RAD/CXR for Line Placement IMPRESSION: Right pleural effusion with consolidation. Electronically Signed: Deion Howard DO at 22:45 EST Tel [phone], Service support ,
--- NOTE | 2020-12-04 22:20 | PCM.HP.STD ---
Problem List (1) Septic shock Status: Acute (2) Anemia Status: Chronic (3) Acute on chronic renal failure Status: Chronic (4) Shock, hypothermic Status: Acute (5) Essential hypertension Status: Chronic (6) Hypomagnesemia Status: Resolved (7) Bradycardia Status: Acute (8) Cystitis Status: Resolved (9) Dysarthria Status: Chronic (10) UTI (urinary tract infection) Status: Acute Qualifiers: Urinary tract infection type: acute cystitis Comment: Secondary to Enterobacter cloacae (11) CVA (cerebral vascular accident) Status: Chronic (12) Iron deficiency Status: Chronic (13) Chronic venous insufficiency of lower extremity Status: Chronic (14) Dysphagia Status: Chronic Comment: Acute worsening of dysphagia secondary to CVA on 08/17/2020 (15) Chronic renal failure, stage 4 (severe) Status: Chronic (16) Insomnia Status: Resolved (17) Heme + stool Status: Chronic (18) Thrush Status: Resolved (19) Drug-induced pancytopenia Status: Resolved Comment: Secondary to allopurinol (20) PAF (paroxysmal atrial fibrillation) Status: Chronic (21) Chronic anticoagulation Status: Chronic Comment: With apixaban (22) Debility Status: Chronic Comment: Secondary to strokes. The first stroke occurred 06/28/2020 and the second stroke occurred 08/17/2020. (23) Cerebrovascular accident, embolic Status: Chronic Qualifiers: Laterality of affected vessel: left Comment: left dae on 06/28/2020 secondary to new onset atrial fibrillation. (24) Osteoarthritis Status: Chronic (25) Hypertension Status: Chronic (26) Keratitis Status: Chronic (27) Obesity (BMI 30.0-34.9) Status: Chronic (28) Acidosis, metabolic Status: Resolved (29) Dehydration Status: Resolved (30) Normochromic normocytic anemia Status: Chronic (31) Acute renal failure superimposed on chronic kidney disease Status: Resolved Qualifiers: Chronic kidney disease stage: stage 4 (severe) (32) Gout Status: Chronic (33) Hyperuricemia Status: Chronic (34) Right ankle sprain Status: Resolved (35) Ankle pain Status: Resolved History of Present Illness Date of Admission: 12/04/20 Chief Complaint: weakness The patient is a 85 year old F with a significant for proximal A. fib; right-sided stroke with residual weakness who presents to the emergency department with a 1 week history of weakness. History is limited as patient is not providing further information. At the emergency department her temperature was 86 degrees Fahrenheit. Heart rate was a 48 and systolic blood pressure was less than 90. Past Medical History Past Medical History (Chronic Problems): Chronic Problems (Last Reviewed 12/05/20 @ 00:[address] Eddie Chris MD) Anemia (Chronic) Acute on chronic renal failure (Chronic) Essential hypertension (Chronic) Dysarthria (Chronic) CVA (cerebral vascular accident) (Chronic) Iron deficiency (Chronic) Chronic venous insufficiency of lower extremity (Chronic) Dysphagia (Chronic) Acute worsening of dysphagia secondary to CVA on 08/17/2020 Chronic renal failure, stage 4 (severe) (Chronic) Heme + stool (Chronic) PAF (paroxysmal atrial fibrillation) (Chronic) Chronic anticoagulation (Chronic) With apixaban Debility (Chronic) Secondary to strokes. The first stroke occurred 06/28/2020 and the second stroke occurred 08/17/2020. 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 Osteoarthritis (Chronic) Hypertension (Chronic) Keratitis (Chronic) Obesity (BMI 30.0-34.9) (Chronic) Normochromic normocytic anemia (Chronic) Gout (Chronic) Hyperuricemia (Chronic) Medical History: Medical History (Last Reviewed 12/05/20 @ 00:[address] Eddie Chris MD) Essential hypertension (Chronic) I10 Anemia D64.9 CVA (cerebral vascular accident) I63.9 Dysphagia R13.10 Other and unspecified hyperlipidemia E78.5 Allergies meperidine [From Demerol] Allergy (Mild, Verified 12/04/20 17:21) nausea amlodipine [From Norvasc] Adverse Reaction (Verified 12/04/20 17:21) PT UNSURE OF REACTION amoxicillin [From Augmentin] Adverse Reaction (Verified 12/04/20 17:21) PT UNSURE OF REACTION clavulanic acid [From Augmentin] Adverse Reaction (Verified 12/04/20 17:21) PT UNSURE OF REACTION diphtheria, pertussis, tetanus vacc Adverse Reaction (Verified 12/04/20 17:21) PT UNSURE OF REACTION hydrochlorothiazide [From Maxzide] Adverse Reaction (Verified 12/04/20 17:21) PT UNSURE OF REACTION lisinopril Adverse Reaction (Verified 12/04/20 17:21) PT UNSURE OF REACTION Sulfa (Sulfonamide Antibiotics) Adverse Reaction (Verified 12/04/20 17:21) PT UNSURE OF REACTION triamterene [From Maxzide] Adverse Reaction (Verified 12/04/20 17:21) PT UNSURE OF REACTION Home Medications: Ambulatory Orders Medication Instructions Recorded Acetaminophen [8 Hour 650 mg PO Q6H PRN PRN 08/18/20 Acetaminophen] Arthritis Pain Compound See Protocol click TOPICAL BID 08/18/20 Menthol/Lanolin/Calamine/Znox 1 applicatio TOPICAL BID 08/18/20 [Calmoseptine Ointment] Aspirin [Aspirin EC] 81 mg PO DAILY #1 bottle 09/06/20 Furosemide [Lasix] 60 mg PO DAILY PRN #30 tab 09/06/20 Jevity 1.5 270 ml GT UD #15 bottle 09/06/20 Multivitamin 1 ea PO DAILY #30 tab 09/06/20 amlodipine 5 mg tablet 5 mg PO BID #180 tab 09/30/20 apixaban 2.5 mg tablet 2.5 mg PO BID #180 tab 09/30/20 ascorbic acid (vitamin C) 500 mg 500 mg GT DAILY@1200 #90 tab 09/30/20 tablet atorvastatin 80 mg tablet 80 mg GT QHS #90 tab 09/30/20 ferrous sulfate 300 mg (60 mg 300 mg GT DAILY@0800 90 Days #30 oz 09/30/20 iron)/5 mL oral liquid lansoprazole 15 mg capsule,delayed 15 mg GT DAILY #90 cap 09/30/20 release magnesium oxide 400 mg PO DAILY #90 tab 09/30/20 melatonin 3 mg tablet 6 mg GT QHS 90 Days #180 tab 09/30/20 sertraline 50 mg tablet 50 mg GT DAILY #90 tab 09/30/20 atenolol 25 mg tablet 75 mg GT BID 90 Days #540 tab 11/23/20 Surgical History: Surgical History (Last Reviewed 12/05/20 @ 00:[address] 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 Eddie Chris MD) Brother Diabetes Sister Diabetes Father Cancer Mother CVA (cerebral vascular accident) History Items: Hypertension, Stroke Paternal Family History: Family History (Last Reviewed 12/05/20 @ 00:[address] Eddie Chris MD) Brother Diabetes Sister Diabetes Father Cancer Mother CVA (cerebral vascular accident) History Items: Cancer, Pulmonary Disease, Stroke Sibling Family History: Family History (Last Reviewed 12/05/20 @ 00:[address] Eddie Chris MD) Brother Diabetes Sister Diabetes Father Cancer Mother CVA (cerebral vascular accident) History Items: Cancer, Diabetes, Heart Disease, Stroke Offspring Family History: Family History (Last Reviewed 12/05/20 @ 00:[address] Eddie Chris MD) Brother Diabetes Sister Diabetes Father Cancer Mother CVA (cerebral vascular accident) History Items: Stroke - in her daughter Review of Systems Constitutional: Reports: Weakness. Denies: Chills, Fever, Weight Change HEENT: Denies: Head Aches, Sinus Congestion, Sinus Drainage Cardiovascular: Denies: Chest Pain, Palpitations Respiratory: Denies: Cough, Shortness of breath at rest, Sputum production Gastrointestinal: Denies: Abdominal Pain, Nausea, Vomiting Genitourinary: Denies: Dysuria Musculoskeletal: Denies: Joint Pain, Joint Tenderness Skin: Denies: Rash, Wounds Neurological: Denies: Numbness, Tingling, Focal weakness Psychiatric: Denies: Anxiety, Depression, Homicidal Ideations, Suicidal Ideations Hematologic/ Lymphatic: Denies: Easy Bruising, Easy Bleeding VTE Information - Inpt Only VTE Present on Admission: No VTE Mechan Device Prophylaxis: None VTE Pharm Prophylaxis ordered?: No Reason prophylaxis not ordered:: Treatment Not Indicated - Eliquis for A. fib continued Patient Problems: Active and Suspected Problems (Last Reviewed 12/05/20 @ 00:[address] Eddie Chris MD) Septic shock (Acute) Shock, hypothermic (Acute) Bradycardia (Acute) UTI (urinary tract infection) (Acute) Secondary to Enterobacter cloacae - Physical Exam Vitals/I&O's: Vital Signs Temp Pulse Resp BP Pulse Ox 92.8 F L 46 L 19 H 104/72 95 12/04/20 22:00 12/04/20 22:00 12/04/20 22:00 12/04/20 22:00 12/04/20 22:00 Oxygen Flow Rate (L/min) 2 Oxygen Delivery Method Nasal Cannula Weight: 92.5 kg Body Mass Index (BMI) 37.3 Intake and Output for Last 24 Hours 12/02/20 12/03/20 12/04/20 23:59 23:59 23:59 Intake Total 2049 Balance 2049 General: Alert, Oriented x3, Cooperative HEENT: Atraumatic, PERRLA, EOMI, Normocephalic Neck: Supple, No JVD, Negative Carotid Bruits Lungs: Clear to auscultation, Normal air movement Cardiovascular: Normal S1, Normal S2, No murmurs, Bradycardic Abdomen: Bowel Sounds Present, Soft, Non Tender Extremities: Capillary Refill Less than 3 Seconds, Edema - Edema of bilateral legs. Edema of right forearm. Skin: No rashes, No breakdown Musculoskeletal: No Tenderness to Palpation of Joints or Extremities Neurological: Cranial nerves II-XII grossly intact - Patient with slow speech., - - Limited range of motion of the right arm. Strength in right arm 3 out of 5. Strength in left arm 5 out of 5 Strength in right leg 4 out of 5 . Strength in left leg 5 out of 5. Psych/Mental Status: Normal Affect, Appropriate Laboratory Results 12/04/20 18:00: WBC 5.0, RBC 3.14 L, Hgb 9.8 L, Hct 32.8 L, MCV 104.5 H, MCH 31.2, MCHC 29.9 L, RDW Std Deviation 58.2 H, RDW Coeff of Richar 15.3 H, Plt Count 99 L, MPV 11.9, Immature Gran % (Auto) 0.200, Neut % (Auto) 80.2 H, Lymph % (Auto) 12.9 L, [place] % (Auto) 5.9, Eos % (Auto) 0.6, Baso % (Auto) 0.2, Absolute Neuts (auto) 4.0, Absolute Lymphs (auto) 0.64 L, Nucleated RBC % 0.8, Differential Comment SCANNED, Platelet Estimate SLT DEC, Acanthocytes (Spur) 1+ 12/04/20 18:00: PT 21.9 H, INR 2.0, APTT 41.0 H 12/04/20 18:00: Sodium 143, Potassium 4.0, Chloride 112 H, Carbon Dioxide 23.0, Anion Gap 8, BUN 54 H, Creatinine 3.92 H, Estim Creat Clear Calc 8.60, Est GFR (MDRD) Af Amer 14 L, Est GFR (MDRD) Non-Af 12 L, BUN/Creatinine Ratio 13.8, Glucose 117 H, Calcium 8.9, Total Bilirubin 0.40, AST 18, ALT 29, Alkaline Phosphatase 106, Total Protein 6.4, Albumin 3.3, Globulin 3.1, Albumin/Globulin Ratio 1.1 12/04/20 18:00: Lactic Acid 1.4 12/04/20 18:00: TSH 3.02 12/04/20 18:30: Urine Color Yellow, Urine Clarity Sl. Cloudy, Urine pH 5.0, Ur Specific [place] 1.020, Urine Protein 100 H, Urine Glucose (UA) Normal, Urine Ketones Negative, Urine Occult Blood 250 H, Urine Nitrite Negative, Urine Bilirubin 1 H, Urine Urobilinogen Normal, Ur Leukocyte Esterase 500 H, Urine RBC 25-50 SEEN, Urine WBC >100 SEEN, Ur Squamous Epith Cells 5-10 SEEN, Amorphous Sediment 1+ URATE, Urine Bacteria 2+, Urine Mucus 0 SEEN Current Medications Norepinephrine Bitartrate 16 (mg/ Sodium Chloride) 250 mls @ 4.688 mls/hr CONT INF .[id number] [facility]; Protocol Last Admin: 12/04/20 21:44 Dose: 5 mcg/min, 4.7 mls/hr Documented by: Assessment/Plan All Active Problems (Last Reviewed 12/05/20 @ 00:[address] Eddie Chris MD) Septic shock (Acute) Shock, hypothermic (Acute) Hypomagnesemia (Resolved) Bradycardia (Acute) Cystitis (Resolved) UTI (urinary tract infection) (Acute) Insomnia (Resolved) Thrush (Resolved) Drug-induced pancytopenia (Resolved) Acidosis, metabolic (Resolved) Dehydration (Resolved) Acute renal failure superimposed on chronic kidney disease (Resolved) Right ankle sprain (Resolved) Ankle pain (Resolved) The patient is a 85 year old F with a significant for proximal A. fib; right-sided stroke with residual weakness who presents emergency department with a 1 week history of weakness; with SIRS criteria; hypotension not responding to a fluid bolus per sepsis protocol. Septic shock Review of medical department labs showed abnormal urinalysis. Patient with hypothermia; bradycardia and hypotension. Received 30 mL glucan bolus per septic shock protocol and started on Levophed at emergency department. Subclavian line placed by emergent department doctor. We will continue patient on ceftriaxone dose every 12 hours. Levophed continued Warming blanket placed at emergency department; continued. Hold home Lasix and amlodipine. Admit to intensive care unit and consult vice president of talent acquisition. Bilateral leg edema Kerlix roll and Presley wrap. Atrial fibrillation Eliquis continued DVT prophylaxis Continue Eliquis for Afib
[2020-12-05] VITALS (57 sets, daily range): BP systolic 76–114; BP diastolic 41–93; PULSE 66–96; RESP 11–24; TEMP 34.8–36.6; O2SAT 92–98; BMI 36.2; BMI 36.3
--- NOTE | 2020-12-05 00:02 | ED.RN ---
patients son updated on admission and condition at this time
[2020-12-05] MEDS: TITRATION PARAMETER CHANGE 1 EACH IV (02:36)
[2020-12-05 04:24] LABS: Absolute Lymphocyte Count 0.58 X10^3/uL (0.83-4.51); Absolute Neutrophil Count 5.4 X10^3/uL (2.0-7.7); Basophil# 0.01 X10^3/uL; Basophil% 0.2 % (0-1); Eosinophil# 0.03 X10^3/uL; Eosinophils% 0.5 % (0-5); Hematocrit 33.1 % (37-47); Lymphocyte # 0.58 X10^3/ul (4.0); Lymphocyte % 8.8 % (19-41); Mean Corp Hgb Conc 30.2 g/dL (32-36); Mean Corpuscular Hgb 31.7 pg (27.0-32.0); Mean Corpuscular Volume 105.1 fL (81-99); Mean Platelet Vol. 11.4 fl (6.2-12.0); Monocyte# 0.58 X10^3/uL; Monocyte% 8.8 % (0-10); NRBC Flagged by Analyzer 1.5 % (0-5); Neutrophil # 5.35 X10^3/uL (2.7-7.7); Neutrophil % 81.1 % (47-70); POSITIVE DIFFERENTIAL YES; Platelet Count 113 K/mm3 (150-450); RBC Distribution Width CV 15.5 % (11.6-14.6); RBC Distribution Width SD 59.5 fl (35.1-43.9); Red Blood Count 3.15 M/mm3 (4.2-5.4); White Blood Count 6.6 K/mm3 (4.4-11.0)
[2020-12-05 04:29] LABS: Differential Indicated SCAN CRITERIA MET
[2020-12-05] MEDS: 0.9% Saline Lock 10 ML Syringe IV ×2 (05:10→06:17)
[2020-12-05 05:25] LABS: Anion Gap 9 (5-15); BUN 53 mg/dL (7-18); BUN/Creat Ratio 13.6 RATIO (10-20); Calcium,Total 8.7 mg/dL (8.5-10.1); Chloride 116 mmol/L (98-107); Creatinine, Serum 3.91 mg/dL (0.55-1.02); EST Glomerular Filtration Rate 12 mL/min (>60); Est Glom Filt Rate - Afr Amer 14 mL/min (>60); Estimated Creatinine Clearance 8.62 ml/min; Glucose 105 mg/dL (74-106); Magnesium 1.9 mg/dL (1.6-2.6); Potassium 3.9 mmol/L (3.5-5.1); Sodium Level 145 mmol/L (136-145)
[2020-12-05] MEDS: Ciprofloxacin 400 MG/200 ML BAG 200 MG IV (05:49)
--- NOTE | 2020-12-05 05:55 | CON.PCM_ITS ---
Reason for Consult Date of Consultation: 12/05/20 Reason for Consultation: Septic shock History of Present Illness: The patient is an 85-year-old female, with a history as outlined below, who presented to the emergency department on December 04 with complaints of decreased p.o. intake, generalized malaise, dizziness and lightheadedness. 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 The patient did undergo PEG tube insertion in 2019 due to severe dysphagia. On presentation to the emergency department, the patient was noted to be hypothermic and bradycardic with tenuous hemodynamics. Laboratory evaluation revealed a normal white blood cell count. Platelet count was low at 99,000. Coagulation profile revealed an INR of 2.0. Chemistry profile revealed a creatinine of 3.92. Lactate was within normal limits at 1.4. Urinalysis was negative for nitrites, positive for leukocyte esterase, greater than 100 white blood cells and 2+ urine bacteria. Chest x-ray revealed a possible right basilar consolidation with associated pleural effusion. The patient received supplemental IV fluid hydration and was started on antimicrobials along with vasopressor support to maintain hemodynamic stability. The patient was s ubsequently transferred to the medical intensive care unit for further management. As of this morning, the patient has received 2.75 L of fluid. She remains on Levophed at 3 mcg/min. The patient remains in atrial fibrillation, which is a chronic condition for her. Past Medical History Past Medical History (Chronic Problems): Chronic Problems (Last Reviewed 12/05/20 @ 00:[address] Eddie Chris MD) Anemia (Chronic) Acute on chronic renal failure (Chronic) Essential hypertension (Chronic) Dysarthria (Chronic) CVA (cerebral vascular accident) (Chronic) Iron deficiency (Chronic) Chronic venous insufficiency of lower extremity (Chronic) Dysphagia (Chronic) Acute worsening of dysphagia secondary to CVA on 08/17/2020 Chronic renal failure, stage 4 (severe) (Chronic) Heme + stool (Chronic) PAF (paroxysmal atrial fibrillation) (Chronic) Chronic anticoagulation (Chronic) With apixaban Debility (Chronic) Secondary to strokes. The first stroke occurred 06/28/2020 and the second stroke occurred 08/17/2020. 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 Osteoarthritis (Chronic) Hypertension (Chronic) Keratitis (Chronic) Obesity (BMI 30.0-34.9) (Chronic) Normochromic normocytic anemia (Chronic) Gout (Chronic) Hyperuricemia (Chronic) Medical History: Medical History (Last Reviewed 12/05/20 @ 00:[address] Eddie Chris MD) Essential hypertension (Chronic) I10 Anemia D64.9 CVA (cerebral vascular accident) I63.9 Dysphagia R13.10 Other and unspecified hyperlipidemia E78.5 Allergies meperidine [From Demerol] Allergy (Mild, Verified 12/04/20 17:21) nausea amlodipine [From Norvasc] Adverse Reaction (Verified 12/04/20 17:21) PT UNSURE OF REACTION amoxicillin [From Augmentin] Adverse Reaction (Verified 12/04/20 17:21) PT UNSURE OF REACTION clavulanic acid [From Augmentin] Adverse Reaction (Verified 12/04/20 17:21) PT UNSURE OF REACTION diphtheria, pertussis, tetanus vacc Adverse Reaction (Verified 12/04/20 17:21) PT UNSURE OF REACTION hydrochlorothiazide [From Maxzide] Adverse Reaction (Verified 12/04/20 17:21) PT UNSURE OF REACTION lisinopril Adverse Reaction (Verified 12/04/20 17:21) PT UNSURE OF REACTION Sulfa (Sulfonamide Antibiotics) Adverse Reaction (Verified 12/04/20 17:21) PT UNSURE OF REACTION triamterene [From Maxzide] Adverse Reaction (Verified 12/04/20 17:21) PT UNSURE OF REACTION Home Medications: Ambulatory Orders Medication Instructions Recorded Acetaminophen [8 Hour 650 mg PO Q6H PRN PRN 08/18/20 Acetaminophen] Arthritis Pain Compound See Protocol click TOPICAL BID 08/18/20 Menthol/Lanolin/Calamine/Znox 1 applicatio TOPICAL BID 08/18/20 [Calmoseptine Ointment] Aspirin [Aspirin EC] 81 mg PO DAILY #1 bottle 09/06/20 Furosemide [Lasix] 60 mg PO DAILY PRN #30 tab 09/06/20 Multivitamin 1 ea PO DAILY #30 tab 09/06/20 amlodipine 5 mg tablet 5 mg PO BID #180 tab 09/30/20 apixaban 2.5 mg tablet 2.5 mg PO BID #180 tab 09/30/20 ascorbic acid (vitamin C) 500 mg 500 mg GT DAILY@1200 #90 tab 09/30/20 tablet atorvastatin 80 mg tablet 80 mg GT QHS #90 tab 09/30/20 ferrous sulfate 300 mg (60 mg 300 mg GT DAILY@0800 90 Days #30 oz 09/30/20 iron)/5 mL oral liquid lansoprazole 15 mg capsule,delayed 15 mg GT DAILY #90 cap 09/30/20 release magnesium oxide 400 mg PO DAILY #90 tab 09/30/20 melatonin 3 mg tablet 6 mg GT QHS 90 Days #180 tab 09/30/20 sertraline 50 mg tablet 50 mg GT DAILY #90 tab 09/30/20 atenolol 25 mg tablet 75 mg GT BID 90 Days #540 tab 11/23/20 Surgical History: Surgical History (Last Reviewed 12/05/20 @ 00:[address] 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 Eddie Chris MD) Brother Diabetes Sister Diabetes Father Cancer Mother CVA (cerebral vascular accident) History Items: Hypertension, Stroke Paternal Family History: Family History (Last Reviewed 12/05/20 @ 00:[address] Eddie Chris MD) Brother Diabetes Sister Diabetes Father Cancer Mother CVA (cerebral vascular accident) History Items: Cancer, Pulmonary Disease, Stroke Sibling Family History: Family History (Last Reviewed 12/05/20 @ 00:[address] Eddie Chris MD) Brother Diabetes Sister Diabetes Father Cancer Mother CVA (cerebral vascular accident) History Items: Cancer, Diabetes, Heart Disease, Stroke Offspring Family History: Family History (Last Reviewed 12/05/20 @ 00:[address] Eddie Chris MD) Brother Diabetes Sister Diabetes Father Cancer Mother CVA (cerebral vascular accident) History Items: Stroke - in her daughter Review of Systems Constitutional: Reports: Malaise, Weakness, Fatigue Eyes: Denies: Blurred vision, Double vision HEENT: Reports: Dysphasia Cardiovascular: Denies: Chest Pain, Palpitations Respiratory: Denies: Cough, Shortness of breath at rest, Sputum production Gastrointestinal: Reports: Nausea. Denies: Abdominal Pain, Vomiting Genitourinary: Denies: Dysuria Musculoskeletal: Denies: Joint Pain, Joint Tenderness Skin: Reports: Wounds - Lower extremity Neurological: Reports: Slurred speech Psychiatric: Denies: Anxiety, Depression, Homicidal Ideations, Suicidal Ideations Hematologic/ Lymphatic: Reports: Anemia Patient Problems: Active and Suspected Problems (Last Reviewed 12/05/20 @ 00:[address] Eddie Chris MD) Septic shock (Acute) Shock, hypothermic (Acute) Bradycardia (Acute) UTI (urinary tract infection) (Acute) Secondary to Enterobacter cloacae Objective: The patient's most recent lab work, culture data and imaging studies have all been personally reviewed. Blood and urine cultures are pending. - Physical Exam Vitals/I&O's: Vital Signs Temp Pulse Resp BP Pulse Ox 95.7 F L 70 19 H 87/58 L 92 12/05/20 05:00 12/05/20 05:00 12/05/20 05:00 12/05/20 05:00 12/05/20 05:00 Oxygen Flow Rate (L/min) 1 Oxygen Delivery Method Nasal Cannula Weight: 198 lb 3.129 oz Body Mass Index (BMI) 36.2 Intake and Output for Last 24 Hours 12/03/20 12/04/20 12/05/20 23:59 23:59 23:59 Intake Total 2808.33 / 2808.33 184.43 / 184.43 Output Total Balance 2808.33 / 2808.33 164.43 / 164.43 General: Alert, Cooperative, No apparent distress HEENT: Atraumatic, PERRLA, Normocephalic Oral: Dry Mucosa Neck: Supple, No Nodes, Trachea Midline, - - Right subclavian triple-lumen catheter in place Lungs: Diminished, Rales Cardiovascular: Normal S1, Normal S2, Irregular Rate Abdomen: Bowel Sounds Present, Soft, Non Tender, Obese, - - +PEG Extremities: No clubbing, No cyanosis, Edema Skin: - - Lower extremity pretibial excoriations/wounds (present on admission) Musculoskeletal: No Muscle Wasting Lymphatic: No Cervical, Supraclavicular, or Inguinal Adenopathy Neurological: Cranial nerves II-XII grossly intact, - - Residual right-sided weakness with dysarthric speech Psych/Mental Status: Flat Affect Labs (Last 48 Hours) 12/04/20 12/04/20 12/04/20 18:00 18:00 18:00 WBC 5.0 RBC 3.14 L Hgb 9.8 L Hct 32.8 L MCV 104.5 H MCH 31.2 MCHC 29.9 L RDW Std Deviation 58.2 H RDW Coeff of Richar 15.3 H Plt Count 99 L MPV 11.9 Immature Gran % (Auto) 0.200 Neut % (Auto) 80.2 H Lymph % (Auto) 12.9 L [place] % (Auto) 5.9 Eos % (Auto) 0.6 Baso % (Auto) 0.2 Absolute Neuts (auto) 4.0 Absolute Lymphs (auto) 0.64 L Nucleated RBC % 0.8 Differential Comment SCANNED Platelet Estimate SLT DEC Acanthocytes (Spur) 1+ PT 21.9 H INR 2.0 APTT 41.0 H Sodium 143 Potassium 4.0 Chloride 112 H Carbon Dioxide 23.0 Anion Gap 8 BUN 54 H Creatinine 3.92 H Estim Creat Clear Calc 8.60 Est GFR (MDRD) Af Amer 14 L Est GFR (MDRD) Non-Af 12 L BUN/Creatinine Ratio 13.8 Glucose 117 H Lactic Acid Calcium 8.9 Magnesium Total Bilirubin 0.40 AST 18 ALT 29 Alkaline Phosphatase 106 Total Protein 6.4 Albumin 3.3 Globulin 3.1 Albumin/Globulin Ratio 1.1 TSH Urine Color Urine Clarity Urine pH Ur Specific [place] Urine Protein Urine Glucose (UA) Urine Ketones Urine Occult Blood Urine Nitrite Urine Bilirubin Urine Urobilinogen Ur Leukocyte Esterase Urine RBC Urine WBC Ur Squamous Epith Cells Amorphous Sediment Urine Bacteria Urine Mucus 12/04/20 12/04/20 12/04/20 18:00 18:00 18:30 WBC RBC Hgb Hct MCV MCH MCHC RDW Std Deviation RDW Coeff of Richar Plt Count MPV Immature Gran % (Auto) Neut % (Auto) Lymph % (Auto) [place] % (Auto) Eos % (Auto) Baso % (Auto) Absolute Neuts (auto) Absolute Lymphs (auto) Nucleated RBC % Differential Comment Platelet Estimate Acanthocytes (Spur) PT INR APTT Sodium Potassium Chloride Carbon Dioxide Anion Gap BUN Creatinine Estim Creat Clear Calc Est GFR (MDRD) Af Amer Est GFR (MDRD) Non-Af BUN/Creatinine Ratio Glucose Lactic Acid 1.4 Calcium Magnesium Total Bilirubin AST ALT Alkaline Phosphatase Total Protein Albumin Globulin Albumin/Globulin Ratio TSH 3.02 Urine Color Yellow Urine Clarity Sl. Cloudy Urine pH 5.0 Ur Specific [place] 1.020 Urine Protein 100 H Urine Glucose (UA) Normal Urine Ketones Negative Urine Occult Blood 250 H Urine Nitrite Negative Urine Bilirubin 1 H Urine Urobilinogen Normal Ur Leukocyte Esterase 500 H Urine RBC 25-50 SEEN Urine WBC >100 SEEN Ur Squamous Epith Cells 5-10 SEEN Amorphous Sediment 1+ URATE Urine Bacteria 2+ Urine Mucus 0 SEEN 12/05/20 12/05/20 04:15 04:15 WBC 6.6 RBC 3.15 L Hgb 10.0 L Hct 33.1 L MCV 105.1 H MCH 31.7 MCHC 30.2 L RDW Std Deviation 59.5 H RDW Coeff of Richar 15.5 H Plt Count 113 L MPV 11.4 Immature Gran % (Auto) 0.600 Neut % (Auto) 81.1 H Lymph % (Auto) 8.8 L [place] % (Auto) 8.8 Eos % (Auto) 0.5 Baso % (Auto) 0.2 Absolute Neuts (auto) 5.4 Absolute Lymphs (auto) 0.58 L Nucleated RBC % 1.5 Differential Comment Platelet Estimate Acanthocytes (Spur) PT INR APTT Sodium 145 Potassium 3.9 Chloride 116 H Carbon Dioxide 20.0 L Anion Gap 9 BUN 53 H Creatinine 3.91 H Estim Creat Clear Calc 8.62 Est GFR (MDRD) Af Amer 14 L Est GFR (MDRD) Non-Af 12 L BUN/Creatinine Ratio 13.6 Glucose 105 Lactic Acid Calcium 8.7 Magnesium 1.9 Total Bilirubin AST ALT Alkaline Phosphatase Total Protein Albumin Globulin Albumin/Globulin Ratio TSH Urine Color Urine Clarity Urine pH Ur Specific [place] Urine Protein Urine Glucose (UA) Urine Ketones Urine Occult Blood Urine Nitrite Urine Bilirubin Urine Urobilinogen Ur Leukocyte Esterase Urine RBC Urine WBC Ur Squamous Epith Cells Amorphous Sediment Urine Bacteria Urine Mucus Clinical Impression(s) from Imaging Studies Chest X-Ray 12/04/20 18:40 IMPRESSION: Right pleural effusion with basilar consolidation. Electronically Signed: Deion Howard DO at 19:47 EST Tel [phone], Service support , Chest X-Ray 12/04/20 21:40 IMPRESSION: Right pleural effusion with consolidation. Electronically Signed: Deion Howard DO at 22:45 EST Tel [phone], Service support , Current Medications Acetaminophen (Acetaminophen 325 Mg Tablet) 650 mg PO Q6H PRN PRN PRN Reason: Pain Score 1-10/Temp > 100.7 F Ascorbic Acid (Ascorbic Acid 500 Mg Tablet) 500 mg GT DAILY@1200 [facility] Aspirin (Aspirin 81 Mg Tab.Chew) 81 mg GT DAILYCM [facility] Atorvastatin Calcium (Atorvastatin Calcium 80 Mg Tablet) 80 mg GT QHS [facility] Calamine/Phenol (Menthol/Lanolin/Calamine/Znox 113 Gm Tube) 1 applic TOPICAL BID [facility]; Protocol Enoxaparin Sodium (Enoxaparin 30 Mg/0.3 Ml Syringe) 30 mg SC DAILY [facility] Ferrous Sulfate (Ferrous Sulfate 300 Mg/5 Ml Udc) 300 mg GT DAILY@0800 [facility] Sodium Chloride () 250 mls @ 15 mls/hr IV .[id number] PRN PRN Reason: Saline Flush Last Infusion: 12/05/20 05:38 Dose: 15 mls/hr Documented by: Sodium Chloride () 250 mls @ 15 mls/hr IV .[id number] PRN PRN Reason: Additional IVPB Infusion Norepinephrine Bitartrate 8 mg (/ Sodium Chloride) 250 mls @ 9.375 mls/hr CONT INF .[id number] [facility]; Protocol Last Titration: 12/05/20 05:00 Dose: 3 mcg/min, 5.6 mls/hr Documented by: Ciprofloxacin (Cipro) 400 mg in 200 mls @ 200 mls/hr IV Q18H [facility] Last Admin: 12/05/20 05:49 Dose: 200 mls/hr Documented by: Cefepime HCl 0.5 gm/ Sodium (Chloride) 50 mls @ 100 mls/hr IV Q24@2200 [facility] Last Infusion: 12/05/20 05:38 Dose: Infused Documented by: Lansoprazole (Lansoprazole 15 Mg Capsule.Dr) 15 mg GT DAILY [facility] Melatonin (Melatonin 3 Mg Tablet) 6 mg GT QHS [facility] Multivitamins (Multivitamins,Therapeutic Tablet) 1 tablet GT DAILYCM [facility] Ondansetron HCl (Ondansetron 4 Mg/2 Ml Vial) 4 mg IV Q8H PRN PRN PRN Reason: NAUSEA/VOMITING Sertraline HCl (Sertraline 50 Mg Tablet) 50 mg GT DAILY [facility] Sodium Chloride (0.9% Saline Lock 10 Ml Syringe) 10 - 40 ml IV UD PRN PRN Reason: Multilumen/Sow Flush Last Admin: 12/05/20 05:10 Dose: 10 ml Documented by: Sodium Chloride (0.9 % Nacl (Sterile) Posiflush 10 Ml) 10 - 40 ml IV UD PRN PRN Reason: Port access or dressing change Assessment/Plan Active and Suspected Problems (Last Reviewed 12/05/20 @ 00:[address] Eddie Chris MD) Septic shock (Acute) Shock, hypothermic (Acute) Bradycardia (Acute) UTI (urinary tract infection) (Acute) Secondary to Enterobacter cloacae RECOMMENDATIONS: 1. Continue cefepime as ordered. Ciprofloxacin can be discontinued from my perspective. 2. Recommend speech therapy evaluation prior to allowing p.o. intake. 3. Wean Levophed to maintain a mean arterial pressure at or above 65 mmHg. 4. Maintain aspiration precautions. 5. Restart home Eliquis. 6. Encourage incentive spirometer use and mobilize patient as tolerated. IMPRESSIONS: 1. Septic shock with concern for urinary tract source of infection and secondary hematogenous spread The patient has received appropriate fluid resuscitation and remains on vasopressor support to maintain a mean arterial pressure at or above 65 mmHg. Plan to continue empiric antimicrobials, pending finalized infectious work-up. In addition to the above, based on the patient's chest imaging studies, and in light of her history of silent aspiration, the patient may also have a component of pneumonia contributing as well. I would recommend that the patient be made n.p.o. pending further evaluation by speech therapy. 2. Acute on chronic kidney disease Likely prerenal in etiology in the setting of #1. Anticipate improvement with volume expansion and stabilization of hemodynamics. Continue to monitor urine output for now. No current indication for renal replacement therapy. 3. Recent CVA with residual neurologic deficits/dysarthria Patient to remain n.p.o. pending further evaluation by speech therapy, over concerns for aspiration. Physical therapy to work with the patient once medically stabilized. 4. Advanced age/chronic atrial fibrillation/hypertension/hyperlipidemia/GERD Complicates care, management, recovery and prognosis. Continue home medications as indicated. Hold antihypertensives and Lasix for now. TIME: 42 minutes minutes of critical care time, independent of procedures, was spent addressing the patient's septic shock with concern for urinary tract source of infection with secondary hematogenous spread, acute on chronic kidney disease, recent CVA with residual deficits, review of all data and collaboration with the care team. [id number]) [id number]: [id number] Critical care first hour
[2020-12-05] MEDS: Ondansetron 4 MG/2 ML Vial IV (06:16)
--- NOTE | 2020-12-05 10:11 | CASEMGMT ---
Addendum entered by Yulisa Cisneros 12/05/20 12:41: Son states that when he goes to work, there is a lady who comes in to stay with pt/helps to care for her. Addendum entered by Yulisa Cisneros 12/05/20 11:06: Living arrangements: Lives in ranch-style home w/temporary ramp entrance. Current DME owned by pt: cane, walker, W/C (for long distances). Addendum entered by Yulisa Cisneros 12/05/20 11:00: Pt qualifies for a Palliative referral per the [facility] palliative screening tool at this time. Dr Cleveland agreeable to Palliative c/s at this time. Kathya @ [facility] updated at this time. Face Sheet faxed to Palliative at this time. Original Note: RN CM CEMENT MIXER DRIVER CM to room to meet with patient for initial transition planning/care coordination assessment. RN CM introduced self and role at [facility]. Pt voices understanding and asks for MARY ALICE TROY to call her son, Satnam, to talk with him. Call placed to Satnam at this time and the folllowing information was obtained. Care providers, pharmacy, and demographics verified/updated at this time. PCP: Dr Perez-has an upcoming appt scheduled for December 24. Specialists: Dr Barragan-nephrology. Pt had an appt scheduled with a neurologist in [place] recently (son does not remember his name). Pt was not walking well that day and he cancelled the appt--He is to call to reschedule it. Preferred Pharmacy: [facility] Insurance: [employer] Prescription Benefit: Yes HPOA: Satnam Saleem, is POA LNOK: Son/POA, Satnam Living Arrangements: Son, Satnam, lives with her. Son assists pt w/sponge bathing/dressing, going to the restroom, and manages all appts/medications and all home mgmt tasks. Pt has a PEG tube which son also flushes and was giving meds through it until just recently. ST cleared pt to be able to received meds orally w/applesauce. Transportation: son DME: Has the following DME: Son states no need for further DME at this time. HHC/SNF: [facility] after CVA-discharge home Aug, 2020. Active with [facility] HHC: [facility]. Pt did have SN, PT/OT, and aides but currently just active with ST. Son states, if pt able to return home, he would like to have the other services added again. He states, if pt is too weak to return home, that his mom may be agreeable to going to [facility] in either the [facility] or TCU, but that she has refused to go to any other SNF in the past. Son voices no further concerns/needs at this time. Advised him to ask for CM if any further questions/concerns/needs arise. Voices understanding. PLAN: TBD. [facility] TCU or [facility] vs Home w/HHC. PT/OT evals pending. Yaritza TABOR RN CM
[2020-12-05] MEDS: Multivitamins,Therapeutic Tablet 1 TABLET GT (10:26)
[2020-12-05] MEDS: Ferrous Sulfate 300 MG/5 ML UDC GT (10:26)
[2020-12-05] MEDS: Aspirin 81 MG TAB.CHEW GT (10:26)
[2020-12-05] MEDS: Lansoprazole 15 MG Capsule.DR GT (10:26)
[2020-12-05] MEDS: Sertraline 50 MG Tablet GT (10:27)
[2020-12-05] MEDS: Ascorbic Acid 500 MG Tablet GT (11:19)
[2020-12-05] MEDS: Menthol/Lanolin/Calamine/Znox 113 GM Tube 1 APPLIC TOPICAL ×2 (11:19→21:58)
[2020-12-05] MEDS: APIXABAN 2.5 MG TABLET GT ×2 (11:19→21:35)
[2020-12-05 11:43] LABS: BNP,B-Type NATRIURETIC PEPTIDE 478.7 pg/mL (0-100)
--- NOTE | 2020-12-05 12:21 | PCM.CONS.R ---
Consultation - Renal 12/05/20 PCP/ Referring MD: Requesting physician: [] Primary care physician: Dr. Mario Perez MD Reason for Consultation:: Acute on CKD stage 4 - History of Present Illness History of Present Illness: The patient is a 85 year old F with history of stroke, frequent falls at home admitted on 12/04 for shock sepsis with hypothermia, bradycardia, altered mental status with slurred speech. She was fluid resuscitated and started on pressors. Pancultured and started on iv antibiotics. She has CKD Stage 4 with baseline creatinine 2, now with creatinine of 3.9 and anuric. Spoke with pt son Satnam in the office with the patient on 11/22/20 who stated she did not want dialysis and decision remains the same. Blood culture with GNR. CXR with right pleural effusion. She had loss of appetite, weakness, lightheadedness that started yesterday. Denies syncope. Denies cough, mild shortness of breath. Risk for aspiration from her stroke. - Allergies Allergies: Allergies meperidine [From Demerol] Allergy (Mild, Verified 12/04/20 17:21) nausea amlodipine [From Norvasc] Adverse Reaction (Verified 12/04/20 17:21) PT UNSURE OF REACTION amoxicillin [From Augmentin] Adverse Reaction (Verified 12/04/20 17:21) PT UNSURE OF REACTION clavulanic acid [From Augmentin] Adverse Reaction (Verified 12/04/20 17:21) PT UNSURE OF REACTION diphtheria, pertussis, tetanus vacc Adverse Reaction (Verified 12/04/20 17:21) PT UNSURE OF REACTION hydrochlorothiazide [From Maxzide] Adverse Reaction (Verified 12/04/20 17:21) PT UNSURE OF REACTION lisinopril Adverse Reaction (Verified 12/04/20 17:21) PT UNSURE OF REACTION Sulfa (Sulfonamide Antibiotics) Adverse Reaction (Verified 12/04/20 17:21) PT UNSURE OF REACTION triamterene [From Maxzide] Adverse Reaction (Verified 12/04/20 17:21) PT UNSURE OF REACTION - Current Medications Current Medications: Current Medications Acetaminophen (Acetaminophen 325 Mg Tablet) 650 mg PO Q6H PRN PRN PRN Reason: Pain Score 1-10/Temp > 100.7 F Apixaban (Apixaban 2.5 Mg Tablet) 2.5 mg GT BID [facility] Last Admin: 12/05/20 11:19 Dose: 2.5 mg Documented by: Ascorbic Acid (Ascorbic Acid 500 Mg Tablet) 500 mg GT DAILY@1200 ON LICENSE OF [facility] Last Admin: 12/05/20 11:19 Dose: 500 mg Documented by: Aspirin (Aspirin 81 Mg Tab.Chew) 81 mg GT DAILYCM ON LICENSE OF [facility] Last Admin: 12/05/20 10:26 Dose: 81 mg Documented by: Atorvastatin Calcium (Atorvastatin Calcium 80 Mg Tablet) 80 mg GT QHS ON LICENSE OF [facility] Calamine/Phenol (Menthol/Lanolin/Calamine/Znox 113 Gm Tube) 1 applic TOPICAL BID ON LICENSE OF [facility]; Protocol Last Admin: 12/05/20 11:19 Dose: 1 applicatio Documented by: Ferrous Sulfate (Ferrous Sulfate 300 Mg/5 Ml Udc) 300 mg GT DAILY@0800 ON LICENSE OF [facility] Last Admin: 12/05/20 10:26 Dose: 300 mg Documented by: Sodium Chloride () 250 mls @ 15 mls/hr IV .[id number] PRN PRN Reason: Saline Flush Last Infusion: 12/05/20 06:50 Dose: 15 mls/hr Documented by: Sodium Chloride () 250 mls @ 15 mls/hr IV .[id number] PRN PRN Reason: Additional IVPB Infusion Norepinephrine Bitartrate 8 mg (/ Sodium Chloride) 250 mls @ 9.375 mls/hr CONT INF .[id number] ON LICENSE OF [facility]; Protocol Last Titration: 12/05/20 10:00 Dose: 6 mcg/min, 11.3 mls/hr Documented by: Cefepime HCl 0.5 gm/ Sodium (Chloride) 50 mls @ 100 mls/hr IV Q24@2200 ON LICENSE OF [facility] Last Infusion: 12/05/20 05:38 Dose: Infused Documented by: Lansoprazole (Lansoprazole 15 Mg Capsule.Dr) 15 mg GT DAILY ON LICENSE OF [facility] Last Admin: 12/05/20 10:26 Dose: 15 mg Documented by: Multivitamins (Multivitamins,Therapeutic Tablet) [facility] Last Admin: 12/05/20 10:26 Dose: 1 tablet Documented by: Ondansetron HCl (Ondansetron 4 Mg/2 Ml Vial) 4 mg IV Q8H PRN PRN PRN Reason: NAUSEA/VOMITING Last Admin: 12/05/20 06:16 Dose: 4 mg Documented by: Sertraline HCl (Sertraline 50 Mg Tablet) 50 mg GT DAILY [facility] Last Admin: 12/05/20 10:27 Dose: 50 mg Documented by: Sodium Chloride (0.9% Saline Lock 10 Ml Syringe) 10 - 40 ml IV UD PRN PRN Reason: Multilumen/Sow Flush Last Admin: 12/05/20 06:17 Dose: 10 ml Documented by: Sodium Chloride (0.9 % Nacl (Sterile) Posiflush 10 Ml) 10 - 40 ml IV UD PRN PRN Reason: Port access or dressing change - Past Medical History Past Medical History (Chronic Problems): Chronic Problems (Last Reviewed 12/05/20 @ 00:[address] Eddie Chris MD) Anemia (Chronic) Acute on chronic renal failure (Chronic) Essential hypertension (Chronic) Dysarthria (Chronic) CVA (cerebral vascular accident) (Chronic) Iron deficiency (Chronic) Chronic venous insufficiency of lower extremity (Chronic) Dysphagia (Chronic) Acute worsening of dysphagia secondary to CVA on 08/17/2020 Chronic renal failure, stage 4 (severe) (Chronic) Heme + stool (Chronic) PAF (paroxysmal atrial fibrillation) (Chronic) Chronic anticoagulation (Chronic) With apixaban Debility (Chronic) Secondary to strokes. The first stroke occurred 06/28/2020 and the second stroke occurred 08/17/2020. 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 Osteoarthritis (Chronic) Hypertension (Chronic) Keratitis (Chronic) Obesity (BMI 30.0-34.9) (Chronic) Normochromic normocytic anemia (Chronic) Gout (Chronic) Hyperuricemia (Chronic) - Past Surgical History Surgical History: cataract - with IOL implants, cholecystectomy, hysterectomy - Social History Smoking Status: Never smoker Alcohol: None Drugs: None - Family History Maternal Family History: Family History (Last Reviewed 12/05/20 @ 00:[address] Eddie Chris MD) Brother Diabetes Sister Diabetes Father Cancer Mother CVA (cerebral vascular accident) History Items: Hypertension, Stroke Paternal Family History: Family History (Last Reviewed 12/05/20 @ 00:[address] Eddie Chris MD) Brother Diabetes Sister Diabetes Father Cancer Mother CVA (cerebral vascular accident) History Items: Cancer, Pulmonary Disease, Stroke Sibling Family History: Family History (Last Reviewed 12/05/20 @ 00:[address] Eddie Chris MD) Brother Diabetes Sister Diabetes Father Cancer Mother CVA (cerebral vascular accident) History Items: Cancer, Diabetes, Heart Disease, Stroke Offspring Family History: Family History (Last Reviewed 12/05/20 @ 00:[address] Eddie Chris MD) Brother Diabetes Sister Diabetes Father Cancer Mother CVA (cerebral vascular accident) History Items: Stroke - in her daughter Review of Systems Constitutional: Reports: Anorexia, Chills, Weakness, Fatigue. Denies: Fever Eyes: Denies: Vision Change HEENT: Denies: Head Aches Cardiovascular: Reports: Edema - chronic. Denies: Chest Pain, Syncope Gastrointestinal: Reports: - - anorexia. Denies: Diarrhea, Nausea, Vomiting Genitourinary: Reports: Dysuria Musculoskeletal: Reports: - - leg swelling Skin: Denies: Rash Neurological: Reports: - - hospitalized for stroke in June and Aug 2020 Endocrine: Denies: Polydipsia, Polyuria Hematologic/ Lymphatic: Reports: Anemia. Denies: Hx of blood clot Unable to obtain accurate/complete ROS d/t: poor historian, slurred speech, slow to respond. Hx obtained from pt son Patient Problems: Active and Suspected Problems (Last Reviewed 12/05/20 @ 00:[address] Eddie Chris MD) Septic shock (Acute) Shock, hypothermic (Acute) Bradycardia (Acute) UTI (urinary tract infection) (Acute) Secondary to Enterobacter cloacae - Physical Exam Vitals/I&O's: Vital Signs Temp Pulse Resp BP Pulse Ox 95.4 F L 69 11 L 98/57 L 94 12/05/20 10:00 12/05/20 12:00 12/05/20 10:00 12/05/20 10:00 12/05/20 10:00 Oxygen Flow Rate (L/min) 2 Oxygen Delivery Method Nasal Cannula Weight: 89.9 kg Body Mass Index (BMI) 36.2 Intake and Output for Last 24 Hours 12/03/20 12/04/20 12/05/20 23:59 23:59 23:59 Intake Total 2808.33 / 2808.33 535.16 / 535.16 Output Total 25 / Balance 2808.33 / 2808.33 510.16 / 510.16 General: - - slow to respond Oral: Dry Mucosa Neck: Supple Lungs: Diminished - poor inspiratory effort Cardiovascular: Irregular Rate - afib Abdomen: Bowel Sounds Present, Soft, Non Tender, Non-Distended Extremities: Edema Skin: - - legs wrapped Musculoskeletal: - - gen weakness Neurological: - - gen weakness, s/p stroke, slurred speech Psych/Mental Status: - - slow to respond to questions, poor historian Microbiology Past 72 Hours 12/04/20 18:20 Blood Culture (Wb) - Arm Left Blood Culture - Preliminary Laboratory Results 12/04/20 18:00: WBC 5.0, RBC 3.14 L, Hgb 9.8 L, Hct 32.8 L, MCV 104.5 H, MCH 31.2, MCHC 29.9 L, RDW Std Deviation 58.2 H, RDW Coeff of Richar 15.3 H, Plt Count 99 L, MPV 11.9, Immature Gran % (Auto) 0.200, Neut % (Auto) 80.2 H, Lymph % (Auto) 12.9 L, [place] % (Auto) 5.9, Eos % (Auto) 0.6, Baso % (Auto) 0.2, Absolute Neuts (auto) 4.0, Absolute Lymphs (auto) 0.64 L, Nucleated RBC % 0.8, Differential Comment SCANNED, Platelet Estimate SLT DEC, Acanthocytes (Spur) 1+ 12/04/20 18:00: PT 21.9 H, INR 2.0, APTT 41.0 H 12/04/20 18:00: Sodium 143, Potassium 4.0, Chloride 112 H, Carbon Dioxide 23.0, Anion Gap 8, BUN 54 H, Creatinine 3.92 H, Estim Creat Clear Calc 8.60, Est GFR (MDRD) Af Amer 14 L, Est GFR (MDRD) Non-Af 12 L, BUN/Creatinine Ratio 13.8, Glucose 117 H, Calcium 8.9, Total Bilirubin 0.40, AST 18, ALT 29, Alkaline Phosphatase 106, Total Protein 6.4, Albumin 3.3, Globulin 3.1, Albumin/Globulin Ratio 1.1 12/04/20 18:00: Lactic Acid 1.4 12/04/20 18:00: TSH 3.02 12/04/20 18:30: Urine Color Yellow, Urine Clarity Sl. Cloudy, Urine pH 5.0, Ur Specific [place] 1.020, Urine Protein 100 H, Urine Glucose (UA) Normal, Urine Ketones Negative, Urine Occult Blood 250 H, Urine Nitrite Negative, Urine Bilirubin 1 H, Urine Urobilinogen Normal, Ur Leukocyte Esterase 500 H, Urine RBC 25-50 SEEN, Urine WBC >100 SEEN, Ur Squamous Epith Cells 5-10 SEEN, Amorphous Sediment 1+ URATE, Urine Bacteria 2+, Urine Mucus 0 SEEN 12/05/20 04:15: WBC 6.6, RBC 3.15 L, Hgb 10.0 L, Hct 33.1 L, MCV 105.1 H, MCH 31.7, MCHC 30.2 L, RDW Std Deviation 59.5 H, RDW Coeff of [place] 15.5 H, Plt Count 113 L, MPV 11.4, Immature Gran % (Auto) 0.600, Neut % (Auto) 81.1 H, Lymph % (Auto) 8.8 L, [place] % (Auto) 8.8, Eos % (Auto) 0.5, Baso % (Auto) 0.2, Absolute Neuts (auto) 5.4, Absolute Lymphs (auto) 0.58 L, Nucleated RBC % 1.5 12/05/20 04:15: Sodium 145, Potassium 3.9, Chloride 116 H, Carbon Dioxide 20.0 L, Anion Gap 9, BUN 53 H, Creatinine 3.91 H, Estim Creat Clear Calc 8.62, Est GFR (MDRD) Af Amer 14 L, Est GFR (MDRD) Non-Af 12 L, BUN/Creatinine Ratio 13.6, Glucose 105, Calcium 8.7, Magnesium 1.9 12/05/20 04:15: B-Natriuretic Peptide 478.7 H Clinical Impression(s) from Imaging Studies Chest X-Ray 12/04/20 18:40 IMPRESSION: Right pleural effusion with basilar consolidation. Electronically Signed: Deion Howard DO at 19:47 EST Tel [phone], Service support , Chest X-Ray 12/04/20 21:40 IMPRESSION: Right pleural effusion with consolidation. Electronically Signed: Deion Howard DO at 22:45 EST Tel [phone], Service support , Current Medications Acetaminophen (Acetaminophen 325 Mg Tablet) 650 mg PO Q6H PRN PRN PRN Reason: Pain Score 1-10/Temp > 100.7 F Apixaban (Apixaban 2.5 Mg Tablet) 2.5 mg GT BID ON LICENSE OF [facility] Last Admin: 12/05/20 11:19 Dose: 2.5 mg Documented by: Ascorbic Acid (Ascorbic Acid 500 Mg Tablet) 500 mg GT DAILY@1200 ON LICENSE OF [facility] Last Admin: 12/05/20 11:19 Dose: 500 mg Documented by: Aspirin (Aspirin 81 Mg Tab.Chew) 81 mg GT DAILYCM ON LICENSE OF [facility] Last Admin: 12/05/20 10:26 Dose: 81 mg Documented by: Atorvastatin Calcium (Atorvastatin Calcium 80 Mg Tablet) 80 mg GT QHS ON LICENSE OF [facility] Calamine/Phenol (Menthol/Lanolin/Calamine/Znox 113 Gm Tube) 1 applic TOPICAL BID ON LICENSE OF [facility]; Protocol Last Admin: 12/05/20 11:19 Dose: 1 applicatio Documented by: Ferrous Sulfate (Ferrous Sulfate 300 Mg/5 Ml Udc) 300 mg GT DAILY@0800 ON LICENSE OF [facility] Last Admin: 12/05/20 10:26 Dose: 300 mg Documented by: Sodium Chloride () 250 mls @ 15 mls/hr IV .[id number] PRN PRN Reason: Saline Flush Last Infusion: 12/05/20 06:50 Dose: 15 mls/hr Documented by: Sodium Chloride () 250 mls @ 15 mls/hr IV .[id number] PRN PRN Reason: Additional IVPB Infusion Norepinephrine Bitartrate 8 mg (/ Sodium Chloride) 250 mls @ 9.375 mls/hr CONT INF .[id number] ON LICENSE OF [facility]; Protocol Last Titration: 12/05/20 10:00 Dose: 6 mcg/min, 11.3 mls/hr Documented by: Cefepime HCl 0.5 gm/ Sodium (Chloride) 50 mls @ 100 mls/hr IV Q24@2200 ON LICENSE OF [facility] Last Infusion: 12/05/20 05:38 Dose: Infused Documented by: Lansoprazole (Lansoprazole 15 Mg Capsule.Dr) 15 mg GT DAILY ON LICENSE OF [facility] Last Admin: 12/05/20 10:26 Dose: 15 mg Documented by: Multivitamins (Multivitamins,Therapeutic Tablet) [facility] Last Admin: 12/05/20 10:26 Dose: 1 tablet Documented by: Ondansetron HCl (Ondansetron 4 Mg/2 Ml Vial) 4 mg IV Q8H PRN PRN PRN Reason: NAUSEA/VOMITING Last Admin: 12/05/20 06:16 Dose: 4 mg Documented by: Sertraline HCl (Sertraline 50 Mg Tablet) 50 mg GT DAILY ON LICENSE OF [facility] Last Admin: 12/05/20 10:27 Dose: 50 mg Documented by: Sodium Chloride (0.9% Saline Lock 10 Ml Syringe) 10 - 40 ml IV UD PRN PRN Reason: Multilumen/Sow Flush Last Admin: 12/05/20 06:17 Dose: 10 ml Documented by: Sodium Chloride (0.9 % Nacl (Sterile) Posiflush 10 Ml) 10 - 40 ml IV UD PRN PRN Reason: Port access or dressing change Assessment/Plan All Active Problems (Last Reviewed 12/05/20 @ 00:[address] Eddie Chris MD) Septic shock (Acute) Shock, hypothermic (Acute) Hypomagnesemia (Resolved) Bradycardia (Acute) Cystitis (Resolved) UTI (urinary tract infection) (Acute) Insomnia (Resolved) Thrush (Resolved) Drug-induced pancytopenia (Resolved) Acidosis, metabolic (Resolved) Dehydration (Resolved) Acute renal failure superimposed on chronic kidney disease (Resolved) Right ankle sprain (Resolved) Ankle pain (Resolved) 1. Acute on CKD STage 4 due to sepsis ATN. hypotension. Pt does not want dialysis. Confirmed with pt son. 2. GNR Shock sepsis, iv fluids, pressor support. Renal dose antibx. 3. hx stroke 4. chronic afib on anticoagulation 5. hypothermia 6. Bradycardia 7. Anemia hgb stable DW pt son, nursing staff, hospitalist
--- NOTE | 2020-12-05 13:03 | NURSING ---
skin photo: left lower leg
--- NOTE | 2020-12-05 13:04 | NURSING ---
skin photo: right lower leg
--- NOTE | 2020-12-05 13:06 | NURSING ---
Was asked to see patient for weeping areas to bilateral lower legs. pt has scattered small reddened areas with some serous drainage noted. legs are edematous bilaterally. most likely just small blisters from the edema. applied dry dressings and kerlix. applied JESSICA wraps from the base of the toes to just below the knees. pt tolerated well. no large open areas noted. see skin photos.
--- NOTE | 2020-12-05 18:57 | PCM.PROGNOTE ---
Patient Problems: Active and Suspected Problems (Last Reviewed 12/05/20 @ 00:[address] Eddie Chris MD) Septic shock (Acute) Shock, hypothermic (Acute) Bradycardia (Acute) UTI (urinary tract infection) (Acute) Secondary to Enterobacter cloacae Subjective: Patient was seen and examined today, she remains on pressor agents in the ICU, she does not complain of any shortness of breath to this examiner or fevers or chills. - Physical Exam Vitals/I&O's: Vital Signs Temp Pulse Resp BP Pulse Ox 97.1 F L 84 17 91/64 94 12/05/20 16:00 12/05/20 16:00 12/05/20 16:00 12/05/20 16:15 12/05/20 16:00 Oxygen Flow Rate (L/min) 2 Oxygen Delivery Method Nasal Cannula Weight: 89.9 kg Body Mass Index (BMI) 36.2 Intake and Output for Last 24 Hours 12/03/20 12/04/20 12/05/20 23:59 23:59 23:59 Intake Total 2808.33 / 2808.33 687.27 / 687.27 Output Total 40 / 40 Balance 2808.33 / 2808.33 647.27 / 647.27 General: Alert, Oriented x3, Cooperative, No apparent distress, Well developed HEENT: Atraumatic, PERRLA, EOMI, Normocephalic Oral: Moist Mucosa Neck: Supple, No JVD, Trachea Midline, Thyroid Normal Size and Texture Lungs: Clear to auscultation, Normal air movement, No rhonchi, No wheeze Cardiovascular: Normal S1, Normal S2, No murmurs, PMI Normal, Irregular Rate, No rub noted, No Gallop Abdomen: Bowel Sounds Present, Soft, Non Tender, Non-Distended, No hernias noted, - - PEG tube in place Extremities: No clubbing, No cyanosis, No edema, Capillary Refill Less than 3 Seconds Skin: No rashes, No breakdown Musculoskeletal: No Tenderness to Palpation of Joints or Extremities Neurological: Cranial nerves II-XII grossly intact, Neuro grossly intact, Sensory exam intact to light touch and pain Psych/Mental Status: Normal Affect, Appropriate, Alert and oriented to time, place, person, mood and affect Microbiology Past 72 Hours 12/04/20 18:30 Urine Catheter - Pérez Urine Culture - Preliminary GNR lactose training technician 12/04/20 18:20 Blood Culture (Wb) - Arm Left Blood Culture - Preliminary Laboratory Results 12/04/20 18:00: WBC 5.0, RBC 3.14 L, Hgb 9.8 L, Hct 32.8 L, MCV 104.5 H, MCH 31.2, MCHC 29.9 L, RDW Std Deviation 58.2 H, RDW Coeff of Richar 15.3 H, Plt Count 99 L, MPV 11.9, Immature Gran % (Auto) 0.200, Neut % (Auto) 80.2 H, Lymph % (Auto) 12.9 L, [place] % (Auto) 5.9, Eos % (Auto) 0.6, Baso % (Auto) 0.2, Absolute Neuts (auto) 4.0, Absolute Lymphs (auto) 0.64 L, Nucleated RBC % 0.8, Differential Comment SCANNED, Platelet Estimate SLT DEC, Acanthocytes (Spur) 1+ 12/04/20 18:00: TSH 3.02 12/04/20 18:30: Urine Color Yellow, Urine Clarity Sl. Cloudy, Urine pH 5.0, Ur Specific [place] 1.020, Urine Protein 100 H, Urine Glucose (UA) Normal, Urine Ketones Negative, Urine Occult Blood 250 H, Urine Nitrite Negative, Urine Bilirubin 1 H, Urine Urobilinogen Normal, Ur Leukocyte Esterase 500 H, Urine RBC 25-50 SEEN, Urine WBC >100 SEEN, Ur Squamous Epith Cells 5-10 SEEN, Amorphous Sediment 1+ URATE, Urine Bacteria 2+, Urine Mucus 0 SEEN 12/05/20 04:15: WBC 6.6, RBC 3.15 L, Hgb 10.0 L, Hct 33.1 L, MCV 105.1 H, MCH 31.7, MCHC 30.2 L, RDW Std Deviation 59.5 H, RDW Coeff of Richar 15.5 H, Plt Count 113 L, MPV 11.4, Immature Gran % (Auto) 0.600, Neut % (Auto) 81.1 H, Lymph % (Auto) 8.8 L, [place] % (Auto) 8.8, Eos % (Auto) 0.5, Baso % (Auto) 0.2, Absolute Neuts (auto) 5.4, Absolute Lymphs (auto) 0.58 L, Nucleated RBC % 1.5 12/05/20 04:15: Sodium 145, Potassium 3.9, Chloride 116 H, Carbon Dioxide 20.0 L, Anion Gap 9, BUN 53 H, Creatinine 3.91 H, Estim Creat Clear Calc 8.62, Est GFR (MDRD) Af Amer 14 L, Est GFR (MDRD) Non-Af 12 L, BUN/Creatinine Ratio 13.6, Glucose 105, Calcium 8.7, Magnesium 1.9 12/05/20 04:15: B-Natriuretic Peptide 478.7 H Current Medications Acetaminophen (Acetaminophen 325 Mg Tablet) 650 mg PO Q6H PRN PRN PRN Reason: Pain Score 1-10/Temp > 100.7 F Apixaban (Apixaban 2.5 Mg Tablet) 2.5 mg GT BID [facility] Last Admin: 12/05/20 11:19 Dose: 2.5 mg Documented by: Ascorbic Acid (Ascorbic Acid 500 Mg Tablet) 500 mg GT DAILY@1200 [facility] Last Admin: 12/05/20 11:19 Dose: 500 mg Documented by: Aspirin (Aspirin 81 Mg Tab.Chew) 81 mg GT DAILYCM [facility] Last Admin: 12/05/20 10:26 Dose: 81 mg Documented by: Atorvastatin Calcium (Atorvastatin Calcium 80 Mg Tablet) 80 mg GT QHS [facility] Calamine/Phenol (Menthol/Lanolin/Calamine/Znox 113 Gm Tube) 1 applic TOPICAL BID [facility]; Protocol Last Admin: 12/05/20 11:19 Dose: 1 applicatio Documented by: Ferrous Sulfate (Ferrous Sulfate 300 Mg/5 Ml Udc) 300 mg GT DAILY@0800 [facility] Last Admin: 12/05/20 10:26 Dose: 300 mg Documented by: Sodium Chloride () 250 mls @ 15 mls/hr IV .[id number] PRN PRN Reason: Saline Flush Last Infusion: 12/05/20 06:50 Dose: 15 mls/hr Documented by: Sodium Chloride () 250 mls @ 15 mls/hr IV .[id number] PRN PRN Reason: Additional IVPB Infusion Norepinephrine Bitartrate 8 mg (/ Sodium Chloride) 250 mls @ 9.375 mls/hr CONT INF .[id number] [facility]; Protocol Last Titration: 12/05/20 16:15 Dose: 10 mcg/min, 18.8 mls/hr Documented by: Cefepime HCl 0.5 gm/ Sodium (Chloride) 50 mls @ 100 mls/hr IV Q24@2200 [facility] Last Infusion: 12/05/20 05:38 Dose: Infused Documented by: Lansoprazole (Lansoprazole 15 Mg Capsule.) 15 mg GT DAILY [facility] Last Admin: 12/05/20 10:26 Dose: 15 mg Documented by: Multivitamins (Multivitamins,Therapeutic Tablet) [facility] Last Admin: 12/05/20 10:26 Dose: 1 tablet Documented by: Ondansetron HCl (Ondansetron 4 Mg/2 Ml Vial) 4 mg IV Q8H PRN PRN PRN Reason: NAUSEA/VOMITING Last Admin: 12/05/20 06:16 Dose: 4 mg Documented by: Sertraline HCl (Sertraline 50 Mg Tablet) 50 mg GT DAILY [facility] Last Admin: 12/05/20 10:27 Dose: 50 mg Documented by: Sodium Chloride (0.9% Saline Lock 10 Ml Syringe) 10 - 40 ml IV UD PRN PRN Reason: Multilumen/Sow Flush Last Admin: 12/05/20 06:17 Dose: 10 ml Documented by: Sodium Chloride (0.9 % Nacl (Sterile) Posiflush 10 Ml) 10 - 40 ml IV UD PRN PRN Reason: Port access or dressing change Medical Necessity - Tobacco Use Smoking Status: Never smoker Assessment/Plan All Active Problems (Last Reviewed 12/05/20 @ 00:[address] Eddie Chris MD) Septic shock (Acute) Shock, hypothermic (Acute) Hypomagnesemia (Resolved) Bradycardia (Acute) Cystitis (Resolved) UTI (urinary tract infection) (Acute) Insomnia (Resolved) Thrush (Resolved) Drug-induced pancytopenia (Resolved) Acidosis, metabolic (Resolved) Dehydration (Resolved) Acute renal failure superimposed on chronic kidney disease (Resolved) Right ankle sprain (Resolved) Ankle pain (Resolved) #1 septic shock secondary to acute urinary tract infection with gram-negative lactose training technician-continue present antibiotic coverage, await culture results, attempt to wean pressor agents if possible #2 cerebrovascular disease #3 essential hypertension #4 dysphagia-speech therapy is working with the patient #5 stage IV chronic kidney disease #6 chronic atrial fibrillation #7 urinary tract infection with gram-negative lactose training technician-continue present antibiotic coverage Inpatient E&M: 94490 Subs Hosp L2
[2020-12-05] MEDS: Atorvastatin Calcium 80 MG Tablet GT (21:35)
[2020-12-06] VITALS (57 sets, daily range): BP systolic 89–129; BP diastolic 46–84; PULSE 72–94; RESP 12–27; TEMP 36.2–36.8; O2SAT 91–96; BMI 36.6
[2020-12-06 04:26] LABS: Absolute Lymphocyte Count 0.74 X10^3/uL (0.83-4.51); Absolute Neutrophil Count 5.9 X10^3/uL (2.0-7.7); Basophil# 0.01 X10^3/uL; Basophil% 0.1 % (0-1); Eosinophil# 0.01 X10^3/uL; Eosinophils% 0.1 % (0-5); Hematocrit 33.8 % (37-47); Hemoglobin 9.8 g/dL (12.0-15.0); Lymphocyte # 0.74 X10^3/ul (4.0); Lymphocyte % 9.7 % (19-41); Mean Corpuscular Hgb 31.3 pg (27.0-32.0); Monocyte# 0.83 X10^3/uL; Monocyte% 10.9 % (0-10); NRBC Flagged by Analyzer 2.6 % (0-5); Neutrophil # 5.94 X10^3/uL (2.7-7.7); Neutrophil % 78.4 % (47-70); Platelet Count 111 K/mm3 (150-450); RBC Distribution Width CV 15.8 % (11.6-14.6); RBC Distribution Width SD 61.1 fl (35.1-43.9); Red Blood Count 3.13 M/mm3 (4.2-5.4); White Blood Count 7.6 K/mm3 (4.4-11.0)
[2020-12-06 04:40] LABS: Anion Gap 11 (5-15); BUN 58 mg/dL (7-18); BUN/Creat Ratio 12.5 RATIO (10-20); Calcium,Total 8.7 mg/dL (8.5-10.1); Chloride 114 mmol/L (98-107); Creatinine, Serum 4.64 mg/dL (0.55-1.02); EST Glomerular Filtration Rate 10 mL/min (>60); Est Glom Filt Rate - Afr Amer 12 mL/min (>60); Estimated Creatinine Clearance 7.27 ml/min; Glucose 90 mg/dL (74-106); Potassium 4.2 mmol/L (3.5-5.1); Sodium Level 145 mmol/L (136-145)
[2020-12-06] MEDS: 0.9% Saline Lock 10 ML Syringe IV ×2 (04:59→12:01)
--- NOTE | 2020-12-06 06:36 | PN_ITS ---
Subjective: The patient was seen and examined at the bedside this morning. Events from the last 24 hours have been reviewed. The patient is currently afebrile, hemodynamically stable and maintaining appropriate oxygen saturations on 2 L/min via nasal cannula. The patient remains on Levophed at 7 mcg/min to maintain hemodynamic stability. The patient is more lethargic this morning. Urine output is decreasing. Creatinine has increased to 4.64. BNP was elevated to 478. The patient is currently documented to be overall net +3.8 L for the hospital admission. Objective: The patient's most recent lab work, culture data and imaging studies have all been personally reviewed. Blood and urine cultures dated December 04 were both positive for gram-negative rods. General: No apparent distress, Lethargic HEENT: Atraumatic, Normocephalic Oral: No Gingival or Mucosal Lesions/ Ulcerations Neck: Supple, No Nodes, Trachea Midline, - - Stable central venous catheter Lungs: Diminished, Rales, - - Poor inspiratory effort Cardiovascular: Normal S1, Normal S2, Irregular Rate Abdomen: Bowel Sounds Present, Soft, Non Tender, Obese, - - +PEG Extremities: No clubbing, No cyanosis, Edema Skin: - - No significant change from previous. Musculoskeletal: No Tenderness to Palpation of Joints or Extremities Lymphatic: No Cervical, Supraclavicular, or Inguinal Adenopathy Neurological: - - No focal deficits. Will arouse transiently to verbal and tactile stimulation. Psych/Mental Status: Flat Affect Vital Signs Temp Pulse Resp BP Pulse Ox 98 F 94 19 H 94/60 93 12/06/20 06:00 12/06/20 06:00 12/06/20 06:00 12/06/20 06:00 12/06/20 06:00 Oxygen Flow Rate (L/min) 2 Oxygen Delivery Method Nasal Cannula Weight: 199 lb 15.348 oz Body Mass Index (BMI) 36.2 Intake and Output for Last 24 Hours 12/04/20 12/05/20 12/06/20 23:59 23:59 23:59 Intake Total 2808.33 / 2808.33 1015.54 / 1032.44 97.42 / 97.42 Output Total 52 / 52 7 / 7 Balance 2808.33 / 2808.33 963.54 / 980.44 90.42 / 90.42 Labs (Last 48 Hours) 12/04/20 12/04/20 12/04/20 18:00 18:00 18:00 WBC 5.0 RBC 3.14 L Hgb 9.8 L Hct 32.8 L MCV 104.5 H MCH 31.2 MCHC 29.9 L RDW Std Deviation 58.2 H RDW Coeff of Richar 15.3 H Plt Count 99 L MPV 11.9 Immature Gran % (Auto) 0.200 Neut % (Auto) 80.2 H Lymph % (Auto) 12.9 L [place] % (Auto) 5.9 Eos % (Auto) 0.6 Baso % (Auto) 0.2 Absolute Neuts (auto) 4.0 Absolute Lymphs (auto) 0.64 L Nucleated RBC % 0.8 Differential Comment SCANNED Platelet Estimate SLT DEC Acanthocytes (Spur) 1+ PT 21.9 H INR 2.0 APTT 41.0 H Sodium 143 Potassium 4.0 Chloride 112 H Carbon Dioxide 23.0 Anion Gap 8 BUN 54 H Creatinine 3.92 H Estim Creat Clear Calc 8.60 Est GFR (MDRD) Af Amer 14 L Est GFR (MDRD) Non-Af 12 L BUN/Creatinine Ratio 13.8 Glucose 117 H Lactic Acid Calcium 8.9 Magnesium Total Bilirubin 0.40 AST 18 ALT 29 Alkaline Phosphatase 106 B-Natriuretic Peptide Total Protein 6.4 Albumin 3.3 Globulin 3.1 Albumin/Globulin Ratio 1.1 TSH Urine Color Urine Clarity Urine pH Ur Specific [place] Urine Protein Urine Glucose (UA) Urine Ketones Urine Occult Blood Urine Nitrite Urine Bilirubin Urine Urobilinogen Ur Leukocyte Esterase Urine RBC Urine WBC Ur Squamous Epith Cells Amorphous Sediment Urine Bacteria Urine Mucus 12/04/20 12/04/20 12/04/20 18:00 18:00 18:30 WBC RBC Hgb Hct MCV MCH MCHC RDW Std Deviation RDW Coeff of Richar Plt Count MPV Immature Gran % (Auto) Neut % (Auto) Lymph % (Auto) [place] % (Auto) Eos % (Auto) Baso % (Auto) Absolute Neuts (auto) Absolute Lymphs (auto) Nucleated RBC % Differential Comment Platelet Estimate Acanthocytes (Spur) PT INR APTT Sodium Potassium Chloride Carbon Dioxide Anion Gap BUN Creatinine Estim Creat Clear Calc Est GFR (MDRD) Af Amer Est GFR (MDRD) Non-Af BUN/Creatinine Ratio Glucose Lactic Acid 1.4 Calcium Magnesium Total Bilirubin AST ALT Alkaline Phosphatase B-Natriuretic Peptide Total Protein Albumin Globulin Albumin/Globulin Ratio TSH 3.02 Urine Color Yellow Urine Clarity Sl. Cloudy Urine pH 5.0 Ur Specific [place] 1.020 Urine Protein 100 H Urine Glucose (UA) Normal Urine Ketones Negative Urine Occult Blood 250 H Urine Nitrite Negative Urine Bilirubin 1 H Urine Urobilinogen Normal Ur Leukocyte Esterase 500 H Urine RBC 25-50 SEEN Urine WBC >100 SEEN Ur Squamous Epith Cells 5-10 SEEN Amorphous Sediment 1+ URATE Urine Bacteria 2+ Urine Mucus 0 SEEN 12/05/20 12/05/20 12/05/20 04:15 04:15 04:15 WBC 6.6 RBC 3.15 L Hgb 10.0 L Hct 33.1 L MCV 105.1 H MCH 31.7 MCHC 30.2 L RDW Std Deviation 59.5 H RDW Coeff of Richar 15.5 H Plt Count 113 L MPV 11.4 Immature Gran % (Auto) 0.600 Neut % (Auto) 81.1 H Lymph % (Auto) 8.8 L [place] % (Auto) 8.8 Eos % (Auto) 0.5 Baso % (Auto) 0.2 Absolute Neuts (auto) 5.4 Absolute Lymphs (auto) 0.58 L Nucleated RBC % 1.5 Differential Comment Platelet Estimate Acanthocytes (Spur) PT INR APTT Sodium 145 Potassium 3.9 Chloride 116 H Carbon Dioxide 20.0 L Anion Gap 9 BUN 53 H Creatinine 3.91 H Estim Creat Clear Calc 8.62 Est GFR (MDRD) Af Amer 14 L Est GFR (MDRD) Non-Af 12 L BUN/Creatinine Ratio 13.6 Glucose 105 Lactic Acid Calcium 8.7 Magnesium 1.9 Total Bilirubin AST ALT Alkaline Phosphatase B-Natriuretic Peptide 478.7 H Total Protein Albumin Globulin Albumin/Globulin Ratio TSH Urine Color Urine Clarity Urine pH Ur Specific [place] Urine Protein Urine Glucose (UA) Urine Ketones Urine Occult Blood Urine Nitrite Urine Bilirubin Urine Urobilinogen Ur Leukocyte Esterase Urine RBC Urine WBC Ur Squamous Epith Cells Amorphous Sediment Urine Bacteria Urine Mucus 12/06/20 12/06/20 04:20 04:20 WBC 7.6 RBC 3.13 L Hgb 9.8 L Hct 33.8 L MCV 108.0 H MCH 31.3 MCHC 29.0 L RDW Std Deviation 61.1 H RDW Coeff of Richar 15.8 H Plt Count 111 L MPV 11.0 Immature Gran % (Auto) 0.800 Neut % (Auto) 78.4 H Lymph % (Auto) 9.7 L [place] % (Auto) 10.9 H Eos % (Auto) 0.1 Baso % (Auto) 0.1 Absolute Neuts (auto) 5.9 Absolute Lymphs (auto) 0.74 L Nucleated RBC % 2.6 Differential Comment Platelet Estimate Acanthocytes (Spur) PT INR APTT Sodium 145 Potassium 4.2 Chloride 114 H Carbon Dioxide 20.0 L Anion Gap 11 BUN 58 H Creatinine 4.64 H Estim Creat Clear Calc 7.27 Est GFR (MDRD) Af Amer 12 L Est GFR (MDRD) Non-Af 10 L BUN/Creatinine Ratio 12.5 Glucose 90 Lactic Acid Calcium 8.7 Magnesium Total Bilirubin AST ALT Alkaline Phosphatase B-Natriuretic Peptide Total Protein Albumin Globulin Albumin/Globulin Ratio TSH Urine Color Urine Clarity Urine pH Ur Specific [place] Urine Protein Urine Glucose (UA) Urine Ketones Urine Occult Blood Urine Nitrite Urine Bilirubin Urine Urobilinogen Ur Leukocyte Esterase Urine RBC Urine WBC Ur Squamous Epith Cells Amorphous Sediment Urine Bacteria Urine Mucus Microbiology 12/04/20 18:30 Urine Catheter - Pérez Urine Culture - 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 Electronically Signed: Deion Howard DO at 19:47 EST Tel [phone], Service support , Chest X-Ray 12/04/20 21:40 IMPRESSION: Right pleural effusion with consolidation. Electronically Signed: Deion Howard DO at 22:45 EST Tel [phone], Service support , Medical Necessity - Tobacco Use Smoking Status: Never smoker Assessment/Plan All Active Problems (Last Reviewed 12/05/20 @ 00:[address] Eddie Chris MD) Septic shock (Acute) Shock, hypothermic (Acute) Hypomagnesemia (Resolved) Bradycardia (Acute) Cystitis (Resolved) UTI (urinary tract infection) (Acute) Insomnia (Resolved) Thrush (Resolved) Drug-induced pancytopenia (Resolved) Acidosis, metabolic (Resolved) Dehydration (Resolved) Acute renal failure superimposed on chronic kidney disease (Resolved) Right ankle sprain (Resolved) Ankle pain (Resolved) RECOMMENDATIONS: 1. Given lethargy, obtain arterial blood gas and initiate BiPAP therapy, if needed. 2. Continue antimicrobials as ordered. 3. Continue Levophed to maintain a mean arterial pressure at or above 65 mmHg. 4. Patient to remain n.p.o., pending improvement in mental status. IMPRESSIONS: 1. Gram-negative septic shock with concern for urinary tract source of infection and secondary hematogenous spread The patient has received appropriate fluid resuscitation and remains on vasopressor support to maintain a mean arterial pressure at or above 65 mmHg. Plan to continue empiric antimicrobials, pending finalized infectious work-up. In addition to the above, based on the patient's chest imaging studies, and in light of her history of silent aspiration, the patient may also have a component of pneumonia contributing as well. I would recommend that the patient be made n.p.o. pending further evaluation by speech therapy. 2. Encephalopathy Likely metabolic in etiology. Will obtain arterial blood gas to evaluate for hypercarbia. If present, the patient will be placed on BiPAP therapy. 3. Acute on chronic kidney disease Likely prerenal in etiology in the setting of #1. Continue to monitor urine output for now. Nephrology is currently following. However, the patient has reportedly in the past voiced a desire to forego any form of dialysis. 4. Recent CVA with residual neurologic deficits/dysarthria Patient to remain n.p.o. pending further evaluation by speech therapy, over concerns for aspiration. Physical therapy to work with the patient once medically stabilized. 5. Advanced age/chronic atrial fibrillation/hypertension/hyperlipidemia/GERD Complicates care, management, recovery and prognosis. Continue home medications as indicated. Hold antihypertensives and Lasix for now. TIME: 38 minutes minutes of critical care time, independent of procedures, was spent addressing the patient's septic shock with concern for urinary tract source of infection with secondary hematogenous spread, acute on chronic kidney disease, recent CVA with residual deficits, review of all data and collaboration with the care team. [id number]) [phone]: [id number] Critical care first hour
[2020-12-06 06:49] LABS: Allen Test Positive; Base Excess -11 mmol/L (-2 to +2); Bicarbonate 18.8 mmol/L (22-26); Blood Gas Specimen Type ART; O2 Delivery Device Cannula; PO2 68 mmHG (75-100); SITE L Radial; SO2 85 % (95-99); Total Carbon Dioxide 21 mmol/L; pCO2 60.7 mmHg (35-45)
--- NOTE | 2020-12-06 06:54 | NURSING ---
Spoke with son Satnam about ABG and wanting to place pt. on bipap. Satnam is ok with bipap. Updated given on pt. condition and all questions answered.
--- NOTE | 2020-12-06 08:05 | CPS ---
Critical values were noted and given to Dr. Calderon by BUSINESS SERVICES TECH EW
[2020-12-06] MEDS: Aspirin 81 MG TAB.CHEW GT (09:55)
[2020-12-06] MEDS: Menthol/Lanolin/Calamine/Znox 113 GM Tube 1 APPLIC TOPICAL ×2 (09:55→20:45)
[2020-12-06] MEDS: Ferrous Sulfate 300 MG/5 ML UDC GT (09:55)
[2020-12-06] MEDS: APIXABAN 2.5 MG TABLET GT ×2 (09:55→20:45)
[2020-12-06] MEDS: Multivitamins,Therapeutic Tablet 1 TABLET GT (09:55)
[2020-12-06] MEDS: Lansoprazole 15 MG Capsule.DR GT (09:56)
[2020-12-06] MEDS: Sertraline 50 MG Tablet GT (09:57)
[2020-12-06] MEDS: Ascorbic Acid 500 MG Tablet GT (09:57)
--- NOTE | 2020-12-06 10:46 | PCM.NTREPORT ---
Nutrition Therapy Report - History Nutrition Services has been consulted to:: Manage enteral nutrition Current diet / nutrition support order:: regular, no added salt-puree/nectar thick - Anthropometric Measurements Height:: 5 ft 2 in Weight:: 90.7 kg Body Mass Index (BMI):: 36.6 - Relevant Labs Relevant Labs:: RBC 3.13 M/mm3 (4.2-5.4) L 12/06/20 04:20 Hgb 9.8 g/dL (12.0-15.0) L 12/06/20 04:20 Hct 33.8 % (37-47) L 12/06/20 04:20 MCV 108.0 fL (81-99) H 12/06/20 04:20 MCHC 29.0 g/dL (32-36) L 12/06/20 04:20 RDW Std Deviation 61.1 fl (35.1-43.9) H 12/06/20 04:20 RDW Coeff of Richar 15.8 % (11.6-14.6) H 12/06/20 04:20 Plt Count 111 K/mm3 (150-450) L 12/06/20 04:20 Neut % (Auto) 78.4 % (47-70) H 12/06/20 04:20 Lymph % (Auto) 9.7 % (19-41) L 12/06/20 04:20 [place] % (Auto) 10.9 % (0-10) H 12/06/20 04:20 Absolute Lymphs (auto) 0.74 X10^3/uL (0.83-4.51) L 12/06/20 04:20 PT 21.9 SECONDS (11.7-14.9) H 12/04/20 18:00 APTT 41.0 Seconds (24.1-36.2) H 12/04/20 18:00 Chloride 114 mmol/L (98-107) H 12/06/20 04:20 Carbon Dioxide 20.0 mmol/L (21.0-32.0) L 12/06/20 04:20 BUN 58 mg/dL (7-18) H 12/06/20 04:20 Creatinine 4.64 mg/dL (0.55-1.02) H 12/06/20 04:20 Est GFR (MDRD) Af Amer 12 mL/min (>60) L 12/06/20 04:20 Est GFR (MDRD) Non-Af 10 mL/min (>60) L 12/06/20 04:20 Glucose 117 mg/dL (74-106) H 12/04/20 18:00 B-Natriuretic Peptide 478.7 pg/mL (0-100) H 12/05/20 04:15 - Assessment Food / Nutrition-Related History:: On bipap this AM. Worsening renal function- per discussion w/ son and pt yesterday, noted they were not interested in diaylsis treatments per Dr. Barragan. Per rounds- will change diet to NPO. Poor PO intake noted yesterday. Wt increase of 0.8 kg since last review. - Nutrition Diagnosis Problem / Etiology / Signs & Symptoms (PES):: inadequate oral intake r/t resp. failure, dysphagia as evidenced by inability to consume food PO, inadequate intake at meals yesterday Evidence of Malnutrition Exists:: No - Nutrition Intervention Nutrition Prescription:: [id number] calories (30 calories/kg IBW). 54-64 g protein (0.6g/kg). 1600mL fluid/day (1 mL/calorie) - Food / Nutrient Delivery Interventions Summary of nutrition intervention:: Discussed w/ ralph Schultz to use PEG for nutrition support. Nutrition support ordered as / adjusted to:: NPO; Will order Jevity 1.5 via PEG, 250mL 4x/day w/180mL flush w/ each feeding to provide 1500 calories, 63.8 g protein, and 1480mL total fluid/day. - MNT Monitoring Further MNT monitoring and evaluation required?: Yes MNT Follow-up in:: 1-2 days
[2020-12-06] MEDS: Nystatin Powder 15gm Bottle 1 APPLIC TOPICAL ×2 (11:57→20:45)
[2020-12-06] MEDS: Jevity 1.5. 1,000 ML Bottle 250 ML GT ×3 (12:00→20:46)
--- NOTE | 2020-12-06 13:01 | PCM.PN.REN ---
Patient Problems: Active and Suspected Problems (Last Reviewed 12/05/20 @ 00:[address] Eddie Chris MD) Septic shock (Acute) Shock, hypothermic (Acute) Bradycardia (Acute) UTI (urinary tract infection) (Acute) Secondary to Enterobacter cloacae Subjective: less responsive, on BIPAP. Remains on pressor support. Remains anuric, rising creatinine. No dialysis per pt/family. - Physical Exam Vitals/I&O's: Vital Signs Temp Pulse Resp BP Pulse Ox 98.0 F 87 12 102/56 L 95 12/06/20 12:00 12/06/20 12:00 12/06/20 12:00 12/06/20 12:00 12/06/20 12:00 Oxygen Flow Rate (L/min) 2 Oxygen Delivery Method Bi-pap Weight: 90.7 kg Body Mass Index (BMI) 36.6 Intake and Output for Last 24 Hours 12/04/20 12/05/20 12/06/20 23:59 23:59 23:59 Intake Total 2808.33 / 2808.33 1015.54 / 1032.44 162.92 / 162.92 Output Total 52 / 52 7 / 7 Balance 2808.33 / 2808.33 963.54 / 980.44 155.92 / 155.92 General: Lethargic, - - on BIPAP Lungs: Diminished Cardiovascular: Irregular Rate Abdomen: Soft, Non Tender, Non-Distended, Hypoactive Bowel Sounds Extremities: Edema - mild BLE Psych/Mental Status: - - minimal response Microbiology Past 72 Hours 12/04/20 18:30 Urine Catheter - Pérez Urine Culture - Final Klebsiella pneumoniae sp pneum 12/04/20 18:20 Blood Culture (Wb) - Arm Left Blood Culture - Preliminary Laboratory Results 12/06/20 04:20: WBC 7.6, RBC 3.13 L, Hgb 9.8 L, Hct 33.8 L, MCV 108.0 H, MCH 31.3, MCHC 29.0 L, RDW Std Deviation 61.1 H, RDW Coeff of Richar 15.8 H, Plt Count 111 L, MPV 11.0, Immature Gran % (Auto) 0.800, Neut % (Auto) 78.4 H, Lymph % (Auto) 9.7 L, [place] % (Auto) 10.9 H, Eos % (Auto) 0.1, Baso % (Auto) 0.1, Absolute Neuts (auto) 5.9, Absolute Lymphs (auto) 0.74 L, Nucleated RBC % 2.6 12/06/20 04:20: Sodium 145, Potassium 4.2, Chloride 114 H, Carbon Dioxide 20.0 L, Anion Gap 11, BUN 58 H, Creatinine 4.64 H, Estim Creat Clear Calc 7.27, Est GFR (MDRD) Af Amer 12 L, Est GFR (MDRD) Non-Af 10 L, BUN/Creatinine Ratio 12.5, Glucose 90, Calcium 8.7 12/06/20 06:44: Specimen Type ART, Sample Site L Radial, pH 7.10 L*, Bicarbonate Actual 18.8 L, Total CO2 21, Base Excess -11 L, O2 Saturation 85 L, ABG pCO2 60.7 H, ABG pO2 68 L, Gee Test Positive, O2 Delivery Device Cannula, Liter Flow 2.0 Current Medications Acetaminophen (Acetaminophen 325 Mg Tablet) 650 mg PO Q6H PRN PRN PRN Reason: Pain Score 1-10/Temp > 100.7 F Apixaban (Apixaban 2.5 Mg Tablet) 2.5 mg GT BID [facility] Last Admin: 12/06/20 09:55 Dose: 2.5 mg Documented by: Ascorbic Acid (Ascorbic Acid 500 Mg Tablet) 500 mg GT DAILY@1200 [facility] Last Admin: 12/06/20 09:57 Dose: 500 mg Documented by: Aspirin (Aspirin 81 Mg Tab.Chew) 81 mg GT DAILYCM [facility] Last Admin: 12/06/20 09:55 Dose: 81 mg Documented by: Atorvastatin Calcium (Atorvastatin Calcium 80 Mg Tablet) 80 mg GT QHS [facility] Last Admin: 12/05/20 21:35 Dose: 80 mg Documented by: Calamine/Phenol (Menthol/Lanolin/Calamine/Znox 113 Gm Tube) 1 applic TOPICAL BID [facility]; Protocol Last Admin: 12/06/20 09:55 Dose: 1 applicatio Documented by: Enteral Nutritional Formula (Jevity 1.5. 1,000 Ml Bottle) 250 ml GT 4X/DAY [facility] Last Admin: 12/06/20 12:00 Dose: 250 ml Documented by: Ferrous Sulfate (Ferrous Sulfate 300 Mg/5 Ml Udc) 300 mg GT DAILY@0800 [facility] Last Admin: 12/06/20 09:55 Dose: 300 mg Documented by: Sodium Chloride () 250 mls @ 15 mls/hr IV .[id number] PRN PRN Reason: Saline Flush Last Infusion: 12/05/20 23:30 Dose: 0 mls/hr Documented by: Sodium Chloride () 250 mls @ 15 mls/hr IV .[id number] PRN PRN Reason: Additional IVPB Infusion Norepinephrine Bitartrate 8 mg (/ Sodium Chloride) 250 mls @ 9.375 mls/hr CONT INF .[id number] [facility]; Protocol Last Titration: 12/06/20 11:00 Dose: 7 mcg/min, 13.1 mls/hr Documented by: Cefepime HCl 0.5 gm/ Sodium (Chloride) 50 mls @ 100 mls/hr IV Q24@2200 [facility] Last Infusion: 12/05/20 22:27 Dose: Infused Documented by: Lansoprazole (Lansoprazole 15 Mg Capsule.) 15 mg GT DAILY [facility] Last Admin: 12/06/20 09:56 Dose: 15 mg Documented by: Multivitamins (Multivitamins,Therapeutic Tablet) [facility] Last Admin: 12/06/20 09:55 Dose: 1 tablet Documented by: Nystatin (Nystatin Powder 15gm Bottle) 1 applic TOPICAL TID [facility]; Protocol Last Admin: 12/06/20 11:57 Dose: 1 applicatio Documented by: Ondansetron HCl (Ondansetron 4 Mg/2 Ml Vial) 4 mg IV Q8H PRN PRN PRN Reason: NAUSEA/VOMITING Last Admin: 12/05/20 06:16 Dose: 4 mg Documented by: Sertraline HCl (Sertraline 50 Mg Tablet) 50 mg GT DAILY [facility] Last Admin: 12/06/20 09:57 Dose: 50 mg Documented by: Sodium Chloride (0.9% Saline Lock 10 Ml Syringe) 10 - 40 ml IV UD PRN PRN Reason: Multilumen/Sow Flush Last Admin: 12/06/20 12:01 Dose: 30 ml Documented by: Sodium Chloride (0.9 % Nacl (Sterile) Posiflush 10 Ml) 10 - 40 ml IV UD PRN PRN Reason: Port access or dressing change Medical Necessity - Tobacco Use Smoking Status: Never smoker Assessment/Plan All Active Problems (Last Reviewed 12/05/20 @ 00:[address] Eddie Chris MD) Septic shock (Acute) Shock, hypothermic (Acute) Hypomagnesemia (Resolved) Bradycardia (Acute) Cystitis (Resolved) UTI (urinary tract infection) (Acute) Insomnia (Resolved) Thrush (Resolved) Drug-induced pancytopenia (Resolved) Acidosis, metabolic (Resolved) Dehydration (Resolved) Acute renal failure superimposed on chronic kidney disease (Resolved) Right ankle sprain (Resolved) Ankle pain (Resolved) 1. Acute on CKD STage 4 due to sepsis ATN. Remains anuric with rising creatinine. Pt does not want dialysis. Overall prognosis poor. 2. GNR Shock sepsis, pressor support. Renal dose antibx. 3. UTI with klebsiella. hx stroke 4. chronic afib DW nursing staff, hospitalist
--- NOTE | 2020-12-06 17:05 | PN_ITS ---
Patient Problems: Active and Suspected Problems (Last Reviewed 12/05/20 @ 00:[address] Eddie Chris MD) Septic shock (Acute) Shock, hypothermic (Acute) Bradycardia (Acute) UTI (urinary tract infection) (Acute) Secondary to Enterobacter cloacae Subjective: Patient was seen and examined today, she was on BiPAP earlier today due to acidosis, her creatinine this morning was worse than yesterday, she is putting out very little urine and nursing was told by the family that they would not be in favor of subjecting the patient to dialysis as they did not feel the patient would want it. At this time patient is on nasal cannula oxygen, she is on minimal pressor support. - Physical Exam Vitals/I&O's: Vital Signs Temp Pulse Resp BP Pulse Ox 97.7 F L 74 16 112/49 L 95 12/06/20 16:00 12/06/20 16:00 12/06/20 16:00 12/06/20 16:30 12/06/20 16:38 Oxygen Flow Rate (L/min) 2 Oxygen Delivery Method Nasal Cannula Weight: 90.7 kg Body Mass Index (BMI) 36.6 Intake and Output for Last 24 Hours 12/04/20 12/05/20 12/06/20 23:59 23:59 23:59 Intake Total 2808.33 / 2808.33 1015.54 / 1032.44 1069.89 / 1069.89 Output Total 52 / 52 7 / 7 Balance 2808.33 / 2808.33 963.54 / 980.44 1062.89 / 1062.89 General: Alert, No apparent distress, Well developed HEENT: Atraumatic, PERRLA, Normocephalic Neck: Supple, No JVD, Trachea Midline, Thyroid Normal Size and Texture Lungs: Clear to auscultation, Normal air movement, No rhonchi, No wheeze Cardiovascular: Normal S1, Normal S2, No murmurs, PMI Normal, Irregular Rate, No rub noted Abdomen: Bowel Sounds Present, Soft, Non Tender, Non-Distended, - - PEG tube is present Extremities: No clubbing, No cyanosis, Capillary Refill Less than 3 Seconds, Edema - Generalized edema is noted Skin: No breakdown Neurological: Cranial nerves II-XII grossly intact, Neuro grossly intact Psych/Mental Status: - - Patient is lethargic, she does not appear to be in any distress at the present time Microbiology Past 72 Hours 12/04/20 18:30 Urine Catheter - Pérez Urine Culture - Final Klebsiella pneumoniae sp pneum 12/04/20 18:20 Blood Culture (Wb) - Arm Left Blood Culture - Preliminary Laboratory Results 12/06/20 04:20: WBC 7.6, RBC 3.13 L, Hgb 9.8 L, Hct 33.8 L, MCV 108.0 H, MCH 31.3, MCHC 29.0 L, RDW Std Deviation 61.1 H, RDW Coeff of Richar 15.8 H, Plt Count 111 L, MPV 11.0, Immature Gran % (Auto) 0.800, Neut % (Auto) 78.4 H, Lymph % (Auto) 9.7 L, [place] % (Auto) 10.9 H, Eos % (Auto) 0.1, Baso % (Auto) 0.1, Absolute Neuts (auto) 5.9, Absolute Lymphs (auto) 0.74 L, Nucleated RBC % 2.6 12/06/20 04:20: Sodium 145, Potassium 4.2, Chloride 114 H, Carbon Dioxide 20.0 L , Anion Gap 11, BUN 58 H, Creatinine 4.64 H, Estim Creat Clear Calc 7.27, Est GFR (MDRD) Af Amer 12 L, Est GFR (MDRD) Non-Af 10 L, BUN/Creatinine Ratio 12.5, Glucose 90, Calcium 8.7 12/06/20 06:44: Specimen Type ART, Sample Site L Radial, pH 7.10 L*, Bicarbonate Actual 18.8 L, Total CO2 21, Base Excess -11 L, O2 Saturation 85 L, ABG pCO2 60.7 H, ABG pO2 68 L, Gee Test Positive, O2 Delivery Device Cannula, Liter Flow 2.0 Current Medications Acetaminophen (Acetaminophen 325 Mg Tablet) 650 mg PO Q6H PRN PRN PRN Reason: Pain Score 1-10/Temp > 100.7 F Apixaban (Apixaban 2.5 Mg Tablet) 2.5 mg GT BID [facility] Last Admin: 12/06/20 09:55 Dose: 2.5 mg Documented by: Ascorbic Acid (Ascorbic Acid 500 Mg Tablet) 500 mg GT DAILY@1200 [facility] Last Admin: 12/06/20 09:57 Dose: 500 mg Documented by: Aspirin (Aspirin 81 Mg Tab.Chew) 81 mg GT DAILYCM [facility] Last Admin: 12/06/20 09:55 Dose: 81 mg Documented by: Atorvastatin Calcium (Atorvastatin Calcium 80 Mg Tablet) 80 mg GT QHS [facility] Last Admin: 12/05/20 21:35 Dose: 80 mg Documented by: Calamine/Phenol (Menthol/Lanolin/Calamine/Znox 113 Gm Tube) 1 applic TOPICAL BID [facility]; Protocol Last Admin: 12/06/20 09:55 Dose: 1 applicatio Documented by: Enteral Nutritional Formula (Jevity 1.5. 1,000 Ml Bottle) 250 ml GT 4X/DAY [facility] Last Admin: 12/06/20 15:53 Dose: 250 ml Documented by: Ferrous Sulfate (Ferrous Sulfate 300 Mg/5 Ml Udc) 300 mg GT DAILY@0800 [facility] Last Admin: 12/06/20 09:55 Dose: 300 mg Documented by: Sodium Chloride () 250 mls @ 15 mls/hr IV .[id number] PRN PRN Reason: Saline Flush Last Infusion: 12/05/20 23:30 Dose: 0 mls/hr Documented by: Sodium Chloride () 250 mls @ 15 mls/hr IV .[id number] PRN PRN Reason: Additional IVPB Infusion Norepinephrine Bitartrate 8 mg (/ Sodium Chloride) 250 mls @ 9.375 mls/hr CONT INF .[id number] [facility]; Protocol Last Admin: 12/06/20 16:40 Dose: 2 mcg/min, 3.8 mls/hr Documented by: Cefepime HCl 0.5 gm/ Sodium (Chloride) 50 mls @ 100 mls/hr IV Q24@2200 [facility] Last Infusion: 12/05/20 22:27 Dose: Infused Documented by: Lansoprazole (Lansoprazole 15 Mg Capsule.Dr) 15 mg GT DAILY [facility] Last Admin: 12/06/20 09:56 Dose: 15 mg Documented by: Multivitamins ([facility]it[facility],Therapeutic Tablet) [facility] Last Admin: 12/06/20 09:55 Dose: 1 tablet Documented by: Nystatin (Nystatin Powder 15gm Bottle) 1 applic TOPICAL TID [facility]; Protocol Last Admin: 12/06/20 11:57 Dose: 1 applicatio Documented by: Ondansetron HCl (Ondansetron 4 Mg/2 Ml Vial) 4 mg IV Q8H PRN PRN PRN Reason: NAUSEA/VOMITING Last Admin: 12/05/20 06:16 Dose: 4 mg Documented by: Sertraline HCl (Sertraline 50 Mg Tablet) 50 mg GT DAILY [facility] Last Admin: 12/06/20 09:57 Dose: 50 mg Documented by: Sodium Chloride (0.9% Saline Lock 10 Ml Syringe) 10 - 40 ml IV UD PRN PRN Reason: Multilumen/Sow Flush Last Admin: 12/06/20 12:01 Dose: 30 ml Documented by: Sodium Chloride (0.9 % Nacl (Sterile) Posiflush 10 Ml) 10 - 40 ml IV UD PRN PRN Reason: Port access or dressing change Medical Necessity - Tobacco Use Smoking Status: Never smoker Assessment/Plan All Active Problems (Last Reviewed 12/05/20 @ 00:[address] Eddie Chris MD) Septic shock (Acute) Shock, hypothermic (Acute) Hypomagnesemia (Resolved) Bradycardia (Acute) Cystitis (Resolved) UTI (urinary tract infection) (Acute) Insomnia (Resolved) Thrush (Resolved) Drug-induced pancytopenia (Resolved) Acidosis, metabolic (Resolved) Dehydration (Resolved) Acute renal failure superimposed on chronic kidney disease (Resolved) Right ankle sprain (Resolved) Ankle pain (Resolved) #1 septic shock secondary to acute urinary tract infection with Klebsiella pneumoniae-continue present antibiotic coverage #2 cerebrovascular disease #3 essential hypertension #4 dysphagia #5 Acute renal failure on a backdrop of stage IV chronic kidney disease #6 chronic atrial fibrillation #7 urinary tract infection with Klebsiella pneumoniae #8 metabolic acidosis secondary to renal failure Prognosis at this time is extremely poor. I attempted to contact the son by phone this afternoon but there is no answer. Inpatient E&M: [id number] Subs Hosp L2
[2020-12-06] MEDS: Atorvastatin Calcium 80 MG Tablet GT (20:45)
[2020-12-07] VITALS (25 sets, daily range): BP systolic 79–113; BP diastolic 46–76; PULSE 63–97; RESP 10–26; TEMP 35.7–36.3; O2SAT 94–97
[2020-12-07] MEDS: Nystatin Powder 15gm Bottle 1 APPLIC TOPICAL ×2 (05:42→14:27)
[2020-12-07 05:43] LABS: Absolute Lymphocyte Count 0.82 X10^3/uL (0.83-4.51); Absolute Neutrophil Count 5.5 X10^3/uL (2.0-7.7); Basophil# 0.02 X10^3/uL; Basophil% 0.3 % (0-1); Eosinophil# 0.04 X10^3/uL; Eosinophils% 0.6 % (0-5); Hematocrit 32.9 % (37-47); Hemoglobin 9.5 g/dL (12.0-15.0); Lymphocyte # 0.82 X10^3/ul (4.0); Lymphocyte % 11.3 % (19-41); Mean Corp Hgb Conc 28.9 g/dL (32-36); Mean Corpuscular Hgb 31.6 pg (27.0-32.0); Mean Corpuscular Volume 109.3 fL (81-99); Mean Platelet Vol. 10.7 fl (6.2-12.0); Monocyte# 0.86 X10^3/uL; Monocyte% 11.9 % (0-10); NRBC Flagged by Analyzer 2.9 % (0-5); Neutrophil # 5.45 X10^3/uL (2.7-7.7); Neutrophil % 75.2 % (47-70); POSITIVE COUNT YES; Platelet Count 91 K/mm3 (150-450); RBC Distribution Width CV 15.7 % (11.6-14.6); Red Blood Count 3.01 M/mm3 (4.2-5.4); White Blood Count 7.2 K/mm3 (4.4-11.0)
--- NOTE | 2020-12-07 05:44 | PN_ITS ---
Subjective: The patient was seen and examined at the bedside this morning. Events from the last 24 hours have been reviewed. The patient is hemodynamically stable, but is still requiring Levophed to maintain stability. She is currently maintaining appropriate oxygen saturations on 2 L/min. The patient is currently documented to be overall net +5.1 L for the hospital admission. Urine output has been dismal. The patient remains edematous and lethargic. She was on BiPAP therapy until 2 PM yesterday afternoon. Overnight, the patient did have an episode per nursing report of bradycardia and significant hypoxemia, which required her to be placed on a nonrebreather mask. Objective: The patient's most recent lab work, culture data and imaging studies have all been personally reviewed. Blood and urine cultures dated December 04 were both positive for gram-negative rods. General: Alert, No apparent distress, Lethargic HEENT: Atraumatic, Normocephalic Oral: Dry Mucosa Neck: Supple, No Nodes, Trachea Midline, - - Central venous catheter remains in place Lungs: Diminished, Rales, - - Suboptimal inspiratory effort Cardiovascular: Normal S1, Normal S2, Irregular Rate Abdomen: Bowel Sounds Present, Soft, Non Tender, Obese, - - +PEG Extremities: No clubbing, No cyanosis, Edema Skin: - - No significant change from previous Musculoskeletal: No Tenderness to Palpation of Joints or Extremities Lymphatic: No Cervical, Supraclavicular, or Inguinal Adenopathy Neurological: - - The patient is arousable to verbal stimulation will attempt to answer simple questions. Psych/Mental Status: Flat Affect Vital Signs Temp Pulse Resp BP Pulse Ox 97.1 F L 63 23 H 93/73 96 12/07/20 05:40 12/07/20 05:40 12/07/20 05:40 12/07/20 05:40 12/07/20 05:40 Oxygen Flow Rate (L/min) 2 Oxygen Delivery Method Nasal Cannula Weight: 202 lb 9.677 oz Body Mass Index (BMI) 36.6 Intake and Output for Last 24 Hours 12/05/20 12/06/20 12/07/20 23:59 23:59 23:59 Intake Total 1015.54 / 1032.44 1347.52 / 1351.32 25.33 / 25.33 Output Total 52 / 52 Balance 963.54 / 980.44 1340.52 / 1329.32 10.33 / 10.33 Labs (Last 48 Hours) 12/05/20 12/06/20 12/06/20 04:15 04:20 04:20 WBC 7.6 RBC 3.13 L Hgb 9.8 L Hct 33.8 L MCV 108.0 H MCH 31.3 MCHC 29.0 L RDW Std Deviation 61.1 H RDW Coeff of Richar 15.8 H Plt Count 111 L MPV 11.0 Immature Gran % (Auto) 0.800 Neut % (Auto) 78.4 H Lymph % (Auto) 9.7 L [place] % (Auto) 10.9 H Eos % (Auto) 0.1 Baso % (Auto) 0.1 Absolute Neuts (auto) 5.9 Absolute Lymphs (auto) 0.74 L Nucleated RBC % 2.6 Specimen Type Sample Site pH Bicarbonate Actual Total CO2 Base Excess O2 Saturation ABG pCO2 ABG pO2 Gee Test O2 Delivery Device Liter Flow Sodium 145 Potassium 4.2 Chloride 114 H Carbon Dioxide 20.0 L Anion Gap 11 BUN 58 H Creatinine 4.64 H Estim Creat Clear Calc 7.27 Est GFR (MDRD) Af Amer 12 L Est GFR (MDRD) Non-Af 10 L BUN/Creatinine Ratio 12.5 Glucose 90 Calcium 8.7 Total Bilirubin AST ALT Alkaline Phosphatase B-Natriuretic Peptide 478.7 H Total Protein Albumin 12/06/20 12/07/20 12/07/20 06:44 05:30 05:30 WBC Pending RBC Pending Hgb Pending Hct Pending MCV Pending MCH Pending MCHC Pending RDW Std Deviation Pending RDW Coeff of Richar Pending Plt Count Pending MPV Immature Gran % (Auto) Neut % (Auto) Pending Lymph % (Auto) [place] % (Auto) Eos % (Auto) Baso % (Auto) Absolute Neuts (auto) Pending Absolute Lymphs (auto) Nucleated RBC % Specimen Type ART Sample Site L Radial pH 7.10 L* Bicarbonate Actual 18.8 L Total CO2 21 Base Excess -11 L O2 Saturation 85 L ABG pCO2 60.7 H ABG pO2 68 L Gee Test Positive O2 Delivery Device Cannula Liter Flow 2.0 Sodium Pending Potassium Pending Chloride Pending Carbon Dioxide Pending Anion Gap Pending BUN Pending Creatinine Pending Estim Creat Clear Calc Est GFR (MDRD) Af Amer Pending Est GFR (MDRD) Non-Af Pending BUN/Creatinine Ratio Pending Glucose Pending Calcium Pending Total Bilirubin Pending AST Pending ALT Pending Alkaline Phosphatase Pending B-Natriuretic Peptide Total Protein Pending Albumin Pending Microbiology 12/04/20 18:30 Urine Catheter - Pérez Urine Culture - Final Klebsiella pneumoniae sp pneum 12/04/20 18:20 Blood Culture (Wb) - Arm Left Blood Culture - Preliminary Clinical Impression(s) from Imaging Studies Chest X-Ray 12/04/20 18:40 IMPRESSION: Right pleural effusion with basilar consolidation. Electronically Signed: Deion Howard DO at 19:47 EST Tel [phone], Service support , Chest X-Ray 12/04/20 21:40 IMPRESSION: Right pleural effusion with consolidation. Electronically Signed: Deion Howard DO at 22:45 EST Tel [phone], Service support , Medical Necessity - Tobacco Use Smoking Status: Never smoker Assessment/Plan All Active Problems (Last Reviewed 12/05/20 @ 00:[address] Eddie Chris MD) Septic shock (Acute) Shock, hypothermic (Acute) Hypomagnesemia (Resolved) Bradycardia (Acute) Cystitis (Resolved) UTI (urinary tract infection) (Acute) Insomnia (Resolved) Thrush (Resolved) Drug-induced pancytopenia (Resolved) Acidosis, metabolic (Resolved) Dehydration (Resolved) Acute renal failure superimposed on chronic kidney disease (Resolved) Right ankle sprain (Resolved) Ankle pain (Resolved) RECOMMENDATIONS: 1. Continue antimicrobials as ordered. 2. Continue Levophed to maintain a mean arterial pressure at or above 65 mmHg. 3. Continue nutrition support via PEG tube. 4. Continue Eliquis. 5. Wean supplemental oxygen and encourage incentive spirometer use. 6. Poor overall prognosis. The patient would be hospice appropriate from my perspective. IMPRESSIONS: 1. Gram-negative septic shock with concern for urinary tract source of infect ion and secondary hematogenous spread The patient has received appropriate fluid resuscitation and remains on vasopressor support to maintain a mean arterial pressure at or above 65 mmHg. Plan to continue empiric antimicrobials, pending finalized infectious work-up. In addition to the above, based on the patient's chest imaging studies, and in light of her history of silent aspiration, the patient may also have a component of pneumonia contributing as well. I would recommend that the patient remain n.p.o. pending further evaluation by speech therapy. 2. Acute on chronic kidney disease Likely prerenal in etiology in the setting of #1. Continue to monitor urine output for now. Nephrology is currently following. However, the patient has reportedly in the past voiced a desire to forego any form of dialysis. Prognosis is quite poor. 3. Recent CVA with residual neurologic deficits/dysarthria Patient to remain n.p.o. pending further evaluation by speech therapy, over concerns for aspiration. Physical therapy to work with the patient once medically stabilized. 4. Advanced age/chronic atrial fibrillation/hypertension/hyperlipidemia/GERD Complicates care, management, recovery and prognosis. Continue home medications as indicated. Hold antihypertensives and Lasix for now. TIME: 35 minutes minutes of critical care time, independent of procedures, was spent addressing the patient's septic shock with concern for urinary tract source of infection with secondary hematogenous spread, acute on chronic kidney disease, recent CVA with residual deficits, review of all data and collaboration with the care team. ([id number]) [id number]: [id number] Critical care first hour
[2020-12-07 06:01] LABS: ALB/GLOB Ratio 0.9 RATIO (0.9-2.4); AST(SGOT) 17 U/L (15-37); Alanine Aminotransfer ALT/SGPT 23 U/L (13-56); Albumin, Serum 2.9 g/dL (3.2-5.0); Alkaline Phosphatase 128 U/L (45-117); Anion Gap 9 (5-15); BUN 68 mg/dL (7-18); BUN/Creat Ratio 12.2 RATIO (10-20); Calcium,Total 8.5 mg/dL (8.5-10.1); Chloride 115 mmol/L (98-107); Creatinine, Serum 5.56 mg/dL (0.55-1.02); EST Glomerular Filtration Rate 8 mL/min (>60); Est Glom Filt Rate - Afr Amer 9 mL/min (>60); Estimated Creatinine Clearance 6.06 ml/min; Globulin 3.4 g/dL (2.2-4.2); Glucose 164 mg/dL (74-106); Potassium 4.1 mmol/L (3.5-5.1); Protein, Total 6.3 g/dL (6.4-8.2); Sodium Level 144 mmol/L (136-145)
[2020-12-07] MEDS: Lansoprazole 15 MG Capsule.DR GT (08:30)
[2020-12-07] MEDS: Ferrous Sulfate 300 MG/5 ML UDC GT (08:31)
[2020-12-07] MEDS: Multivitamins,Therapeutic Tablet 1 TABLET GT (08:31)
[2020-12-07] MEDS: Aspirin 81 MG TAB.CHEW GT (08:31)
[2020-12-07] MEDS: Sertraline 50 MG Tablet GT (08:31)
[2020-12-07] MEDS: Ascorbic Acid 500 MG Tablet GT (10:39)
[2020-12-07] MEDS: Jevity 1.5. 1,000 ML Bottle 250 ML GT ×2 (10:39→14:27)
[2020-12-07] MEDS: Menthol/Lanolin/Calamine/Znox 113 GM Tube 1 APPLIC TOPICAL (10:39)
[2020-12-07] MEDS: APIXABAN 2.5 MG TABLET GT (11:40)
--- NOTE | 2020-12-07 11:43 | PN.RENAL_ITS ---
Patient Problems: Active and Suspected Problems (Last Reviewed 12/05/20 @ 00:[address] Eddie Chris MD) Septic shock (Acute) Shock, hypothermic (Acute) Bradycardia (Acute) UTI (urinary tract infection) (Acute) Secondary to Enterobacter cloacae Subjective: remains on pressors, hypotensive, oligoanuric with worsening renal function. Nonverbal. No dialysis per family/pt wishes. Overall prognosis poor. - Physical Exam Vitals/I&O's: Vital Signs Temp Pulse Resp BP Pulse Ox 96.9 F L 77 14 90/64 95 12/07/20 08:00 12/07/20 09:00 12/07/20 09:00 12/07/20 09:00 12/07/20 09:00 Oxygen Flow Rate (L/min) 2 Oxygen Delivery Method Nasal Cannula Weight: 91.9 kg Body Mass Index (BMI) 36.6 Intake and Output for Last 24 Hours 12/05/20 12/06/20 12/07/20 23:59 23:59 23:59 Intake Total 1015.54 / 1032.44 1347.52 / 1351.32 88.0 / 88.0 Output Total 52 / 52 7 / 40 / 40 Balance 963.54 / 980.44 1340.52 / 1329.32 48.0 / 48.0 General: Lethargic, - - eyes open but nonverbal Lungs: Diminished - poor inspiratory effort Cardiovascular: Irregular Rate - afib Abdomen: Soft, Non Tender, Non-Distended, Hypoactive Bowel Sounds Extremities: Edema - BLE Psych/Mental Status: - - min response Microbiology Past 72 Hours 12/04/20 18:00 Blood Culture (Wb) - Anticubital Left Blood Culture - Preliminary No growth in 48 hours. 12/04/20 18:20 Blood Culture (Wb) - Arm Left Blood Culture - Preliminary Klebsiella oxytoca 12/04/20 18:30 Urine Catheter - Pérez Urine Culture - Final Klebsiella pneumoniae sp pneum Laboratory Results 12/07/20 05:30: WBC 7.2, RBC 3.01 L, Hgb 9.5 L, Hct 32.9 L, MCV 109.3 H, MCH 31.6, MCHC 28.9 L, RDW Std Deviation 62.0 H, RDW Coeff of Richar 15.7 H, Plt Count 91 L, MPV 10.7, Immature Gran % (Auto) 0.700, Neut % (Auto) 75.2 H, Lymph % (Auto) 11.3 L, [place] % (Auto) 11.9 H, Eos % (Auto) 0.6, Baso % (Auto) 0.3, Absolute Neuts (auto) 5.5, Absolute Lymphs (auto) 0.82 L, Nucleated RBC % 2.9 12/07/20 05:30: Sodium 144, Potassium 4.1, Chloride 115 H, Carbon Dioxide 20.0 L , Anion Gap 9, BUN 68 H, Creatinine 5.56 H, Estim Creat Clear Calc 6.06, Est GFR (MDRD) Af Amer 9 L, Est GFR (MDRD) Non-Af 8 L, BUN/Creatinine Ratio 12.2, Glucose 164 H, Calcium 8.5, Total Bilirubin 0.30, AST 17, ALT 23, Alkaline Phosphatase 128 H, Total Protein 6.3 L, Albumin 2.9 L, Globulin 3.4, Albumin/Globulin Ratio 0.9 Current Medications Acetaminophen (Acetaminophen 325 Mg Tablet) 650 mg PO Q6H PRN PRN PRN Reason: Pain Score 1-10/Temp > 100.7 F Apixaban (Apixaban 2.5 Mg Tablet) 2.5 mg GT BID [facility] Last Admin: 12/07/20 11:40 Dose: 2.5 mg Documented by: Ascorbic Acid (Ascorbic Acid 500 Mg Tablet) 500 mg GT DAILY@1200 [facility] Last Admin: 12/07/20 10:39 Dose: 500 mg Documented by: Aspirin (Aspirin 81 Mg Tab.Chew) [facility] Last Admin: 12/07/20 08:31 Dose: 81 mg Documented by: Atorvastatin Calcium (Atorvastatin Calcium 80 Mg Tablet) 80 mg GT QHS [facility] Last Admin: 12/06/20 20:45 Dose: 80 mg Documented by: Calamine/Phenol (Menthol/Lanolin/Calamine/Znox 113 Gm Tube) 1 applic TOPICAL BID [facility]; Protocol Last Admin: 12/07/20 10:39 Dose: 1 applicatio Documented by: Enteral Nutritional Formula (Jevity 1.5. 1,000 Ml Bottle) 250 ml GT 4X/DAY [facility] Last Admin: 12/07/20 10:39 Dose: 250 ml Documented by: Ferrous Sulfate (Ferrous Sulfate 300 Mg/5 Ml Udc) 300 mg GT DAILY@0800 [facility] Last Admin: 12/07/20 08:31 Dose: 300 mg Documented by: Sodium Chloride () 250 mls @ 15 mls/hr IV .[id number] PRN PRN Reason: Saline Flush Last Infusion: 12/06/20 22:52 Dose: 0 mls/hr Documented by: Sodium Chloride () 250 mls @ 15 mls/hr IV .[id number] PRN PRN Reason: Additional IVPB Infusion Norepinephrine Bitartrate 8 mg (/ Sodium Chloride) 250 mls @ 9.375 mls/hr CONT INF .[id number] [facility]; Protocol Last Titration: 12/07/20 09:00 Dose: 2 mcg/min, 3.8 mls/hr Documented by: Ceftriaxone Sodium 2 gm/ (Sodium Chloride) 50 mls @ 100 mls/hr IV Q24 [facility] Last Admin: 12/07/20 10:57 Dose: 100 mls/hr Documented by: Lansoprazole (Lansoprazole 15 Mg Capsule.) 15 mg GT DAILY [facility] Last Admin: 12/07/20 08:30 Dose: 15 mg Documented by: Multivitamins (Multivitamins,Therapeutic Tablet) [facility] Last Admin: 12/07/20 08:31 Dose: 1 tablet Documented by: Nystatin (Nystatin Powder 15gm Bottle) 1 applic TOPICAL TID [facility]; Protocol Last Admin: 12/07/20 05:42 Dose: 1 applicatio Documented by: Ondansetron HCl (Ondansetron 4 Mg/2 Ml Vial) 4 mg IV Q8H PRN PRN PRN Reason: NAUSEA/VOMITING Last Admin: 12/05/20 06:16 Dose: 4 mg Documented by: Sertraline HCl (Sertraline 50 Mg Tablet) 50 mg GT DAILY [facility] Last Admin: 12/07/20 08:31 Dose: 50 mg Documented by: Sodium Chloride (0.9% Saline Lock 10 Ml Syringe) 10 - 40 ml IV UD PRN PRN Reason: Multilumen/Sow Flush Last Admin: 12/06/20 12:01 Dose: 30 ml Documented by: Sodium Chloride (0.9 % Nacl (Sterile) Posiflush 10 Ml) 10 - 40 ml IV UD PRN PRN Reason: Port access or dressing change Medical Necessity - Tobacco Use Smoking Status: Never smoker Assessment/Plan All Active Problems (Last Reviewed 12/05/20 @ 00:[address] Eddie Chris MD) Septic shock (Acute) Shock, hypothermic (Acute) Hypomagnesemia (Resolved) Bradycardia (Acute) Cystitis (Resolved) UTI (urinary tract infection) (Acute) Insomnia (Resolved) Thrush (Resolved) Drug-induced pancytopenia (Resolved) Acidosis, metabolic (Resolved) Dehydration (Resolved) Acute renal failure superimposed on chronic kidney disease (Resolved) Right ankle sprain (Resolved) Ankle pain (Resolved) 1. Acute on CKD STage 4 due to sepsis ATN. Remains anuric with rising creatinine. Pt did not want dialysis. Poor dialysis candidate. Overall prognosis poor. 2. GNR Shock sepsis, on pressor support for persistent hypotension 3. UTI with klebsiella. 4. hx stroke 5. chronic afib DW hospitalist. Hospice appropriate
--- NOTE | 2020-12-07 12:55 | CASEMGMT ---
Addendum entered by Abbey Machado 12/07/20 15:07: PETRA spoke with Jony at [facility]. Pt has been accepted and be admitted to [facility] at any time. Hospice is unable to provide transportation at this time. Transportation arranged with [facility] for 4:30 pickup. Nursing notified as well as Hospice. Phone call to pt son Jaylon and VM left with d/c time. DNR, POA papers faxed. CURTIS Rausch Original Note: Social Work Per Dr. Cleveland, pt is appropriate for hospice referral. Phone call to [facility] and referral made to [facility]. [facility] staff have spoke with Dr. Cleveland about pt. Clinical information faxed to hospice by community services officer. PETRA will remain available should needs arise. CURTIS Rausch
--- NOTE | 2020-12-09 16:10 | DS.PCM_ITS ---
Discharge Date and Diagnosis - Problem List Patient Problems: Active and Suspected Problems (Last Reviewed 12/05/20 @ 00:[address] Eddie Chris MD) Septic shock (Acute) Shock, hypothermic (Acute) Bradycardia (Acute) UTI (urinary tract infection) (Acute) Secondary to Enterobacter cloacae Date of Admission: 12/04/20 Date of Discharge: 12/07/20 - Primary Discharge Diagnosis Acute Problems: Active Problems (Last Reviewed 12/05/20 @ 00:[address] Eddie Chris MD) #1 septic shock secondary to acute urinary tract infection with Klebsiella pneumoniae and bacteremia with Klebsiella oxytoca #2 cerebrovascular disease #3 essential hypertension #4 dysphagia #5 Acute renal failure on a backdrop of stage IV chronic kidney disease due to ATN from septic shock #6 chronic atrial fibrillation #7 urinary tract infection with Klebsiella pneumoniae #8 metabolic acidosis secondary to renal failure #9 ATN (acute tubular necrosis) secondary to septic shock #10 metabolic encephalopathy secondary to septic shock #11 bacteremia with Klebsiella oxytoca - Secondary Discharge Diagnosis Chronic Problems: Chronic Problems (Last Reviewed 12/05/20 @ 00:[address] Eddie Chris MD) Anemia (Chronic) Acute on chronic renal failure (Chronic) Essential hypertension (Chronic) Dysarthria (Chronic) CVA (cerebral vascular accident) (Chronic) Iron deficiency (Chronic) Chronic venous insufficiency of lower extremity (Chronic) Dysphagia (Chronic) Acute worsening of dysphagia secondary to CVA on 08/17/2020 Chronic renal failure, stage 4 (severe) (Chronic) Heme + stool (Chronic) PAF (paroxysmal atrial fibrillation) (Chronic) Chronic anticoagulation (Chronic) With apixaban Debility (Chronic) Secondary to strokes. The first stroke occurred 06/28/2020 and the second stroke occurred 08/17/2020. 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 Osteoarthritis (Chronic) Hypertension (Chronic) Keratitis (Chronic) Obesity (BMI 30.0-34.9) (Chronic) Normochromic normocytic anemia (Chronic) Gout (Chronic) Hyperuricemia (Chronic) Hospital Course and Treatment Operations: None, - Procedures: None Summary of Care Provided: The patient is a 85 year old F seen in the emergency room at [facility] with chief complaint of weakness, lightheadedness, and malaise. She was not alert and review of systems from the patient was minimal, work-up in the emergency room included a chest x-ray which showed a right pleural effusion with bilateral consolidation, EKG showed fibrillation, patient was noted to be hypotensive and hypothermic, urine grossly appeared infected, patient was given IV Rocephin and a fluid bolus was given to the patient. Nursing was unable to obtain blood for diagnostic work-up, right femoral vein was cannulated for blood draw, patient remained hypotensive after fluid bolus and a right subclavian line was placed and Levophed was ordered. Patient was admitted to the ICU for septic shock and urinary tract infection as well as acute on chronic renal failure. Patient's creatinine was elevated at 3.92, urinalysis revealed evidence of urinary tract infection. Patient status declined while she was treated in the ICU, she was seen in consultation by critical care, she remained minimally responsive and her kidney functions declined. She was seen in consultation by nephrology felt that the patient had ATN, urine culture grew out Klebsiella pneumoniae, blood culture grew out Klebsiella oxytocin. Conversations were carried out with the patient's family and the patient's family decided to withdraw aggressive treatment and make the patient comfort care, I contacted hospice who agreed to take the patient into the inpatient hospice facility. On 12/07/2020, patient was seen and examined:General: Patient is lethargic and does not respond to verbal commands HEENT: Atraumatic, PERRLA, Normocephalic Neck: Supple, No JVD, Trachea Midline, Thyroid Normal Size and Texture Lungs: Clear to auscultation, Normal air movement, No rhonchi, No wheeze Cardiovascular: Normal S1, Normal S2, No murmurs, PMI Normal, Irregular Rate, No rub noted Abdomen: Bowel Sounds Present, Soft, Non Tender, Non-Distended, - - PEG tube is present Extremities: No clubbing, No cyanosis, Capillary Refill Less than 3 Seconds, Edema - Generalized edema is noted Skin: No breakdown Neurological: Cranial nerves II-XII grossly intact, Neuro grossly intact Psych/Mental Status: - - Patient is lethargic, she does not appear to be in any distress at the present time On 12/07/2020, patient was seen and examined and felt to be in stable condition for transfer to the inpatient hospice facility for terminal care. Patient Problems: Active and Suspected Problems (Last Reviewed 12/05/20 @ 00:[address] Eddie Chris MD) Septic shock (Acute) Shock, hypothermic (Acute) Bradycardia (Acute) UTI (urinary tract infection) (Acute) Secondary to Enterobacter cloacae - Physical Exam Vitals/I&O's: Vital Signs Temp Pulse Resp BP Pulse Ox 96.3 F L 76 12 110/76 95 12/07/20 16:00 12/07/20 16:15 12/07/20 16:00 12/07/20 16:15 12/07/20 16:00 Oxygen Flow Rate (L/min) 2 Oxygen Delivery Method Nasal Cannula Weight: 91.9 kg Body Mass Index (BMI) 36.6 Intake and Output for Last 24 Hours 12/07/20 12/08/20 12/09/20 23:59 23:59 23:59 Intake Total 214.35 / 214.35 Output Total 40 / 40 Balance 174.35 / 174.35 Microbiology Past 72 Hours 12/04/20 18:00 Blood Culture (Wb) - Anticubital Left Blood Culture - Preliminary No growth in 48 hours. 12/04/20 18:20 Blood Culture (Wb) - Arm Left Blood Culture - Preliminary Klebsiella oxytoca Home Medications: Medications to take at Discharge Acetaminophen [8 Hour Acetaminophen] 650 mg PO Q6H PRN PRN 08/18/20 Arthritis Pain Compound See Protocol click TOPICAL BID 08/18/20 Menthol/Lanolin/Calamine/Znox [Calmoseptine Ointment] 1 applicatio TOPICAL BID 08/18/20 Aspirin [Aspirin EC] 81 mg PO DAILY #1 bottle 09/06/20 Furosemide [Lasix] 60 mg PO DAILY PRN #30 tab 09/06/20 Multivitamin 1 ea PO DAILY #30 tab 09/06/20 amlodipine 5 mg tablet 5 mg PO BID #180 tab 09/30/20 apixaban 2.5 mg tablet 2.5 mg PO BID #180 tab 09/30/20 ascorbic acid (vitamin C) 500 mg tablet 500 mg GT DAILY@1200 #90 tab 09/30/20 atorvastatin 80 mg tablet 80 mg GT QHS #90 tab 09/30/20 ferrous sulfate 300 mg (60 mg iron)/5 mL oral liquid 300 mg GT DAILY@0800 90 Days #30 oz 09/30/20 lansoprazole 15 mg capsule,delayed release 15 mg GT DAILY #90 cap 09/30/20 magnesium oxide 400 mg PO DAILY #90 tab 09/30/20 melatonin 3 mg tablet 6 mg GT QHS 90 Days #180 tab 09/30/20 sertraline 50 mg tablet 50 mg GT DAILY #90 tab 09/30/20 atenolol 25 mg tablet 75 mg GT BID 90 Days #540 tab 11/23/20 Primary Care Physician: Mario Perez MD [Primary Care Provider] - Disposition: Hospice Medical Facility Minutes spent on discharge:: 32 Patient Condition:: Stable Medical Necessity - Tobacco Use Smoking Status: Never smoker Meaningful Use Info Meaningful Use Diagnoses (Choose all that apply): None applicable Inpatient E&M: 422[address] [facility]
== END 2020-12-07 16:58 | disposition hospice, inpatient (51) | DRG 871 ==
LOC: ED 21:23 → ICU 22:46
PROVIDERS: Internal Medicine Critical Care Medicine; Admitting Provider Hospitalist; Emergency Provider Emergency Medicine; PCP Internal Medicine; Visit Provider Internal Medicine
DX: A41.50 Gram-negative sepsis, unspecified (principal); G93.41 Metabolic encephalopathy; R65.21 Severe sepsis with septic shock; N17.0 Acute kidney failure with tubular necrosis; R57.8 Other shock; N18.4 Chronic kidney disease, stage 4 (severe); N30.00 Acute cystitis without hematuria; J90 Pleural effusion, not elsewhere classified; I48.20 Chronic atrial fibrillation, unspecified; B96.1 Klebsiella pneumoniae [K. pneumoniae] as the cause of diseases classified elsewhere; R09.02 Hypoxemia; R00.1 Bradycardia, unspecified; E66.9 Obesity, unspecified; E78.5 Hyperlipidemia, unspecified; I69.398 Other sequelae of cerebral infarction; Z93.1 Gastrostomy status; I12.9 Hypertensive chronic kidney disease with stage 1 through stage 4 chronic kidney disease, or unspecified chronic kidney disease; D64.9 Anemia, unspecified; E61.1 Iron deficiency; H16.9 Unspecified keratitis; I69.391 Dysphagia following cerebral infarction; I87.2 Venous insufficiency (chronic) (peripheral); K21.9 Gastro-esophageal reflux disease without esophagitis; M19.90 Unspecified osteoarthritis, unspecified site; M1A.9XX0 Chronic gout, unspecified, without tophus (tophi); Z68.37 Body mass index [BMI] 37.0-37.9, adult; Z79.01 Long term (current) use of anticoagulants; Z79.82 Long term (current) use of aspirin; Z79.899 Other long term (current) drug therapy
CPT/HCPCS: 36600; 51702; 71045; 80048; 80053; 81001; 82803; 83605; 83735; 83880; 84443; 85025; 85610; 85730; 87040; 87077; 87086; 87088; 87186; 92610; 93005; 94002; 97162; 97166; 97802; 97803; 99285; J7030; J7050; A4216; C1751; J0696; J0744; J2405; J3490